=== PATIENT | male | born 1935 | race Caucasian/White ===

== ENCOUNTER 2019-07-03 12:56 | Outpatient (CLI) | payer OTHER, SELFPAY ==
--- NOTE | ~2019-07-03 | US_ITS ---
EXAMINATION: US thyroid EXAM DATE: 07/03/2019 13:25 INDICATION: Thyroid mass. TECHNIQUE: Multiple grayscale and Doppler images of the thyroid were obtained (by a technologist who performed the scan) and subsequently reviewed. Individual nodules and recommendations may be reporte d in accordance with TI-RADS system as designated by the 2017 ACR White Paper TI-RADS committee. Reena elation is made to CT pulmonary scan. FINDINGS: The right thyroid lobe measures 4.2 x 2.5 x 2.9 cm, the left measuring 4.3 x 1.5 x 1.4 cm. There are scattered thyroid nodules. Diffusely heterogeneous hypervascular thyroid echogenicity. The largest nodule is in the right thyroid lobe measuring 3.0 x 2.2 x 3.0 centimeters, solid (2 point s), hypoechoic (2 points), wider than tall, smooth margin, without echogenic foci, category TR4 for t his nodule. IMPRESSION: Right thyroid lobe nodule large enough to consider ultrasound-guided FNA. Reviewed, dictated and finalized at location A. IMPRESSION: Right thyroid lobe nodule large enough to consider ultrasound-guide d FNA.
== END 2019-07-03 12:57 | disposition home or self-care (01) ==
PROVIDERS: PCP Internal Medicine; Visit Provider Nurse Practitioner
DX: E07.89 Other specified disorders of thyroid (principal); E04.1 Nontoxic single thyroid nodule
CPT/HCPCS: 76536

== ENCOUNTER 2019-07-10 10:31 | Outpatient (CLI) | payer OTHER, SELFPAY ==
--- NOTE | ~2019-07-10 | US_ITS ---
EXAMINATION: US FNA w image guidance DATE: 07/10/2019 11:21 INDICATION: Right thyroid nodule TECHNIQUE: A time-out was performed to verify the patient's name, date of , and procedure to be performed . The procedure and its benefits and risks were discussed with the patient. Risks specifically discus sed included bleeding and infection. The patient understood the risks and agreed to proceed. The neck was prepped and draped in the usual sterile manner. 5 mL 1% lidocaine was used for local anesthesia . 6 passes were made with a 25G needle into the lesion. Appropriate needle location was documented with continuous sonographic guidance. The specimens were passed to the lead nuclear medicine technologist in the room. A sterile bandage was applied. There were no immediate complications. FINDINGS: Grayscale ultrasound images demonstrate biopsy needles advanced into a solid 2.5 x 1.8 x 2.7 cm right thyroid nodule with microcalcification seen on real-time imaging, TI RADS 5. IMPRESSION: 1. Successful ultrasound-guided fine needle aspiration of a 2.7 cm TI RADS 5 right thyroid nodule. Reviewed, dictated and finalized at location A. IMPRESSION: 1. Successful ultrasound-guided fine needle aspiration of a 2.7 cm TI RADS 5 r ight thyroid nodule.
== END 2019-07-10 10:32 | disposition home or self-care (01) ==
PROVIDERS: PCP Internal Medicine; Visit Provider Nurse Practitioner
DX: E04.1 Nontoxic single thyroid nodule (principal)
CPT/HCPCS: 10005; 88108; 88173; 88305

== ENCOUNTER 2019-07-23 11:20 | Outpatient (CLI) | payer OTHER, SELFPAY ==
[2019-07-23 12:10] LABS: Basophils Percent Auto 0.5 % (0.2-1.2); Eosinophils Absolute Auto 0.2 K/mm3 (0-0.3); Eosinophils Percent Auto 5.4 % (0-4.4); Hematocrit 39.8 % (42.0-52.0); Hemoglobin 13.4 g/dL (14.0-18.0); Immature Granulocyte Absolute 0.01 K/mm3 (0.00-0.031); Immature Granulocyte Percent A 0.3 % (0-0.5); Lymphocytes Absolute Auto 1.45 K/mm3 (0.9-3.2); Lymphocytes Percent Auto 37.4 % (18.3-44.2); Mean Corpuscular HGB Conc 33.7 g/dl (32-36); Mean Corpuscular Hemoglobin 31.8 pg (26-34); Mean Corpuscular Volume 94.5 fl (80-100); Mean Platelet Volume 9.7 fl (7.4-10.4); Monocytes Absolute Auto 0.4 K/mm3 (0.1-0.6); Monocytes Percent Auto 10.1 % (2.6-8.5); Neutrophils Absolute Auto 1.8 K/mm3 (1.3-6.7); Neutrophils Percent Auto 46.3 % (45.5-73.1); Platelet Count Result 157 k/mm3 (150-375); Red Blood Count 4.21 M/mm3 (4.6-6.20); Red Cell Distribution Width 14.7 % (11.5-14.5); White Blood Count 3.9 K/mm3 (4.5-10.0)
[2019-07-23 12:26] LABS: Alanine Aminotransferase 29 U/L (4-50); Albumin Level 3.5 g/dL (3.5-5.1); Alkaline Phosphatase 80 U/L (38-126); Aspartate Amino Transferase 37 U/L (17-59); Bilirubin,Total 0.8 mg/dL (0.2-1.3); Blood Urea Nitrogen 18 mg/dL (9-20); Calcium 8.9 mg/dL (8.4-10.2); Carbon Dioxide 26 mmol/L (22-30); Chloride 107 mmol/L (98-107); Estimated Glomerular Filt Rate > 60; Glucose 85 mg/dL (75-110); Potassium 4.6 mmol/L (3.4-5.0); Sodium 138 mmol/L (137-145)
== END 2019-07-23 11:21 | disposition home or self-care (01) ==
LOC: ANHLAB 11:23
PROVIDERS: PCP Internal Medicine; Visit Provider Internal Medicine
DX: R53.83 Other fatigue (principal)
CPT/HCPCS: 36415; 80053; 84443; 85025

== ENCOUNTER 2019-09-11 10:52 | Outpatient (CLI) | payer OTHER, SELFPAY ==
--- NOTE | ~2019-09-11 | XR_ITS ---
EXAMINATION: XR hip RT 2V w AP pelvis DATE: 09/11/2019 11:06 INDICATION: Right hip pain. TECHNIQUE: An anteroposterior view pelvis and 2 views of right hip were obtained. COMPARISON: CT abdomen and pelvis 06/30/2015 FINDINGS: There is lumbar dextrocurvature and severe spondylosis. No fracture. There is mild osteoart hritis of the hips. IMPRESSION: 1. Mild osteoarthritis of the hips. Reviewed, dictated and finalized at location A.
== END 2019-09-11 10:53 | disposition home or self-care (01) ==
PROVIDERS: PCP Internal Medicine; Visit Provider Nurse Practitioner
DX: M16.0 Bilateral primary osteoarthritis of hip (principal)
CPT/HCPCS: 73502

== ENCOUNTER 2020-07-27 09:33 | Outpatient (CLI) | payer OTHER, SELFPAY ==
--- NOTE | ~2020-07-27 | NM_ITS ---
EXAMINATION: NM deidra stress w perfusion EXAM DATE: 07/27/2020 12:06 INDICATION: CAD, involving tangirnaq coronary artery sob fatigue. TECHNIQUE: Rest images were obtained following intravenous administration of 9.8 mCi Tc99m tetrofosmi n (Myoview). The patient was infused intravenously with Lexiscan (regadenoson). Then, 32.3 mCi Tc99m tetrofosmin (Myoview) was administered intravenously, and stress images were obtained. Data was recon structed into short axis and horizontal and vertical long axis SPECT images. Gated SPECT images were also obtained. There is no prior study for comparison. FINDINGS: Large severe fixed perfusion defect consistent with infarction involving entire septal wall , most of the anterior wall, extending across the apex and inferolateral velasquez. No definite reversibi lity. There is decreased anteroseptal wall motion. End diastolic volume: 203 mL. End-systolic volume: 137 mL. Left ventricular ejection fraction: 33%. IMPRESSION: 1. Large severe LAD distribution centered infarction. 2. Dilated left ventricle with low ejection fraction 33%. Reviewed, dictated and finalized at location A.
--- NOTE | 2020-07-27 09:53 | EST_ITS ---
Patient Info Name: Blade Faulkner Winning Age: 84 years : 1935 Gender: Male Ht: 68 in Wt: 165 lbs BSA: 1.90 m2 Heart Rhythm: Sinus Rhythm Exam Date: 07/27/2020 10:42 AM Exam Location: [facility] Stress Patient Status: Outpatient Admit Date: 07/27/2020 Staff Ordering Physician: Crispin Saldana DO Attending Provider: Crispin Saldana DO Exercise Technologist: Juli Mendenhall CT Exercise Physician: Koffi Rivera MD Exam Type: CA stress deidra w NM Study Info A regadenoson stress test was performed. Summary 1. Sinus bradycardia. Anteroseptal CT, first-degree AV block. 2. No abnormal ST/T wave changes with Lexiscan compared to baseline. 3. Occasional stress-induced PVCs. 4. Please correlate with nuclear medicine images, reported separately. Protocol: Lexiscan Stress ECG Details Stage: REST Duration (min): 11 min : 53 sec HR (bpm): 54 SBP (mmHg): 139 DBP (mmHg): 73 Stage: STAGE 1 Duration (min): 1 min : 0 sec HR (bpm): 61 SBP (mmHg): 135 DBP (mmHg): 73 Stage: RECOVERY Duration (min): 1 min : 0 sec HR (bpm): 71 SBP (mmHg): 135 DBP (mmHg): 73 Stage: RECOVERY Duration (min): 2 min : 0 sec HR (bpm): 70 SBP (mmHg): 135 DBP (mmHg): 73 Stage: RECOVERY Duration (min): 3 min : 0 sec HR (bpm): 71 SBP (mmHg): 129 DBP (mmHg): 71 Stage: RECOVERY Duration (min): 4 min : 0 sec HR (bpm): 67 SBP (mmHg): 129 DBP (mmHg): 71 Stage: RECOVERY Duration (min): 4 min : 52 sec HR (bpm): 66 SBP (mmHg): 130 DBP (mmHg): 71 Rest HR: 54 bpm Peak HR: 77 bpm Rest Sys BP: 139 mmHg Peak Sys BP: 135 mmHg Max Pred HR: 136 bpm % Max Pred HR: 57 % Target HR: 116 bpm Max RPP: 10,395 bpm*mmHg BP Response: Normal blood pressure response Termination Reason: Completed protocol Cardiac Symptoms: None Total Time: 1 min : 0 sec Rest Arnold BP: 73 mmHg Peak Arnold BP: 73 mmHg Total Dose: 0.4 mg Resting ECG Sinus bradycardia. Anteroseptal CT, first-degree AV block. Stress ECG No abnormal ST/T wave changes with Lexiscan compared to baseline. Arrhythmias Occasional stress-induced PVCs. Report Signatures
== END 2020-07-27 09:34 | disposition home or self-care (01) ==
PROVIDERS: PCP Internal Medicine; Visit Provider Internal Medicine
DX: I25.10 Atherosclerotic heart disease of native coronary artery without angina pectoris (principal)
CPT/HCPCS: 78452; 93017; A9502; J2785

== ENCOUNTER 2021-07-14 14:39 | Outpatient (CLI) | payer OTHER, SELFPAY ==
--- NOTE | ~2021-07-14 | US_ITS ---
US thyroid INDICATION: History of benign follicular nodule identified by fine-needle aspiration biopsy. TECHNIQUE: Real-time sonographic images of the thyroid gland were obtained. COMPARISON: Ultrasound dated 07/03/2019 FINDINGS: The right thyroid lobe measures 4.3 x 2.8 x 2.7 cm. There are multiple nodules in the right lobe, largest measuring 2.9 x 2 x 2.1 cm compared with 3 x 2.2 x 3 cm on prior examination. Left lob e measures 4.5 x 1.3 x 1.7 cm. There are multiple nodules of the left lobe, largest measuring 1.6 x 1 x 0.8 cm which has increased in size compared with prior examination when it measured 11 x 10 x 7 mm . There is internal vascularity. This mass is solid, predominantly hypoechoic, wider than tall, lobul ated with macrocalcifications, TR 5. IMPRESSION: 1. Increased size of complex hypoechoic left thyroid mass measuring up to 1.6 cm which may criteria for ultrasound-guided fine-needle aspiration biopsy. 2: Diminished size of dominant right thyroid mass compared with prior examination. This was previous ly biopsy proven benign. Reviewed, dictated and finalized at location A. IMPRESSION: 1. Increased size of complex hypoechoic left thyroid mass measuring up to 1.6 cm which may criteria for ultrasound-guided fine-needle aspiration biopsy. 2: Diminished size of dominant right thyroid mass compared with prior examinat ion. This was previously biopsy proven benign.
== END 2021-07-14 14:40 | disposition home or self-care (01) ==
PROVIDERS: PCP Internal Medicine; Visit Provider Nurse Practitioner
DX: E07.89 Other specified disorders of thyroid (principal); E04.1 Nontoxic single thyroid nodule
CPT/HCPCS: 76536

== ENCOUNTER 2021-08-01 10:22 | Outpatient (CLI) | payer OTHER, SELFPAY ==
--- NOTE | ~2021-08-01 | US_ITS ---
EXAMINATION: US FNA w image guidance DATE: 08/01/2021 11:39 INDICATION: Other specified disorders of thyroid. Enlarging left thyroid mass. TECHNIQUE: A time-out was performed to verify the patient's name, date of , and procedure to be performed . The procedure and its benefits and risks were discussed with the patient. Risks specifically discus sed included bleeding and infection. The patient understood the risks and agreed to proceed. The neck was prepped and draped in the usual sterile manner. 3 mL 1% lidocaine was used for local anesthesia . 6 passes were made with a 25G needle into the lesion. Appropriate needle location was documented with continuous sonographic guidance. A sterile bandage was applied. There were no immediate compli cations. FINDINGS: Grayscale ultrasound images demonstrate biopsy needles advanced into a 1.6 cm solid left thyroid mass of concern with central coarse calcification. IMPRESSION: 1. Successful ultrasound-guided fine needle aspiration of the 1.6 cm solid left thyroid mass of conc clarice. Reviewed, dictated and finalized at location A. IMPRESSION: 1. Successful ultrasound-guided fine needle aspiration of the 1.6 cm solid lef t thyroid mass of concern.
== END 2021-08-01 10:23 | disposition home or self-care (01) ==
PROVIDERS: PCP Internal Medicine; Visit Provider Nurse Practitioner
DX: E07.89 Other specified disorders of thyroid (principal)
CPT/HCPCS: 10005; 88173; 88305

== ENCOUNTER 2021-10-20 14:08 | Inpatient (IN) | payer OTHER, SELFPAY ==
[2021-10-20] VITALS (29 sets, daily range): BP systolic 97–145; BP diastolic 69–97; PULSE 88–127; RESP 16–31; TEMP 36.5–36.7; O2SAT 85–100; BMI 25.0
--- NOTE | ~2021-10-20 | CT_ITS ---
EXAMINATION: CTA chest PE protocol DATE: 10/20/2021 16:52 INDICATION: Elevated d-dimer. Cough and shortness of breath for 3 weeks. TECHNIQUE: Computed tomography angiography (CTA) of the chest was performed with 100 mL Omnipaque-350 intravenous contrast timed to evaluate the pulmonary arteries. Coronal maximum intensity projection 3D-reconstructions were created by the technologist. Automated exposure control and iterative reconst ruction technique were employed. Exam dose: 257.13 mGy-cm total exam DLP. COMPARISON: 10/20/2021 PA and lateral chest FINDINGS: There is diagnostic contrast enhancement of the pulmonary arteries. There is evidence of ex tensive filling defects in the right lower lobe basilar segmental arteries, with prominent right basi lar lower lobe infiltrate and atelectasis. There is lesser mild left lower lobe basilar atelectasis. Mild to moderate bilateral pleural effusions, greater on the right. Mild pericardial effusion. Cardiomegaly. Coronary artery calcifications. The ascending aorta measures approximately 4.2 cm diameter, the aortic arch 3 cm diameter, descending thoracic aorta approximately 2.8 cm diameter. Approximately 12 by 18 mm hypoattenuating lesion of the right lobe of the thyroid gland; consider thy roid ultrasound examination for further evaluation as clinically appropriate. Mild bilateral hilar and mediastinal lymph node prominence, likely reactive. Moderate anterior wedge compression fracture deformity of T7. Prominent burst fracture of T12. Diffuse osteopenia. IMPRESSION: Right lower lobe basilar segment pulmonary emboli Mild pericardial effusion Cardiomegaly Bilateral pleural effusions, right greater than left Bilateral lower lobe infiltrate or atelectasis, right greater than left Prominent burst fracture of T12 Moderate anterior wedge compression fracture deformity of T7 Osteopenia Right thyroid mass; consider thyroid ultrasound examination Reviewed, dictated and finalized at Location A. Reviewed, dictated and finalized at location B.
--- NOTE | ~2021-10-20 | XR_ITS ---
XR chest 2V DATE: 10/20/2021 16:00 INDICATION: Cough and shortness of breath for 2 weeks. Low oxygen saturation. TECHNIQUE: PA and lateral views COMPARISON: 08/10/2018 AP and lateral chest FINDINGS: Mild cardiomegaly. Aortic calcification and unfolding. There are bilateral basilar infiltrates and/atelectasis, right greater than left. Small pleural effus ions are suggested. Pulmonary vascular redistribution is suggested. Mild congestive heart failure paige uld be considered. No pneumothorax. Osteopenia. IMPRESSION: Bibasilar infiltrate or atelectasis, right greater than left Cardiomegaly, pulmonary vascular redistribution and small pleural effusions, suggesting mild congesti ve heart failure Reviewed, dictated and finalized at location B. IMPRESSION: Bibasilar infiltrate or atelectasis, right greater than left Cardiomegaly, pulmonary vascular redistribution and small pleural effusions, webb ggesting mild congestive heart failure
--- NOTE | ~2021-10-20 | US_ITS ---
EXAMINATION: US venous doppler [facility] DATE: 10/21/2021 09:54 INDICATION: Acute pulmonary emboli. TECHNIQUE: Grayscale ultrasound images without and with compression and Doppler ultrasound images of the bilateral lower extremity veins were obtained. COMPARISON: None. FINDINGS: The visualized portions of right common femoral vein, profunda (deep) femoral vein, femoral vein, pop liteal vein, peroneal veins, posterior tibial veins, and greater saphenous vein outflow are patent. The visualized portions of left common femoral vein, profunda femoral vein, femoral vein, popliteal v ein, peroneal veins, posterior tibial veins, and greater saphenous vein outflow are patent. IMPRESSION: 1. No deep venous thrombosis. Reviewed, dictated and finalized at location A.
--- NOTE | 2021-10-20 15:20 | ECG_ITS ---
Measurements Intervals [place] Rate: 104 P: RI: 0 QRS: -49 QRSD: 149 T: 118 QT: 390 QTc: 515 Interpretive Statements ATRIAL FIBRILLATION WITH RAPID VENTRICULAR RESPONSE VENTRICULAR PREMATURE COMPLEX LEFT AXIS DEVIATION INTRAVENTRICULAR CONDUCTION DELAY ST-T WAVE ABNORMALITY IN HIGH LATERAL LEADS- CONSIDER ISCHEMIA BASELINE WANDER- V6 ABNORMAL ECG COMPARED TO ECG 08/12/2018 12:23:07 ATRIAL FIBRILLATION NOW PRESENT Electronically Signed On 10-20-2021 20:37:32 CDT by Eddi Alcala D.O.
--- NOTE | 2021-10-20 15:32 | ED.GENADULT ---
HPI - General Adult General Chief complaint: Shortness of Breath/Dyspnea Stated complaint: SOB, low sats Time Seen by Provider: 10/20/21 15:18 History of Present Illness HPI narrative: 86-year-old male with history of poor presented to the emergency department for evaluation of productive cough and shortness of breath over a 3-week period. Patient states approximately 3 weeks ago he had a pretty intense cough and has had subsequent intermittent cough and shortness of breath. Patient has not tested himself for COVID. Patient denies any fevers. Patient denies any associated chest pain. Patient is not a smoker. Patient does take Lasix daily Patient is on Xarelto and amiodarone for his atrial fibrillation already. Related Data Home Medications Medication Instructions Recorded Confirmed amiodarone 200 mg tablet 100 mg PO DAILY 02/24/19 10/20/21 atorvastatin 40 mg tablet 40 mg PO DAILY 02/24/19 10/20/21 finasteride 5 mg tablet 5 mg PO DAILY 02/24/19 10/20/21 rivaroxaban 20 mg tablet (Xarelto) 20 mg PO QPM 02/24/19 10/20/21 sacubitril 24 mg-valsartan 26 mg 1 tablet PO BID 02/24/19 10/20/21 tablet (Entresto) aspirin 81 mg tablet,delayed 81 mg PO DAILY 06/18/19 10/20/21 release furosemide 20 mg tablet 20 mg PO DAILY 10/20/21 10/20/21 multivitamin with minerals-folic 1 tablet PO DAILY 10/20/21 10/20/21 acid 0.4 mg tablet Allergies Allergy/AdvReac Type Severity Reaction Status Date / Time No Known Allergies Allergy Verified 10/20/21 15:21 Review of Systems Review of Systems: CONSTITUTIONAL: Denies fever, chills, or sweats. EYES: Denies visual changes, redness, or discharge. ENT: Denies rhinorrhea, congestion, sore throat, or otalgia. CARDIOVASCULAR: Denies chest pain, palpitations, or edema. RESPIRATORY: Cough and shortness of breath over 3-week period, see HPI GASTROINTESTINAL: Denies abdominal pain, nausea, vomiting, or diarrhea. GENITOURINARY: Denies dysuria or hematuria. SKIN: Denies rash or itching. MUSCULOSKELETAL: Denies back pain, joint pain, or myalgia. NEUROLOGIC: Denies headache, numbness, or weakness. 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 Coronary artery disease involving [place] coronary artery of [place] heart History of [place] (myocardial infarction) Macular degeneration Persistent atrial fibrillation Thyroid mass of unclear etiology Surgical History Surgical History History of tonsillectomy S/P extracapsular cataract extraction Family History Family History Mother Family history of respiratory disorder, Onset Age: 78 Family history of Alzheimer's disease Patient's mother is Father Patient's father is Acute myocardial infarction Social History Social History (Updated 10/20/21 @ 20:20 by Willow Cordova NP) 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 HEAD: normocephalic, atraumatic. EYES: PERRLA/EOMI, conjunctivae clear. NOSE: Normal no drainage THROAT: Pharynx clear, no exudate. NECK: Supple. No adenopathy, no masses. RESPIRATORY: Airway patent, respirations nonlabored. Clear to auscultation bilaterally, no rales, rhonchi, wheezing. CARDIOVASCULAR: Regular rate and rhythm without murmurs rubs or gallops. ABDOMINAL: Soft, nontender, nondistended, normal bowel sounds MUSCULOSKELETAL: Moves all extremities. Strength/ROM intact, +2 edema, No calf tenderness. NEURO: Alert. Cranial nerves II through XII intact.
[2021-10-20 15:41] LABS: Alveolar/Arterial O2 Gradient 38.7 mmHg; Base Excess ABG -2.2 mEq/l (+/-2.0); Fractional Inspired Oxygen 21 %; HCO3 ABG 20.3 mEq/l (22.0-26.0); Oxygen Content ABG 17.1 %vol (16.0-22.0); Oxygen Saturation ABG 96.3 % (95.0-100.0); Oxyhemoglobin 94.5 % THb (90.0-100.0); PCO2 ABG 28.6 mmHg (35.0-45.0); PO2 ABG 76.8 mmHg (80.0-100.0); PO2 FiO2 Ratio Arterial Blood 3.66 %; Total Hemoglobin 12.8 g/dL (12.0-18.0)
[2021-10-20 15:42] LABS: Modified Allen's Test Pass; Site Drawn LEFT RADIAL
[2021-10-20 15:43] LABS: Basophils Percent Auto 0.5 % (0.2-1.2); Eosinophils Absolute Auto 0.1 K/mm3 (0-0.3); Eosinophils Percent Auto 2.4 % (0-4.4); Hematocrit 37.9 % (42.0-52.0); Hemoglobin 12.6 g/dL (14.0-18.0); Immature Granulocyte Absolute 0.01 K/mm3 (0.00-0.031); Immature Granulocyte Percent A 0.2 % (0-0.5); Lymphocytes Absolute Auto 1.19 K/mm3 (0.9-3.2); Lymphocytes Percent Auto 28.3 % (18.3-44.2); Mean Corpuscular HGB Conc 33.2 g/dl (32-36); Mean Corpuscular Hemoglobin 31.7 pg (26-34); Mean Corpuscular Volume 95.2 fl (80-100); Mean Platelet Volume 9.4 fl (7.4-10.4); Monocytes Absolute Auto 0.4 K/mm3 (0.1-0.6); Monocytes Percent Auto 10.2 % (2.6-8.5); Neutrophils Absolute Auto 2.5 K/mm3 (1.3-6.7); Neutrophils Percent Auto 58.4 % (45.5-73.1); Platelet Count Result 194 k/mm3 (150-375); Red Blood Count 3.98 M/mm3 (4.6-6.20); Red Cell Distribution Width 15.4 % (11.5-14.5); White Blood Count 4.2 K/mm3 (4.5-10.0)
[2021-10-20 15:52] LABS: Alanine Aminotransferase 31 U/L (6-50); Albumin Level 3.5 g/dL (3.5-5.1); Alkaline Phosphatase 80 U/L (38-126); Anion Gap 5 mmol/L (8-16); Aspartate Amino Transferase 45 U/L (17-59); Bilirubin,Total 1.2 mg/dL (0.2-1.3); Blood Urea Nitrogen 16 mg/dL (9-20); Calcium 8.9 mg/dL (8.4-10.2); Carbon Dioxide 23 mmol/L (22-30); Chloride 108 mmol/L (98-107); Estimated CRCL calculation 48 ml/min; Estimated Glomerular Filt Rate > 60; Glucose 84 mg/dL (65-110); Potassium 3.9 mmol/L (3.4-5.0); Sodium 136 mmol/L (137-145)
[2021-10-20 16:01] LABS: NT Pro B Type Natriuretic Pept 4370 pg/mL (5-100)
[2021-10-20 16:23] LABS: SARS-CoV-2 RNA PCR Negative
[2021-10-20 16:34] LABS: D Dimer 1.68 ug/mL (<0.48)
[2021-10-20] MEDS: ENOXAPARIN 80 MG/0.8 ML SYRINGE 75 MG SUB-Q (17:56)
[2021-10-20] MEDS: FUROSEMIDE INJ 40 MG/4 ML VIAL (17:57)
--- NOTE | 2021-10-20 21:28 | ADMGEN ---
This patient, Blade Lacy, was admitted to IMU Room 232-01 at 2120. Patient/family oriented to hospital policies and general routines including ID bracelet, bed and alarms, visiting hours, pain management, procedures, bathroom and other care routines, personal items, smoking policy, room service/diet, and visiting hours. Information on how to activate the Rapid Response Team has been discussed. Patient/Family are encouraged to report perceived risks to care and to ask questions if they do not understand what they are told or what they should do.
--- NOTE | 2021-10-20 22:55 | PM.IMHP ---
H&P: HPI History of Present Illness Date/Time: 10/20/211999 Chief Complaint: Shortness of breath and low O2 saturation Narrative: This is a 86-year-old male patient who lives with his . He came in due to productive cough and shortness breath over the last 3 weeks. The patient stated that he did have a COVID test was found to be negative. The patient stated that this started approximately 3 weeks ago and the coughing has been more intense he has been intermittently short of breath. He has a history of atrial fibrillation and has been on Xarelto. The patient was found to be negative for COVID today. Chest x-ray was read as a following Bibasilar infiltrate or atelectasis, right greater than left Cardiomegaly, pulmonary vascular redistribution and small pleural effusions, suggesting mild congestive heart failure. CTA was read as the followingRight lower lobe basilar segment pulmonary emboli Mild pericardial effusion Cardiomegaly Bilateral pleural effusions, right greater than left Bilateral lower lobe infiltrate or atelectasis, right greater than left Prominent burst fracture of T12 Moderate anterior wedge compression fracture deformity of T7 Osteopenia Right thyroid mass; consider thyroid ultrasound examination (The patient has already had a thyroid ultrasound and a needle biopsy on 08/01/2021 which was found to be benign.) His heart rate was found to be in the lower 100s. The patient stated that he has not taken any of his medications as of yet today. The patient has a pulse ox of 85 and 2 L was applied and brought his oxygen level up to 97%. The patient was given a dose of IV Lasix and subcu Lovenox in the emergency room. Patient's H&H is 12.6 and 37.9. D-dimer was found to be 1.68. D-dimer 4370. is being admitted to observation status on the date of service 10/20/2021. Review of Systems Review of Systems: See HPI All systems reviewed & are unremarkable except as noted in HPI and below Constitutional: Constitutional: Reports as per HPI and Reports no additional constitutional complaints Eyes: Eyes: Reports as per HPI and Reports no additional eye complaints ENT: Reports system reviewed and no additional complaints, except as documented and Reports Normal hearing present Cardiovascular: Cardiovascular: Reports no additional cardiovascular complaints Respiratory: Respiratory: Reports no additional respiratory complaints and Reports no additional respiratory complaints Gastrointestinal: Gastrointestinal: Reports as per HPI and Reports no additional gastrointestinal complaints Musculoskeletal: Musculoskeletal: Reports no additional musculoskeletal complaints Integumentary/Breasts: Skin/Breast: Reports system reviewed and no additional complaints, except as docu and Reports as per HPI Neurologic: Reports system reviewed and no additional complaints, except as documented, Reports as per HPI and Reports Normal hearing present Psychiatric: Psychiatric: Reports no additional psychiatric complaints and Reports as per HPI Endocrine: Endocrine: Reports no additional endocrine complaints Hematologic/Lymphatic: Hematologic/Lymphatic: Reports no additional hematologic/lymphatic complaints Allergic/Immunologic: Allergic/Immunologic: Reports no additional allergic/immunologic complaints [facility] Past Medical History Medical History (Updated 10/20/21 @ 23:10 by Willow Cordova NP) Atrial fibrillation BPH w/o urinary obs/LUTS Cerebrovascular accident (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
[2021-10-20] MEDS: carvediloL 12.5 MG TABLET PO (23:54)
[2021-10-20] MEDS: SACUBITRIL/VALSARTAN 24-26 MG TABLET 1 TAB PO (23:54)
[2021-10-21] VITALS (19 sets, daily range): BP systolic 114–127; BP diastolic 64–83; PULSE 68–123; RESP 14–20; TEMP 36.3–37.2; O2SAT 95–99
--- NOTE | 2021-10-21 | ECHO_ITS ---
Patient Info Name: Blade Faulkner Winning Age: 86 years : 1935 Gender: Male Ht: 67 in Wt: 159 lbs BSA: 1.86 m2 HR: 79 bpm BP: 117 / 71 mmHg Heart Rhythm: Atrial Fibrillation Technical Quality: Fair Exam Date: 10/21/2021 7:42 AM Exam Location: [facility] Patient Status: Inpatient Admit Date: 10/20/2021 Staff Ordering Physician: Willow Cordova NP Metal Fitter: Lyndsey Lozano RDCS Attending Provider: Taryn Woods DO Referring Physician: Art HANCOCK; Exam Type: CA echo dop color flow w con Study Info Indications J81.0 - Acute pulmonary edema Complete two-dimensional, color flow and Doppler transthoracic echocardiogram is performed with contrast to opacify the left ventricle and to improve the deliniation of the left ventricle endocardial borders. Contrast/Agitated Saline Contrast/Ag. Saline: Definity Amount: 3.00 ml Administered By: Lyndsey Lozano RDCS Existing IV Access: Yes IV Access Condition: patent with no signs of infiltration Summary 1. Left ventricular chamber dimension is severely enlarged. 2. Definity contrast administered improved wall motion interpretation. 3. Left ventricular septal wall motion is abnormal with septal motion related to bundle branch block. 4. Left ventricular systolic function is globally severely reduced, estimated at 30-35%. 5. The left ventricular diastolic function is grade III diastolic dysfunction. 6. E/e' 14 is mildly elevated. 7. Right ventricular systolic function is reduced based on abnormal TAPSE 1.4 cm. 8. Left atrial chamber dimension is moderately enlarged. 9. There is moderate aortic valve sclerosis. 10. There is mild aortic valve regurgitation. 11. No pulmonary hypertension, estimated pulmonary arterial systolic pressure is 30 mmHg. 12. There is trace pulmonic regurgitation. Left Ventricle E/e' 14 is mildly elevated. Left ventricular systolic function is globally severely reduced, estimated at 30-35%. Definity contrast administered improved wall motion interpretation. Left ventricular chamber dimension is severely enlarged. Left ventricular septal wall motion is abnormal with septal motion related to bundle branch block. The left ventricular diastolic function is grade III diastolic dysfunction. Right Ventricle Right ventricular systolic function is reduced based on abnormal TAPSE 1.4 cm. Right ventricular chamber dimension is not well visualized. Left Atria Left atrial chamber dimension is moderately enlarged. Right Atria Right atrial chamber dimension is normal. Aortic Valve The aortic valve is trileaflet. There is moderate aortic valve sclerosis. There is no aortic valve stenosis. There is mild aortic valve regurgitation. Pulmonic Valve There is trace pulmonic regurgitation. Mitral Valve There is no mitral valve stenosis. There is no mitral valve regurgitation. Tricuspid Valve There is no tricuspid valve regurgitation. No pulmonary hypertension, estimated pulmonary arterial systolic pressure is 30 mmHg. Pericardium/Pleural There is no pericardial effusion. Inferior Vena Cava Normal inferior vena cava with >50% collapse upon inspiration consistent with normal right atrial pressure, 5 mmHg. Aorta The aortic root size at the sinus of Valsalva is normal. Left Ventricular Outflow Tract Name V
[2021-10-21] MEDS: AMIODARONE HCL 100 MG TABLET PO ×2 (00:02→08:37)
[2021-10-21 00:28] LABS: Appearance Urine Clear (Clear); Bilirubin Urine Negative (Negative); Blood Urine 2+ (Negative); Color Urine Yellow (Yellow); Glucose Urine UA Negative (Negative); Ketones Urine Negative (Negative); Leukocyte Esterase Ur Negative LEU/UL (Negative); Nitrate Urine Negative (Negative); Protein Urine Negative (Negative)
[2021-10-21 00:36] LABS: RBC Urine >75 /hpf (0-2); WBC Urine 0-3 /hpf
[2021-10-21 00:42] LABS: Add Urine Microscopic? YES
[2021-10-21 05:03] LABS: Basophils Percent Auto 0.6 % (0.2-1.2); Eosinophils Absolute Auto 0.1 K/mm3 (0-0.3); Eosinophils Percent Auto 2.2 % (0-4.4); Hematocrit 35.7 % (42.0-52.0); Hemoglobin 12.1 g/dL (14.0-18.0); Lymphocytes Absolute Auto 1.33 K/mm3 (0.9-3.2); Lymphocytes Percent Auto 36.7 % (18.3-44.2); Mean Corpuscular HGB Conc 33.9 g/dl (32-36); Mean Corpuscular Hemoglobin 32.2 pg (26-34); Mean Corpuscular Volume 94.9 fl (80-100); Mean Platelet Volume 9.3 fl (7.4-10.4); Monocytes Absolute Auto 0.4 K/mm3 (0.1-0.6); Monocytes Percent Auto 11.3 % (2.6-8.5); Neutrophils Absolute Auto 1.8 K/mm3 (1.3-6.7); Neutrophils Percent Auto 49.2 % (45.5-73.1); Platelet Count Result 170 k/mm3 (150-375); Red Blood Count 3.76 M/mm3 (4.6-6.20); Red Cell Distribution Width 15.4 % (11.5-14.5); White Blood Count 3.6 K/mm3 (4.5-10.0)
[2021-10-21 05:14] LABS: Lactic Acid Reflex 0.7 mmol/L (0.7-2.0)
[2021-10-21 05:23] LABS: Alanine Aminotransferase 29 U/L (6-50); Albumin Level 3.1 g/dL (3.5-5.1); Alkaline Phosphatase 73 U/L (38-126); Anion Gap 2 mmol/L (8-16); Aspartate Amino Transferase 40 U/L (17-59); Blood Urea Nitrogen 15 mg/dL (9-20); Calcium 8.6 mg/dL (8.4-10.2); Carbon Dioxide 25 mmol/L (22-30); Chloride 107 mmol/L (98-107); Creatine Kinase 100 U/L (55-170); Estimated CRCL calculation 48 ml/min; Estimated Glomerular Filt Rate > 60; Glucose 82 mg/dL (65-110); Potassium 3.4 mmol/L (3.4-5.0); Sodium 134 mmol/L (137-145)
[2021-10-21 05:36] LABS: Lactate Dehydrogenase 168 U/L (120-246)
[2021-10-21] MEDS: ENOXAPARIN 80 MG/0.8 ML SYRINGE 75 MG SUB-Q (06:11)
--- NOTE | 2021-10-21 07:56 | PM.IMPN ---
Progress Note: A&P Assessment and Plan (1) Pulmonary embolism: Code(s): I26.99 - Other pulmonary embolism without acute cor pulmonale Status: Acute Assessment and Plan: Discontinue Xarelto and Lovenox, start Eliquis (2) Atrial fibrillation: Qualifiers: Atrial fibrillation type: paroxysmal Qualified Code(s): I48.0 - Paroxysmal atrial fibrillation Code(s): I48.91 - Unspecified atrial fibrillation Status: Acute Assessment and Plan: Continue Coreg, Eliquis, amiodarone, TSH within normal limits (3) Cerebrovascular accident (CVA) due to occlusion of right anterior cerebral artery: Code(s): I63.521 - Cerebral infarction due to unspecified occlusion or stenosis of right anterior cerebral artery Status: Acute Assessment and Plan: -continue with aspirin (4) History of [place] (myocardial infarction): Code(s): I25.2 - Old myocardial infarction Status: Acute Assessment and Plan: -continue with aspirin -continue with Coreg -continue with Lipitor (5) Macular degeneration: Code(s): H35.30 - Unspecified macular degeneration Status: Acute Assessment and Plan: -continue with home treatment. (6) Thyroid mass of unclear etiology: Code(s): E07.89 - Other specified disorders of thyroid Status: Acute Assessment and Plan: -the patient has already had a biopsy which was determined to be benign. (7) HTN, goal below 130/80: Code(s): I10 - Essential (primary) hypertension Status: Acute Assessment and Plan: -continue with amiodarone -continue with Coreg (8) Congestive heart failure: Code(s): I50.9 - Heart failure, unspecified Status: Acute Assessment and Plan: Echo from October 21, 2021 showed an EF of 30-35% with grade 3 diastolic dysfunction as well as reduced right ventricular systolic function Plan DVT prophylaxis with Eliquis GI prophylaxis not indicated Code status full code Subjective Date/time seen: 10/21/21 07:56 Interval history: Patient complaining of a dry cough. No overnight events noted. No chest pain or shortness of breath. No nausea, vomiting or diarrhea. No fevers or chills. Review of Systems Review of Systems: 12 point review of systems was assessed and was negative except as noted in the HPI Exam Narrative: General: No acute distress, alert and oriented per baseline HEENT: Atraumatic, normocephalic, mucous membranes moist CV: Irregularly irregular, S1, S2 Lungs: Clear to auscultation bilaterally, no rales or crackles noted, no wheezes, good air entry Abdomen: Soft, nontender, nondistended Extremities: Normal to inspection Skin: No rashes noted, no lesions or wounds seen Psych: Euthymic, normal affect Objective Data Vital Signs Vital Signs: Vital Signs - 24 hr 10/20/21 14:25 10/20/21 14:29 10/20/21 15:18 Temperature 98.1 F Pulse Rate 112 H 106 H Respiratory Rate 16 24 H Blood Pressure 128/77 133/97 H Pulse Oximetry 85 L 100 96 Oxygen Delivery Room Air Nasal Cannula Room Air Oxygen Flow Rate 2 10/20/21 15:26 10/20/21 15:18 10/20/21 15:19 Temperature Pulse Rate 114 H Respiratory Rate Blood Pressure 133/97 H Pulse Oximetry 100 Oxygen Delivery Oxygen Flow Rate 10/20/21 15:35 10/20/21 15:45 10/20/21 15:46 Temperature Pulse Rate 101 H 95 99 Respiratory Rate 22 H 19 17 Blood Pressure 142/87 H Pulse Oximetry 98 94 94 Oxygen Delivery Oxygen Flow Rate 10/20/21 16:01 10/20/21 16:21 10/20/21 16:30 Temperature Pulse Rate 117 H 105 H 88 Respiratory Rate 29 H 21 H 29 H Blood Pressure Pulse Oximetry 92 98 Oxygen Delivery Oxygen Flow Rate 10/20/21 16:56 10/20/21 17:05 10/20/21 17:15 Temperature Pulse Rate 122 H 98 97 Respiratory Rate 28 H 23 H 29 H Blood Pressure Pulse Oximetry 93 99 97 Oxygen Delivery Oxygen Flow Rate 10/20/21 17:16 10/20/21
[2021-10-21] MEDS: PERFLUTREN LIPID MICROSPHERES 1.5 ML VIAL DILUTED TO 10 ML TOTAL VOLUME IV PUSH (08:20)
--- NOTE | 2021-10-21 08:20 | IVDEFINITY ---
Prior to administration of IV Definity the patient was educated on the risks and benefits of the imaging enhancing agent including potential adverse side effects. The patient verbalized understanding. Allergies were verified. No exclusion criteria were identified and at least one of the following inclusion criteria were met: 1) physician request, 2) patient technically difficult to image (per the [place] [employer] guidelines of two or more segments not discernable within the apical view), or 3) questionable left ventricular function. ?
[2021-10-21] MEDS: FINASTERIDE 5 MG TABLET PO (08:37)
[2021-10-21] MEDS: carvediloL 12.5 MG TABLET PO ×2 (08:37→20:26)
[2021-10-21] MEDS: ATORVASTATIN 40 MG TABLET PO (08:37)
[2021-10-21] MEDS: SACUBITRIL/VALSARTAN 24-26 MG TABLET 1 TAB PO ×2 (08:37→20:26)
[2021-10-21] MEDS: THERAPEUTIC MULTIVITAMINS/MINERALS TAB (*BKC) 1 TABLET PO (08:38)
[2021-10-21] MEDS: FUROSEMIDE INJ 40 MG/4 ML VIAL IV PUSH ×2 (08:38→20:27)
[2021-10-21] MEDS: ASPIRIN 81 MG ENTERIC TABLET PO (08:38)
--- NOTE | 2021-10-21 15:14 | PC.NURSE ---
[facility] Services flyer was given to patient.
[2021-10-21] MEDS: BENZONATATE 100 MG CAPSULE 200 MG PO (17:20)
[2021-10-21 18:50] LABS: Anion Gap 5 mmol/L (8-16); Blood Urea Nitrogen 21 mg/dL (9-20); Carbon Dioxide 26 mmol/L (22-30); Chloride 106 mmol/L (98-107); Estimated CRCL calculation 48 ml/min; Estimated Glomerular Filt Rate > 60; Glucose 116 mg/dL (65-110); Phosphorus 3.4 mg/dL (2.5-4.5); Potassium 3.4 mmol/L (3.4-5.0); Sodium 137 mmol/L (137-145)
[2021-10-21] MEDS: APIXABAN 5 MG TABLET PO (20:26)
[2021-10-22] VITALS (11 sets, daily range): BP systolic 97–125; BP diastolic 59–86; PULSE 43–91; RESP 18–20; TEMP 35.7–36.6; O2SAT 94–97
[2021-10-22] MEDS: SACUBITRIL/VALSARTAN 24-26 MG TABLET 1 TAB PO (08:26)
[2021-10-22] MEDS: THERAPEUTIC MULTIVITAMINS/MINERALS TAB (*BKC) 1 TABLET PO (08:26)
[2021-10-22] MEDS: FINASTERIDE 5 MG TABLET PO (08:27)
[2021-10-22] MEDS: BENZONATATE 100 MG CAPSULE 200 MG PO ×2 (08:28→13:56)
[2021-10-22] MEDS: carvediloL 12.5 MG TABLET PO (08:28)
[2021-10-22] MEDS: ASPIRIN 81 MG ENTERIC TABLET PO (08:29)
[2021-10-22] MEDS: AMIODARONE HCL 100 MG TABLET PO (08:29)
[2021-10-22] MEDS: ATORVASTATIN 40 MG TABLET PO (08:29)
[2021-10-22] MEDS: APIXABAN 5 MG TABLET PO (08:29)
[2021-10-22] MEDS: FUROSEMIDE 20 MG TABLET PO (08:31)
--- NOTE | 2021-10-22 17:47 | PM.DS ---
DS: Admitting Diagnosis Discharge Date 10/22/21 Admitting Diagnosis Shortness of breath with cough DS: Discharge Diagnosis Discharge Diagnosis (1) Pulmonary embolism: Code(s): I26.99 - Other pulmonary embolism without acute cor pulmonale Status: Acute Assessment and Plan: Discontinue Xarelto and Lovenox, start Eliquis (2) Atrial fibrillation: Qualifiers: Atrial fibrillation type: paroxysmal Qualified Code(s): I48.0 - Paroxysmal atrial fibrillation Code(s): I48.91 - Unspecified atrial fibrillation Status: Acute Assessment and Plan: Continue Coreg, Eliquis, amiodarone, TSH within normal limits (3) Cerebrovascular accident (CVA) due to occlusion of right anterior cerebral artery: Code(s): I63.521 - Cerebral infarction due to unspecified occlusion or stenosis of right anterior cerebral artery Status: Acute Assessment and Plan: -continue with aspirin (4) History of [place] (myocardial infarction): Code(s): I25.2 - Old myocardial infarction Status: Acute Assessment and Plan: -continue with aspirin -continue with Coreg -continue with Lipitor (5) Macular degeneration: Code(s): H35.30 - Unspecified macular degeneration Status: Acute Assessment and Plan: -continue with home treatment. (6) Thyroid mass of unclear etiology: Code(s): E07.89 - Other specified disorders of thyroid Status: Acute Assessment and Plan: -the patient has already had a biopsy which was determined to be benign. (7) HTN, goal below 130/80: Code(s): I10 - Essential (primary) hypertension Status: Acute Assessment and Plan: -continue with amiodarone -continue with Coreg (8) Congestive heart failure: Code(s): I50.9 - Heart failure, unspecified Status: Acute Assessment and Plan: Echo from October 21, 2021 showed an EF of 30-35% with grade 3 diastolic dysfunction as well as reduced right ventricular systolic function Plan DVT prophylaxis with Eliquis GI prophylaxis not indicated Code status full code DS: Summary Hospital Course Hospital Course: 86-year-old male patient who lives with his .? He came in due to productive cough and shortness breath over the last 3 weeks.? The patient stated that he did have a COVID test was found to be negative.? The patient stated that this started approximately 3 weeks ago and the coughing has been more intense he has been intermittently short of breath.? He has a history of atrial fibrillation and has been on Xarelto.? The patient was found to be negative for COVID today. Echo was ordered: ? 1. Left ventricular chamber dimension is severely enlarged. ? 2. Definity contrast administered improved wall motion interpretation. ? 3. Left ventricular septal wall motion is abnormal with septal motion related to bundle branch block. ? 4. Left ventricular systolic function is globally severely reduced, estimated at 30-35%. ? 5. The left ventricular diastolic function is grade III diastolic dysfunction. ? 6. E/e' 14 is mildly elevated. ? 7. Right ventricular systolic function is reduced based on abnormal TAPSE 1.4 cm. ? 8. Left atrial chamber dimension is moderately enlarged. ? 9. There is moderate aortic valve sclerosis. ? 10. There is mild aortic valve regurgitation. ? 11. No pulmonary hypertension, estimated pulmonary arterial systolic pressure is 30 mmHg. ? 12. There is trace pulmonic regurgitation. All symptoms resolved. Patient was discharged in good condition on Asya Tomlin and close outpatient follow-up by primary care. Lovenox and Coumadin were discussed, patient elected to trial Eliquis first. Time Spent with Patient Time attestation: Total time spent providing and/or coordinating discharge services: Exam Narrative: General: No acute distress, alert and oriented per baseline HEENT: Atraumatic, normocephalic, mucous membranes moist CV: Ir
== END 2021-10-22 16:00 | disposition home or self-care (01) | DRG 176 ==
LOC: ANHED 18:55 → ANHIMU 20:05
PROVIDERS: Nurse Practitioner; Admitting Provider Student in an Organized Health Care Education/Training Program; Emergency Provider Emergency Medicine; PCP Internal Medicine; Visit Provider Student in an Organized Health Care Education/Training Program
DX: I26.99 Other pulmonary embolism without acute cor pulmonale (principal); I50.32 Chronic diastolic (congestive) heart failure; I48.19 Other persistent atrial fibrillation; I11.0 Hypertensive heart disease with heart failure; N40.0 Benign prostatic hyperplasia without lower urinary tract symptoms; I25.10 Atherosclerotic heart disease of native coronary artery without angina pectoris; Z20.822 Contact with and (suspected) exposure to COVID-19; H35.30 Unspecified macular degeneration; Z79.01 Long term (current) use of anticoagulants; I25.2 Old myocardial infarction; Z79.82 Long term (current) use of aspirin; Z86.73 Personal history of transient ischemic attack (TIA), and cerebral infarction without residual deficits
CPT/HCPCS: 36415; 36600; 71046; 71275; 80048; 80053; 81001; 82550; 82805; 83605; 83615; 83735; 83880; 84100; 84443; 85025; 85380; 93005; 93970; 96372; 96374; 99291; A9270; C8929; C9803; G0378; J1650; J1940; Q9957; Q9967; U0003; U0005

== ENCOUNTER 2022-04-17 02:02 | Day surgery (SDC) | payer OTHER, SELFPAY ==
[2022-04-14 11:15] VITALS: BMI 25.5
--- NOTE | 2022-04-14 11:49 | PC.NURSE ---
After doing pre-call patient could not tell me when he last took each medication. He did confirm he has not missed ANY doses of his Eliquis 5 mg PO BID in the last 4 weeks. He was advised that there were no hold medications ordered but he stated he didn't plan to take any medication prior because he normally does not take them that early. I informed him to please take atleast his apixaban (Eliquis) 5 mg PO that morning of the procedure and to please let us know right away if he misses any doses of this medication as we would have to let the MD know as it could pose risk of stroke with procedure. I also asked him to please write down the time he last took all of his medication to provide that for us the day of his procedure. He verbalized understanding of instructions.
[2022-04-17] VITALS (13 sets, daily range): BP systolic 107–139; BP diastolic 64–93; PULSE 77–106; RESP 18–24; TEMP 36.2; O2SAT 94–100; BMI 25.6
--- NOTE | 2022-04-17 10:00 | ECG_ITS ---
Measurements Intervals [place] Rate: 84 P: 58 [place]: 240 QRS: -50 QRSD: 161 T: 96 QT: 542 QTc: 644 Interpretive Statements SINUS RHYTHM WITH FIRST DEGREE AV BLOCK LEFT AXIS DEVIATION INTRAVENTRICULAR CONDUCTION DELAY BORDERLINE ECG COMPARED TO ECG 04/17/2022 10:42:26 SINUS RHYTHM NOW PRESENT FIRST DEGREE AV BLOCK NOW PRESENT Electronically Signed On 04-17-2022 14:39:35 [employer] by Koffi Rivera M.D.
[2022-04-17] MEDS: APIXABAN 5 MG TABLET PO (10:50)
--- NOTE | 2022-04-17 10:50 | SUR.PREOP ---
ELIQUIS 5MG GIVEN PO X 1 SINCE PT. DID NOT TAKE HIS DOSE AT HOME THIS AM PRIOR TO ARRIVAL. PT. STATES HE HAS NOT MISSED ANY DOSES OF ELIQUIS OVER LAST 30 DAYS.
[2022-04-17] MEDS: SODIUM CHLORIDE 0.9% IV 500 ML 30 ML IV CONT (11:00)
[2022-04-17 11:11] LABS: Anion Gap 5 mmol/L (8-16); Blood Urea Nitrogen 23 mg/dL (9-20); Calcium 9.5 mg/dL (8.4-10.2); Carbon Dioxide 25 mmol/L (22-30); Chloride 106 mmol/L (98-107); Estimated CRCL calculation 47 ml/min; Estimated Glomerular Filt Rate > 60; Glucose 84 mg/dL (65-110); Magnesium 2.1 mg/dL (1.6-2.3); Sodium 136 mmol/L (137-145)
--- NOTE | 2022-04-17 11:12 | WPDMODSED ---
Moderate Sedation Note-Pt Data Patient Data Diagnosis: Persistent atrial flutter Ischemic cardiomyopathy Present Complaint: SERRANO/generalized fatigue and declining exertional tolerance Procedure to be performed/Plan: DC cardioversion Allergies Allergy/AdvReac Type Severity Reaction Status Date / Time No Known Allergies Allergy Verified 04/17/22 10:49 Home Medications Medication Instructions Recorded Confirmed Type atorvastatin 40 mg tablet 40 mg PO DAILY 02/24/19 04/17/22 History sacubitril 24 mg-valsartan 26 mg 1 tablet PO BID 02/24/19 04/17/22 History tablet (Entresto) aspirin 81 mg tablet,delayed 81 mg PO DAILY 06/18/19 04/17/22 History release carvedilol 12.5 mg tablet 12.5 mg PO BID #180 tabs 06/18/19 04/17/22 Rx multivitamin with minerals-folic 1 tablet PO DAILY 10/20/21 04/17/22 History acid 0.4 mg tablet amiodarone 100 mg tablet 200 mg PO DAILY 04/14/22 04/17/22 History apixaban 5 mg tablet (Eliquis) 5 mg PO BID 04/14/22 04/17/22 History cholecalciferol (vitamin D3) 125 125 mcg PO DAILY 04/14/22 04/17/22 History mcg (5,000 unit) tablet (Vitamin D3) furosemide 20 mg tablet 20 mg PO DAILY 04/14/22 04/17/22 History Current Medications: Active Medications Sodium Chloride (Normal Saline Iv) 500 mls @ 30 mls/hr IV CONT .[id number] ONE Stop: 04/18/22 02:39 Sedation/Anesthesia: No previous sedation/anesthesia problems (including family history). [facility] Past Medical History Medical History Atrial fibrillation BPH w/o urinary obs/LUTS Cerebrovascular accident (CVA) due to occlusion of right anterior cerebral artery Congestive heart failure Coronary artery disease involving [place] coronary artery of [place] heart History of [place] (myocardial infarction) Macular degeneration Persistent atrial fibrillation Thyroid mass of unclear etiology Surgical History Surgical History History of tonsillectomy S/P extracapsular cataract extraction Family History Family History Mother Family history of respiratory disorder, Onset Age: 78 Family history of Alzheimer's disease Patient's mother is Father Patient's father is Acute myocardial infarction Social History Social History (Updated 01/17/22 @ 08:39 by Vicky Wilcox MA) Social History: The patient lives with his and she is a durable power commercial litigation attorney for healthcare. He has 3 biologic children and 2 step children. 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 He does not use alcohol marijuana or illicit drugs. Code status full code Smoking status: Never smoker Second hand tobacco smoke exposure: No Alcohol intake: never Substance use: never Substance use type: does not use Lack of Transportation: No Lack of Food: Never True Current Housing: I Have Housing Concerned About Future Housing: No Difficulty Paying Gas/Electric Bills: No Difficulty Paying for Meds: No Currently Unemployed: No Education: High School Diploma/GED Difficulty w/ Childcare or Family Care: No Living arrangements: with family Spiritual care concerns: No Mod Sed Physical Exam Physical Exam Pre Procedural Exam: Normal: Nose, Neck, Throat, Airway, Heart Rate, Neuro Exam and Extremities and Variation: Appearance (Pleasant elderly somewhat frail-appearing man no apparent distress), Lungs (Breath sounds are clear but diminished in both lung woo), Heart Size (PMI is laterally displaced) and Heart Rhythm (Atrial flutter heart rate 80) Hours since solid foods: 12 Hours since liquid intake: 12 Mallampati Classification: class II Internal Medicine - PN: Obj Da Vital Signs Vital Signs: Vital Signs - 24 hr 04/17/22 11:01 Temperature 36.2 C L Pulse Rate 89 Respiratory Rate 20 Blood Pressure 135/87 Pulse Oximetry 99 Oxygen Deliv
--- NOTE | 2022-04-17 11:32 | P.PCNCC_ITS ---
Cardiac Cath Procedure Note Date of procedure:: 04/17/22 Performing physician:: Davey De Luna MD Indication:: Persistent atrial flutter Ischemic cardiomyopathy Brief clinical history:: This is an 86-year-old man with coronary disease significant ischemic cardiomyopathy and persistent atrial flutter for approximately 4-5 months. Despite good guideline directed medical therapy for LV dysfunction his funct ional status has been declining and an attempt been scheduled today to restore sinus rhythm. As an outpatient he has been loaded with amiodarone. Procedure Procedure performed:: DC cardioversion Sedation/Medication given:: Propofol total dosage of 70 mg Estimated blood loss:: None Procedure note:: Patient was brought to the cardiac catheterization lab holding area where he was in the supine position in the postabsorptive state. Defibrillator patches were placed in the AP position. IV access was placed in the right arm. I elected to give him 0.5 mg of atropine before sedation. Following this he was sedated using propofol in aliquots a total of 70 mg was given which provided excellent sedation. He was counter shocked with 200 joules in a synchronized fashion x1 attempt which restored sinus rhythm with first-degree AV block with heart rate in the 80s. Findings:: As above Conclusion:: Successful uncomplicated DC cardioversion terminating atrial flutter restoring sinus rhythm using 200 joules x1 shock. Patient was given 0.5 mg of atropine prior to cardioversion to reduce the chance of problematic bradycardia following cardioversion Davey De Luna MD [facility]
--- NOTE | 2022-04-17 11:45 | ECG_ITS ---
Measurements Intervals [place] Rate: 80 P: [place]: 0 QRS: -55 QRSD: 152 T: 128 QT: 433 QTc: 502 Interpretive Statements ATRIAL FLUTTER WITH ABERRANT CONDUCTION OR VENTRICULAR PREMATURE COMPLEXES LEFT AXIS DEVIATION INTRAVENTRICULAR CONDUCTION DELAY ABNORMAL ECG COMPARED TO ECG 10/20/2021 16:22:57 ATRIAL FLUTTER NOW PRESENT ABERRANT CONDUCTION OF SUPRAVENTRICULAR BEAT(S) NOW PRESENT Electronically Signed On 04-17-2022 14:38:16 [employer] by Koffi Rivera M.D.
--- NOTE | 2022-04-17 13:11 | SUR.PHASEII ---
follow up scheduled with office for next wed for repeat 12 lead ekg written in d/c instructions
== END 2022-04-17 13:20 | disposition home or self-care (01) ==
PROVIDERS: PCP Internal Medicine; Visit Provider Specialist
PROC: 5A2204Z Restoration of Cardiac Rhythm, Single (ICD-10-PCS; principal; 2022-04-17 11:30)
DX: I49.02 Ventricular flutter (principal); I25.10 Atherosclerotic heart disease of native coronary artery without angina pectoris; I25.5 Ischemic cardiomyopathy; N40.0 Benign prostatic hyperplasia without lower urinary tract symptoms; Z86.73 Personal history of transient ischemic attack (TIA), and cerebral infarction without residual deficits; I50.9 Heart failure, unspecified; I25.2 Old myocardial infarction; Z79.82 Long term (current) use of aspirin; Z79.01 Long term (current) use of anticoagulants
CPT/HCPCS: 36415; 80048; 83735; 92960; A9270; J2704; J7040

== ENCOUNTER 2022-05-11 12:38 | Inpatient (IN) | payer OTHER, SELFPAY ==
[2022-05-11] VITALS (12 sets, daily range): BP systolic 100–133; BP diastolic 57–86; PULSE 66–102; RESP 16–28; TEMP 36.2–36.6; O2SAT 77–98; BMI 24.4
--- NOTE | ~2022-05-11 | CT_ITS ---
EXAMINATION: CTA chest PE protocol DATE: 05/11/2022 14:28 INDICATION: Shortness of breath and hypoxia TECHNIQUE: Computed tomography angiography (CTA) of the chest was performed with 100 mL Omnipaque-350 intravenous contrast timed to evaluate the pulmonary arteries. Coronal maximum intensity projection 3D-reconstructions were created by the technologist. The dose-length product (DLP) was 337.59 mGy-cm. Automated exposure control and iterative reconstruction technique were employed. COMPARISON: 10/20/2021 FINDINGS: The pulmonary arteries are well-opacified. No pulmonary embolism is identified. There is en largement of the main and central pulmonary arteries, consistent with pulmonary hypertension. There a re small pleural effusions. No pneumothorax is identified. Cardiomegaly is noted. There is calcified coronary artery atherosclerosis. Subendocardial fat deposition in the left ventricular apex is consis tent with prior myocardial infarction. There are interstitial and airspace opacities throughout all l obes of the lung, right worse than left. There is mild bilateral hilar and mediastinal lymphadenopath y, likely reactive. There is a chronic burst fracture of T12. There is moderate thoracic spondylosis. IMPRESSION: 1. No pulmonary embolus identified. 2. Diffuse lung disease, consistent with pneumonia and/or pulmonary edema. 3. Finding is consistent with pulmonary hypertension. 4. Small pleural effusions. Reviewed, dictated and finalized at location L.
--- NOTE | ~2022-05-11 | XR_ITS ---
EXAMINATION: XR chest 2V DATE: 05/11/2022 13:30 INDICATION: Weakness and shortness of breath TECHNIQUE: AP and lateral views of the chest are obtained. COMPARISON: 10/20/2021 FINDINGS: There is a mild diffuse interstitial pattern. More focal airspace opacity is seen in the ri ght lung base. No pleural effusion or pneumothorax. Cardiomegaly is noted. There is moderate thoracic spondylosis. IMPRESSION: 1. Cardiomegaly with mild pulmonary edema. Reviewed, dictated and finalized at location L.
--- NOTE | ~2022-05-11 | XR_ITS ---
EXAMINATION: XR chest 1V portable INDICATION: Shortness of breath and cough TECHNIQUE: Portable AP chest at 0905 hours COMPARISON: 05/11/2022 FINDINGS: Diffuse interstitial and airspace opacities have improved. There are minimal persistent air space opacities of the lung bases. Small pleural effusions are present. The cardiomediastinal silhoue tte is stable. IMPRESSION: 1. Diffuse lung disease with interval improvement, consistent with pneumonia and/or pulmonary edema. Reviewed, dictated and finalized at location A. IMPRESSION: 1. Diffuse lung disease with interval improvement, consistent with pneumonia an d/or pulmonary edema.
--- NOTE | 2022-05-11 12:43 | ECG_ITS ---
Measurements Intervals [place] Rate: 88 P: 72 VT: 233 QRS: -60 QRSD: 148 T: 97 QT: 399 QTc: 485 Interpretive Statements SINUS RHYTHM WITH FIRST DEGREE AV BLOCK RIGHT BUNDLE BRANCH BLOCK LEFT ANTERIOR FASCICULAR BLOCK BASELINE ARTIFACT- I, II, III, AVR, AVL ABNORMAL ECG COMPARED TO ECG 04/17/2022 11:29:15 NO SIGNIFICANT CHANGES Electronically Signed On 05-11-2022 12:59:57 CDT by Eddi Alcala D.O.
[2022-05-11 13:03] LABS: Hematocrit 36.4 % (42.0-52.0); Hemoglobin 12.1 g/dL (14.0-18.0); Immature Granulocyte Absolute 0.02 K/mm3 (0.00-0.031); Immature Granulocyte Percent A 0.3 % (0-0.5); Immature Platelet Fraction Pct 4.4 % (0.9-11.2); Lymphocytes Absolute Auto 0.55 K/mm3 (0.9-3.2); Lymphocytes Percent Auto 8.6 % (18.3-44.2); Mean Corpuscular HGB Conc 33.2 g/dl (32-36); Mean Corpuscular Hemoglobin 31.4 pg (26-34); Mean Corpuscular Volume 94.5 fl (80-100); Monocytes Absolute Auto 0.3 K/mm3 (0.1-0.6); Neutrophils Absolute Auto 5.5 K/mm3 (1.3-6.7); Neutrophils Percent Auto 86.1 % (45.5-73.1); Platelet Count Result 152 k/mm3 (150-375); Red Blood Count 3.85 M/mm3 (4.6-6.20); Red Cell Distribution Width 16.6 % (11.5-14.5); White Blood Count 6.4 K/mm3 (4.5-10.0)
--- NOTE | 2022-05-11 13:05 | ED.WEAKNESS ---
HPI - Weakness General Chief complaint: Weakness Stated complaint: weak, cough, sob Time Seen by Provider: 05/11/22 13:04 Source: patient and family Mode of arrival: wheelchair Limitations: no limitations History of Present Illness HPI Narrative: Patient is an 86-year-old male with a history of hypertension, hyperlipidemia, CVA, atrial fibrillation on chronic anticoagulation, presenting to the ER for evaluation of generalized weakness, cough, shortness of breath. Patient states he has felt unwell over the past 5 days. Patient denies fever or chills, chest or abdominal pain. He reports productive cough without hemoptysis. He reports generalized weakness. He denies focal weakness or numbness. Patient denies dysuria or hematuria. Patient's spouse is home sick with similar symptoms. Patient reports decreased appetite and decreased oral intake secondary to this. He denies syncope. Patient states that a few days ago he missed the bed when trying to sit down and did fall onto his bottom. No LOC. Patient denies headache. Patient is vaccinated for COVID, denies history of symptomatic COVID infection. Related Data Home Medications Medication Instructions Recorded Confirmed atorvastatin 40 mg tablet 40 mg PO DAILY 02/24/19 04/17/22 sacubitril 24 mg-valsartan 26 mg 1 tablet PO BID 02/24/19 04/17/22 tablet (Entresto) aspirin 81 mg tablet,delayed 81 mg PO DAILY 06/18/19 04/17/22 release multivitamin with minerals-folic 1 tablet PO DAILY 10/20/21 04/17/22 acid 0.4 mg tablet amiodarone 100 mg tablet 200 mg PO DAILY 04/14/22 04/17/22 apixaban 5 mg tablet (Eliquis) 5 mg PO BID 04/14/22 04/17/22 cholecalciferol (vitamin D3) 125 125 mcg PO DAILY 04/14/22 04/17/22 mcg (5,000 unit) tablet (Vitamin D3) furosemide 20 mg tablet 20 mg PO DAILY 04/14/22 04/17/22 Allergies Allergy/AdvReac Type Severity Reaction Status Date / Time No Known Allergies Allergy Verified 04/17/22 10:49 Review of Systems Review of Systems: CONSTITUTIONAL: Denies fever, chills, or sweats. EYES: Denies visual changes, redness, or discharge. ENT: Reports mild rhinorrhea and congestion CARDIOVASCULAR: Denies chest pain, palpitations, or edema. RESPIRATORY: Reports cough and shortness of breath GASTROINTESTINAL: Denies abdominal pain, nausea, vomiting, or diarrhea. GENITOURINARY: Denies dysuria or hematuria. SKIN: Denies rash or itching. MUSCULOSKELETAL: Denies back pain, joint pain, or myalgia. NEUROLOGIC: Denies headache, numbness, reports generalized weakness PMFSH Past Medical History Medical History Atrial fibrillation BPH w/o urinary obs/LUTS Cerebrovascular accident (CVA) due to occlusion of right anterior cerebral artery Congestive heart failure Coronary artery disease involving [place] coronary artery of [place] heart History of [place] (myocardial infarction) Macular degeneration Persistent atrial fibrillation Thyroid mass of unclear etiology Surgical History Surgical History History of tonsillectomy S/P extracapsular cataract extraction Family History Family History Mother Family history of respiratory disorder, Onset Age: 78 Family history of Alzheimer's disease Patient's mother is Father Patient's father is Acute myocardial infarction Social History Social History Social History: The patient lives with his and she is a durable power attorney lawyer for healthcare. He has 3 biologic children and 2 step children. 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 He does not use alcohol marijuana or illicit drugs. Code status full code Smoking status: Never smoker Second hand tobacco smoke exposure: No Alcohol intake: never Substance use: never Substance use type: does not use
--- NOTE | 2022-05-11 13:16 | PC.NURSE ---
Pt placed on 4 L NC O2. EDP DR GRIFFIN at bedside and discussed POC w/ family.
[2022-05-11 13:36] LABS: Alanine Aminotransferase 80 U/L (6-50); Albumin Level 3.5 g/dL (3.5-5.1); Alkaline Phosphatase 77 U/L (38-126); Anion Gap 8 mmol/L (8-16); Aspartate Amino Transferase 187 U/L (17-59); Bilirubin,Total 1.8 mg/dL (0.2-1.3); Blood Urea Nitrogen 33 mg/dL (9-20); Calcium 9.1 mg/dL (8.4-10.2); Carbon Dioxide 25 mmol/L (22-30); Chloride 104 mmol/L (98-107); Estimated CRCL calculation 47 ml/min; Estimated Glomerular Filt Rate > 60; Glucose 99 mg/dL (65-110); Potassium 3.9 mmol/L (3.4-5.0); Sodium 137 mmol/L (137-145)
[2022-05-11] MEDS: SODIUM CHLORIDE 0.9% IV 1,000 ML 999 ML IV CONT (13:55)
[2022-05-11 13:57] LABS: Alveolar/Arterial O2 Gradient 157.4 mmHg; Base Excess ABG -2.8 mEq/l (+/-2.0); Carboxyhemoglobin 0.3 % THb (0-2.0); Fractional Inspired Oxygen 36 %; HCO3 ABG 19.2 mEq/l (22.0-26.0); Methemoglobin ABG 0.3 %THb (0-1.5); Oxygen Content ABG 16.2 %vol (16.0-22.0); Oxygen Saturation ABG 95.4 % (95.0-100.0); Oxyhemoglobin 92.6 % THb (90.0-100.0); PCO2 ABG 25.8 mmHg (35.0-45.0); PO2 ABG 69.4 mmHg (80.0-100.0); PO2 FiO2 Ratio Arterial Blood 1.93 %; Reduced Hemoglobin 6.8 %THb (0-5.0); Total Hemoglobin 12.4 g/dL (12.0-18.0); pH ABG 7.489 (7.350-7.450)
[2022-05-11 13:59] LABS: Device NASAL CANNULA; Modified Allen's Test Pass; Site Drawn RIGHT RADIAL
[2022-05-11 14:05] LABS: Hematocrit 36.4 % (42.0-52.0); Hemoglobin 12.2 g/dL (14.0-18.0); Immature Granulocyte Absolute 0.02 K/mm3 (0.00-0.031); Immature Granulocyte Percent A 0.3 % (0-0.5); Lymphocytes Absolute Auto 0.59 K/mm3 (0.9-3.2); Lymphocytes Percent Auto 8.7 % (18.3-44.2); Mean Corpuscular HGB Conc 33.5 g/dl (32-36); Mean Corpuscular Hemoglobin 30.9 pg (26-34); Mean Corpuscular Volume 92.2 fl (80-100); Mean Platelet Volume 9.4 fl (7.4-10.4); Monocytes Absolute Auto 0.3 K/mm3 (0.1-0.6); Monocytes Percent Auto 4.6 % (2.6-8.5); Neutrophils Absolute Auto 5.9 K/mm3 (1.3-6.7); Neutrophils Percent Auto 86.4 % (45.5-73.1); Platelet Count Result 146 k/mm3 (150-375); Red Blood Count 3.95 M/mm3 (4.6-6.20); Red Cell Distribution Width 16.5 % (11.5-14.5); White Blood Count 6.8 K/mm3 (4.5-10.0)
[2022-05-11 14:15] LABS: INR 1.4; Prothrombin Time 16.3 Seconds (11.1-14.7)
[2022-05-11 14:16] LABS: Partial Thromboplastin Time 35.1 SECONDS (22.3-36.8)
[2022-05-11 14:23] LABS: Lactic Acid Reflex 2.1 mmol/L (0.7-2.0)
[2022-05-11 14:25] LABS: Creatine Kinase 1042 U/L (55-170)
[2022-05-11 14:32] LABS: Alanine Aminotransferase 91 U/L (6-50); Albumin Level 3.8 g/dL (3.5-5.1); Alkaline Phosphatase 85 U/L (38-126); Anion Gap 9 mmol/L (8-16); Aspartate Amino Transferase 188 U/L (17-59); Bilirubin,Total 1.9 mg/dL (0.2-1.3); Blood Urea Nitrogen 33 mg/dL (9-20); Calcium 9.4 mg/dL (8.4-10.2); Carbon Dioxide 25 mmol/L (22-30); Chloride 103 mmol/L (98-107); Estimated CRCL calculation 47 ml/min; Estimated Glomerular Filt Rate > 60; Glucose 104 mg/dL (65-110); Sodium 137 mmol/L (137-145)
[2022-05-11 14:42] LABS: SARS-CoV-2 RNA PCR Positive
[2022-05-11 14:49] LABS: CRP 14.8 mg/dL (<1.0)
[2022-05-11 14:52] LABS: NT Pro B Type Natriuretic Pept 18700 pg/mL (19.9-100); Troponin I 0.224 ng/mL (0.000-0.034)
[2022-05-11 14:56] LABS: Procalcitonin 0.4 ng/mL
[2022-05-11 15:10] LABS: Appearance Urine Clear (Clear); Bacteria Urine None Seen /hpf; Bilirubin Urine 1+ (Negative); Blood Urine Negative (Negative); Color Urine Dark Yellow (Yellow); Glucose Urine UA Negative (Negative); Ketones Urine Negative (Negative); Leukocyte Esterase Ur Negative LEU/UL (Negative); Nitrate Urine Negative (Negative); Non Pathogenic Casts 0-2; Protein Urine 1+ mg/dL (Negative); Specific Grav Ur 1.022 (1.001-1.035); Squamous Epithelial Cell Urine None seen /hpf (Few); WBC Urine 0-5 /hpf; pH Urine 5.5 (5.0-9.0)
[2022-05-11] MEDS: FUROSEMIDE INJ 40 MG/4 ML VIAL 20 MG IV PUSH (15:10)
[2022-05-11 15:36] LABS: Add Urine Microscopic? YES
[2022-05-11 17:01] LABS: Reflex Lactic Acid Yes or No Add Lactic
--- NOTE | 2022-05-11 17:30 | ADMGEN ---
This patient, Blade Lacy, was admitted to IMU Room 213-01. Patient/family oriented to hospital policies and general routines including ID bracelet, bed and alarms, visiting hours, pain management, procedures, bathroom and other care routines, personal items, smoking policy, room service/diet, and visiting hours. Information on how to activate the Rapid Response Team has been discussed. Patient/Family are encouraged to report perceived risks to care and to ask questions if they do not understand what they are told or what they should do.
--- NOTE | 2022-05-11 19:54 | PM.IMHP ---
H&P: HPI History of Present Illness Date/Time: 05/11/22 19:54 Chief Complaint: Weakness Narrative: This is a 86-year-old male patient who has a history of atrial fibrillation, congestive heart failure and coronary artery disease. The patient is on chronic anticoagulation. The patient came to the emergency room for evaluation of generalized weakness, cough and shortness of breath. The patient has felt unwell for the last 5 days. His spouse is also ill with the same symptoms. He denied any fever or chills. He denies any focal weakness. No nausea vomiting or diarrhea. The patient has felt weak and had a decreased appetite and decreased oral intake. The patient has been fully vaccinated for COVID. A few days ago the patient fell after attempting to sit on the bedside and missed and landed on the floor. He denies hitting his head or having any other injuries. The patient is chronically on Eliquis. Chest CTA was performed and read as a following No pulmonary embolus identified. 2. Diffuse lung disease, consistent with pneumonia and/or pulmonary edema. 3. Finding is consistent with pulmonary hypertension. 4. Small pleural effusions. Chest x-ray read as cardiomegaly with mild pulmonary edema. H&H is noted to be 12.2 and 36.4. Lactic was initially 2.1 now 1.0. Liver enzymes are elevated Troponin is 0.224, 0.210, and 0.161. The patient has [place] [address]. Patient's BNP is typically elevated but not this extensive. His BNP is typically in the 0301-5818 range. He is positive for COVID. The patient initially was given IV fluids x1 L that he was given Decadron and Lasix. The patient is being admitted to inpatient status on the date of service of 05/11/2022 Review of Systems Review of Systems: All systems reviewed & are unremarkable except as noted in HPI and below Constitutional: Constitutional: Reports as per HPI and Reports no additional constitutional complaints Eyes: Eyes: Reports as per HPI and Reports no additional eye complaints ENT: Reports system reviewed and no additional complaints, except as documented and Reports Normal hearing present Cardiovascular: Cardiovascular: Reports no additional cardiovascular complaints Respiratory: Respiratory: Reports no additional respiratory complaints and Reports no additional respiratory complaints Gastrointestinal: Gastrointestinal: Reports as per HPI and Reports no additional gastrointestinal complaints Musculoskeletal: Musculoskeletal: Reports no additional musculoskeletal complaints Integumentary/Breasts: Skin/Breast: Reports system reviewed and no additional complaints, except as docu and Reports as per HPI Neurologic: Reports system reviewed and no additional complaints, except as documented, Reports as per HPI and Reports Normal hearing present Psychiatric: Psychiatric: Reports no additional psychiatric complaints and Reports as per HPI Endocrine: Endocrine: Reports no additional endocrine complaints Hematologic/Lymphatic: Hematologic/Lymphatic: Reports no additional hematologic/lymphatic complaints Allergic/Immunologic: Allergic/Immunologic: Reports no additional allergic/immunologic complaints [facility] Past Medical History Medical History (Updated 05/12/22 @ 00:11 by Willow Cordova NP) Atrial fibrillation Atrial fibrillation status post cardioversion BPH w/o urinary obs/LUTS 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
[2022-05-11 21:22] LABS: Troponin I 0.161 ng/mL (0.000-0.034)
[2022-05-12] VITALS (12 sets, daily range): BP systolic 91–119; BP diastolic 46–64; PULSE 53–80; RESP 18–20; TEMP 36.1–36.6; O2SAT 92–98
--- NOTE | 2022-05-12 | ECHO_ITS ---
Patient Info Name: Blade Faulkner Winning Age: 86 years : 1935 Gender: Male Ht: 66 in Wt: 151 lbs BSA: 1.79 m2 HR: 68 bpm BP: 119 / 64 mmHg Heart Rhythm: Sinus Rhythm Exam Date: 05/12/2022 2:15 PM Exam Location: [facility] Patient Status: Inpatient Admit Date: 05/11/2022 Staff Ordering Physician: iWllow Cordova NP Hole Digger Operator: Fran Smith RDCS, RT Attending Provider: Taryn Woods DO Referring Physician: Art HANCOCK; Exam Type: CA echo doppler color flow Study Info Indications J81.1 - Chronic pulmonary edema I50.9 - Heart failure, unspecified Complete two-dimensional, color flow and Doppler transthoracic echocardiogram is performed. Strain analysis performed. Summary 1. Complete two-dimensional, color flow and Doppler transthoracic echocardiogram is performed. 2. Left ventricular enlargement with severe systolic dysfunction. 3. Akinesis of the anterior wall, anteroseptal segment and apex. 4. LV false cord identified. 5. Biatrial dilation left greater than right. 6. Mild to trivial [place]ardo valvular insufficiency. 7. Mildly sclerotic aortic valve which is not stenotic. Left Ventricle Left ventricular chamber dimension is moderately enlarged. Left ventricular systolic function is severely reduced, estimated at 20-25%. The left ventricular diastolic function is abnormal. Right Ventricle Right ventricular chamber dimension is normal. Left Atria Left atrial chamber dimension is moderately enlarged. Right Atria Right atrial chamber dimension is mildly enlarged. Aortic Valve The aortic valve is trileaflet. There is mild aortic valve sclerosis. There is mild to moderate aortic valve regurgitation. Pulmonic Valve The pulmonic valve is normal. There is mild pulmonic regurgitation. Mitral Valve The mitral valve has normal leaflets. There is trace mitral valve regurgitation. Tricuspid Valve The tricuspid valve leaflets are normal. There is mild tricuspid valve regurgitation. Pericardium/Pleural The pericardium appears normal. Aorta The aortic root size at the sinus of Valsalva is normal. Left Ventricular Outflow Tract Name Value Normal LVOT 2D LVOT Diameter 2.3 cm LVOT Doppler LVOT Peak Gradient 4 mmHg LVOT Mean Gradient 2 mmHg LVOT VTI 19 cm LVOT VTI/AV VTI Ratio 0.7 LVOT Stroke Volume 77 ml LVOT CO 4.9 l/min LVOT CI 2.7 l/min/m2 Pulmonic Valve Name Value Normal PV Regurgitation Doppler SD Peak End Diastolic Velocity 142 cm/s Mitral Valve Name Value Normal
[2022-05-12] MEDS: SACUBITRIL/VALSARTAN 24-26 MG TABLET 1 TAB PO ×3 (01:29→22:20)
[2022-05-12] MEDS: carvediloL 12.5 MG TABLET PO ×3 (01:29→22:19)
[2022-05-12] MEDS: APIXABAN 5 MG TABLET PO ×3 (01:29→22:22)
[2022-05-12] MEDS: FUROSEMIDE INJ 40 MG/4 ML VIAL IV PUSH (09:00)
[2022-05-12] MEDS: ATORVASTATIN 40 MG TABLET PO (09:00)
[2022-05-12] MEDS: ASPIRIN 81 MG ENTERIC TABLET PO (09:00)
[2022-05-12] MEDS: AMIODARONE HCL 200 MG TABLET PO (09:00)
[2022-05-12] MEDS: FINASTERIDE 5 MG TABLET PO (09:00)
[2022-05-12] MEDS: THERAPEUTIC MULTIVITAMINS/MINERALS TAB (*BKC) 1 TABLET PO (09:00)
[2022-05-12] MEDS: CHOLECALCIFEROL 1,000 UNITS TABLET 5000 UNITS PO (09:00)
--- NOTE | 2022-05-12 11:53 | PM.IMPN ---
Progress Note: A&P Assessment and Plan (1) COVID-19: Code(s): U07.1 - COVID-19 Status: Acute Assessment and Plan: Still with generalized weakness, now on 2 L nasal cannula, wean as able (2) CHF exacerbation: Code(s): I50.9 - Heart failure, unspecified Status: Acute Assessment and Plan: Small pleural effusion IV Lasix Continue with Entresto Continue with Coreg Echo from 10/21/2021 was read as EF of 30-35% with grade 3 diastolic dysfunction. Repeat echo (3) Elevated troponin: Code(s): R77.8 - Other specified abnormalities of plasma proteins Status: Acute Assessment and Plan: Could be related to the CHF. He has no complaints of chest pain and his troponins are starting to trend down. (4) Macular degeneration: Code(s): H35.30 - Unspecified macular degeneration Status: Acute Assessment and Plan: Continue with home treatment (5) Atrial fibrillation: Qualifiers: Atrial fibrillation type: paroxysmal Qualified Code(s): I48.0 - Paroxysmal atrial fibrillation Code(s): I48.91 - Unspecified atrial fibrillation Status: Acute Assessment and Plan: The patient has a history of cardioversion and is in sinus rhythm at this time. Continue Coreg Continue aspirin Continue Eliquis Continue with amiodarone p.o. home medication (6) HTN, goal below 130/80: Code(s): I10 - Essential (primary) hypertension Status: Acute Assessment and Plan: Continue Coreg His also on amiodarone for AFib He is also on Lasix. (7) Hyperlipidemia: Code(s): E78.5 - Hyperlipidemia, unspecified Status: Acute Assessment and Plan: Continue with atorvastatin Plan DVT prophylaxis with Eliquis GI prophylaxis with PPI Code status full code Subjective Date/time seen: 05/12/22 11:53 Interval history: 86-year-old male with history of AFib, heart failure and heart disease on chronic anticoagulation is presenting with COVID. No overnight events noted. No chest pain or shortness of breath unless he moves around. No nausea, vomiting or diarrhea. No fevers or chills. Satting 96% on 2 L nasal cannula. He is complaining of general malaise and generalized weakness. Review of Systems Review of Systems: 12 point review of systems was assessed and was negative except as noted in the HPI Exam Narrative: General: No acute distress, alert and oriented per baseline HEENT: Atraumatic, normocephalic, mucous membranes moist CV: Regular rate and rhythm, S1, S2 Lungs: Clear to auscultation bilaterally, no rales or crackles noted, no wheezes, good air entry Abdomen: Soft, nontender, nondistended Extremities: Normal to inspection Skin: No rashes noted, no lesions or wounds seen Psych: Euthymic, normal affect Neuro: Cranial nerves 2-12 grossly intact, strength +5/5 upper and lower extremities bilaterally Objective Data Vital Signs Vital Signs: Vital Signs - 24 hr 05/11/22 12:42 05/11/22 13:14 05/11/22 13:15 Temperature 97.8 F Pulse Rate 70 88 102 H Respiratory Rate 16 24 H Blood Pressure 127/86 123/71 Pulse Oximetry 94 77 L Oxygen Delivery Room Air Oxygen Flow Rate 05/11/22 13:56 05/11/22 15:13 05/11/22 16:38 Temperature Pulse Rate 91 93 80 Respiratory Rate 28 H 28 H 26 H Blood Pressure 116/82 127/57 L Pulse Oximetry 89 L 94 93 Oxygen Delivery Oxygen Flow Rate 05/11/22 17:19 05/11/22 17:30 05/11/22 18:00 Temperature 97.4 F L Pulse Rate 84 66 85 Respiratory Rate 26 H 22 H Blood Pressure 103/61 133/75 Pulse Oximetry 96 98 Oxygen Delivery Oxygen Flow Rate 05/11/22 17:45 05/11/22 20:00 05/11/22 20:00 Temperature 97.1 F L Pulse Rate 77 76 Respiratory Rate 20 Blood Pressure 100/57 L Pulse Oximetry 92 93 Oxygen Delivery Nasal Cannula Oxygen Flow Rate 4 05/11/22 20:00 05/12/22 00:00 05/12/22 01:29 Temp
[2022-05-12 14:17] LABS: Hematocrit 35.9 % (42.0-52.0); Hemoglobin 11.9 g/dL (14.0-18.0); Immature Granulocyte Absolute 0.02 K/mm3 (0.00-0.031); Immature Granulocyte Percent A 0.3 % (0-0.5); Immature Platelet Fraction Pct 4.8 % (0.9-11.2); Lymphocytes Absolute Auto 0.44 K/mm3 (0.9-3.2); Mean Corpuscular HGB Conc 33.1 g/dl (32-36); Mean Corpuscular Hemoglobin 31.8 pg (26-34); Mean Platelet Volume 10.6 fl (7.4-10.4); Monocytes Absolute Auto 0.3 K/mm3 (0.1-0.6); Neutrophils Absolute Auto 5.5 K/mm3 (1.3-6.7); Neutrophils Percent Auto 88.7 % (45.5-73.1); Platelet Count Result 147 k/mm3 (150-375); Red Blood Count 3.74 M/mm3 (4.6-6.20); Red Cell Distribution Width 16.3 % (11.5-14.5); White Blood Count 6.3 K/mm3 (4.5-10.0)
[2022-05-12 14:25] LABS: Lactic Acid Reflex 1.6 mmol/L (0.7-2.0)
[2022-05-12 14:29] LABS: CRP 8.1 mg/dL (<1.0)
[2022-05-12 14:35] LABS: D Dimer 1.28 ug/mL (<0.48)
[2022-05-12 14:40] LABS: Alanine Aminotransferase 67 U/L (6-50); Albumin Level 2.8 g/dL (3.5-5.1); Alkaline Phosphatase 64 U/L (38-126); Anion Gap 4 mmol/L (8-16); Aspartate Amino Transferase 145 U/L (17-59); Bilirubin,Total 1.4 mg/dL (0.2-1.3); Blood Urea Nitrogen 36 mg/dL (9-20); Calcium 8.9 mg/dL (8.4-10.2); Carbon Dioxide 26 mmol/L (22-30); Chloride 106 mmol/L (98-107); Estimated CRCL calculation 47 ml/min; Estimated Glomerular Filt Rate > 60; Glucose 107 mg/dL (65-110); Potassium 3.7 mmol/L (3.4-5.0); Sodium 136 mmol/L (137-145)
[2022-05-12 14:57] LABS: Procalcitonin 0.4 ng/mL
[2022-05-12] MEDS: PANTOPRAZOLE 40 MG TABLET PO (16:28)
--- NOTE | 2022-05-12 17:34 | PC.NURSE ---
Notified Dr. Woods of low bp even on repeat.
[2022-05-13] VITALS (19 sets, daily range): BP systolic 84–106; BP diastolic 48–57; PULSE 48–105; RESP 14–18; TEMP 36.2–36.3; O2SAT 91–99
--- NOTE | 2022-05-13 00:02 | PC.NURSE ---
This patient, Blade Lacy, was transferred to [[id number]] on 05/12/22 at 2140. Personal belongings sent with patient. Report given to [MAGUE Pleitez]. Appropriate documentation sent with patient.
[2022-05-13 05:52] LABS: Basophils Percent Auto 0.1 % (0.2-1.2); Hemoglobin 11.7 g/dL (14.0-18.0); Immature Granulocyte Absolute 0.01 K/mm3 (0.00-0.031); Immature Granulocyte Percent A 0.1 % (0-0.5); Lymphocytes Absolute Auto 0.42 K/mm3 (0.9-3.2); Lymphocytes Percent Auto 6.1 % (18.3-44.2); Mean Corpuscular HGB Conc 33.4 g/dl (32-36); Mean Corpuscular Hemoglobin 31.5 pg (26-34); Mean Corpuscular Volume 94.1 fl (80-100); Mean Platelet Volume 10.1 fl (7.4-10.4); Monocytes Absolute Auto 0.2 K/mm3 (0.1-0.6); Monocytes Percent Auto 3.5 % (2.6-8.5); Neutrophils Absolute Auto 6.2 K/mm3 (1.3-6.7); Neutrophils Percent Auto 90.2 % (45.5-73.1); Platelet Count Result 156 k/mm3 (150-375); Red Blood Count 3.72 M/mm3 (4.6-6.20); Red Cell Distribution Width 16.3 % (11.5-14.5); White Blood Count 6.9 K/mm3 (4.5-10.0)
[2022-05-13 06:02] LABS: Lactic Acid Reflex 1.1 mmol/L (0.7-2.0)
[2022-05-13 06:04] LABS: Alanine Aminotransferase 73 U/L (6-50); Albumin Level 2.7 g/dL (3.5-5.1); Alkaline Phosphatase 57 U/L (38-126); Anion Gap 2 mmol/L (8-16); Aspartate Amino Transferase 130 U/L (17-59); Bilirubin,Total 1.2 mg/dL (0.2-1.3); Blood Urea Nitrogen 36 mg/dL (9-20); Calcium 8.4 mg/dL (8.4-10.2); Carbon Dioxide 27 mmol/L (22-30); Chloride 106 mmol/L (98-107); Estimated CRCL calculation 52 ml/min; Estimated Glomerular Filt Rate > 60; Glucose 111 mg/dL (65-110); Lactate Dehydrogenase 261 U/L (120-246); Magnesium 2.3 mg/dL (1.6-2.3); Potassium 3.9 mmol/L (3.4-5.0); Sodium 135 mmol/L (137-145)
--- NOTE | 2022-05-13 08:46 | PM.IMPN ---
Progress Note: A&P Assessment and Plan (1) COVID-19: Code(s): U07.1 - COVID-19 Status: Acute Assessment and Plan: Still with generalized weakness, now on 4 L nasal cannula, wean as able CRP trending down, check q48h D-dimer 1.28, CTA neg PE, check q48h Remdesevir + dexamethasone started 05/13 (2) CHF exacerbation: Code(s): I50.9 - Heart failure, unspecified Status: Acute Assessment and Plan: Appears hypervolemic, cont IV Lasix 40 mg daily Continue with Entresto, coreg, decrease dose to 6.25 from 12.5 mg due to hypotension Echo from 10/21/2021 was read as EF of 30-35% with grade 3 diastolic dysfunction. Repeat echo report pending CTA 05/11 showed diffuse lung disease, pulm HTN, and small pleural effusions (3) Elevated troponin: Code(s): R77.8 - Other specified abnormalities of plasma proteins Status: Acute Assessment and Plan: flattened curve, asymptomatic (4) Macular degeneration: Code(s): H35.30 - Unspecified macular degeneration Status: Acute Assessment and Plan: Continue with home treatment (5) Atrial fibrillation: Qualifiers: Atrial fibrillation type: paroxysmal Qualified Code(s): I48.0 - Paroxysmal atrial fibrillation Code(s): I48.91 - Unspecified atrial fibrillation Status: Acute Assessment and Plan: The patient has a history of cardioversion and is in sinus rhythm at this time. Continue Coreg, aspirin, Eliquis, amiodarone (6) HTN, goal below 130/80: Code(s): I10 - Essential (primary) hypertension Status: Acute Assessment and Plan: BP reviewed 05/13, on the low side, cont current meds, monitor entresto held 05/13 AM dose (7) Hyperlipidemia: Code(s): E78.5 - Hyperlipidemia, unspecified Status: Acute Assessment and Plan: Hold atorvastatin, slightly elevated LFTs, likely 2/2 acute illness/COVID, monitor Plan DVT prophylaxis with Eliquis GI prophylaxis with PPI Code status full code Subjective Date/time seen: 05/13/22 08:46 Interval history: 86-year-old male with history of AFib, heart failure and heart disease on chronic anticoagulation is presenting with COVID. No overnight events noted. No chest pain or shortness of breath. No nausea, vomiting or diarrhea. No fevers or chills. 99% on 4 L nasal cannula. Review of Systems Review of Systems: 12 point review of systems was assessed and was negative except as noted in the HPI Exam Narrative: General: No acute distress, alert and oriented per baseline HEENT: Atraumatic, normocephalic, mucous membranes moist CV: Regular rate and rhythm, S1, S2 Lungs: Clear to auscultation bilaterally, no rales or crackles noted, no wheezes, good air entry Abdomen: Soft, nontender, nondistended Extremities: Normal to inspection Skin: No rashes noted, no lesions or wounds seen Psych: Euthymic, normal affect Neuro: Cranial nerves 2-12 grossly intact, strength +5/5 upper and lower extremities bilaterally Objective Data Vital Signs Vital Signs: Vital Signs - 24 hr 05/12/22 11:24 05/12/22 09:00 05/12/22 09:00 Temperature 97.5 F L Pulse Rate 67 77 77 Respiratory Rate 18 Blood Pressure 112/58 L Pulse Oximetry 96 05/12/22 10:00 05/12/22 16:00 05/12/22 17:29 Temperature 97.6 F Pulse Rate 78 68 Respiratory Rate 20 Blood Pressure 94/55 L 91/46 L Pulse Oximetry 92 05/12/22 22:19 05/13/22 05:56 Temperature 97.3 F L Pulse Rate 68 75 Respiratory Rate 16 Blood Pressure 103/48 L Pulse Oximetry 91 Intake/Output Intake/Output: Intake & Output 05/10/22 05/11/22 05/12/22 05/13/22 23:59 23:59 23:59 23:59 Intake Total 1000 1690 0 Output Total 1675 Balance 1000 15 0 Meds/Results Medications: Active Medications Generic Name Dose Route Start Last Admin Trade Name Freq PRN Reason Stop Dose Admin Acetaminophen 650 mg 05/11/22 14
[2022-05-13 09:42] LABS: INR 1.5; Prothrombin Time 17.8 Seconds (11.1-14.7)
[2022-05-13] MEDS: AMIODARONE HCL 200 MG TABLET PO (10:28)
[2022-05-13] MEDS: ASPIRIN 81 MG ENTERIC TABLET PO (10:28)
[2022-05-13] MEDS: APIXABAN 5 MG TABLET PO ×2 (10:28→22:12)
[2022-05-13] MEDS: CHOLECALCIFEROL 1,000 UNITS TABLET 5000 UNITS PO (10:29)
[2022-05-13] MEDS: REMDESIVIR 200 MG/NS 250 ML 200 MG/250 ML BAG 250 MG IVPB (10:29)
[2022-05-13] MEDS: THERAPEUTIC MULTIVITAMINS/MINERALS TAB (*BKC) 1 TABLET PO (10:29)
[2022-05-13] MEDS: FINASTERIDE 5 MG TABLET PO (10:29)
[2022-05-13] MEDS: DEXAMETHASONE 2 MG TABLET 6 MG PO (10:29)
[2022-05-13] MEDS: PANTOPRAZOLE 40 MG TABLET PO (10:29)
[2022-05-13] MEDS: carvediloL 6.25 MG TABLET PO ×2 (10:29→22:11)
[2022-05-13] MEDS: FUROSEMIDE INJ 40 MG/4 ML VIAL IV PUSH (10:29)
[2022-05-13] MEDS: ALBUTEROL SULFATE NEB 2.5 MG/3 ML INH INHALATION ×2 (17:14→21:55)
[2022-05-13] MEDS: IPRATROPIUM BR 0.02% INH SOLN 0.5 MG/2.5 ML VIAL INHALATION ×2 (17:15→21:55)
[2022-05-13] MEDS: BENZONATATE 100 MG CAPSULE 200 MG PO (17:27)
[2022-05-13] MEDS: guaiFENesin/DEXTROMETHORPHAN 10 ML UDC PO (17:27)
[2022-05-13] MEDS: SACUBITRIL/VALSARTAN 24-26 MG TABLET 1 TAB PO (22:11)
[2022-05-14] VITALS (19 sets, daily range): BP systolic 93–106; BP diastolic 54–60; PULSE 50–75; RESP 16–18; TEMP 36.2–37.1; O2SAT 91–99
[2022-05-14] MEDS: ALBUTEROL SULFATE NEB 2.5 MG/3 ML INH INHALATION ×4 (05:12→20:45)
[2022-05-14] MEDS: IPRATROPIUM BR 0.02% INH SOLN 0.5 MG/2.5 ML VIAL INHALATION ×4 (05:13→20:45)
[2022-05-14 05:23] LABS: Hematocrit 33.5 % (42.0-52.0); Hemoglobin 11.4 g/dL (14.0-18.0); Immature Granulocyte Absolute 0.03 K/mm3 (0.00-0.031); Immature Granulocyte Percent A 0.5 % (0-0.5); Lymphocytes Absolute Auto 0.39 K/mm3 (0.9-3.2); Lymphocytes Percent Auto 6.7 % (18.3-44.2); Mean Corpuscular Hemoglobin 31.2 pg (26-34); Mean Corpuscular Volume 91.8 fl (80-100); Mean Platelet Volume 10.3 fl (7.4-10.4); Monocytes Absolute Auto 0.2 K/mm3 (0.1-0.6); Monocytes Percent Auto 3.3 % (2.6-8.5); Neutrophils Absolute Auto 5.2 K/mm3 (1.3-6.7); Neutrophils Percent Auto 89.5 % (45.5-73.1); Platelet Count Result 173 k/mm3 (150-375); Red Blood Count 3.65 M/mm3 (4.6-6.20); Red Cell Distribution Width 15.9 % (11.5-14.5); White Blood Count 5.8 K/mm3 (4.5-10.0)
[2022-05-14] MEDS: guaiFENesin/DEXTROMETHORPHAN 10 ML UDC PO ×2 (05:35→10:57)
[2022-05-14 05:36] LABS: D Dimer 1.16 ug/mL (<0.48)
[2022-05-14 05:42] LABS: Alanine Aminotransferase 84 U/L (6-50); Albumin Level 2.7 g/dL (3.5-5.1); Alkaline Phosphatase 50 U/L (38-126); Anion Gap 4 mmol/L (8-16); Aspartate Amino Transferase 126 U/L (17-59); Bilirubin,Total 1.1 mg/dL (0.2-1.3); Blood Urea Nitrogen 43 mg/dL (9-20); CRP 4.5 mg/dL (<1.0); Calcium 8.3 mg/dL (8.4-10.2); Carbon Dioxide 24 mmol/L (22-30); Chloride 105 mmol/L (98-107); Estimated CRCL calculation 47 ml/min; Estimated Glomerular Filt Rate > 60; Glucose 118 mg/dL (65-110); Potassium 3.7 mmol/L (3.4-5.0); Sodium 133 mmol/L (137-145)
[2022-05-14 08:03] LABS: INR 1.7
--- NOTE | 2022-05-14 08:52 | PM.IMPN ---
Progress Note: A&P Assessment and Plan (1) COVID-19: Code(s): U07.1 - COVID-19 Status: Acute Assessment and Plan: Weaned to 2 L nasal cannula CRP trending down, check q48h D-dimer 1.28, CTA neg PE, check q48h Remdesevir + dexamethasone started 05/13, end date for remdesevir is 05/17 or when he is on room air, last date for dexa to complete a 10 day course is 05/22 (2) CHF exacerbation: Code(s): I50.9 - Heart failure, unspecified Status: Acute Assessment and Plan: Appears hypervolemic, cont IV Lasix 40 mg daily Continue with Entresto, coreg, decrease dose to 6.25 from 12.5 mg due to hypotension Echo from 10/21/2021 was read as EF of 30-35% with grade 3 diastolic dysfunction. Repeat echo report pending CTA 05/11 showed diffuse lung disease, pulm HTN, and small pleural effusions Repeat CXR 05/14 pending (3) Elevated troponin: Code(s): R77.8 - Other specified abnormalities of plasma proteins Status: Acute Assessment and Plan: Flattened curve, asymptomatic (4) Macular degeneration: Code(s): H35.30 - Unspecified macular degeneration Status: Acute Assessment and Plan: Continue with home treatment (5) Atrial fibrillation: Qualifiers: Atrial fibrillation type: paroxysmal Qualified Code(s): I48.0 - Paroxysmal atrial fibrillation Code(s): I48.91 - Unspecified atrial fibrillation Status: Acute Assessment and Plan: The patient has a history of cardioversion and is in sinus rhythm at this time. Continue Coreg, aspirin, Eliquis, amiodarone (6) HTN, goal below 130/80: Code(s): I10 - Essential (primary) hypertension Status: Acute Assessment and Plan: BP reviewed 05/14 Still on the low side, entresto given last night but held 05/13 AM dose (7) Hyperlipidemia: Code(s): E78.5 - Hyperlipidemia, unspecified Status: Acute Assessment and Plan: Hold atorvastatin, slightly elevated LFTs, likely 2/2 acute illness/COVID Improving 05/14, monitor Plan DVT prophylaxis with Eliquis GI prophylaxis with PPI Code status full code Subjective Date/time seen: 05/14/22 08:52 Interval history: 86-year-old male with history of AFib, heart failure and heart disease on chronic anticoagulation is presenting with COVID. No overnight events noted. No chest pain or shortness of breath. No nausea, vomiting or diarrhea. No fevers or chills. 99% on 4 L nasal cannula. Review of Systems Review of Systems: 12 point review of systems was assessed and was negative except as noted in the HPI Exam Narrative: General: No acute distress, alert and oriented per baseline HEENT: Atraumatic, normocephalic, mucous membranes moist CV: Regular rate and rhythm, S1, S2 Lungs: Clear to auscultation bilaterally, no rales or crackles noted, no wheezes, good air entry Abdomen: Soft, nontender, nondistended Extremities: Normal to inspection Skin: No rashes noted, no lesions or wounds seen Psych: Euthymic, normal affect Neuro: Cranial nerves 2-12 grossly intact, strength +5/5 upper and lower extremities bilaterally Objective Data Vital Signs Vital Signs: Vital Signs - 24 hr 05/13/22 09:59 05/13/22 10:09 05/13/22 10:28 Temperature Pulse Rate 105 H 105 H Respiratory Rate 16 Blood Pressure 84/50 L Pulse Oximetry 92 Oxygen Delivery Oxygen Flow Rate 05/13/22 10:29 05/13/22 10:30 05/13/22 10:47 Temperature Pulse Rate 104 H 104 H 68 Respiratory Rate 16 Blood Pressure Pulse Oximetry 92 Oxygen Delivery Nasal Cannula Oxygen Flow Rate 4 05/13/22 11:45 05/13/22 12:00 05/13/22 15:16 Temperature 97.4 F L Pulse Rate 54 L 48 L 56 L Respiratory Rate 16 Blood Pressure 92/52 L 106/49 L Pulse Oximetry 99 Oxygen Delivery Oxygen Flow Rate 05/13/22 16:00 05/13/22 17:16 05/13/22 17:16 Temperature Pulse Rate 60 57 L Respiratory Rat
[2022-05-14] MEDS: APIXABAN 5 MG TABLET PO ×2 (09:32→21:05)
[2022-05-14] MEDS: CHOLECALCIFEROL 1,000 UNITS TABLET 5000 UNITS PO (09:33)
[2022-05-14] MEDS: THERAPEUTIC MULTIVITAMINS/MINERALS TAB (*BKC) 1 TABLET PO (09:33)
[2022-05-14] MEDS: ASPIRIN 81 MG ENTERIC TABLET PO (09:33)
[2022-05-14] MEDS: DEXAMETHASONE 2 MG TABLET 6 MG PO (09:33)
[2022-05-14] MEDS: PANTOPRAZOLE 40 MG TABLET PO (09:33)
[2022-05-14] MEDS: SENNA/DOCUSATE SODIUM TABLET 1 TAB PO (09:33)
[2022-05-14] MEDS: BENZONATATE 100 MG CAPSULE 200 MG PO ×3 (09:41→17:20)
--- NOTE | 2022-05-14 10:51 | PM.IMPN ---
Progress Note: A&P Assessment and Plan (1) COVID-19: Code(s): U07.1 - COVID-19 Status: Acute Assessment and Plan: Weaned to 2 L nasal cannula CRP trending down, check q48h D-dimer 1.28, CTA neg PE, check q48h Remdesevir + dexamethasone started 05/13, end date for remdesevir is 05/17 or when he is on room air, last date for dexa to complete a 10 day course is 05/22 (2) CHF exacerbation: Code(s): I50.9 - Heart failure, unspecified Status: Acute Assessment and Plan: Appears hypervolemic, cont IV Lasix 40 mg daily Continue with Entresto, coreg, decrease dose to 6.25 from 12.5 mg due to hypotension Echo from 10/21/2021 was read as EF of 30-35% with grade 3 diastolic dysfunction. Repeat echo report pending CTA 05/11 showed diffuse lung disease, pulm HTN, and small pleural effusions Repeat CXR 05/14 showed improving infiltrates, still with small pleural effusions (3) Elevated troponin: Code(s): R77.8 - Other specified abnormalities of plasma proteins Status: Acute Assessment and Plan: Flattened curve, asymptomatic (4) Macular degeneration: Code(s): H35.30 - Unspecified macular degeneration Status: Acute Assessment and Plan: Continue with home treatment (5) Atrial fibrillation: Qualifiers: Atrial fibrillation type: paroxysmal Qualified Code(s): I48.0 - Paroxysmal atrial fibrillation Code(s): I48.91 - Unspecified atrial fibrillation Status: Acute Assessment and Plan: The patient has a history of cardioversion and is in sinus rhythm at this time. Continue Coreg, aspirin, Eliquis, amiodarone (6) HTN, goal below 130/80: Code(s): I10 - Essential (primary) hypertension Status: Acute Assessment and Plan: BP reviewed 05/14 Still on the low side, entresto given last night but held 05/13 AM dose (7) Hyperlipidemia: Code(s): E78.5 - Hyperlipidemia, unspecified Status: Acute Assessment and Plan: Hold atorvastatin, slightly elevated LFTs, likely 2/2 acute illness/COVID Improving 05/14, monitor Plan DVT prophylaxis with Eliquis GI prophylaxis with PPI Code status full code Subjective Date/time seen: 05/14/22 10:51 Interval history: 86-year-old male with history of AFib, heart failure and heart disease on chronic anticoagulation is presenting with COVID. No overnight events noted. No chest pain or shortness of breath. No nausea, vomiting or diarrhea. No fevers or chills. 99% on 4 L nasal cannula. Review of Systems Review of Systems: 12 point review of systems was assessed and was negative except as noted in the HPI Exam Narrative: General: No acute distress, alert and oriented per baseline HEENT: Atraumatic, normocephalic, mucous membranes moist CV: Regular rate and rhythm, S1, S2 Lungs: Clear to auscultation bilaterally, no rales or crackles noted, no wheezes, good air entry Abdomen: Soft, nontender, nondistended Extremities: Normal to inspection Skin: No rashes noted, no lesions or wounds seen Psych: Euthymic, normal affect Neuro: Cranial nerves 2-12 grossly intact, strength +5/5 upper and lower extremities bilaterally Objective Data Vital Signs Vital Signs: Vital Signs - 24 hr 05/13/22 11:45 05/13/22 12:00 05/13/22 15:16 Temperature 97.4 F L Pulse Rate 54 L 48 L 56 L Respiratory Rate 16 Blood Pressure 92/52 L 106/49 L Pulse Oximetry 99 Oxygen Delivery Oxygen Flow Rate 05/13/22 16:00 05/13/22 17:16 05/13/22 17:16 Temperature Pulse Rate 60 57 L Respiratory Rate 18 Blood Pressure Pulse Oximetry 92 Oxygen Delivery Nasal Cannula Oxygen Flow Rate 3 05/13/22 17:30 05/13/22 17:44 05/13/22 22:05 Temperature 97.2 F L Pulse Rate 58 L 61 Respiratory Rate 16 16 Blood Pressure 102/57 L Pulse Oximetry 92 92 97 Oxygen Delivery Nasal Cannula Oxygen Flow Rate 2 05/13/22 22:11 05/13/22
[2022-05-14] MEDS: REMDESIVIR 100 MG/NS 250 ML 100 MG/250 ML BAG 250 MG IVPB (10:54)
--- NOTE | 2022-05-14 11:28 | PC.NURSE ---
Pt's blood pressure this morning was 94/36 - has been trending lower over the last few days. called Dr. Woods and left a VM. In the meantime held all medications that could potentially lower BP. Pt on telemetry. States being dizzy and seeing sparkles . Dr. Woods called back and requested to take a manual BP, stated he has chronic dizziness and she does not think the two are correlated. F/u manual BP read 100/60. Pt says he feels A little better . Still holding those AM medications. No other orders received.
[2022-05-15] VITALS (24 sets, daily range): BP systolic 91–134; BP diastolic 48–62; PULSE 62–93; RESP 18–20; TEMP 36.1–36.4; O2SAT 94–99
[2022-05-15] MEDS: IPRATROPIUM BR 0.02% INH SOLN 0.5 MG/2.5 ML VIAL INHALATION ×4 (02:35→20:43)
[2022-05-15] MEDS: ALBUTEROL SULFATE NEB 2.5 MG/3 ML INH INHALATION ×4 (02:35→20:43)
[2022-05-15 06:09] LABS: Hematocrit 35.9 % (42.0-52.0); Hemoglobin 12.1 g/dL (14.0-18.0); Immature Granulocyte Absolute 0.04 K/mm3 (0.00-0.031); Immature Granulocyte Percent A 0.5 % (0-0.5); Lymphocytes Absolute Auto 0.36 K/mm3 (0.9-3.2); Lymphocytes Percent Auto 4.5 % (18.3-44.2); Mean Corpuscular HGB Conc 33.7 g/dl (32-36); Mean Corpuscular Hemoglobin 30.6 pg (26-34); Mean Corpuscular Volume 90.7 fl (80-100); Mean Platelet Volume 10.3 fl (7.4-10.4); Monocytes Absolute Auto 0.4 K/mm3 (0.1-0.6); Monocytes Percent Auto 4.8 % (2.6-8.5); Neutrophils Absolute Auto 7.2 K/mm3 (1.3-6.7); Neutrophils Percent Auto 90.2 % (45.5-73.1); Platelet Count Result 211 k/mm3 (150-375); Red Blood Count 3.96 M/mm3 (4.6-6.20); Red Cell Distribution Width 15.9 % (11.5-14.5)
[2022-05-15 06:15] LABS: INR 1.8; Prothrombin Time 20.6 Seconds (11.1-14.7)
[2022-05-15 06:24] LABS: Alanine Aminotransferase 97 U/L (6-50); Alkaline Phosphatase 74 U/L (38-126); Anion Gap 2 mmol/L (8-16); Aspartate Amino Transferase 106 U/L (17-59); Blood Urea Nitrogen 36 mg/dL (9-20); Calcium 9.1 mg/dL (8.4-10.2); Carbon Dioxide 29 mmol/L (22-30); Chloride 105 mmol/L (98-107); Estimated CRCL calculation 46 ml/min; Estimated Glomerular Filt Rate > 60; Glucose 117 mg/dL (65-110); Potassium 3.7 mmol/L (3.4-5.0); Sodium 136 mmol/L (137-145)
[2022-05-15 06:55] LABS: Burr Cells 3+ (NORMAL); Platelet Estimate Adequate (Adequate)
[2022-05-15 06:56] LABS: Schistocytes None Seen (NORMAL)
--- NOTE | 2022-05-15 09:52 | PM.IMPN ---
Progress Note: A&P Assessment and Plan (1) COVID-19: Code(s): U07.1 - COVID-19 Status: Acute Assessment and Plan: Tentatively weaned to room air, clinically improving CRP trending down, check q48h D-dimer 1.28, CTA neg PE, check q48h, stable Remdesevir + dexamethasone started 05/13, end date for remdesevir is 05/17 or when he is on room air, last date for dexa to complete a 10 day course is 05/22 (2) CHF exacerbation: Code(s): I50.9 - Heart failure, unspecified Status: Acute Assessment and Plan: Appears hypervolemic, cont IV Lasix 40 mg daily Continue with Entresto, coreg, decrease dose to 6.25 from 12.5 mg due to hypotension Echo from 10/21/21 was read as EF of 30-35% with grade 3 diastolic dysfunction. Repeat echo from 05/11 showed an EF 20-25% with diastolic dysfunction, mild valvular disease and no mention of pulmonary hypertension CTA 05/11 showed diffuse lung disease, pulm HTN, and small pleural effusions Repeat CXR 05/14 showed improving infiltrates, still with small pleural effusions Give extra dose of lasix 40 mg IV x 1 05/15 afternoon (3) Elevated troponin: Code(s): R77.8 - Other specified abnormalities of plasma proteins Status: Acute Assessment and Plan: Flattened curve, asymptomatic (4) Macular degeneration: Code(s): H35.30 - Unspecified macular degeneration Status: Acute Assessment and Plan: Continue with home treatment (5) Atrial fibrillation: Qualifiers: Atrial fibrillation type: paroxysmal Qualified Code(s): I48.0 - Paroxysmal atrial fibrillation Code(s): I48.91 - Unspecified atrial fibrillation Status: Acute Assessment and Plan: The patient has a history of cardioversion and is in sinus rhythm at this time. Continue Coreg, aspirin, Eliquis, amiodarone (6) HTN, goal below 130/80: Code(s): I10 - Essential (primary) hypertension Status: Acute Assessment and Plan: BP reviewed 05/15, 113/62 Intermittently hypotensive, entresto held 05/13 AM dose and all day 05/14, restarted 05/15 AM, monitor (7) Hyperlipidemia: Code(s): E78.5 - Hyperlipidemia, unspecified Status: Acute Assessment and Plan: Hold atorvastatin, slightly elevated LFTs, likely 2/2 acute illness/COVID LFTs improving 05/15, monitor, still fluctuating, as expected, monitor Plan DVT prophylaxis with Eliquis GI prophylaxis with PPI Code status full code Anticipate discharge home tomorrow after home O2 eval if blood pressure tolerates Entresto and patient's symptoms continued to be resolved Subjective Date/time seen: 05/15/22 09:52 Interval history: 86-year-old male with history of AFib, heart failure and heart disease on chronic anticoagulation is presenting with COVID. No overnight events noted. No chest pain or shortness of breath. No nausea, vomiting or diarrhea. No fevers or chills. Weaned to room air for now. Review of Systems Review of Systems: 12 point review of systems was assessed and was negative except as noted in the HPI Exam Narrative: General: No acute distress, alert and oriented per baseline HEENT: Atraumatic, normocephalic, mucous membranes moist CV: Regular rate and rhythm, S1, S2 Lungs: Clear to auscultation bilaterally, no rales or crackles noted, no wheezes, good air entry Abdomen: Soft, nontender, nondistended Extremities: Normal to inspection Skin: No rashes noted, no lesions or wounds seen Psych: Euthymic, normal affect Neuro: Cranial nerves 2-12 grossly intact, strength +5/5 upper and lower extremities bilaterally Objective Data Vital Signs Vital Signs: Vital Signs - 24 hr 05/14/22 10:17 05/14/22 13:55 05/14/22 13:58 Temperature 97.5 F L Pulse Rate 65 64 Respiratory Rate 18 16 Blood Pressure 100/60 100/59 L Pulse Oximetry 97 Oxygen Delivery Oxygen Flow Rate 05/14/22 12:00 05/14/22 14:07 05/14/22 16:00
[2022-05-15] MEDS: FUROSEMIDE INJ 40 MG/4 ML VIAL IV PUSH ×2 (10:02→11:29)
[2022-05-15] MEDS: AMIODARONE HCL 200 MG TABLET PO (10:02)
[2022-05-15] MEDS: carvediloL 6.25 MG TABLET PO ×2 (10:03→20:52)
[2022-05-15] MEDS: SACUBITRIL/VALSARTAN 24-26 MG TABLET 1 TAB PO ×2 (10:04→20:52)
[2022-05-15] MEDS: REMDESIVIR 100 MG/NS 250 ML 100 MG/250 ML BAG 250 MG IVPB (10:05)
[2022-05-15] MEDS: BENZONATATE 100 MG CAPSULE 200 MG PO ×3 (10:10→18:35)
[2022-05-15] MEDS: FINASTERIDE 5 MG TABLET PO (11:26)
[2022-05-15] MEDS: CHOLECALCIFEROL 1,000 UNITS TABLET 5000 UNITS PO (11:27)
[2022-05-15] MEDS: DEXAMETHASONE 2 MG TABLET 6 MG PO (11:27)
[2022-05-15] MEDS: APIXABAN 5 MG TABLET PO ×2 (11:27→20:52)
[2022-05-15] MEDS: PANTOPRAZOLE 40 MG TABLET PO (11:27)
[2022-05-15] MEDS: ASPIRIN 81 MG ENTERIC TABLET PO (11:27)
[2022-05-15] MEDS: THERAPEUTIC MULTIVITAMINS/MINERALS TAB (*BKC) 1 TABLET PO (11:28)
[2022-05-15] MEDS: SENNA/DOCUSATE SODIUM TABLET 1 TAB PO (12:33)
[2022-05-15] MEDS: guaiFENesin/DEXTROMETHORPHAN 10 ML UDC PO (12:33)
--- NOTE | 2022-05-15 12:58 | P.CDI_ITS ---
CDI Query Clarified Diagnosis Clarified Diagnosis: Elevated BNP on 05/11/22 lab work. Documented history of CHF. CHF noted on the assessment and plan. Furosemide listed as a home medication. Pt receiving Lasix and Entresto. Chest Xray from 05/11/22 notes pulmonary edema. Please specify type and acuity of heart failure if known. * Acute * Chronic * Acute on Chronic * Unknown * Systolic * Diastolic * Combined Systolic and Diastolic * Unknown *
[2022-05-16] VITALS (15 sets, daily range): BP systolic 100–114; BP diastolic 51–84; PULSE 60–96; RESP 14–20; TEMP 36.5; O2SAT 91–100
[2022-05-16] MEDS: ALBUTEROL SULFATE NEB 2.5 MG/3 ML INH INHALATION ×3 (03:13→13:00)
[2022-05-16] MEDS: IPRATROPIUM BR 0.02% INH SOLN 0.5 MG/2.5 ML VIAL INHALATION ×3 (03:13→13:00)
[2022-05-16 06:06] LABS: Hematocrit 33.7 % (42.0-52.0); Hemoglobin 11.5 g/dL (14.0-18.0); Immature Granulocyte Absolute 0.03 K/mm3 (0.00-0.031); Immature Granulocyte Percent A 0.5 % (0-0.5); Lymphocytes Absolute Auto 0.31 K/mm3 (0.9-3.2); Lymphocytes Percent Auto 5.5 % (18.3-44.2); Mean Corpuscular HGB Conc 34.1 g/dl (32-36); Mean Corpuscular Hemoglobin 31.9 pg (26-34); Mean Corpuscular Volume 93.4 fl (80-100); Mean Platelet Volume 9.8 fl (7.4-10.4); Monocytes Absolute Auto 0.3 K/mm3 (0.1-0.6); Monocytes Percent Auto 4.6 % (2.6-8.5); Neutrophils Percent Auto 89.4 % (45.5-73.1); Platelet Count Result 200 k/mm3 (150-375); Red Blood Count 3.61 M/mm3 (4.6-6.20); Red Cell Distribution Width 16.1 % (11.5-14.5); White Blood Count 5.6 K/mm3 (4.5-10.0)
[2022-05-16 06:19] LABS: Alanine Aminotransferase 88 U/L (6-50); Albumin Level 2.9 g/dL (3.5-5.1); Alkaline Phosphatase 68 U/L (38-126); Anion Gap 2 mmol/L (8-16); Aspartate Amino Transferase 78 U/L (17-59); Blood Urea Nitrogen 32 mg/dL (9-20); Calcium 9.1 mg/dL (8.4-10.2); Carbon Dioxide 32 mmol/L (22-30); Chloride 104 mmol/L (98-107); Estimated CRCL calculation 52 ml/min; Estimated Glomerular Filt Rate > 60; Glucose 121 mg/dL (65-110); Potassium 3.7 mmol/L (3.4-5.0); Sodium 138 mmol/L (137-145)
[2022-05-16 07:58] LABS: Prothrombin Time 21.7 Seconds (11.1-14.7)
[2022-05-16] MEDS: PANTOPRAZOLE 40 MG TABLET PO (10:12)
[2022-05-16] MEDS: DEXAMETHASONE 2 MG TABLET 6 MG PO (10:12)
[2022-05-16] MEDS: APIXABAN 5 MG TABLET PO (10:12)
[2022-05-16] MEDS: FINASTERIDE 5 MG TABLET PO (10:12)
[2022-05-16] MEDS: ASPIRIN 81 MG ENTERIC TABLET PO (10:13)
[2022-05-16] MEDS: THERAPEUTIC MULTIVITAMINS/MINERALS TAB (*BKC) 1 TABLET PO (10:13)
[2022-05-16] MEDS: CHOLECALCIFEROL 1,000 UNITS TABLET 5000 UNITS PO (10:13)
[2022-05-16] MEDS: REMDESIVIR 100 MG/NS 250 ML 100 MG/250 ML BAG 250 MG IVPB (10:14)
[2022-05-16] MEDS: BENZONATATE 100 MG CAPSULE 200 MG PO ×2 (10:26→12:37)
--- NOTE | 2022-05-16 10:38 | PM.IMPN ---
Progress Note: A&P Assessment and Plan (1) COVID-19: Code(s): U07.1 - COVID-19 Status: Acute Assessment and Plan: Tentatively weaned to room air, clinically improving CRP trending down, check q48h D-dimer 1.28, CTA neg PE, check q48h, stable Remdesevir + dexamethasone started 05/13, end date for remdesevir is 05/17 or when he is on room air, last date for dexa to complete a 10 day course is 05/22 (2) CHF exacerbation: Code(s): I50.9 - Heart failure, unspecified Status: Acute Assessment and Plan: Appears hypervolemic, cont IV Lasix 40 mg daily Continue with Entresto, coreg, decrease dose to 6.25 from 12.5 mg due to hypotension Echo from 10/21/21 was read as EF of 30-35% with grade 3 diastolic dysfunction. Repeat echo from 05/11 showed an EF 20-25% with diastolic dysfunction, mild valvular disease and no mention of pulmonary hypertension CTA 05/11 showed diffuse lung disease, pulm HTN, and small pleural effusions Repeat CXR 05/14 showed improving infiltrates, still with small pleural effusions Give extra dose of lasix 40 mg IV x 1 05/15 afternoon Improved creat after extra dose lasix, cont oral lasix at home dose 05/16 (3) Elevated troponin: Code(s): R77.8 - Other specified abnormalities of plasma proteins Status: Acute Assessment and Plan: Flattened curve, asymptomatic (4) Macular degeneration: Code(s): H35.30 - Unspecified macular degeneration Status: Acute Assessment and Plan: Continue with home treatment (5) Atrial fibrillation: Qualifiers: Atrial fibrillation type: paroxysmal Qualified Code(s): I48.0 - Paroxysmal atrial fibrillation Code(s): I48.91 - Unspecified atrial fibrillation Status: Acute Assessment and Plan: The patient has a history of cardioversion and is in sinus rhythm at this time. Continue Coreg, aspirin, Eliquis, amiodarone (6) HTN, goal below 130/80: Code(s): I10 - Essential (primary) hypertension Status: Acute Assessment and Plan: BP reviewed 05/16 Intermittently hypotensive, entresto held 05/13 AM dose and all day 05/14, restarted 05/15 AM, held again 05/16, will hold indefinitely at d/c, f/u with cardio outpatient to address (7) Hyperlipidemia: Code(s): E78.5 - Hyperlipidemia, unspecified Status: Acute Assessment and Plan: Hold atorvastatin, slightly elevated LFTs, likely 2/2 acute illness/COVID LFTs improving 05/16, monitor, still fluctuating, as expected, monitor Recheck 1 week after d/c, follow until resolved outpatient Plan DVT prophylaxis with Eliquis GI prophylaxis with PPI Code status full code Anticipate discharge home after home O2 eval, hold entresto at d/c, unsure of compliance outpatient? f/u cardio o/p Subjective Date/time seen: 05/16/22 10:38 Interval history: 86-year-old male with history of AFib, heart failure and heart disease on chronic anticoagulation is presenting with COVID. No overnight events noted. No chest pain or shortness of breath. No nausea, vomiting or diarrhea. No fevers or chills. Weaned to room air for now. Review of Systems Review of Systems: 12 point review of systems was assessed and was negative except as noted in the HPI Exam Narrative: General: No acute distress, alert and oriented per baseline HEENT: Atraumatic, normocephalic, mucous membranes moist CV: Regular rate and rhythm, S1, S2 Lungs: Clear to auscultation bilaterally, no rales or crackles noted, no wheezes, good air entry Abdomen: Soft, nontender, nondistended Extremities: Normal to inspection Skin: No rashes noted, no lesions or wounds seen Psych: Euthymic, normal affect Neuro: Cranial nerves 2-12 grossly intact, strength +5/5 upper and lower extremities bilaterally Objective Data Vital Signs Vital Signs: Vital Signs - 24 hr 05/15/22 11:35 05/15/22 12:35 05/15/22 14:05 Temperature 97 F L Pulse Rate
--- NOTE | 2022-05-16 13:01 | PM.DS ---
DS: Admitting Diagnosis Discharge Date 05/16/22 Admitting Diagnosis sob DS: Discharge Diagnosis Discharge Diagnosis (1) COVID-19: Code(s): U07.1 - COVID-19 Status: Acute Assessment and Plan: Tentatively weaned to room air, clinically improving CRP trending down, check q48h D-dimer 1.28, CTA neg PE, check q48h, stable Remdesevir + dexamethasone started 05/13, end date for remdesevir is 05/17 or when he is on room air, last date for dexa to complete a 10 day course is 05/22 (2) CHF exacerbation: Code(s): I50.9 - Heart failure, unspecified Status: Acute Assessment and Plan: Appears hypervolemic, cont IV Lasix 40 mg daily Continue with Entresto, coreg, decrease dose to 6.25 from 12.5 mg due to hypotension Echo from 10/21/21 was read as EF of 30-35% with grade 3 diastolic dysfunction. Repeat echo from 05/11 showed an EF 20-25% with diastolic dysfunction, mild valvular disease and no mention of pulmonary hypertension CTA 05/11 showed diffuse lung disease, pulm HTN, and small pleural effusions Repeat CXR 05/14 showed improving infiltrates, still with small pleural effusions Give extra dose of lasix 40 mg IV x 1 05/15 afternoon Improved creat after extra dose lasix, cont oral lasix at home dose 05/16 (3) Elevated troponin: Code(s): R77.8 - Other specified abnormalities of plasma proteins Status: Acute Assessment and Plan: Flattened curve, asymptomatic (4) Macular degeneration: Code(s): H35.30 - Unspecified macular degeneration Status: Acute Assessment and Plan: Continue with home treatment (5) Atrial fibrillation: Qualifiers: Atrial fibrillation type: paroxysmal Qualified Code(s): I48.0 - Paroxysmal atrial fibrillation Code(s): I48.91 - Unspecified atrial fibrillation Status: Acute Assessment and Plan: The patient has a history of cardioversion and is in sinus rhythm at this time. Continue Coreg, aspirin, Eliquis, amiodarone (6) HTN, goal below 130/80: Code(s): I10 - Essential (primary) hypertension Status: Acute Assessment and Plan: BP reviewed 05/16 Intermittently hypotensive, entresto held 3/25 AM dose and all day 05/14, restarted 05/15 AM, held again 05/16, will hold indefinitely at d/c, f/u with cardio outpatient to address (7) Hyperlipidemia: Code(s): E78.5 - Hyperlipidemia, unspecified Status: Acute Assessment and Plan: Hold atorvastatin, slightly elevated LFTs, likely 2/2 acute illness/COVID LFTs improving 05/16, monitor, still fluctuating, as expected, monitor Recheck 1 week after d/c, follow until resolved outpatient Plan DVT prophylaxis with Eliquis GI prophylaxis with PPI Code status full code Anticipate discharge home after home O2 eval, hold entresto at d/c, unsure of compliance outpatient? f/u cardio o/p DS: Summary Hospital Course Hospital Course: 86-year-old male with history of AFib, heart failure and heart disease on chronic anticoagulation is presenting with COVID. Completed a 5 day course of remdesivir, he will complete a 10 day course of dexamethasone on May 22. His Entresto has been held due to hypotension, Coreg dose was decreased from 12.5 mg to 6.25 mg due to hypotension. It is unclear whether patient was noncompliant with his blood pressure medications on outpatient basis as he did not appear septic. He was completely asymptomatic of this hypertension otherwise. He also could be hypotensive at baseline at home. Either way, Entresto to be held and Coreg to be decreased until he follows up with Cardiology on an outpatient basis. See above for details. Also review med rec. Time Spent with Patient Time attestation: Total time spent providing and/or coordinating discharge services: Exam Narrative: General: No acute distress, alert and oriented per baseline HEENT: Atraumatic, normocephalic, mucous membranes moist CV: Regula
== END 2022-05-16 13:57 | disposition home or self-care (01) | DRG 177 ==
LOC: ANHED 14:57 → ANHIMU 17:00 → ANH2MED 05-12 22:02
PROVIDERS: Emergency Medicine; Nurse Practitioner; Admitting Provider Student in an Organized Health Care Education/Training Program; Emergency Provider Emergency Medicine; PCP Internal Medicine; Visit Provider Student in an Organized Health Care Education/Training Program
DX: U07.1 COVID-19 (principal); I50.33 Acute on chronic diastolic (congestive) heart failure; I11.0 Hypertensive heart disease with heart failure; I27.20 Pulmonary hypertension, unspecified; H35.30 Unspecified macular degeneration; I10 Essential (primary) hypertension; I48.0 Paroxysmal atrial fibrillation; E78.5 Hyperlipidemia, unspecified; Z20.822 Contact with and (suspected) exposure to COVID-19; Z79.01 Long term (current) use of anticoagulants; Z79.899 Other long term (current) drug therapy
CPT/HCPCS: 36415; 36600; 71045; 71046; 71275; 80053; 81001; 82375; 82550; 82805; 83050; 83605; 83615; 83735; 83880; 84145; 84443; 84484; 85025; 85055; 85380; 85610; 85730; 86140; 87040; 93005; 93306; 94618; 94640; 94667; 96361; 96374; 97161; 97165; 97530; 97535; 99285; A9270; J0248; J1100; J1940; J7030; J8540; Q9967; U0003; U0005

== ENCOUNTER 2022-07-06 08:54 | Outpatient (RCR) | payer OTHER, SELFPAY ==
--- NOTE | 2022-07-06 10:03 | PTOPEVDC ---
Assessment and note entered by Larry Bolaños, PT Thank you for referring Blade Lacy to [facility].? An evaluation has been completed. No further treatment is needed. Evaluation Information Assessment Status Evaluation Diagnosis unsteadiness on feet and history of falling Onset post Covid Subjective Information Patient reports he is feeling weakness in his legs , but no longer using his cane and started getting back on his treadmill 2 days ago. Patient states the diagnosis of history of falls is false and that after a few steps he gets his momentum and walks a lot better. Patient also states having trouble getting out of chairs. Patient reports that he is coming just for an HEP as at 30 dollars a visit he can pay to go to [facility] as save money. Reported Pain Level Pain Score 0: Self Report Assessment PT Clinical Summary Arsalan is an 86 year old coming into the clinic with a diagnosis of unsteadiness on his feet and history of falling. Arsalan has good, but not normal strength, a Tinetti score of 21/28 (which does indicate an increased risk off falls), and impaired gait pattern. Patient declines to do physical therapy stating he came here just to get a routine he can do at home. Gave HEP and discussed how to progress his walking program. No further visits planned at this time. Plan of Care PT Services Indicated No Treatment Frequency and Discharged from skilled physical therapy. Duration
== END 2022-07-06 10:34 | disposition home or self-care (01) ==
LOC: ANHPT 08:54
PROVIDERS: PCP Family Medicine; Visit Provider Family Medicine
DX: R26.81 Unsteadiness on feet (principal); Z91.81 History of falling
CPT/HCPCS: 97110; 97161

== ENCOUNTER → 2022-07-11 11:02 | Outpatient (CLI) | payer OTHER, SELFPAY ==
--- NOTE | ~2022-07-11 | XR_ITS ---
EXAMINATION: XR ribs RT 2V w CXR 2V DATE: 07/11/2022 11:18 INDICATION: Right chest pain. TECHNIQUE: Frontal and lateral views of the chest and 2 views on 3 radiographs of the right ribs were obtained. COMPARISON: Chest single view 05/14/2022, chest CT 05/11/2022 FINDINGS: CHEST TWO VIEWS: There is mild atelectasis versus scarring in left lower lung zone. No pleural effusi on or pneumothorax. The heart size is normal. There are chronic compression fractures of T7 and T9. T here is a chronic burst fracture of T12. RIGHT RIBS: There is an acute fracture of right 10th rib. There is an old healed fracture right 11th rib. IMPRESSION: 1. Acute fracture of right 10th rib. 2. Mild atelectasis versus scarring in left lower lung zone. Reviewed, dictated and finalized at location A.
== END ==
PROVIDERS: PCP Family Medicine; Visit Provider Family Medicine
DX: R07.81 Pleurodynia (principal); S22.31XA Fracture of one rib, right side, initial encounter for closed fracture; X58.XXXA Exposure to other specified factors, initial encounter
CPT/HCPCS: 71046; 71100

== ENCOUNTER → 2022-08-01 10:24 | Outpatient (CLI) | payer OTHER, SELFPAY ==
--- NOTE | ~2022-08-01 | XR_ITS ---
EXAMINATION: XR lumbar spine 2-3V DATE: 08/01/2022 10:36 INDICATION: Low back pain TECHNIQUE: Anteroposterior and lateral views of the lumbar spine, and cone-down lateral view of the l umbosacral junction were obtained. COMPARISON: CT, 06/30/2015 FINDINGS: There is a chronic and unchanged burst fracture of T12. There is severe loss of interverteb ral disc space height at L2-3 and L3-4. There are chronic compression fractures of L1, L3, and L4. Th ere is severe facet joint osteoarthritis at L4-5 and L5-S1. Calcified atherosclerosis is noted. There is mild osteoarthritis of the hips. IMPRESSION: 1. Severe spondylosis and chronic findings of the thoracic and lower lumbar spine as described above without acute findings. Reviewed, dictated and finalized at location A. IMPRESSION: 1. Severe spondylosis and chronic findings of the thoracic and lower lumbar spi ne as described above without acute findings.
== END ==
PROVIDERS: PCP Family Medicine; Visit Provider Family Medicine
DX: M47.896 Other spondylosis, lumbar region (principal)
CPT/HCPCS: 72100

== ENCOUNTER → 2022-08-04 10:32 | Outpatient (CLI) | payer OTHER, SELFPAY ==
--- NOTE | ~2022-08-04 | US_ITS ---
US thyroid INDICATION: Thyroid nodules. TECHNIQUE: Real-time sonographic images of the thyroid gland were obtained. COMPARISON: Ultrasound dated 07/14/2021 and 07/02/2021 FINDINGS: The right thyroid lobe measures 4.6 x 2 x 2.2 cm. The left thyroid lobe measures 4.3 x 1.5 x 1.2 cm. Thyroid gland is diffusely heterogeneous with multiple masses of varying size and echogeni city. Largest dominant mass in the right lobe is stable measuring 2.9 x 2.6 x 1.7 cm compared with 3 x 3 x 2.2 cm on 07/03/2019. This mass is largely solid, isoechoic, wider than tall, smoothly marginate d without echogenic foci, TR 3. In the left lobe there is diminished size of hypoechoic mass measurin g 1.3 x 1.2 x 0.8 cm which appears solid, hypoechoic, wider than tall, smoothly marginated without ec hogenic foci, TR 4. IMPRESSION: 1. Stable enlarged heterogeneous thyroid gland with multiple bilateral masses which are stable or di minished in size compared with prior studies, likely benign multinodular goiter. Recommend follow-up ultrasound in 12 months. Reviewed, dictated and finalized at location A. IMPRESSION: 1. Stable enlarged heterogeneous thyroid gland with multiple bilateral masses which are stable or diminished in size compared with prior studies, likely vern gn multinodular goiter. Recommend follow-up ultrasound in 12 months.
== END ==
PROVIDERS: PCP Family Medicine; Visit Provider Family Medicine
DX: E07.89 Other specified disorders of thyroid (principal); E04.2 Nontoxic multinodular goiter
CPT/HCPCS: 76536

== ENCOUNTER 2022-08-30 14:00 | Outpatient (RCR) | payer OTHER, SELFPAY ==
--- NOTE | 2022-08-09 14:11 | PTOPEVAL1 ---
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 His xray reports lumbar and hip changes. He reports back pain only with standing and leaning over counter or work bench, which is eased with sitting down. Arsalan reports legs are weak and balance is off since having COVID a few months ago. With the evaluation: he has good hip, knee and ankle ROM without pain, but hamstrings are tight with supine SLR; weakness bilateral LE, with decreased sit/stand transfer and mat exercises 10- 15 reps with poor stability of hips and trunk; Tinetti balance/gait score of 20/28= at risk for falls; at home, he walks on the treadmill for about 8 minutes, and does not do any leg exercises. During the eval, he did not have any pain with movements/activities. Skilled PT services are indicated for therapeutic exercises and activities to increase LE strength, gait and balance skills, to improve mobility and decrease drisk fo
--- NOTE | 2022-08-31 09:50 | PCPTNOTE ---
pt canceled the reeval appt; I called pt and he stated that he rescheduled the appt. He is concerned about finances. Also he discussed going to the [facility] for exercise classes with his . He will attend the reevaluation appt next week.
--- NOTE | 2022-09-06 14:47 | PCPTNOTE ---
did not show for today's reeval appt;
--- NOTE | 2022-09-14 13:06 | PTOPDC ---
Assessment and note entered by Tamia Street, PT Evaluation Information Assessment Status Discharge - Pt Not Present Diagnosis low back pain Onset February 2022 Subjective Information pt did not show for reevaluation Assessment PT Clinical Summary Blade has received 4 PT sessions, from August 09 to August 30. He then did not show for the reevaluation appointment. Therefore, he will be discharged at this time. The goals were not addressed. Plan of Care PT Services Indicated No
== END 2022-09-19 11:03 | disposition home or self-care (01) ==
LOC: ANHPT 14:00
PROVIDERS: PCP Family Medicine; Visit Provider Family Medicine
DX: M54.50 Low back pain, unspecified (principal)
CPT/HCPCS: 97110; 97161; 97530; 99199

== ENCOUNTER 2024-02-15 08:51 | Outpatient (CLI) | payer OTHER, SELFPAY ==
--- NOTE | ~2024-02-15 | XR_ITS ---
EXAMINATION: XR barium swallow DATE: 02/15/2024 09:29 INDICATION: Other dysphagia. TECHNIQUE: The patient drank thick barium, gas-producing crystals, and thin barium. Fluoroscopy of th e hypopharynx and esophagus was performed. Fluoroscopy exposure time was 0.9 minutes. The total numbe r of images was 515. The dose-area product was Gy-cm^2. COMPARISON: Chest CT 05/11/2022 FINDINGS: There is no mass or stricture of the esophagus. There is decreased primary and secondary es ophageal peristalsis. Abnormal tertiary waves are noted. There is a small sliding hiatal hernia. Ther e was gastroesophageal reflux with provocative maneuvers. IMPRESSION: 1. Moderate esophageal dysmotility. 2. Small sliding hiatal hernia. 3. Gastroesophageal reflux with provocative maneuvers. Reviewed, dictated and finalized at location A. [facility]
== END 2024-02-15 08:52 | disposition home or self-care (01) ==
PROVIDERS: PCP Family Medicine; Visit Provider Family Medicine
DX: K44.9 Diaphragmatic hernia without obstruction or gangrene (principal); K21.9 Gastro-esophageal reflux disease without esophagitis
CPT/HCPCS: 74220

== ENCOUNTER 2024-03-11 13:33 | Observation (INO) | payer OTHER, SELFPAY ==
[2024-03-11] VITALS (11 sets, daily range): BP systolic 108–142; BP diastolic 52–70; PULSE 60–75; RESP 15–24; TEMP 36.3–36.9; O2SAT 95–100; BMI 24.2
--- NOTE | ~2024-03-11 | XR_ITS ---
CHEST RADIOGRAPH, PA AND LATERAL CLINICAL HISTORY: CP . COMPARISON: 05/14/2022 TECHNIQUE: PA and lateral views of the chest. FINDINGS The cardiomediastinal silhouette is unremarkable. Elevation of the right hemidiaphragm with adjacent compressive atelectasis. Remainder of the lungs are clear. Visualized osseous structures and soft tissues are unremarkable. IMPRESSION: No focal infiltrate or effusion. Reviewed, dictated and finalized at location A. [employer] ATTEND[employer]
--- NOTE | 2024-03-11 13:34 | ECG_ITS ---
Test Date: 2024-03-11 13:38:53 Measurements Intervals [place]ell Rate: 86 P: 76 OR: 264 QRS: -54 QRSD: 187 T: 109 QT: 427 QTc: 512 Interpretive Statements SINUS RHYTHM WITH FIRST DEGREE AV BLOCK LEFT BUNDLE BRANCH BLOCK [120+ ms QRS DURATION, 80+ ms Q/S IN V1/V2, 85+ ms R IN I/aVL/V5/V6] No previous ECG available for comparison Electronically Signed On 03-13-2024 13:33:21 [employer] SAL[employer] ADVIS[employer] by Anabel Palmer
--- NOTE | 2024-03-11 13:52 | ED_ITS ---
HPI - General Adult General Chief complaint: Chest Pain Stated complaint: CP Time Seen by Provider: 03/11/24 13:51 History of Present Illness HPI narrative: Patient 88-year-old gentleman presents emergency department with chief complaint of chest pain. Patient reports that for the last week he has been having discomfort in his chest does report that his chest wall is somewhat sore reports that he talked to a family member who recommended that he talk to his box nailer who he called Dr. Gonsalez office who recommended that he come to the emergency department the patient reports that he is still having little bit of pain on the left side of his chest reports no shortness of breath Related Data Home Medications ?Medication ?Instructions ?Recorded ?Confirmed ?Last Taken ?Type aspirin 81 mg tablet,delayed 81 mg PO DAILY 06/18/19 01/24/24 04/16/22 History release multivitamin with minerals-folic 1 tablet PO DAILY 10/20/21 01/24/24 04/16/22 History acid 0.4 mg tablet apixaban 5 mg tablet (Eliquis) 5 mg PO BID 04/14/22 01/24/24 04/16/22 History amiodarone 100 mg tablet 100 mg PO DAILY 06/19/22 01/24/24 Unknown History furosemide 40 mg tablet 40 mg PO QAM 06/19/22 01/24/24 Unknown History atorvastatin 40 mg tablet 40 mg PO QHS 08/01/22 01/24/24 Unknown History finasteride 5 mg tablet 5 mg PO DAILY 08/01/22 01/24/24 Unknown History neomycin 3.5 mg/g-polymyxin B 1 applic EACH EYE QHS 10/18/23 01/24/24 Unknown History 10,000 unit/g-dexameth 0.1 % eye oint Allergies Allergy/AdvReac Type Severity Reaction Status Date / Time No Known Allergies Allergy Verified 01/24/24 14:34 Review of Systems 2 Review of Systems: A 10 system review of systems was completed on the patient and is negative except for what is stated in the HPI. Nursing and ancillary documentation was reviewed. 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 He has 3 biologic children and 2 step children. He retired from [employer]. He is a lifelong nonsmoker. He does not use alcohol marijuana or illicit drugs. Code status full code Smoking status: Never smoker Second hand tobacco smoke exposure: No Alcohol intake: never Drinks per week: 0 Substance use: never Substance use type: does not use Lack of Transportation: No Lack of Food: Never True Current Housing: I Have Housing Concerned About Future Housing: No Difficulty Paying Gas/Electric Bills: No Difficulty Paying for Meds: No Currently Unemployed: No Education: High School Diploma/GED Difficulty w/ Childcare or Family Care: No Living arrangements: with family Occupation/Education: retired Gender identity (if verbalized by the patient): Male Sexual Orientation (if Verbalized by the Patient): Straight or Heterosexual Spiritual care concerns: No Exam 2 Narrative: GENERAL: Well-appearing, well-nourished, and in no acute distress. HEAD: Normocephalic, atraumatic. EYES: PERRLA and EOMI. ENT: Nares clear, no rhinorrhea or epistaxis. Mucous membranes moist. NECK: Supple. CHEST: Clear to auscultation. No respiratory distress. HEART: Regular rate and rhythm. No murmur heard. Normal peripheral pulses. ABDOMEN: Soft, nontender, nondistended, normal active bowel sounds. EXTREMITIES: Normal range of motion. No edema. SKIN: Warm, dry, no rash. NEURO: No focal deficits. Alert and oriented x3. PSYCH: Normal mood and affect. Course Vital Signs Vital signs: Vital Signs Temperature 36.4 C 03/11/24 14:01 Pulse Rate 75 03/11/24 14:01 Respiratory Rate 15 03/11/24 14:01 Blood Pressure 108/52 L 03/11/24 14:01 Pulse Oximetry 100 03/11/24 14:01 Oxygen Delivery Room Air 03/11/24 14:01 Temperature 36.4 C 03/11/24 14:01 Pulse Rate 70 03/11/24 16:05 Respiratory Rate 16 03/11/24 16:05 Blood Pressure 126/70 03/11/24 16:05 Pulse Oximetry 97 03/11/24 16:05 Oxygen Delivery Room Air 03/11/24 14:01 Medical Decision Making [facility] Narrative Medical decision making narrative: Differential diagnosis includes ACS, atypical chest pain, EKG shows a left bundle branch block patient previous EKGs from 2013 showed a right bundle branch block with a length anterior fascicular block Due to the significant EKG changes with the patient having active chest pain the case was discussed with cardiology on-call who will see the patient in the emergency department Vital Signs Vital Signs: Vital Signs Temperature 36.4 C 03/11/24 14:01 Pulse Rate 75 03/11/24 14:01 Respiratory Rate 15 03/11/24 14:01 Blood Pressure 108/52 L 03/11/24 14:01 Pulse Oximetry 100 03/11/24 14:01 Oxygen Delivery Room Air 03/11/24 14:01 Temperature 36.4 C 03/11/24 14:01 Pulse Rate 70 03/11/24 16:05 Respiratory Rate 16 03/11/24 16:05 Blood Pressure 126/70 03/11/24 16:05 Pulse Oximetry 97 03/11/24 16:05 Oxygen Delivery Room Air 03/11/24 14:01 Lab Data 03/11/24 13:58 03/11/24 13:58 Labs: Lab Results 03/11/24 Range/Units 13:58 WBC 4.8 (4.5-10.0) K/mm3 RBC 4.42 L (4.6-6.20) M/mm3 Hgb 14.0 (14.0-18.0) g/dL Hct 42.6 (42.0-52.0) % MCV 96.4 (80-100) fl MCH 31.7 (26-34) pg MCHC 32.9 (32-36) g/dl RDW 14.8 H (11.5-14.5) % Plt Count 207 (150-375) k/mm3 MPV 9.6 (7.4-10.4) fl Immature Gran % (Auto) 0.2 (0-0.5) % Neut % (Auto) 55.2 (45.5-73.1) % Lymph % (Auto) 32.5 (18.3-44.2) % [place] % (Auto) 7.1 (2.6-8.5) % Eos % (Auto) 4.6 H (0-4.4) % Baso % (Auto) 0.4 (0.2-1.2) % Lymph # (Auto) 1.55 (0.9-3.2) K/mm3 [place] # (Auto) 0.3 (0.1-0.6) K/mm3 Eos # (Auto) 0.2 (0-0.3) K/mm3 Baso # (Auto) 0.0 (0.0-0.1) K/mm3 Abs Immat Gran (auto) 0.01 (0.00-0.031) K/mm3 Absolute Neuts (auto) 2.6 (1.3-6.7) K/mm3 Absolute Nucleated RBC 0.000 (0.0-0.012) K/mm3 Nucleated RBC % 0.0 (0.0-0.2) % PT 17.0 H (11.1-14.7) Seconds INR 1.3 APTT 28.8 (22.3-36.8) Seconds Sodium 141 (137-145) mmol/L Potassium 3.9 (3.4-5.0) mmol/L Chloride 107 (98-107) mmol/L Carbon Dioxide 27 (22-30) mmol/L Anion Gap 7 (4-12) mmol/L BUN 21 H D (9-20) mg/dL Creatinine 0.99 (0.7-1.3) mg/dL Estim Creat Clear Calc Not Reportable Estimated GFR > 60 (59 - ) Glucose 99 (65-110) mg/dL Calcium 9.7 (8.4-10.2) mg/dL Total Bilirubin 0.9 (0.2-1.3) mg/dL AST 34 (17-59) U/L ALT 32 (6-50) U/L Alkaline Phosphatase 70 (38-126) U/L Troponin I 0.025 (0.000-0.034) ng/mL Total Protein 7.0 (6.3-8.2) g/dL Albumin 3.5 (3.5-5.1) g/dL Lipase 141 (23-300) U/L Discharge Plan Discharge Clinical Impression: Chest pain, Abnormal EKG Patient Disposition: Still a Patient Condition: Stable Patient Language: Sammarinese Prescriptions: No Action aspirin 81 mg tablet,delayed release (DR/EC) 81 mg PO DAILY Patient Comments: box nailer finasteride 5 mg tablet 5 mg PO DAILY atorvastatin 40 mg tablet 40 mg PO QHS furosemide 40 mg tablet 40 mg PO QAM neomycin-polymyxin B-dexameth 3.5 mg/g-10,000 unit/g-0.1 % ointment 1 applic EACH EYE QHS Eliquis 5 mg tablet 5 mg PO BID amiodarone 100 mg tablet 100 mg PO DAILY multivit with min-folic acid 0.4 mg Tablet 1 tablet PO DAILY omeprazole 40 mg capsule,delayed release(DR/EC) 40 mg PO DAILY Qty: 90 0RF carvedilol 6.25 mg tablet 6.25 mg PO Q12H Qty: 180 1RF Rx Instructions: must administer with a meal/food Follow-up/Referrals: Wallace Beltre MD [Primary Care Provider] - Time of Disposition: 15:20
[2024-03-11] MEDS: ASPIRIN 81 MG CHEWABLE TABLET 324 MG PO (14:03)
--- NOTE | 2024-03-11 14:04 | PC.NURSE ---
EDP made aware of pt SBP 108. Patient reports his chest pain is 3-4/10 and this RN able to reproduce with palpation. EDP VORB to hold subl nitro at this time.
[2024-03-11 14:06] LABS: Basophils Percent Auto 0.4 % (0.2-1.2); Eosinophils Absolute Auto 0.2 K/mm3 (0-0.3); Eosinophils Percent Auto 4.6 % (0-4.4); Hematocrit 42.6 % (42.0-52.0); Immature Granulocyte Absolute 0.01 K/mm3 (0.00-0.031); Immature Granulocyte Percent A 0.2 % (0-0.5); Lymphocytes Absolute Auto 1.55 K/mm3 (0.9-3.2); Lymphocytes Percent Auto 32.5 % (18.3-44.2); Mean Corpuscular HGB Conc 32.9 g/dl (32-36); Mean Corpuscular Hemoglobin 31.7 pg (26-34); Mean Corpuscular Volume 96.4 fl (80-100); Mean Platelet Volume 9.6 fl (7.4-10.4); Monocytes Absolute Auto 0.3 K/mm3 (0.1-0.6); Monocytes Percent Auto 7.1 % (2.6-8.5); Neutrophils Absolute Auto 2.6 K/mm3 (1.3-6.7); Neutrophils Percent Auto 55.2 % (45.5-73.1); Platelet Count Result 207 k/mm3 (150-375); Red Blood Count 4.42 M/mm3 (4.6-6.20); Red Cell Distribution Width 14.8 % (11.5-14.5); White Blood Count 4.8 K/mm3 (4.5-10.0)
[2024-03-11 14:20] LABS: Alanine Aminotransferase 32 U/L (6-50); Albumin Level 3.5 g/dL (3.5-5.1); Alkaline Phosphatase 70 U/L (38-126); Anion Gap 7 mmol/L (4-12); Aspartate Amino Transferase 34 U/L (17-59); Bilirubin,Total 0.9 mg/dL (0.2-1.3); Blood Urea Nitrogen 21 mg/dL (9-20); Calcium 9.7 mg/dL (8.4-10.2); Carbon Dioxide 27 mmol/L (22-30); Chloride 107 mmol/L (98-107); Estimated Glomerular Filt Rate > 60; Glucose 99 mg/dL (65-110); Lipase 141 U/L (23-300); Potassium 3.9 mmol/L (3.4-5.0); Sodium 141 mmol/L (137-145)
[2024-03-11 14:21] LABS: INR 1.3; Partial Thromboplastin Time 28.8 Seconds (22.3-36.8)
--- NOTE | 2024-03-11 14:24 | PC.NURSE ---
Pt. reports 0/10 chest pain. No dizziness or SOB at this time. VSS on RA.
[2024-03-11 14:32] LABS: Troponin I 0.025 ng/mL (0.000-0.034)
--- NOTE | 2024-03-11 15:43 | P.CONCA_ITS ---
Assessment and Plan Assessment and plan (1) Chest pain: Code(s): R07.9 - Chest pain, unspecified Status: Acute (2) Atrial fibrillation: Qualifiers: Atrial fibrillation type: paroxysmal Qualified Code(s): I48.0 - Paroxysmal atrial fibrillation Code(s): I48.91 - Unspecified atrial fibrillation Status: Acute (3) Hyperlipidemia: Qualifiers: Hyperlipidemia type: unspecified Qualified Code(s): E78.5 - Hyperlipidemia, unspecified Code(s): E78.5 - Hyperlipidemia, unspecified Status: Acute (4) Essential (primary) hypertension: Code(s): I10 - Essential (primary) hypertension Status: Acute (5) Congestive heart failure: Qualifiers: Heart failure type: unspecified Heart failure chronicity: chronic Q ualified Code(s): I50.9 - Heart failure, unspecified Code(s): I50.9 - Heart failure, unspecified Status: Acute Plan Chest pain-atypical; Right bundle branch block and left anterior fascicular block on prior EKG; EKG today shows left bundle branch block Systolic heart failure with LVEF of 20-25% by echo in 2022 Hypertension Hyperlipidemia AFib status post cardioversion Plan: -EKG shows left bundle branch block. Though this is new, he has had left anterior fascicular block on prior EKGs. Patient's chest pain is atypical and he describes it as the tenderness. First troponin is negative. Thus his chest pain is less likely to be cardiac in nature. However given his cardiac history including prior NM and severely depressed systolic function, will monitor overnight with repeat troponin and obtain an echocardiogram tomorrow a.m. -Trend troponin x3 -Continue aspirin, statin, Coreg -Guideline directed medical therapy for cardiomyopathy-continue Coreg; add Entresto, SGL T2 inhibitor, spironolactone as tolerated. EP consult for ICD evaluation -Continue Lasix -Continue apixaban -Continue amiodarone -EKG p.r.n. for any chest pain -TTE this admission -Management of other medical conditions per primary team History of Present Illness History of Present Illness Consult date/time: 03/11/24 15:43 Reason For Visit: CP Narrative: 88 year with past medical history CAD and prior stent, atrial fibrillation status post cardioversion, systolic heart failure with LV ejection fraction of 20-25%, CVA due to occlusion of right anterior cerebral artery, pulmonary embolism, presents with chief complaint of chest pain. He states that the pain started yesterday and is located in his left chest and he describes it as a tenderness. When he has the pain it is of intensity 3 x 10. The pain does not radiate to neck, jaw, shoulder, or anywhere else. The pain does not change with change in position or with deep breathing. Pain is not associated with any diaphoresis, shortness of breath. No leg swelling, recent weight gain, palpitations, dizziness, lightheadedness, syncope. He states that he had a heart catheterization many years ago but he does not remember his symptoms at that time and if he had a stent or not. He however remembers that he had a stroke following his cardiac catheterization that caused some numbness in his left lower extremity. Workup: Troponin I: 0.025 (within normal limits) EKG: Sinus rhythm with first-degree AV block (DE interval 264 milliseconds), left bundle-branch block TTE 04/2022: Summary 1. Complete two-dimensional, color flow and Doppler transthoracic echocardiogram is performed. 2. Left ventricular enlargement with severe systolic dysfunction. LV ejection fraction 20-25%. 3. Akinesis of the anterior wall, anteroseptal segment and apex. 4. LV false cord identified. 5. Biatrial dilation left greater than right. 6. Mild to trivial lombardo valvular insufficiency. 7. Mildly sclerotic aortic valve which is not stenotic. Stress test 07/2020:Summary 1. Sinus bradycardia. Anteroseptal NM, first-degree AV block. 2. No abnormal ST/T wave changes with Lexiscan compared to baseline. 3. Occasional stress-induced PVCs. 4. Please correlate with nuclear medicine images, reported separately. Review of Systems 2 Review of Systems: A complete review of systems was performed and is negative other than those mentioned HPI [facility] Past Medical History Medical History GERD without esophagitis Esophageal dysmotility BPH (benign prostatic hyperplasia) Hematuria Low back pain Lumbar spondylosis Essential (primary) hypertension History of TIA (transient ischemic attack) Kidney stone COVID-19 (~04/2022) Congestive heart failure Atrial fibrillation Pulmonary embolism (~10/2021) Right lower lobe basilar segment pulmonary emboli Thyroid mass of unclear etiology BPH w/o urinary obs/LUTS 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 He has 3 biologic children and 2 step children. 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 He does not use alcohol marijuana or illicit drugs. Code status full code Smoking status: Never smoker Second hand tobacco smoke exposure: No Alcohol intake: never Drinks per week: 0 Substance use: never Substance use type: does not use Lack of Transportation: No Lack of Food: Never True Current Housing: I Have Housing Concerned About Future Housing: No Difficulty Paying Gas/Electric Bills: No Difficulty Paying for Meds: No Currently Unemployed: No Education: High School Diploma/GED Difficulty w/ Childcare or Family Care: No Living arrangements: with family Occupation/Education: retired Gender identity (if verbalized by the patient): Male Sexual Orientation (if Verbalized by the Patient): Straight or Heterosexual Spiritual care concerns: No Meds Home Medications and Allergies Home Medications ?Medication ?Instructions ?Recorded ?Confirmed ?Type aspirin 81 mg tablet,delayed 81 mg PO DAILY 06/18/19 01/24/24 History release multivitamin with minerals-folic 1 tablet PO DAILY 10/20/21 01/24/24 History acid 0.4 mg tablet apixaban 5 mg tablet (Eliquis) 5 mg PO BID 04/14/22 01/24/24 History amiodarone 100 mg tablet 100 mg PO DAILY 06/19/22 01/24/24 History furosemide 40 mg tablet 40 mg PO QAM 06/19/22 01/24/24 History atorvastatin 40 mg tablet 40 mg PO QHS 08/01/22 01/24/24 History finasteride 5 mg tablet 5 mg PO DAILY 08/01/22 01/24/24 History neomycin 3.5 mg/g-polymyxin B 1 applic EACH EYE QHS 10/18/23 01/24/24 History 10,000 unit/g-dexameth 0.1 % eye oint omeprazole 40 mg capsule,delayed 40 mg PO DAILY #90 caps 02/18/24 Rx release carvedilol 6.25 mg tablet 6.25 mg PO Q12H #180 tabs 02/27/24 Rx Allergies Allergy/AdvReac Type Severity Reaction Status Date / Time No Known Allergies Allergy Verified 01/24/24 14:34 Vital Signs Vital Signs - 24 hr 03/11/24 14:01 03/11/24 14:01 03/11/24 14:01 Temperature 36.4 C Pulse Rate 75 73 Respiratory Rate 15 Blood Pressure 108/52 L Pulse Oximetry 100 100 Oxygen Delivery Room Air Room Air 03/11/24 14:03 03/11/24 14:23 Temperature Pulse Rate 68 Respiratory Rate 17 Blood Pressure 108/52 L 120/64 Pulse Oximetry 97 Oxygen Delivery Results Labs and Meds 03/11/24 13:58 03/11/24 13:58 Lab results: Cardiac Enzymes 03/11/24 Range/Units 13:58 AST 34 (17-59) U/L Troponin I 0.025 (0.000-0.034) ng/mL Coagulation 03/11/24 Range/Units 13:58 PT 17.0 H (11.1-14.7) Seconds APTT 28.8 (22.3-36.8) Seconds CBC 03/11/24 Range/Units 13:58 WBC 4.8 (4.5-10.0) K/mm3 RBC 4.42 L (4.6-6.20) M/mm3 Hgb 14.0 (14.0-18.0) g/dL Hct 42.6 (42.0-52.0) % Plt Count 207 (150-375) k/mm3 Lymph # (Auto) 1.55 (0.9-3.2) K/mm3 [place] # (Auto) 0.3 (0.1-0.6) K/mm3 Eos # (Auto) 0.2 (0-0.3) K/mm3 Baso # (Auto) 0.0 (0.0-0.1) K/mm3 Comprehensive Metabolic Panel 03/11/24 Range/Units 13:58 Sodium 141 (137-145) mmol/L Potassium 3.9 (3.4-5.0) mmol/L Chloride 107 (98-107) mmol/L Carbon Dioxide 27 (22-30) mmol/L BUN 21 H D (9-20) mg/dL Creatinine 0.99 (0.7-1.3) mg/dL Glucose 99 (65-110) mg/dL Calcium 9.7 (8.4-10.2) mg/dL AST 34 (17-59) U/L ALT 32 (6-50) U/L Alkaline Phosphatase 70 (38-126) U/L Total Protein 7.0 (6.3-8.2) g/dL Albumin 3.5 (3.5-5.1) g/dL
--- NOTE | 2024-03-11 17:02 | PM.IMHP ---
H&P: [facility] History of Present Illness Date/Time: 03/11/24 17:02 Chief Complaint: Chest Pain Narrative: 88 y/o M presents here with chest pain with PMH of GERD, esophageal dysmotility, BPH, hypertension, TIA, CHF, atrial fibrillation, PE (2021), and stroke (R anterior cerebral artery). The patient presents here from home for further evaluation of chest pain. He reports onset of left-sided chest pain approximately 5 days ago. Pain worsened today prompting him to seek evaluation. He describes the chest pain as tender, nonradiating, constant, no aggravating factors, and no alleviating factors. Did not trial any prescription meds or OTC meds for the discomfort. He denies shortness of breath, palpitations, dizziness, diaphoresis, nausea, or indigestion. The patient does have a cardiac history including a myocardial infarction in 2019 with stent placement. No further complaints. Initial VS at presentation: 97.6? F, HR 75, RR 15, 108/52, and 100% on RA. ED workup showed: No leukocytosis, no anemia, INR 1.3, creatinine 0.99 and GFR >60, initial troponin 0.025. CXR showed no focal infiltrate or effusion. Initial EKG showed sinus rhythm with first-degree AV block, marked left axis deviation, left bundle branch block (awaiting formal read). Review of Systems Review of Systems: All systems reviewed & are unremarkable except as noted in HPI and below [facility] Past Medical History Medical History Shingles Age 60 Cardiomyopathy GERD without esophagitis Esophageal dysmotility BPH (benign prostatic hyperplasia) Hematuria Low back pain Lumbar spondylosis Essential (primary) hypertension History of TIA (transient ischemic attack) Kidney stone COVID-19 (~04/2022) Congestive heart failure Atrial fibrillation Pulmonary embolism (~10/2021) Right lower lobe basilar segment pulmonary emboli Thyroid mass of unclear etiology BPH w/o urinary obs/LUTS 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 He has 3 biologic children and 2 step children. 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 He does not use alcohol marijuana or illicit drugs. Code status full code Smoking status: Never smoker Second hand tobacco smoke exposure: No Alcohol intake: never Drinks per week: 0 Substance use: never Substance use type: does not use Do You Feel Safe in your Home?: Yes Lack of Transportation: YES Lack of Food: Never True Current Housing: I Have Housing Concerned About Future Housing: No Difficulty Paying Gas/Electric Bills: No Difficulty Paying for Meds: No Currently Unemployed: No Education: High School Diploma/GED Difficulty w/ Childcare or Family Care: No Living arrangements: with family Occupation/Education: retired Gender identity (if verbalized by the patient): Male Sexual Orientation (if Verbalized by the Patient): Straight or Heterosexual Spiritual care concerns: No Meds Home Medications and Allergies Home Medications ?Medication ?Instructions ?Recorded ?Confirmed ?Type aspirin 81 mg tablet,delayed 81 mg PO DAILY 06/18/19 03/11/24 History release multivitamin with minerals-folic 1 tablet PO DAILY 10/20/21 03/11/24 History acid 0.4 mg tablet apixaban 5 mg tablet (Eliquis) 5 mg PO BID 04/14/22 03/11/24 History amiodarone 100 mg tablet 100 mg PO DAILY 06/19/22 03/11/24 History furosemide 40 mg tablet 40 mg PO QAM 06/19/22 03/11/24 History atorvastatin 40 mg tablet 40 mg PO QHS 08/01/22 03/11/24 History finasteride 5 mg tablet 5 mg PO DAILY 08/01/22 03/11/24 History neomycin 3.5 mg/g-polymyxin B 1 applic EACH EYE QHS 10/18/23 03/11/24 History 10,000 unit/g-dexameth 0.1 % eye oint omeprazole 40 mg capsule,delayed 40 mg PO DAILY #90 caps 02/18/24 03/11/24 Rx release carvedilol 6.25 mg tablet 6.25 mg PO Q12H #180 tabs 02/27/24 03/11/24 Rx Allergies Allergy/AdvReac Type Severity Reaction Status Date / Time No Known Allergies Allergy Verified 01/24/24 14:34 Vital Signs Vital Signs - 24 hr 03/11/24 14:01 03/11/24 14:01 03/11/24 14:01 Temperature 97.6 F Pulse Rate 75 73 Respiratory Rate 15 Blood Pressure 108/52 L Pulse Oximetry 100 100 Oxygen Delivery Room Air Room Air 03/11/24 14:03 03/11/24 14:23 03/11/24 16:05 Temperature Pulse Rate 68 70 Respiratory Rate 17 16 Blood Pressure 108/52 L 120/64 126/70 Pulse Oximetry 97 97 Oxygen Delivery Exam Const: General: comfortable and no acute distress Other: , male, frail, nontoxic appearance HENMT: Face/Nose/Sinus: Normal nares present Mouth: Yes moist mucous membranes Eyes: General: appearance normal, both eyes and all related structures Sclera: sclerae normal Pupils: Equal, round and reactive pupils present EOM: EOMs intact bilaterally Resp: Effort & Inspection: normal respiratory effort Auscultation: clear to auscultation bilaterally Cardio: Rate: regular rate Rhythm: regular rhythm Other: S1-S2 present without murmur, rub, ectopy GI: Other: Abdomen soft, nondistended, nontender. Normoactive bowel sounds in all quadrants. Skin: General skin exam: normal color and no rashes or lesions noted Wounds: no wounds Neuro: Speech: normal speech Motor exam (neuro): 5/5 motor strength present throughout Sensory Exam: normal sensation Other: A&O x4 Extrem: General: normal to inspection Psych: Mental Status: mental status grossly normal Affect: normal affect Other: Good insight and judgment, pleasant H&P: Results Labs Labs: Short CBC 03/11/24 Range/Units 13:58 WBC 4.8 (4.5-10.0) K/mm3 Hgb 14.0 (14.0-18.0) g/dL Hct 42.6 (42.0-52.0) % Plt Count 207 (150-375) k/mm3 BMP 03/11/24 13:58 Sodium 141 Potassium 3.9 Chloride 107 Carbon Dioxide 27 BUN 21 H D Creatinine 0.99 Glucose 99 Calcium 9.7 Cardiac Enzymes 03/11/24 Range/Units 13:58 Troponin I 0.025 (0.000-0.034) ng/mL Liver Function 03/11/24 Range/Units 13:58 Total Bilirubin 0.9 (0.2-1.3) mg/dL AST 34 (17-59) U/L ALT 32 (6-50) U/L Alkaline Phosphatase 70 (38-126) U/L Albumin 3.5 (3.5-5.1) g/dL Assessment and Plan Assessment and plan (1) Chest pain: Qualifiers: Chest pain type: unspecified Qualified Code(s): R07.9 - Chest pain, unspecified Code(s): R07.9 - Chest pain, unspecified Status: Acute Assessment and Plan: - EKG, initial: sinus rhythm with first-degree AV block, marked left axis deviation, left bundle branch block (awaiting formal read). - repeat EKG with 3 hour and 6 hour troponin - CXR: No focal infiltrate or effusion - Troponin: 0.025 -> 0.022, 6 hr ordered - ASA 324 given and SL nitro PRN - cardiology consulted, Estela THOMPSON provided the following recs: Chest pain most likely to be cardiac in nature given the pain is described as tenderness and atypical, paired with a negative troponin. Does have a new LBBB, however had a previous left anterior fascicular block. Monitor overnight Obtain TTE Continue aspirin, statin, Coreg. Guideline directed medical therapy for cardiomyopathy including the medications above, add Entresto, SGL T2 inhibitor, spironolactone as tolerated. Continue Lasix, Eliquis, amiodarone - echo, previous (04/2022): Severe systolic dysfunction, akinesis of the anterior wall/anteroseptal segment/apex, diastolic function is abnormal. See report for full details. - telemetry monitoring (2) Essential (primary) hypertension: Code(s): I10 - Essential (primary) hypertension Status: Chronic Assessment and Plan: - chronic, currently 126/70 - continue home medications: Coreg 6.25 mg b.i.d. - monitor Plan Diet: Heart healthy GI Prophylaxis: Not currently indicated DVT Prophylaxis: Eliquis Lines: Peripheral Code Status: Full code Quality VTE Prophylaxis VTE prophylaxis: pharmacologic ordered Hospitalist MIPS Advance Care Plan I have confirmed that the patient's Advanced Care Plan is present, code status is documented, or surrogate decision maker is listed in patient medical record.: Yes Medication Reconciliation I have utilized all available resources to obtain, update and review the patients current medications (includes all prescriptions, OTC, herbals, cannabis, and nutritional supplements).: Yes
--- NOTE | 2024-03-11 17:46 | PC.NURSE ---
Patient arrived to room alert and oriented x4. Telemetry applied.
[2024-03-11 18:23] LABS: Troponin I 0.022 ng/mL (0.000-0.034)
[2024-03-11] MEDS: ATORVASTATIN 40 MG TABLET PO (20:56)
[2024-03-11] MEDS: APIXABAN 5 MG TABLET PO (20:57)
[2024-03-11] MEDS: carvediloL 6.25 MG TABLET PO (20:57)
[2024-03-11 21:02] LABS: Troponin I 0.026 ng/mL (0.000-0.034)
[2024-03-11] MEDS: NEOMYCIN/POLYMYXIN/DEXAMETH OP OINT 3.5 GM TUBE 1 APPLIC EACH EYE (21:02)
[2024-03-12] VITALS (17 sets, daily range): BP systolic 112–146; BP diastolic 58–95; PULSE 57–83; RESP 16–22; TEMP 36.1–36.7; O2SAT 97–100
--- NOTE | 2024-03-12 | ECHO_ITS ---
Patient Info Name: Blade Falukner Winning Age: 88 years : 1935 Gender: Male Ht: 66 in Wt: 146 lbs BSA: 1.76 m2 HR: 64 bpm BP: 123 / 61 mmHg Heart Rhythm: Sinus Rhythm Technical Quality: Fair Exam Date: 03/12/2024 3:06 PM Exam Location: Echo Lab Patient Status: Inpatient Admit Date: 03/11/2024 Staff Ordering Physician: Anabel Palmer MD ([email or web address]) Meeting Manager: Lyndsey Lozano RDCS Attending Provider: Dave Ying MD Exam Type: CA echo dop color flow w con Study Info Indications - cardiomyopathy Complete two-dimensional, color flow and Doppler transthoracic echocardiogram is performed with contrast to opacify the left ventricle and to improve the deliniation of the left ventricle endocardial borders. Contrast/Agitated Saline Contrast/Ag. Saline: Definity Amount: 3.00 ml Administered By: Lyndsey Lozano RDCS Existing IV Access: Yes IV Access Condition: patent with no signs of infiltration Summary 1. Moderate left ventricular enlargement with severe hypokinesia. 2. Wall motion abnormalities compatible with extensive previous anterior infarction. 3. Mild MR. 4. Aortic valve sclerosis with no significant stenosis and mild AI. 5. Compared with echocardiogram from April of 2022 the findings are unchanged. Left Ventricle Left ventricular chamber dimension is moderately enlarged. Left ventricular systolic function is severely reduced, estimated at 20-25%. The left ventricular diastolic function is grade I diastolic dysfunction. Right Ventricle Right ventricular chamber dimension is normal. Left Atria Left atrial chamber dimension is moderately enlarged. Right Atria Right atrial chamber dimension is mildly enlarged. Aortic Valve The aortic valve is trileaflet. There is mild aortic valve sclerosis. There is no aortic valve stenosis. There is mild aortic valve regurgitation. Pulmonic Valve The pulmonic valve is normal. Mitral Valve The mitral valve has normal leaflets. There is mild mitral valve regurgitation. Tricuspid Valve The tricuspid valve leaflets are normal. There is mild tricuspid valve regurgitation. Pericardium/Pleural The pericardium appears normal. Aorta The aortic root size at the sinus of Valsalva is normal. Left Ventricular Outflow Tract Name Value Normal LVOT 2D LVOT Diameter 2.34 cm LVOT Doppler LVOT Peak Gradient 6 mmHg LVOT Mean Gradient 3 mmHg LVOT VTI 21.06 cm LVOT VTI/AV VTI Ratio 0.86 LVOT Stroke Volume 90.45 ml LVOT CO 5.55 l/min LVOT CI 3.15 L/min/m2 Pulmonic Valve Name Value Normal RVOT Doppler RVOT Peak Gradient 2 mmHg PV Doppler PV Peak Gradient 3 mmHg Mitral Valve Name Value Normal MV Doppler MV Decel Fleming 287.19 cm/s2 MV PHT 0 s MV Area (PHT) 4.01 cm2 4.00-5.00 MV Diastolic Function MV E Peak Velocity 54.33 cm/s MV A Peak Velocity 70.59 cm/s MV E/A 0.77 MV Decel Time 0 s MV Annular TDI MV E/e' (Septal) 9.19 <=8.00 MV E/e' (Lateral) 5.75 <=8.00 MV E/e' (Average) 7.47 Tricuspid Valve Name Value Normal TV Regurgitation Doppler TR Peak Velocity 172.00 cm/s TR Peak Gradient 12 mmHg Estimated PAP/RSVP RA Pressure 10 mmHg <=5 PA Systolic Pressure 22 mmHg <36 RV Systolic Pressure 22 mmHg <36 Aorta Name Value Normal Ascending Aorta Ao Root Diameter (MM) 3.77 cm Ao Root Diam Index (MM) 2.14 cm/m2 Aortic Valve Name Value Normal AV Doppler AV Peak Velocity 130.26 cm/s AV Peak Gradient 7 mmHg AV Mean Gradient 3 mmHg AV VTI 24.37 cm AV Area (Cont Eq VTI) 3.71 cm2 >=3.00 AV Area (Cont Eq Stewart) 3.97 cm2 AV Regurgitation 2D LVOT Area 4.30 cm2 AV Regurgitation Doppler AR Decel Time 2 s AR Decel Fleming 213.96 cm/s2 AR PHT 0 s Ventricles Name Value Normal LV Dimensions 2D/MM IVS Diastolic Thickness (2D) 0.90 cm 0.60-1.00 LVID Diastole (2D) 5.89 cm 4.20-5.80 LVIW Diastolic Thickness (2D) 0.89 cm 0.60-1.00 LVID Systole (2D) 5.34 cm 2.50-4.00 LVOT Diameter 2.34 cm LV Mass (2D Cubed) 207.01 g 88.00-224.00 LV Mass Index (2D Cubed) 0.01 g/cm2 0.00-0.01 Relative Wall Thickness (2D) 0.30 LV Fractional Shortening/Ejection Fraction 2D/MM LV Fractional Shortening (2D) 9 % 25-43 LV EF (2D Teicholz) 20 % 52-72 LV Diastolic Volume (4C MOD) 118.63 ml LV EF (4C MOD) 23 % LV Diastolic Volume (2C MOD) 133.70 ml LV EF (2C MOD) 26 % LV Diastolic Volume (BP MOD) 127.55 ml 62.00-150.00 LV Diastolic Volume Index (BP MOD) 0.07 l/m2 0.03-0.07 LV Systolic Volume (BP MOD) 95.41 ml 21.00-61.00 LV Systolic Volume Index (BP MOD) 0.05 l/m2 0.01-0.03 LV EF (BP MOD) 25 % 52-72 LV Diastolic Length (4C) 9.45 cm LV Systolic Length (4C) 8.99 cm LV Stroke Volume (4C MOD) 27.38 ml Atria Name Value Normal LA Dimensions LA Dimension (MM) 4.48 cm 3.00-4.10 LA Volume (4C A-L) 52.31 ml LA Volume (BP A-L) 71.85 ml RA Dimensions RA Area (4C) 14.95 cm2 <=18.00 Report Signatures
--- NOTE | 2024-03-12 07:12 | P.PNCA_ITS ---
Progress Note: A&P Assessment and Plan (1) Chest pain: Qualifiers: Chest pain type: unspecified Qualified Code(s): R07.9 - Chest pain, unspecified Code(s): R07.9 - Chest pain, unspecified Status: Acute (2) Atrial fibrillation: Qualifiers: Atrial fibrillation type: paroxysmal Qualified Code(s): I48.0 - Paroxysmal atrial fibrillation Code(s): I48.91 - Unspecified atrial fibrillation Status: Acute (3) Hyperlipidemia: Qualifiers: Hyperlipidemia type: unspecified Qualified Code(s): E78.5 - Hyperlipidemia, unspecified Code(s): E78.5 - Hyperlipidemia, unspecified Status: Acute (4) Congestive heart failure: Qualifiers: Heart failure chronicity: chronic Heart failure type: unspecified Qualified Code(s): I50.9 - Heart failure, unspecified Code(s): I50.9 - Heart failure, unspecified Status: Acute Plan -Chest pain-atypical; Right bundle branch block and left anterior fascicular block on prior EKG; EKG today shows left bundle branch block -Systolic heart failure with LVEF of 20-25% by echo in 2022 -Hypertension -Hyperlipidemia -AFib status post cardioversion in the past; now in SR-on amiodarone; on apixaban for anticoagulation Plan: -EKG shows left bundle branch block. Though this is new, he has had left anterior fascicular block on prior EKGs. Patient's chest pain is atypical (c omes on with deep breaths) and he describes it as the tenderness. Troponinx3 negative. ACS ruled out. Chest pain is less likely to be cardiac in nature -TTE today- if LVEF remains low, then plan for ischemic evaluation and EP consult for ICD evaluation -Continue aspirin, statin, Coreg -Guideline directed medical therapy for cardiomyopathy-continue Coreg; added SGLT2 inhibitor; add Entresto, spironolactone as tolerated -Continue Lasix -Continue apixaban -Continue amiodarone -Management of other medical conditions per primary team Subjective Date/time seen: 03/12/24 07:12 Interval history: Reason for visit: Chest pain Pertinent Workup: Troponin I: x3 within normal limits EKG: Sinus rhythm with first-degree AV block (DE interval 264 milliseconds), left bundle-branch block TTE 04/2022: Severely depressed systolic function with LVEF of 25%; akinesis of the anterior wall, anteroseptal segment and apex; LV false cord Stress test 07/2020: Summary 1. Sinus bradycardia. Anteroseptal [place], first-degree AV block. 2. No abnormal ST/T wave changes with Lexiscan compared to baseline. 3. Occasional stress-induced PVCs. 4. Please correlate with nuclear medicine images, reported separately. Interval history: Chest pain with deep breath. No shortness of breath, dizziness, lightheadedness, palpitations. No nausea, emesis, abdominal pain, headache. Review of Systems Review of Systems: A complete review of systems was performed and negative other than those mentioned in HPI Exam Narrative: General: Alert oriented x3, no acute distress Neck: Supple, JVD + Chest: Bilaterally clear to auscultation, no rales or rhonchi Cardiac: S1, S2 +, regular rate, regular rhythm, no murmurs or rubs Extremities: No pedal edema, no skin rash Neurologic: Alert and oriented x3, no focal neurological deficits Objective Data Vital Signs Vital Signs: Vital Signs - 24 hr 03/11/24 14:01 03/11/24 14:01 03/11/24 14:01 Temperature 36.4 C Pulse Rate 75 73 Respiratory Rate 15 Blood Pressure 108/52 L Pulse Oximetry 100 100 Oxygen Delivery Room Air Room Air 03/11/24 14:03 03/11/24 14:23 03/11/24 16:05 Temperature Pulse Rate 68 70 Respiratory Rate 17 16 Blood Pressure 108/52 L 120/64 126/70 Pulse Oximetry 97 97 Oxygen Delivery 03/11/24 16:50 03/11/24 17:46 03/11/24 19:32 Temperature 36.3 C L 36.3 C L Pulse Rate 60 62 62 Respiratory Rate 16 24 H Blood Pressure 142/66 H 113/53 L Pulse Oximetry 95 95 Oxygen Delivery 03/11/24 20:00 03/11/24 20:00 03/11/24 20:57 Temperature Pulse Rate 62 62 66 Respiratory Rate 24 H Blood Pressure Pulse Oximetry 95 Oxygen Delivery Room Air 03/11/24 21:53 03/11/24 23:39 03/12/24 00:00 Temperature 36.9 C Pulse Rate 64 60 63 Respiratory Rate 22 H 22 H Blood Pressure 113/55 L Pulse Oximetry 100 100 Oxygen Delivery Room Air 03/12/24 00:00 03/12/24 02:00 03/12/24 04:00 Temperature Pulse Rate 63 64 58 L Respiratory Rate 18 Blood Pressure Pulse Oximetry 98 Oxygen Delivery Room Air 03/12/24 04:00 03/12/24 04:08 03/12/24 05:48 Temperature 36.7 C Pulse Rate 58 L 58 L 62 Respiratory Rate 18 Blood Pressure 114/58 L Pulse Oximetry 98 Oxygen Delivery Intake/Output Intake/Output: Intake & Output 03/09/24 03/10/24 03/11/24 03/12/24 23:59 23:59 23:59 23:59 Intake Total 240 250 Output Total 250 300 Balance -10 -50 Meds/Results Medications: Active Medications Generic Name Dose Route Start Last Admin Trade Name Freq PRN Reason Stop Dose Admin Acetaminophen 650 mg 03/11/24 15:16 Acetaminophen 325 Mg Tablet PO Q4H PRN Mild Pain (1-3) or Fever Amiodarone HCl 100 mg 03/12/24 09:00 Amiodarone Hcl 100 Mg Tablet PO DAILY [facility] Apixaban 5 mg 03/11/24 20:00 03/11/24 20:57 Apixaban 5 Mg Tablet PO 5 mg BID [facility] Administration Aspirin 81 mg 03/12/24 08:00 Aspirin 81 Mg Chewable Tablet PO DAILY@0800 [facility] Aspirin 81 mg 03/12/24 09:00 Aspirin 81 Mg Enteric Tablet PO DAILY [facility] Atorvastatin Calcium 40 mg 03/11/24 21:00 03/11/24 20:56 Atorvastatin 40 Mg Tablet PO 40 mg QHS [facility] Administration Carvedilol 6.25 mg 03/11/24 21:00 03/11/24 20:57 Carvedilol 6.25 Mg Tablet PO 6.25 mg Q12HR [facility] Administration Finasteride 5 mg 03/12/24 09:00 Finasteride 5 Mg Tablet PO DAILY [facility] Furosemide 40 mg 03/12/24 09:00 Furosemide 40 Mg Tablet PO QAM [facility] Multivitamins/Calcium 1 tablet 03/12/24 09:00 Therapeutic Multivitamins/Minerals Tab (*Bkc) PO DAILY [facility] Neomycin/Polymyxin/Dexamethasone 1 applic 03/11/24 21:00 03/11/24 21:02 Neomycin/Polymyxin/Dexameth Op Oint 3.5 Gm Tube EACH EYE 1 applic QHS [facility] Administration Nitroglycerin 0.4 mg 03/11/24 17:19 Nitroglycerin Sl 0.4 Mg Tablet SUBLINGUAL Q5MIN PRN Chest Pain Pantoprazole Sodium 40 mg 03/12/24 09:00 Pantoprazole 40 Mg Tablet PO QAM [facility] Radiology Results: ITS Impressions Chest X-Ray 03/11/24 15:09 IMPRESSION: No focal infiltrate or effusion. Labs Labs: Laboratory Results - last 24 hr 03/11/24 03/11/24 03/11/24 13:58 17:46 20:31 WBC 4.8 RBC 4.42 L Hgb 14.0 Hct 42.6 MCV 96.4 MCH 31.7 MCHC 32.9 RDW 14.8 H Plt Count 207 MPV 9.6 Immature Gran % (Auto) 0.2 Neut % (Auto) 55.2 Lymph % (Auto) 32.5 Saline % (Auto) 7.1 Eos % (Auto) 4.6 H Baso % (Auto) 0.4 Lymph # (Auto) 1.55 Saline # (Auto) 0.3 Eos # (Auto) 0.2 Baso # (Auto) 0.0 Abs Immat Gran (auto) 0.01 Absolute Neuts (auto) 2.6 Absolute Nucleated RBC 0.000 Nucleated RBC % 0.0 PT 17.0 H INR 1.3 APTT 28.8 Sodium 141 Potassium 3.9 Chloride 107 Carbon Dioxide 27 Anion Gap 7 BUN 21 H D Creatinine 0.99 Estim Creat Clear Calc Not Reportable Estimated GFR > 60 Glucose 99 Calcium 9.7 Total Bilirubin 0.9 AST 34 ALT 32 Alkaline Phosphatase 70 Troponin I 0.025 0.022 0.026 Total Protein 7.0 Albumin 3.5 Lipase 141
[2024-03-12] MEDS: THERAPEUTIC MULTIVITAMINS/MINERALS TAB (*BKC) 1 TABLET PO (08:59)
[2024-03-12] MEDS: FINASTERIDE 5 MG TABLET PO (08:59)
[2024-03-12] MEDS: PANTOPRAZOLE 40 MG TABLET PO (08:59)
[2024-03-12] MEDS: ASPIRIN 81 MG CHEWABLE TABLET PO (08:59)
[2024-03-12] MEDS: FUROSEMIDE 40 MG TABLET PO (08:59)
[2024-03-12] MEDS: APIXABAN 5 MG TABLET PO ×2 (08:59→17:25)
[2024-03-12] MEDS: carvediloL 6.25 MG TABLET PO ×2 (08:59→21:04)
[2024-03-12] MEDS: AMIODARONE HCL 100 MG TABLET PO (09:01)
[2024-03-12] MEDS: EMPAGLIFLOZIN 10 MG TABLET PO (11:56)
--- NOTE | 2024-03-12 12:42 | P.PNIM_ITS ---
Progress Note: A&P Assessment and Plan (1) Chest pain: Qualifiers: Chest pain type: unspecified Qualified Code(s): R07.9 - Chest pain, unspecified Code(s): R07.9 - Chest pain, unspecified Status: Acute Assessment and Plan: - EKG, initial: sinus rhythm with first-degree AV block, marked left axis deviation, left bundle branch block (awaiting formal read). - repeat EKG with 3 hour and 6 hour troponin - CXR: No focal infiltrate or effusion Troponin negative x3 - ASA 324 given and SL nitro PRN patient noted pain is pleuritic and mild tenderness on palpation likley non cardiac however cardiology recommended ECHo to evaluated LV function ECHO pending Cardiology following (2) Essential (primary) hypertension: Code(s): I10 - Essential (primary) hypertension Status: Chronic Assessment and Plan: - chronic, currently 126/70 - continue home medications: Coreg 6.25 mg b.i.d. - monitor Plan Afib Continue amiodarone, Eliquis. Monitor Cardiomyopathy Echo in 2022 showed EF of 20-25% Continue Lasix Follow-up with echo Cardiology following. Diet: Heart healthy GI Prophylaxis: Not currently indicated DVT Prophylaxis: Eliquis Lines: Peripheral Code Status: Full code Subjective Date/time seen: 03/12/24 12:42 Interval history: Comfortable at bedside Noted no active chest pain except when he takes a deep breath. noted mild tenderness at the site of the pain Review of Systems Review of Systems: All systems reviewed & are unremarkable except as noted in HPI and below Exam Narrative: fine, frail. Const: General: comfortable and no acute distress Other: , male, frail, nontoxic appearance HENMT: Face/Nose/Sinus: Normal nares present Mouth: Yes moist mucous membranes Eyes: General: appearance normal, both eyes and all related structures Sclera: sclerae normal Pupils: Equal, round and reactive pupils present EOM: EOMs intact bilaterally Resp: Effort & Inspection: normal respiratory effort Auscultation: clear to auscultation bilaterally Cardio: Rate: regular rate Rhythm: regular rhythm Other: S1-S2 present without murmur, rub, ectopy GI: Other: Abdomen soft, nondistended, nontender. Normoactive bowel sounds in all quadran ts. Skin: General skin exam: normal color and no rashes or lesions noted Wounds: no wounds Neuro: Cranial nerves: Yes Equal, round and reactive pupils present Speech: normal speech Motor exam (neuro): 5/5 motor strength present throughout Sensory Exam: normal sensation Other: A&O x4 Extrem: General: normal to inspection Psych: Mental Status: mental status grossly normal Affect: normal affect Other: Good insight and judgment, pleasant Objective Data Vital Signs Vital Signs: Vital Signs - 24 hr 03/11/24 14:01 03/11/24 14:01 03/11/24 14:01 Temperature 97.6 F Pulse Rate 75 73 Respiratory Rate 15 Blood Pressure 108/52 L Pulse Oximetry 100 100 Oxygen Delivery Room Air Room Air 03/11/24 14:03 03/11/24 14:23 03/11/24 16:05 Temperature Pulse Rate 68 70 Respiratory Rate 17 16 Blood Pressure 108/52 L 120/64 126/70 Pulse Oximetry 97 97 Oxygen Delivery 03/11/24 16:50 03/11/24 17:46 03/11/24 19:32 Temperature 97.4 F L 97.4 F L Pulse Rate 60 62 62 Respiratory Rate 16 24 H Blood Pressure 142/66 H 113/53 L Pulse Oximetry 95 95 Oxygen Delivery 03/11/24 20:00 03/11/24 20:00 03/11/24 20:57 Temperature Pulse Rate 62 62 66 Respiratory Rate 24 H Blood Pressure Pulse Oximetry 95 Oxygen Delivery Room Air 03/11/24 21:53 03/11/24 23:39 03/12/24 00:00 Temperature 98.4 F Pulse Rate 64 60 63 Respiratory Rate 22 H 22 H Blood Pressure 113/55 L Pulse Oximetry 100 100 Oxygen Delivery Room Air 03/12/24 00:00 03/12/24 02:00 03/12/24 04:00 Temperature Pulse Rate 63 64 58 L Respiratory Rate 18 Blood Pressure Pulse Oximetry 98 Oxygen Delivery Room Air 03/12/24 04:00 03/12/24 04:08 03/12/24 05:48 Temperature 98.0 F Pulse Rate 58 L 58 L 62 Respiratory Rate 18 Blood Pressure 114/58 L Pulse Oximetry 98 Oxygen Delivery 03/12/24 08:00 03/12/24 08:00 03/12/24 08:00 Temperature 97.5 F L Pulse Rate 81 73 Respiratory Rate 16 Blood Pressure 123/95 H Pulse Oximetry 97 97 Oxygen Delivery Room Air 03/12/24 08:59 03/12/24 09:01 03/12/24 10:00 Temperature Pulse Rate 65 65 65 Respiratory Rate Blood Pressure Pulse Oximetry Oxygen Delivery 03/12/24 12:00 Temperature 97 F L Pulse Rate 64 Respiratory Rate 18 Blood Pressure 123/61 Pulse Oximetry 100 Oxygen Delivery Intake/Output Intake/Output: Intake & Output 03/09/24 03/10/24 03/11/24 03/12/24 23:59 23:59 23:59 23:59 Intake Total 240 370 Output Total 250 300 Balance -10 70 Meds/Results Medications: Active Medications Generic Name Dose Route Start Last Admin Trade Name Freq PRN Reason Stop Dose Admin Acetaminophen 650 mg 03/11/24 15:16 Acetaminophen 325 Mg Tablet PO Q4H PRN Mild Pain (1-3) or Fever Amiodarone HCl 100 mg 03/12/24 09:00 03/12/24 09:01 Amiodarone Hcl 100 Mg Tablet PO 100 mg DAILY [facility] Administration Apixaban 5 mg 03/11/24 20:00 03/12/24 08:59 Apixaban 5 Mg Tablet PO 5 mg BID [facility] Administration Aspirin 81 mg 03/12/24 08:00 03/12/24 08:59 Aspirin 81 Mg Chewable Tablet PO 81 mg DAILY@0800 [facility] Administration Aspirin 81 mg 03/12/24 09:00 03/12/24 09:02 Aspirin 81 Mg Enteric Tablet PO Not Given DAILY [facility] Atorvastatin Calcium 40 mg 03/11/24 21:00 03/11/24 20:56 Atorvastatin 40 Mg Tablet PO 40 mg QHS [facility] Administration Carvedilol 6.25 mg 03/11/24 21:00 03/12/24 08:59 Carvedilol 6.25 Mg Tablet PO 6.25 mg Q12HR [facility] Administration Empagliflozin 10 mg 03/12/24 09:00 03/12/24 11:56 Empagliflozin 10 Mg Tablet PO 10 mg DAILY [facility] Administration Finasteride 5 mg 03/12/24 09:00 03/12/24 08:59 Finasteride 5 Mg Tablet PO 5 mg DAILY [facility] Administration Furosemide 40 mg 03/12/24 09:00 03/12/24 08:59 Furosemide 40 Mg Tablet PO 40 mg QAM [facility] Administration Multivitamins/Calcium 1 tablet 03/12/24 09:00 03/12/24 08:59 Therapeutic Multivitamins/Minerals Tab (*Bkc) PO 1 tablet DAILY [facility] Administration Neomycin/Polymyxin/Dexamethasone 1 applic 03/11/24 21:00 03/11/24 21:02 Neomycin/Polymyxin/Dexameth Op Oint 3.5 Gm Tube EACH EYE 1 applic QHS [facility] Administration Nitroglycerin 0.4 mg 03/11/24 17:19 Nitroglycerin Sl 0.4 Mg Tablet SUBLINGUAL Q5MIN PRN Chest Pain Pantoprazole Sodium 40 mg 03/12/24 09:00 03/12/24 08:59 Pantoprazole 40 Mg Tablet PO 40 mg QAM [facility] Administration Radiology Results: ITS Impressions Chest X-Ray 03/11/24 15:09 IMPRESSION: No focal infiltrate or effusion. Labs Labs: Laboratory Results - last 24 hr 03/11/24 03/11/24 03/11/24 13:58 17:46 20:31 WBC 4.8 RBC 4.42 L Hgb 14.0 Hct 42.6 MCV 96.4 MCH 31.7 MCHC 32.9 RDW 14.8 H Plt Count 207 MPV 9.6 Immature Gran % (Auto) 0.2 Neut % (Auto) 55.2 Lymph % (Auto) 32.5 [place] % (Auto) 7.1 Eos % (Auto) 4.6 H Baso % (Auto) 0.4 Lymph # (Auto) 1.55 [place] # (Auto) 0.3 Eos # (Auto) 0.2 Baso # (Auto) 0.0 Abs Immat Gran (auto) 0.01 Absolute Neuts (auto) 2.6 Absolute Nucleated RBC 0.000 Nucleated RBC % 0.0 PT 17.0 H INR 1.3 APTT 28.8 Sodium 141 Potassium 3.9 Chloride 107 Carbon Dioxide 27 Anion Gap 7 BUN 21 H D Creatinine 0.99 Estim Creat Clear Calc Not Reportable Estimated GFR > 60 Glucose 99 Calcium 9.7 Total Bilirubin 0.9 AST 34 ALT 32 Alkaline Phosphatase 70 Troponin I 0.025 0.022 0.026 Total Protein 7.0 Albumin 3.5 Lipase 141 Quality VTE Prophylaxis VTE prophylaxis: pharmacologic ordered
[2024-03-12] MEDS: PERFLUTREN LIPID MICROSPHERES 1.5 ML VIAL DILUTED TO 10 ML TOTAL VOLUME IV PUSH (15:40)
--- NOTE | 2024-03-12 16:13 | IVDEFINITY ---
Prior to administration of IV Definity the patient was educated on the risks and benefits of the imaging enhancing agent including potential adverse side effects. The patient verbalized understanding. Allergies were verified. No exclusion criteria were identified and at least one of the following inclusion criteria were met: 1) physician request, 2) patient technically difficult to image (per the [place] [employer]chocardi[employer] guidelines of two or more segments not discernable within the apical view), or 3) questionable left ventricular function. ?
[2024-03-12] MEDS: NEOMYCIN/POLYMYXIN/DEXAMETH OP OINT 3.5 GM TUBE 1 APPLIC EACH EYE (21:04)
[2024-03-12] MEDS: ATORVASTATIN 40 MG TABLET PO (21:04)
[2024-03-13] VITALS (11 sets, daily range): BP systolic 109–147; BP diastolic 54–71; PULSE 56–88; RESP 16–22; TEMP 36.4–36.6; O2SAT 98–100
[2024-03-13 04:34] LABS: Basophils Percent Auto 0.7 % (0.2-1.2); Eosinophils Absolute Auto 0.2 K/mm3 (0-0.3); Eosinophils Percent Auto 4.1 % (0-4.4); Hematocrit 39.3 % (42.0-52.0); Immature Granulocyte Absolute 0.01 K/mm3 (0.00-0.031); Immature Granulocyte Percent A 0.2 % (0-0.5); Lymphocytes Absolute Auto 1.42 K/mm3 (0.9-3.2); Lymphocytes Percent Auto 32.3 % (18.3-44.2); Mean Corpuscular HGB Conc 33.1 g/dl (32-36); Mean Corpuscular Hemoglobin 31.3 pg (26-34); Mean Corpuscular Volume 94.7 fl (80-100); Mean Platelet Volume 9.9 fl (7.4-10.4); Monocytes Absolute Auto 0.5 K/mm3 (0.1-0.6); Monocytes Percent Auto 10.7 % (2.6-8.5); Neutrophils Absolute Auto 2.3 K/mm3 (1.3-6.7); Platelet Count Result 172 k/mm3 (150-375); Red Blood Count 4.15 M/mm3 (4.6-6.20); Red Cell Distribution Width 14.7 % (11.5-14.5); White Blood Count 4.4 K/mm3 (4.5-10.0)
[2024-03-13 04:48] LABS: Alanine Aminotransferase 27 U/L (6-50); Albumin Level 3.3 g/dL (3.5-5.1); Alkaline Phosphatase 69 U/L (38-126); Anion Gap 5 mmol/L (4-12); Aspartate Amino Transferase 29 U/L (17-59); Bilirubin,Total 0.7 mg/dL (0.2-1.3); Blood Urea Nitrogen 23 mg/dL (9-20); Calcium 9.7 mg/dL (8.4-10.2); Carbon Dioxide 26 mmol/L (22-30); Chloride 107 mmol/L (98-107); Estimated CRCL calculation 42 ml/min; Estimated Glomerular Filt Rate > 60; Glucose 90 mg/dL (65-110); Magnesium 2.2 mg/dL (1.6-2.3); Potassium 4.1 mmol/L (3.4-5.0); Sodium 138 mmol/L (137-145)
[2024-03-13] MEDS: FINASTERIDE 5 MG TABLET PO (08:18)
[2024-03-13] MEDS: APIXABAN 5 MG TABLET PO (08:18)
[2024-03-13] MEDS: THERAPEUTIC MULTIVITAMINS/MINERALS TAB (*BKC) 1 TABLET PO (08:18)
[2024-03-13] MEDS: FUROSEMIDE 40 MG TABLET PO (08:18)
[2024-03-13] MEDS: carvediloL 6.25 MG TABLET PO (08:18)
[2024-03-13] MEDS: PANTOPRAZOLE 40 MG TABLET PO (08:18)
[2024-03-13] MEDS: ASPIRIN 81 MG CHEWABLE TABLET PO (08:18)
[2024-03-13] MEDS: AMIODARONE HCL 100 MG TABLET PO (08:19)
[2024-03-13] MEDS: EMPAGLIFLOZIN 10 MG TABLET PO (08:19)
--- NOTE | 2024-03-13 09:12 | P.PNCA_ITS ---
Progress Note: A&P Assessment and Plan (1) Chest pain: Qualifiers: Chest pain type: unspecified Qualified Code(s): R07.9 - Chest pain, unspecified Code(s): R07.9 - Chest pain, unspecified Status: Acute (2) Atrial fibrillation: Qualifiers: Atrial fibrillation type: paroxysmal Qualified Code(s): I48.0 - Paroxysmal atrial fibrillation Code(s): I48.91 - Unspecified atrial fibrillation Status: Acute (3) Hyperlipidemia: Qualifiers: Hyperlipidemia type: unspecified Qualified Code(s): E78.5 - Hyperlipidemia, unspecified Code(s): E78.5 - Hyperlipidemia, unspecified Status: Acute (4) Congestive heart failure: Qualifiers: Heart failure chronicity: chronic Heart failure type: unspecified Qualified Code(s): I50.9 - Heart failure, unspecified Code(s): I50.9 - Heart failure, unspecified Status: Acute Plan -Chest pain-atypical (comes on with movement); EKG shows left bundle branch block. Though this is new, he has had left anterior fascicular block on prior EKGs. Troponinx3 negative. ACS ruled out -Systolic heart failure with LVEF of 20-25%, unchanged from 2022 -Hypertension -Hyperlipidemia -AFib status post cardioversion in the past; now in SR-on amiodarone; on apixaban for anticoagulation Plan: -EP consult for ICD evaluation -Continue aspirin, statin, Coreg -Guideline directed medical therapy for cardiomyopathy-continue Coreg, SGLT2 inhibitor; add Entresto, spironolactone as tolerated -Continue Lasix -Continue apixaban -Continue amiodarone -Management of other medical conditions per primary team -Follow up with Cardiology in 2-4 weeks post discharge Thank you for allowing us to participate in the care of this patient. Cardiology will sign off, please call us with any questions Subjective Date/time seen: 03/13/24 09:12 Interval history: Reason for visit: Chest pain Pertinent Workup: Troponin I: x3 within normal limits EKG: Sinus rhythm with first-degree AV block (SC interval 264 milliseconds), left bundle-branch block TTE: Severe hypokinesis of LV with severely depressed ejection fraction of 20- 25%, wall motion abnormalities history above infarction of anterior wall. Findings are unchanged from echo in 2022 TTE 04/2022: Severely depressed systolic function with LVEF of 25%; akinesis of the anterior wall, anteroseptal segment and apex; LV false cord Stress test 07/2020: Summary 1. Sinus bradycardia. Anteroseptal GA, first-degree AV block. 2. No abnormal ST/T wave changes with Lexiscan compared to baseline. 3. Occasional stress-induced PVCs. 4. Please correlate with nuclear medicine images, reported separately. Interval history: He reports some sharp chest pain that comes on with movement. No shortness of breath, dizziness, lightheadedness, palpitations. No nausea, emesis, abdominal pain, headache. Review of Systems Review of Systems: A complete review of systems was performed and negative other than those mentioned in HPI Exam Narrative: General: Alert oriented x3, no acute distress Neck: Supple, JVD + Chest: Bilaterally clear to auscultation, no rales or rhonchi Cardiac: S1, S2 +, regular rate, regular rhythm, no murmurs or rubs Extremities: No pedal edema, no skin rash Neurologic: Alert and oriented x3, no focal neurological deficits Objective Data Vital Signs Vital Signs: Vital Signs - 24 hr 03/12/24 10:00 03/12/24 12:00 03/12/24 12:00 Temperature 36.1 C L Pulse Rate 65 64 Respiratory Rate 18 Blood Pressure 123/61 Pulse Oximetry 100 98 Oxygen Delivery Room Air Fraction of Inspired Oxygen 03/12/24 12:00 03/12/24 14:00 03/12/24 16:00 Temperature 36.4 C Pulse Rate 78 65 57 L Respiratory Rate 16 Blood Pressure 112/61 Pulse Oximetry 98 Oxygen Delivery Fraction of Inspired Oxygen 03/12/24 16:00 03/12/24 16:00 03/12/24 18:00 Temperature Pulse Rate 60 64 Respiratory Rate Blood Pressure Pulse Oximetry 98 Oxygen Delivery Room Air Fraction of Inspired Oxygen 03/12/24 20:00 03/12/24 20:00 03/12/24 20:00 Temperature 36.4 C Pulse Rate 63 82 82 Respiratory Rate 16 16 Blood Pressure 146/71 H Pulse Oximetry 100 98 Oxygen Delivery Room Air Fraction of Inspired Oxygen 03/12/24 20:06 03/12/24 21:04 03/12/24 21:48 Temperature Pulse Rate 83 74 Respiratory Rate Blood Pressure Pulse Oximetry 98 Oxygen Delivery Room Air Fraction of Inspired Oxygen 03/13/24 00:00 03/13/24 00:00 03/13/24 00:00 Temperature 36.5 C Pulse Rate 79 77 77 Respiratory Rate 16 16 Blood Pressure 147/63 H Pulse Oximetry 99 99 Oxygen Delivery Room Air Fraction of Inspired Oxygen 03/13/24 01:56 03/13/24 04:00 03/13/24 04:00 Temperature 36.6 C Pulse Rate 66 66 74 Respiratory Rate 16 16 Blood Pressure 127/64 Pulse Oximetry 99 99 Oxygen Delivery Room Air Fraction of Inspired Oxygen 03/13/24 04:00 03/13/24 05:55 03/13/24 08:00 Temperature 36.4 C Pulse Rate 74 64 62 Respiratory Rate 16 Blood Pressure 127/71 Pulse Oximetry 100 Oxygen Delivery Fraction of Inspired Oxygen 03/13/24 08:00 03/13/24 08:18 03/13/24 08:19 Temperature Pulse Rate 88 88 Respiratory Rate Blood Pressure Pulse Oximetry 100 Oxygen Delivery Room Air Fraction of Inspired Oxygen Intake/Output Intake/Output: Intake & Output 03/10/24 03/11/24 03/12/24 03/13/24 23:59 23:59 23:59 23:59 Intake Total 240 1130 300 Output Total 250 950 Balance -10 180 300 Meds/Results Medications: Active Medications Generic Name Dose Route Start Last Admin Trade Name Freq PRN Reason Stop Dose Admin Acetaminophen 650 mg 03/11/24 15:16 Acetaminophen 325 Mg Tablet PO Q4H PRN Mild Pain (1-3) or Fever Amiodarone HCl 100 mg 03/12/24 09:00 03/13/24 08:19 Amiodarone Hcl 100 Mg Tablet PO 100 mg DAILY [facility] Administration Apixaban 5 mg 03/11/24 20:00 03/13/24 08:18 Apixaban 5 Mg Tablet PO 5 mg BID [facility] Administration Aspirin 81 mg 03/12/24 08:00 03/13/24 08:18 Aspirin 81 Mg Chewable Tablet PO 81 mg DAILY@0800 [facility] Administration Aspirin 81 mg 03/12/24 09:00 03/13/24 08:20 Aspirin 81 Mg Enteric Tablet PO Not Given DAILY [facility] Atorvastatin Calcium 40 mg 03/11/24 21:00 03/12/24 21:04 Atorvastatin 40 Mg Tablet PO 40 mg QHS [facility] Administration Carvedilol 6.25 mg 03/11/24 21:00 03/13/24 08:18 Carvedilol 6.25 Mg Tablet PO 6.25 mg Q12HR [facility] Administration Empagliflozin 10 mg 03/12/24 09:00 03/13/24 08:19 Empagliflozin 10 Mg Tablet PO 10 mg DAILY [facility] Administration Finasteride 5 mg 03/12/24 09:00 03/13/24 08:18 Finasteride 5 Mg Tablet PO 5 mg DAILY [facility] Administration Furosemide 40 mg 03/12/24 09:00 03/13/24 08:18 Furosemide 40 Mg Tablet PO 40 mg QAM [facility] Administration Multivitamins/Calcium 1 tablet 03/12/24 09:00 03/13/24 08:18 Therapeutic Multivitamins/Minerals Tab (*Bkc) PO 1 tablet DAILY [facility] Administration Neomycin/Polymyxin/Dexamethasone 1 applic 03/11/24 21:00 03/12/24 21:04 Neomycin/Polymyxin/Dexameth Op Oint 3.5 Gm Tube EACH EYE 1 applic QHS [facility] Administration Nitroglycerin 0.4 mg 03/11/24 17:19 Nitroglycerin Sl 0.4 Mg Tablet SUBLINGUAL Q5MIN PRN Chest Pain Pantoprazole Sodium 40 mg 03/12/24 09:00 03/13/24 08:18 Pantoprazole 40 Mg Tablet PO 40 mg QAM [facility] Administration Radiology Results: ITS Impressions Chest X-Ray 03/11/24 15:09 IMPRESSION: No focal infiltrate or effusion. Labs Labs: Laboratory Results - last 24 hr 03/13/24 04:02 WBC 4.4 L RBC 4.15 L Hgb 13.0 L Hct 39.3 L MCV 94.7 MCH 31.3 MCHC 33.1 RDW 14.7 H Plt Count 172 MPV 9.9 Immature Gran % (Auto) 0.2 Neut % (Auto) 52.0 Lymph % (Auto) 32.3 [place] % (Auto) 10.7 H Eos % (Auto) 4.1 Baso % (Auto) 0.7 Lymph # (Auto) 1.42 [place] # (Auto) 0.5 Eos # (Auto) 0.2 Baso # (Auto) 0.0 Abs Immat Gran (auto) 0.01 Absolute Neuts (auto) 2.3 Absolute Nucleated RBC 0.000 Nucleated RBC % 0.0 Sodium 138 Potassium 4.1 Chloride 107 Carbon Dioxide 26 Anion Gap 5 BUN 23 H Creatinine 0.97 Estim Creat Clear Calc 42 Estimated GFR > 60 Glucose 90 Calcium 9.7 Magnesium 2.2 Total Bilirubin 0.7 AST 29 ALT 27 Alkaline Phosphatase 69 Total Protein 6.0 L Albumin 3.3 L
--- NOTE | 2024-03-13 13:53 | PM.DS ---
DS: Admitting Diagnosis Discharge Date 03/13/24 Admitting Diagnosis Chest pain DS: Discharge Diagnosis Discharge Diagnosis (1) Congestive heart failure: Qualifiers: Heart failure type: unspecified Heart failure chronicity: chronic Qualified Code(s): I50.9 - Heart failure, unspecified Code(s): I50.9 - Heart failure, unspecified Status: Acute DS: Summary Hospital Course Hospital Course: 88 y/o M presents here with chest pain with PMH of GERD, esophageal dysmotility, BPH, hypertension, TIA, CHF, atrial fibrillation, PE (2021), and stroke (R anterior cerebral artery). The patient presents here from home for further evaluation of chest pain. He reports onset of left-sided chest pain approximately 5 days ago. Pain worsened today prompting him to seek evaluation. He describes the chest pain as tender, nonradiating, constant, no aggravating factors, and no alleviating factors. Did not trial any prescription meds or OTC meds for the discomfort. He denies shortness of breath, palpitations, dizziness, diaphoresis, nausea, or indigestion. The patient does have a cardiac history including a myocardial infarction in 2019 with stent placement. No further complaints. Initial VS at presentation: 97.6? F, HR 75, RR 15, 108/52, and 100% on RA. ED workup showed: No leukocytosis, no anemia, INR 1.3, creatinine 0.99 and GFR >60, initial troponin 0.025. CXR showed no focal infiltrate or effusion. Initial EKG showed sinus rhythm with first-degree AV block, marked left axis deviation, left bundle branch block (awaiting formal read). On eval patient noted chest pain was worse with deep breath adn there was a tender spot on chest palpation. Cardiology evaluated and recommended ECHO. ECHO showed EF 20-25%. Cardiology reckoned chest pain is not cardiac however they will refer patient to EP for ICD evaluation. Patient will also follow up with them for guideline medication for CHF titration. Patient will follow up with PCP in 3-5 days F/u with cardiology as instructed. Time Spent with Patient Time attestation: Total time spent providing and/or coordinating discharge services: DS: Data Data Completed and Pending Labs on day of discharge: Labs from last 24 hours 03/13/24 04:02 WBC 4.4 L RBC 4.15 L Hgb 13.0 L Hct 39.3 L MCV 94.7 MCH 31.3 MCHC 33.1 RDW 14.7 H Plt Count 172 MPV 9.9 Immature Gran % (Auto) 0.2 Neut % (Auto) 52.0 Lymph % (Auto) 32.3 [place] % (Auto) 10.7 H Eos % (Auto) 4.1 Baso % (Auto) 0.7 Lymph # (Auto) 1.42 [place] # (Auto) 0.5 Eos # (Auto) 0.2 Baso # (Auto) 0.0 Abs Immat Gran (auto) 0.01 Absolute Neuts (auto) 2.3 Absolute Nucleated RBC 0.000 Nucleated RBC % 0.0 Sodium 138 Potassium 4.1 Chloride 107 Carbon Dioxide 26 Anion Gap 5 BUN 23 H Creatinine 0.97 Estim Creat Clear Calc 42 Estimated GFR > 60 Glucose 90 Calcium 9.7 Magnesium 2.2 Total Bilirubin 0.7 AST 29 ALT 27 Alkaline Phosphatase 69 Total Protein 6.0 L Albumin 3.3 L Discharge Plan Discharge Attending physician on discharge: Dave Ying Consulting providers: Anabel Palmer Discharging Clinician: Dave Ying Anticipated Discharge Date/Time: 03/13/24 13:50 Patient Disposition: Home, Self-Care Activity: as tolerated Diet: as tolerated Discharge Instructions: F/u with cardiology as instructed for EP referral for ICD evaluation Patient Instructions: Antibiotic Form Patient Language: [place] Stand Alone Forms: General Discharge Information Follow-up/Referrals: Wallace Beltre MD [Primary Care Provider] - (Follow-up PCP in 3-5 days.) Anabel Palmer MD [Physician] - (Follow up with Cardiology as instructed.) Discharge Medications: Continued aspirin 81 mg tablet,delayed release (DR/EC) 81 mg PO DAILY Patient Comments: fur matcher finasteride 5 mg tablet 5 mg PO DAILY atorvastatin 40 mg tablet 40 mg PO QHS furosemide 40 mg tablet 40 mg PO QAM neomycin-polymyxin B-dexameth 3.5 mg/g-10,000 unit/g-0.1 % ointment 1 applic EACH EYE QHS Eliquis 5 mg tablet 5 mg PO BID amiodarone 100 mg tablet 100 mg PO DAILY multivit with min-folic acid 0.4 mg Tablet 1 tablet PO DAILY omeprazole 40 mg capsule,delayed release(DR/EC) 40 mg PO DAILY Qty: 90 0RF carvedilol 6.25 mg tablet 6.25 mg PO Q12H Qty: 180 1RF Rx Instructions: must administer with a meal/food Date of admission: 03/11/24 15:17 Primary Care Provider: Wallace Beltre Admitting Provider: Dave Ying Attending physician on admission: Dave Ying Condition: Stable
== END 2024-03-13 14:39 | disposition home or self-care (01) ==
LOC: ANHED 15:20 → ANHIMU 17:06
PROVIDERS: Emergency Medicine; Admitting Provider Internal Medicine; Emergency Provider Emergency Medicine; PCP Family Medicine; Visit Provider Internal Medicine
DX: R07.89 Other chest pain (principal); I11.0 Hypertensive heart disease with heart failure; I50.22 Chronic systolic (congestive) heart failure; R94.31 Abnormal electrocardiogram [ECG] [EKG]; K21.9 Gastro-esophageal reflux disease without esophagitis; K22.89 Other specified disease of esophagus; I48.0 Paroxysmal atrial fibrillation; I25.10 Atherosclerotic heart disease of native coronary artery without angina pectoris; I25.2 Old myocardial infarction; N40.0 Benign prostatic hyperplasia without lower urinary tract symptoms; E78.5 Hyperlipidemia, unspecified; M47.816 Spondylosis without myelopathy or radiculopathy, lumbar region; H35.30 Unspecified macular degeneration; Z79.82 Long term (current) use of aspirin; Z79.01 Long term (current) use of anticoagulants; Z79.899 Other long term (current) drug therapy; Z86.711 Personal history of pulmonary embolism; Z86.16 Personal history of COVID-19; Z86.73 Personal history of transient ischemic attack (TIA), and cerebral infarction without residual deficits; Z95.5 Presence of coronary angioplasty implant and graft
CPT/HCPCS: 36415; 71046; 80053; 83690; 83735; 84484; 85025; 85610; 85730; 93005; 99285; A9270; C8929; G0378; Q9957

== ENCOUNTER 2024-04-24 14:08 | Outpatient (CLI) | payer OTHER, SELFPAY ==
--- OUTSIDE RECORDS SUMMARY | 2024-04-24 15:27 | XMS_ITS | Continuity of Care Document ---
Author Organization [facility] Address [address] [place] [address] Phone Care Team Providers Care Workers' Compensation Mediator Name Role Phone Sedrick Degroot Unavailable Unavailable Procedures Procedure Date Eye Exam & Treatment Refraction Eye Exam & Treatment No Script Office/outpatient Visit, Est Eye Exam & Treatment Advance Directives Directive Yes / No Effective Date File Name No Information Encounters Encounter Description Practice Location Reason(s) For Visit Diagnoses Date Provider Providers Copied on Encounter [facility], [address] [place] [address] [address], [place], [place], [id number], [place] tel:[phone] [facility] No Information 201 0 Zane Dubose. [address] , [address], [place], [address], [place]. tel:[phone] [facility], [address] [place] [address] [address], [place], [place], [id number], [place] tel:[phone] [facility] No Information 9 Zane Dubose. [address] , [address], [place], [address], [place]. tel:[phone] Office/outpat ient Visit, Est [facility], [address], [place], [place], [id number], [place] tel:[phone] [facility] No Information 1200 8 Doikeyla Edhallie. [address] , [address], [place], [address], [place]. tel:[phone] [facility], [address], [place], [place], [id number], [place] tel:[phone] [facility] No Information [phone] Zane Dubose. [address] , [address], [place], [address], [place]. tel:[phone] Family History Family Member Type Diagnosis Age At Onset No Information Payers Payer name Insurance type Covered green party ID Authoriza tion(s) [place] [id number] [place] [id number] Social History Type Description Quantity Date Captured [...]
--- OUTSIDE RECORDS SUMMARY | 2024-04-24 15:27 | XMS_ITS | Referral Summary ---
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); Atrial fibrillation, unspecified type (HCC); LBBB (left bundle branch block); Dilated cardiomyopathy (HCC) 03/17/2024 Orders Only [facility] Cardiology [address] [place] [address] [address] [place] [address] Anabel Palmer MD 03/12/2024 Orders Only [facility] Information Management [address] [place] [address] Anabel Palmer MD 03/11/2024 Telephone [facility] Cardiology [address] [place] [address] [address] [place] [address] Davey De Luna MD Chest Pain 03/05/2024 Telephone [facility] Cardiology [address] [place] [address] [address] [place] [address] Davey De Luna MD cardiac clearance from Last 3 Months Allergies No known active allergies Medications finasteride (PROSCAR) 5 mg tablet Take 1 tablet (5 mg total) by mouth daily Active multivitamin capsule Take 1 capsule by mouth daily Active aspirin 81 mg enteric coated tablet Take 1 tablet (81 mg total) by mouth daily Active carvediloL (COREG) 12.5 mg tablet TAKE ONE TABLET BY MOUTH TWICE A DAY WITH MEALS 180 tablet 2 2 Active Additional Information Patient taking differently: 6.25 mg, Reported on 04/18/2024 sacubitriL-vals murali (Entresto) 24-26 mg tablet Take 1 tablet by mouth 2 (two) times a day 180 tablet 3 3 Active Additional Information Patient not taking.Reported on 04/18/2024 Eliquis 5 mg tablet TAKE 1 TABLET BY MOUTH TWICE A DAY 180 tablet 3 4 Active amiodarone (PACERONE) 100 mg tablet TAKE 1 TABLET BY MOUTH EVERY DAY 90 tablet 2 4 Active furosemide (LASIX) 40 mg tablet TAKE 1 TABLET BY MOUTH EVERY DAY 90 tablet 1 4 Active atorvastatin (LIPITOR) 40 mg tablet TAKE 1 TABLET BY MOUTH EVERY DAY 90 tablet 5 Active omeprazole (PriLOSEC) 40 mg capsule Take 1 capsule (40 mg total) by mouth daily Active Active Problems Problem Noted Date Diagnosed Date SERRANO (dyspnea on exertion) 04/23/2018 Acute systolic heart failure 04/23/2018 LBBB (left bundle branch block) 04/23/2018 Aortic regurgitation 12/07/2016 Fatigue 08/09/2015 Overview (05/25/2016): Fatigue, unspecified type Benign hypertension 08/09/2015 Overview (05/25/2016): HTN (hypertension), benign Pulmonary hypertension 08/09/2015 Overview (05/25/2016): Pulmonary HTN Aortic root dilatation 08/09/2015 Overview (05/25/2016): Aortic root dilatation Chronic atrial fibrillation 04/06/2015 Overview (05/25/2016): Atrial fibrillation, chronic Dyslipidemia 04/06/2015 Overview (05/25/2016): Dyslipidemia Chronic anticoagulation 04/06/2015 Overview (05/25/2016): Chronic anticoagulation Cardiomyopathy 04/06/2015 Overview (05/25/2016): Cardiomyopathy History of myocardial infarction 04/06/2015 Overview (05/25/2016): H/O acute myocardial infarction At risk for amiodarone toxicity with tank terminal gauger u se 10/01/2014 Overview (05/25/2016): At risk for amiodarone toxicity with skilled nursing use Pure hypercholesterolemia 03/17/2014 Overview (05/25/2016): Pure hypercholesterolemia Atrial fibrillation 03/17/2014 Overview (05/25/2016): Atrial fibrillation Resolved Problems Problem Noted Date Diagnosed Date Resolved Date Hx of CABG 12/07/2016 07/03/2019 Paroxysmal atrial fibrillation 08/09/2015 02/10/2020 Overview (05/25/2016): Paroxysmal atrial fibrillation Coronary artery disease 04/06/201506/19 Overview (05/25/2016): Coronary artery disease involving levelock coronary artery of levelock heart without angina pectoris Chronic ischemic heart disease 03/17/2014 04/12/2023 Overview (05/25/2016): Chronic ischemic heart disease Old myocardial infarction 03/17/2014 Overview (05/25/2016): Old myocardial infarction Social History Tobacco Use Types Packs/Day Years Used Date Smoking Tobacco: Never Smokeless Tobacco: Never Tobacco Cessation:Counseling Given: Not Answered Alcohol Use Standard Drinks/Week Comments No 0 (1 standard drink = 0.6 oz pur e alcohol) Sex and Gender Information Value Date Recorded Sex Assigned at Not on file Legal Sex Male 7:30 PM CONFIGURATION CONSULTANT Gender Identity Not on file Sexual Orientation Not on file Last Filed Vital Signs Vital Sign Reading Time Taken Comments Blood Pressure 100/52 04/18/2024 2:41 PM CONFIGURATION CONSULTANT Pulse 53 04/18/2024 2:41 PM CONFIGURATION CONSULTANT Temperature 36.1 C (96.9 F) 07/03/2019 9:43 AM CDT Respiratory Rate 16 08/10/2020 10:12 AM CDT Oxygen Saturation 95% 10/09/2023 11:28 AM CDT Inhaled Oxygen Concentration - - Weight 70 kg (154 lb 6.4 oz) 04/18/2024 2:41 PM CONFIGURATION CONSULTANT Height 167.6 cm (5' 6 ) 04/18/2024 2:41 PM CONFIGURATION CONSULTANT Body Mass Index 24.92 04/18/2024 2:41 PM CONFIGURATION CONSULTANT Plan of Treatment Not on file Procedures Procedure Name Priority Date/Time Associated Diagnosis Comments CARDIOLOGY DOCUMENT SCAN Routine 03/13/2024 2:13 PM CONFIGURATION CONSULTANT CARDIOLOGY DOCUMENT SCAN Routine 03/12/2024 2:11 PM CONFIGURATION CONSULTANT CARDIOLOGY DOCUMENT SCAN 03/12/2024 CARDIOLOGY DOCUMENT SCAN Routine 03/11/2024 2:07 PM CONFIGURATION CONSULTANT from Last 3 Months Results * Cardiology Document Scan (03/13/2024 2:13 PM CONFIGURATION CONSULTANT) Anatomical Region Laterality Modality Other us Anabel Palmer MD CV CARDIAC SERVICES PROCEDU RES Final Result * Cardiology Document Scan (03/12/2024 2:11 PM CONFIGURATION CONSULTANT) Anatomical Region Laterality Modality Other us Anabel Palmer MD CV CARDIAC SERVICES PROCEDU RES Final Result * Cardiology Document Scan (03/12/2024) Anatomical Region Laterality Modality Other us Anabel Palmer MD CV CARDIAC SERVICES PROCEDU RES Final Result * Cardiology Document Scan (03/11/2024 2:07 PM CONFIGURATION CONSULTANT) Anatomical Region Laterality Modality Other us Anabel Palmer MD CV CARDIAC SERVICES PROCEDU RES Final Result from Last [address] [place] [address] [place] [address] [facility] [place] [address] [facility] Care Teams Parts Finisher Relationship Specialty Start Date End Date Kaitlin Beltre MD PCP - General Family Practice 08/15/22
--- OUTSIDE RECORDS SUMMARY | 2024-04-24 15:27 | XMS_ITS | Encounter Summary ---
Author Organization [facility] Address [facility] [place] [address] Care Team Providers Care Spot Billing Clerk Name Role Phone None, Provider Primary Care Provider Mansi dubon Encounter Details Date Type Department Care Team (Late st Contact Info) Description 02/18/2019 Hospital Follow-up Call [facility] Med/Surg [address] [place] [address] Kanchan Watkins RN Social History Tobacco Use Types Packs/Day Years Used Date Smoking Tobacco: Never Smokeless Tobacco: Never Alcohol Use Standard Drinks/Week Comments No 0 (1 standard drink = 0.6 oz pur e alcohol) AUDIT-C Answer Date Recorded Frequency of Alcohol Consumption Never 02/16/2019 Average Number of Drinks Not on file 019 Frequency of Binge Drinking Not on file 01/20 Sex and Gender Information Value Date Recorded Sex Assigned at Not on file Legal Sex Male 4:53 PM SAIL LAY OUT WORKER Gender Identity Not on file Sexual Orientation Not on file documented as of this encounter Functional Status * RETIRED Are you deaf or do you have serious difficulty hearing Answer Date of Assessment Author Status No 02/17/2019 2:34 PM SAIL LAY OUT WORKER Activ e * RETIRED Are you blind or do you have serious difficulty seeing, even when wearing glasses? Answer Date of Assessment Author Status No 02/17/2019 2:34 PM SAIL LAY OUT WORKER Activ e * Do you have serious difficulty walking or climbing stairs? Answer Date of Assessment Author Status No 02/17/2019 2:34 PM SAIL LAY OUT WORKER Beata Avila RN Active * Do you have difficulty dressing or bathing? Answer Date of Assessment Author Status No 02/17/2019 2:34 PM Beata Mora RN Active * Because of a physical, mental, or emotional condition, do you have difficulty doing errands alone such as visiting a doctor's office or shopping? Answer Date of Assessment Author Status No 02/17/2019 2:34 PM Beata Mora RN Active documented as of this encounter Mental Status * Because of a physical, mental, or emotional condition, do you have serious difficulty concentrating, remembering, or making decisions? Answer Entry Date Author Status No 02/17/2019 2:34 PM Beata Mora RN Active documented in this encounter Plan of Treatment Not on file documented as of this encounter Goals Goal Patient Goal Type Associated Problems Recent Progress Patient-Stated? Author HOME TO INDEPENDENT LIVING General No Tanisha Montiel RN documented as of this encounter Visit Diagnoses Not on filedocumented in this encounter Care Teams Spot Billing Clerk Relationship Specialty Start Date End Date None, Provider, PCP - General 02/16/19 documented as of this encounter
--- OUTSIDE RECORDS SUMMARY | 2024-04-24 15:27 | XMS_ITS | Clinical Summary ---
Author Organization [facility] Address [address], [address] [address] Phone Care Team Providers Care Sprue Knocker Name Role Phone Kaitlin Beltre MD Primary Care Provider Medications sacubitril-valsa rtan (ENTRESTO) 24-26 MG Tablet Take 1 Tablet by mouth 2 times daily. Active aspirin EC 81 MG Tablet Delayed Response Take 81 mg by mouth daily. Active apixaban (ELIQUIS) 5 MG Tablet Take 5 mg by mouth 2 times daily. Active Vitamin D3 1000 UNIT Tablet Take 25 mcg by mouth daily. Active amiodarone HCl (CORDARONE) 100 MG Tablet Take 100 mg by mouth daily. Active carvedilol (COREG) 6.25 MG Tablet Take 6.25 mg by mouth 2 times daily. Active furosemide (LASIX) 40 MG Tablet Take 40 mg by mouth daily. Active atorvastatin (LIPITOR) 40 MG Tablet Take 40 mg by mouth daily. Active finasteride (PROSCAR) 5 MG Tablet Take 5 mg by mouth daily. Active Social History Tobacco Use Types Packs/Day Years Used Date Smoking Tobacco: Never Tobacco Cessation:Counseling Given: Not Answered Sex and Gender Information Value Date Recorded Sex Assigned at Not on file Legal Sex Male 9:25 AM CDT Gender Identity Not on file Sexual Orientation Not on file Plan of Treatment Health Maintenance Due Date Last Done Comments Hepatitis C Virus (HCV) Screening 1935 TdaP Immunization 1935 Pneumococcal Immunization (5 0+ years) (1 of 1 - PCV) 09/23/1985 Zoster Immunization (1 of 2) 09/23/1985 Respiratory Syncytial Virus (RSV) Immunization (Adult) (1 - 1-dose 75+ series) 09/23/2010 Influenza Immunization (#1) 2023 SARS-COV-2 Immunization ( season) 2023 Hepatitis B Immunization Aged Out No longer eligible based on patient's age to complete this topic Meningococcal Immunization (ACWY) Aged Out No longer eligible based on patient's age to complete this topic Rotavirus Immunization Aged Out No lo nger eligible based on patient's age to complete [place] [address] MEDICARE C ESSENCE Care Teams Sprue Knocker Relationship Specialty Start Date End Date Kaitlin Beltre MD [address] [facility] [address] [place] [address] PCP - General Family Medicine 08/04/22
--- OUTSIDE RECORDS SUMMARY | 2024-04-24 15:27 | XMS_ITS | Encounter Summary ---
Author Organization [facility] Address [address] [place] [address] Care Team Providers Care Machine I Trimmer Name Role Phone Kaitlin Beltre MD Primary Care Provider Encounter Details Date Type Department Care Team (Late st Contact Info) Description 03/12/2024 Orders Only [facility] Health Information Management [address] [place] [address] Anabel Palmer MD [address] [place] [address] Social History Tobacco Use Types Packs/Day Years Used Date Smoking Tobacco: Never Smokeless Tobacco: Never Alcohol Use Standard Drinks/Week Comments No 0 (1 standard drink = 0.6 oz pur e alcohol) Sex and Gender Information Value Date Recorded Sex Assigned at Not on file Legal Sex Male 7:30 PM PHARMACOLOGY TEACHER Gender Identity Not on file Sexual Orientation Not on file documented as of this encounter Plan of Treatment Not on file documented as of this encounter Procedures Procedure Name Priority Date/Time Associated Diagnosis Comments CARDIOLOGY DOCUMENT SCAN 03/12/2024 documented in this encounter Results * Cardiology Document Scan (03/12/2024) Anatomical Region Laterality Modality Other Anabel Palmer MD CV CARDIAC SERVICES PROCEDU RES Final Result documented in this encounter Visit Diagnoses Not on filedocumented in this encounter Care Teams Machine I Trimmer Relationship Specialty Start Date End Date Kaitlin Beltre MD PCP - General Family Practice 08/15/22 documented as of this encounter
--- OUTSIDE RECORDS SUMMARY | 2024-04-24 15:27 | XMS_ITS | Clinical Summary ---
Author Organization [facility] Address [address] [place] [address] Care Team Providers Care Knitting Tester Name Role Phone None, Provider MD Primary Care Provider Unavaila ble Allergies No known active allergies Medications amiodarone 200 MG tablet Take 200 mg by mouth daily. 06/11/2018 Active carvedilol 12.5 MG tablet Take 12.5 mg by mouth 2 (two) times daily. Active finasteride 5 MG tablet Take 5 mg by mouth daily. Active furosemide 20 MG tablet Take 20 mg by mouth daily. Active rivaroxaban 20 MG Tab tablet Take by mouth daily with supper. Take with food Active aspirin EC 81 MG tablet Take 81 mg by mouth daily. Active multi vitamin/minerals tablet Take 1 tablet by mouth daily. Active sacubitril-valsa rtan (ENTRESTO) 24-26 MG tablet Take 1 tablet by mouth 2 (two) times daily. Active Active Problems Problem Noted Date Diagnosed Date Syncope 02/16/2019 Acute systolic heart failure ([facility]) 0 04/23/2018 LBBB (left bundle branch block) 04/23/2018 Aortic regurgitation 12/07/2016 Hx of CABG 12/07/2016 Aortic root dilatation 08/09/2015 Overview (02/17/2019): Overview: Aortic root dilatation Benign hypertension 08/09/2015 Overview (02/17/2019): Overview: HTN (hypertension), benign Paroxysmal atrial fibrillation ([facility] HHS/HCC) 08/09/2015 Overview (02/17/2019): Overview: Atrial fibrillation, chronic Overview: Atrial fibrillation Overview: Chronic ischemic heart disease Overview: Paroxysmal atrial fibrillation Pulmonary hypertension ([facility]) 016 Overview (02/17/2019): Overview: Pulmonary HTN Atherosclerosis of coronary artery 04/06/2015 Overview (02/17/2019): Overview: Coronary artery disease involving knik coronary artery of knik heart without angina pectoris Cardiomyopathy ([facility]) 04/06/2015 Overview (02/17/2019): Overview: Cardiomyopathy Chronic anticoagulation 04/06/2015 Overview (02/17/2019): Overview: Chronic anticoagulation Dyslipidemia 04/06/2015 Overview (02/17/2019): Overview: Dyslipidemia History of myocardial infarction 04/06/2015 Overview (02/17/2019): Overview: H/O acute myocardial infarction At risk for amiodarone toxicity with ferry terminal agent u se 10/01/2014 Overview (02/17/2019): Overview: At risk for amiodarone toxicity with fdc use Pure hypercholesterolemia 03/17/2014 Overview (02/17/2019): Overview: Pure hypercholesterolemia Family History Medical History Relation Comments Heart Disease Father Heart Disease Maternal Grandfather Relation Status Comments Father Maternal Grandfather Social History Tobacco Use Types Packs/Day Years [...] on file Legal Sex Male 4:53 PM PERCUSSION TUNER Gender Identity Not on file Sexual Orientation Not on file Last Filed Vital Signs Vital Sign Reading Time Taken Comments Blood Pressure 108/52 02/17/2019 11:11 AM PERCUSSION TUNER Pulse 65 02/17/2019 11:11 AM PERCUSSION TUNER Temperature 36 C (96.8 F) 02/17/2019 11:11 AM PERCUSSION TUNER Respiratory Rate 20 02/17/2019 11:1 1 AM PERCUSSION TUNER Oxygen Saturation 99% 02/17/2019 11: 11 AM PERCUSSION TUNER Inhaled Oxygen Concentration - - Weight 74.3 kg (163 lb 12.8 oz) 02/17/2019 3:00 AM PERCUSSION TUNER Height 167.6 cm (5' 6 ) 02/16/2019 4:56 PM PERCUSSION TUNER Body Mass Index 26.44 02/16/2019 4:56 PM PERCUSSION TUNER Plan of Treatment Health Maintenance Due Date Last Done Comments ASCVD Statin 1935 Pneumococcal Vaccine: 65+ Ye ars (1 of 2 - PCV) 09/23/1941 DTaP, Tdap and Td Vaccines ( 1 - Tdap) 09/23/1954 Zoster Vaccines (1 of 2) 09/23/1985 Annual Medicare Wellness Visit 09/23/2000 RSV Immunization or 60+ Years (1 - 1-dose 75+ series) 09/23/2010 ASCVD LDL 02/18/2020 02/17/2019 COVID-19 Vaccine ( - 2023-2 5 season) 2023 Influenza Adult (#1) 2023 Meningococcal B Vaccine Aged Out No l onger eligible based on patient's age to complete this topic Meningococcal Vaccine Aged Out No reshma barbara eligible based on patient's age to complete this topic RSV Immunizations Under 20 Months Aged Out No longer eligible based on patient's age to complete this topic Goals Goal Patient Goal Type Associated Problems Recent Progress Patient-Stated? Author HOME TO INDEPENDENT [facility] No Tanisha Montiel RN Procedures Procedure Name Priority Date/Time Associated Diagnosis Comments LIPID PANEL Routine 02/17/2019 2:59 AM PERCUSSION TUNER from Last 3 Months or Most Recently Relevant to Health Maintenance Results * LIPID PANEL (02/17/2019 2:59 AM PERCUSSION TUNER) CHOLESTEROL 124 <200.0 MG/DL 02/17/2019 8:30 AM PERCUSSION TUNER [facility] TRIGLYCERIDES 33 <150 MG/DL 02/17/2019 8:30 AM PERCUSSION TUNER [facility] HDL 41 >40.0 MG/DL 02/17/2019 8:30 AM [facility] LDL (CALCULATED) 76 <100 MG/DL 02/18/20 19 8:30 AM [facility] NON HDL CHOLESTEROL 83 <130 MG/DL 02/17 8:30 AM [facility] CHOL/HDL RATIO 3.0 0.0 - 4.5 02/17/2019 8:30 AM [facility] VLDL CALCULATION 7 5 - 55 MG/DL 02/17/2019 8:30 AM [facility] LIPID INTERPRETATION 02/17/2019 8:30 AM [facility] Comment: [facility] CONCENSUS REPORT RECOMMENDATIONS: ADULT CHILD LOW RISK: CHOLESTEROL <200 <170 TRIGLYCERIDE <150 --- HDL >=60 --- LDL <100 <110 BORDERLINE: CHOLESTEROL 200-239 170-199 TRIGLYCERIDE 150-199 --- HDL 40-59 --- LDL 100-159 110-129 HIGH RISK: CHOLESTEROL >=240 >=200 TRIGLYCERIDE >=200 --- HDL <40 --- LDL >=160 >=130 02/17/2019 2:59 AM PERCUSSION TUNER Gigi Vargas APRN LABORATORY Final Result Performing Organization Address City/State/[facility] de Phone Number [facility] [address] [place] [address], from Last 3 Months or Most Recently Relevant to Health Maintenance Insurance ESSENCE ESSENCE Advance Directives * DNR (Latest Code Status on File) Date Activated Date Inactivated Comments 02/16/2019 8:11 PM 02/17/2019 6:06 PM Care Teams Knitting Tester Relationship Specialty Start Date End Date None, Provider, PCP - General 02/16/19
--- OUTSIDE RECORDS SUMMARY | 2024-04-24 15:27 | XMS_ITS | Clinical Summary ---
Author Organization [facility] [address] Address [address] [place] [address] Care Team Providers Care Copy Technician Name Role Phone Kaitlin Beltre MD Primary Care Provider Allergies No known active allergies Medications finasteride [...] infarction At risk for amiodarone toxicity with assistant terminal manager u se 10/01/2014 Overview (05/25/2016): At risk for amiodarone toxicity with half-way use Pure hypercholesterolemia 03/17/2014 Overview (05/25/2016): Pure hypercholesterolemia Atrial fibrillation 03/17/2014 Overview (05/25/2016): Atrial fibrillation Resolved Problems Problem Noted Date Diagnosed Date Resolved Date Hx of CABG 12/07/2016 07/03/2019 Paroxysmal atrial fibrillation 08/09/2015 02/10/2020 Overview (05/25/2016): Paroxysmal atrial fibrillation Coronary artery disease 04/06/201506/19 Overview (05/25/2016): Coronary artery disease involving [place] coronary artery of [place] heart without angina pectoris Chronic ischemic heart disease 03/17/2014 04/12/2023 Overview (05/25/2016): Chronic ischemic heart disease Old myocardial infarction 03/17/2014 Overview (05/25/2016): Old myocardial infarction Encounters Date Type Department Care Team Description 04/18/2024 2:15 PM INFO ANALYST Office Visit [facility] Cardiology [address] [facility] [address] [place] [phone] Davey De Luna MD Chronic atrial fibrillation (HCC) (Primary Dx); Heart failure, unspecified (HCC); 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); Atrial fibrillation, unspecified type (HCC); LBBB (left bundle branch block); Dilated cardiomyopathy (HCC) 03/17/2024 Orders Only [facility] Cardiology [address] [place] [address] [address] [place] [phone] Anabel Palmer MD 03/12/2024 Orders Only [facility] Health Information Management [address] [place] [phone] Anabel Palmer MD 03/11/2024 Telephone [facility] Cardiology [address] [place] [address] [address] [place] [phone] Davey De Luna MD Chest Pain 03/05/2024 Telephone [facility] Cardiology [address] [place] [address] [address] [place] [phone] Davey De Luna MD cardiac clearance from Last 3 Months Medical History Medical History Date Comments Hx Other Medical polymyositis, 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, GERD, HLD, Hx Other Medical kidney stones; Comments: [facility] 09/09/2013 - Atrial fibrillation (HCC) CHF (congestive heart failure) (HCC) Family History Medical History Relation Name Comments Heart attack Father Myocardial Infa rction; Heart attack Mother's Brother 2 Myocardia l Infarction; Relation Name Status Comments Father Alive Mother's Brother 1 Alive Mother's Brother 2 Social History Tobacco Use Types Packs/Day Years Used Date Smoking Tobacco: Never Smokeless Tobacco: Never Tobacco Cessation:Counseling Given: Not Answered Alcohol Use Standard Drinks/Week Comments No 0 (1 standard drink = 0.6 oz pur e alcohol) Sex and Gender Information Value Date Recorded Sex Assigned at Not on file Legal Sex Male 7:30 PM INFO ANALYST Gender Identity Not on file Sexual Orientation Not on file Obstetrics History Last Filed Vital Signs Vital Sign Reading Time Taken Comments Blood Pressure 100/52 04/18/2024 2:41 PM INFO ANALYST Pulse 53 04/18/2024 2:41 PM INFO ANALYST Temperature 36.1 C (96.9 F) 07/03/2019 9:43 AM CDT Respiratory Rate 16 08/10/2020 10:12 AM CDT Oxygen Saturation 95% 10/09/2023 11:28 AM CDT Inhaled Oxygen Concentration - - Weight 70 kg (154 lb 6.4 oz) 04/18/2024 2:41 PM INFO ANALYST Height 167.6 cm (5' 6 ) 04/18/2024 2:41 PM INFO ANALYST Body Mass Index 24.92 04/18/2024 2:41 PM INFO ANALYST Plan of Treatment Health Maintenance Due Date Last Done Comments Depression Screening 1935 Fall Risk Assessment 1935 Hepatitis B Screening 09/23/1953 Pneumococcal vaccine 65+ (1 of 2 - PCV) 09/23/1954 Well Visit 65+ 09/23/2000 DTaP/Tdap/Td Vaccine (2 - Td or Tdap) 12/31/203201/2023, 06/03/2016 Zoster Vaccine Completed 04/20/2023, 02/10/2023 Influenza Vaccine Completed 12/06/2023 Procedures Procedure Name Priority Date/Time Associated Diagnosis Comments CARDIOLOGY DOCUMENT SCAN Routine 03/13/2024 2:13 PM INFO ANALYST CARDIOLOGY DOCUMENT SCAN Routine 03/12/2024 2:11 PM INFO ANALYST CARDIOLOGY DOCUMENT SCAN 03/12/2024 CARDIOLOGY DOCUMENT SCAN Routine 03/11/2024 2:07 PM INFO ANALYST from Last 3 Months Results * Cardiology Document Scan (03/13/2024 2:13 PM INFO ANALYST) Anatomical Region Laterality Modality Other us Anabel Palmer MD CV CARDIAC SERVICES PROCEDU RES Final Result * Cardiology Document Scan (03/12/2024 2:11 PM INFO ANALYST) Anatomical Region Laterality Modality Other Anabel Palmer MD CV CARDIAC SERVICES PROCEDU RES Final Result * Cardiology Document Scan (03/12/2024) Anatomical Region Laterality Modality Other Result [facility] Anabel Palmer MD CV CARDIAC SERVICES PROCEDU RES Final Result * Cardiology Document Scan (03/11/2024 2:07 PM INFO ANALYST) Anatomical Region Laterality Modality Other Result Suki Palmer MD CV CARDIAC SERVICES PROCEDU RES Final Result from Last [address] [place] [address] [facility] [place] [address] [facility] Care Teams Copy Technician Relationship Specialty Start Date End Date Kaitlin Beltre MD PCP - General Family Practice 08/15/22
[2024-04-24 18:58] LABS: Basophils Percent Auto 0.4 % (0.2-1.2); Eosinophils Absolute Auto 0.2 K/mm3 (0-0.3); Eosinophils Percent Auto 3.8 % (0-4.4); Hematocrit 43.6 % (42.0-52.0); Hemoglobin 13.9 g/dL (14.0-18.0); Immature Granulocyte Absolute 0.01 K/mm3 (0.00-0.031); Immature Granulocyte Percent A 0.2 % (0-0.5); Lymphocytes Absolute Auto 1.18 K/mm3 (0.9-3.2); Lymphocytes Percent Auto 23.4 % (18.3-44.2); Mean Corpuscular HGB Conc 31.9 g/dl (32-36); Mean Corpuscular Hemoglobin 30.9 pg (26-34); Mean Corpuscular Volume 96.9 fl (80-100); Mean Platelet Volume 10.5 fl (7.4-10.4); Monocytes Absolute Auto 0.5 K/mm3 (0.1-0.6); Monocytes Percent Auto 10.5 % (2.6-8.5); Neutrophils Absolute Auto 3.1 K/mm3 (1.3-6.7); Neutrophils Percent Auto 61.7 % (45.5-73.1); Platelet Count Result 190 k/mm3 (150-375); White Blood Count 5.1 K/mm3 (4.5-10.0)
[2024-04-24 19:24] LABS: Alanine Aminotransferase 32 U/L (6-50); Albumin Level 3.7 g/dL (3.5-5.1); Alkaline Phosphatase 73 U/L (38-126); Anion Gap 6 mmol/L (4-12); Aspartate Amino Transferase 47 U/L (17-59); Bilirubin,Total 0.6 mg/dL (0.2-1.3); Blood Urea Nitrogen 29 mg/dL (9-20); Calcium 10.1 mg/dL (8.4-10.2); Carbon Dioxide 29 mmol/L (22-30); Chloride 106 mmol/L (98-107); Estimated Glomerular Filt Rate > 60; Glucose 93 mg/dL (65-110); Potassium 4.4 mmol/L (3.4-5.0); Sodium 141 mmol/L (137-145)
[2024-04-24 19:48] LABS: Iron 93 ug/dL (49-181)
[2024-04-24 19:58] LABS: Percent Iron Saturation 30 % (20-50)
[2024-04-24 20:32] LABS: Folic Acid > 20.0 ng/mL (2.76->20)
[2024-04-24 20:36] LABS: Hemoglobin A1C 5.5 % (<5.7)
== END 2024-04-24 14:09 | disposition home or self-care (01) ==
LOC: ANHGOSHLAB 14:09
PROVIDERS: PCP Family Medicine; Visit Provider Family Medicine
DX: R73.03 Prediabetes (principal); D64.9 Anemia, unspecified; E78.5 Hyperlipidemia, unspecified; Z00.00 Encounter for general adult medical examination without abnormal findings; I10 Essential (primary) hypertension
CPT/HCPCS: 36415; 80053; 82607; 82728; 82746; 83036; 83540; 83550; 85025

== ENCOUNTER 2024-05-15 13:45 | Outpatient (RCR) | payer OTHER, SELFPAY ==
--- NOTE | 2024-05-08 18:06 | OPREHPOC ---
Outpatient Therapy Plan of Care This is a Multidisciplinary Plan of Care that may contain components documented by all disciplines (PT, OT, and ST.) PT Problem 1 PT Problem #1 Knowledge Deficit PT Goal 1 Goal / Goal Update [place] with HEP Target Visit 4 PT Goal 2 Goal / Goal Update Report no pain greater than 1/10 for 2 consecutive weeks Target Visit 8 PT Problem 2 PT Problem #2 Impaired Range of Motion PT Goal 1 Goal / Goal Update 1. Improve kerline hip abduction to 40 degrees to reduce hip mobility restriction 2. Reduce kerline piriformis restriction to minimal Target Visit 8 PT Problem 3 PT Problem #3 Impaired Strength PT Goal 1 Goal / Goal Update Improve gross kerline hip abduction strength to 4/5 to improve lateral stability during gait and functional activity. Target Visit 8
--- NOTE | 2024-05-08 18:06 | PTOPEVAL1 ---
Assessment and note entered by Anant Vasquez, PT Evaluation Information Assessment Status Evaluation ICD-10 Condition Codes (PT) Pain in low back M54.50 Onset March 2024 Subjective Information Reports that he has sporadic back pain over the past few years. Most recently he had pain a couple weeks ago. Unable to directly relate it to an activity. Denies any radiating down the legs. Sleeps well and able to get comfortable. Pain is worst when he is bending over. Denies any history of falls but does feel he is getting a little more wobbly with time. No history of joint replacements. Reported Pain Level Pain Score 0: Self Report Assessment PT Clinical Summary Patient presents with poor mobility of gastroc and bilateral hip abduction. Patient demonstrates significant weakness in hips, greater on left hip. Patient will benefit form skilled therapy to imprive hip mobility with progression to hip strengthening and gross balance towards discharge. Plan of Care Interventions Gait Training,Manual Therapy,Neuro Re-education, Therapeutic Activities,Therapeutic Exercise PT Services Indicated Yes Treatment Frequency and 1x/week for 6 visits Duration These treatments will address the objective and functional deficits as defined above. The patient will be advanced safely and appropriately in order for the patient to progress towards his/her prior level of function. Additional exercises will be introduced and as well as a comprehensive home exercise program upon discharge, if needed, ?to ensure carryover of functional gains achieved in the clinic. This treatment plan has been reviewed and agreement upon by the patient.
--- NOTE | 2024-06-19 10:45 | PTOPDC ---
Assessment and note entered by Anant Vasquez, PT Evaluation Information Assessment Status Discharge - Pt Not Present ICD-10 Condition Codes (PT) Pain in low back M54.50 Onset March 2024 Subjective Information Patient called clinic requesting discharge from skilled therapy at this time. Assessment PT Clinical Summary Patient discharged form skilled therapy per patient request. Please refer to last treatment note for discharge status. Patient was issued HEP for independence. Plan of Care PT Services Indicated Yes
== END 2024-06-19 15:11 | disposition home or self-care (01) ==
LOC: ANHPT 13:45
PROVIDERS: PCP Family Medicine; Visit Provider Family Medicine
DX: M47.816 Spondylosis without myelopathy or radiculopathy, lumbar region (principal); M54.50 Low back pain, unspecified; G89.29 Other chronic pain
CPT/HCPCS: 97110; 97112; 97161; 97530

== ENCOUNTER 2024-07-07 14:00 | Inpatient (IN) | payer OTHER, SELFPAY ==
[2024-07-07] VITALS (8 sets, daily range): BP systolic 99–135; BP diastolic 46–84; PULSE 70–86; RESP 13–22; TEMP 36.2; O2SAT 94–99; BMI 24.9
--- NOTE | ~2024-07-07 | MR_ITS ---
EXAMINATION: MR brain/brain stem wo/w con DATE: 07/08/2024 11:18 INDICATION: Generalized weakness. Left vertebral artery stenosis. TECHNIQUE: Magnetic resonance imaging (MRI) of the brain and brainstem was performed without and with 15 mL Multihance intravenous contrast. Sequences included sagittal and axial T1-weighted SE, axial d iffusion-weighted FS SE, axial 3D SWAN, axial T2-weighted FLAIR, and axial T2-weighted FSE. Postcontr ast axial and coronal T1-weighted SE was obtained. Apparent diffusion coefficient (ADC) maps were cre ated. COMPARISON: Brain MR dated 05/27/2018 FINDINGS: There are no areas of restricted diffusion to suggest acute infarction. Small region of encephalomala ethan in the previously acute infarct at the medial aspect of the right frontoparietal region. There ar e additional small old lacunar infarcts in the left subinsular white matter and in the left frontal a nd frontoparietal periventricular white matter. Additional small old infarct in the left cerebellar h emisphere. Again seen are chronic small right and moderate-sized left subdural hematomas overlying th e frontal and parietal lobes. There is minimal increased signal in the dependent aspect of the left s ubdural hematoma with crescentic subtle increased density on prior CT suggesting a minimal amount of more recent hemorrhage. Anterior to the right frontoparietal infarct is a small region of mass effect upon the medial aspect of the posterior right frontal lobe with central fluid signal which follows C SF suggesting a small arachnoid cyst. No abnormal solid intracranial mass lesion. There are a few add itional small foci of scattered nonspecific increased T2-weighted signal intensity in the cerebral wh ite matter, predominantly involving the deep and periventricular white matter. There are no intrapare nchymal signal abnormalities seen on the other pulse sequences. Symmetric prominence of the sulci con sistent with mild to moderate age-appropriate diffuse cerebral volume loss. The ventricles are symme tric and normal in size. Flow voids are seen in the cerebral arteries on the T2-weighted sequences co nsistent with their expected patency. Changes of bilateral intraocular lens replacement. Visualized orbits and soft tissues are unremarkable. Small calvarial hemangioma overlying the posterior left fro ntal lobe There are no areas of abnormal enhancement on the post contrast images. IMPRESSION: 1. Chronic small right and moderate-sized left subdural hematomas with minimal amount of likely subac paddy blood in the dependent aspect of the left cerebral hematoma. 2. Old right frontoparietal infarct with additional small old lacunar infarcts in the left frontal lo be white matter, the left subinsular white matter and in the left cerebellar hemisphere. 3. Age-related changes including mild to moderate diffuse volume loss and mild scattered white matter T2 hyperintensity consistent with chronic small vessel ischemic disease. Reviewed, dictated and finalized at location A. IMPRESSION: 1. Chronic small right and moderate-sized left subdural hematomas with minimal amount of likely subacute blood in the dependent aspect of the left cerebral he matoma. 2. Old right frontoparietal infarct with additional small old lacunar infarcts in the left frontal lobe white matter, the left subinsular white matter and in the left cerebellar hemisphere. 3. Age-related changes including mild to moderate diffuse volume loss and mild scattered white matter T2 hyperintensity consistent with chronic small vessel i schemic disease.
--- NOTE | ~2024-07-07 | CT_ITS ---
History: Weakness and vertigo with frequent falls PROCEDURE: CT head without contrast. COMPARISON: 08/10/2018 TECHNIQUE: Axial imaging of the head performed from the skull base to the vertex without IV contrast. Sagittal a nd coronal reformations obtained. DLP: 605 mGy-cm FINDINGS: The ventricles are enlarged. The dilatation of the ventricles is proportional to the degree of sulcal prominence, not uncommon in the senescent brain. Decreased attenuation is identified within the periventricular white matter, likely secondary to micr ovascular ischemic disease, in a patient of this age. There is no mass, mass effect or midline shift. There is no abnormal extra-axial fluid collection or intracranial hemorrhage. Visualized paranasal sinuses are clear. The mastoid air cells are well aerated. No acute displaced fractures within the overlying cranium. Impression: No acute intracranial hemorrhage or suspicious mass effect. Reviewed, dictated and finalized at location A. Impression: No acute intracranial hemorrhage or suspicious mass effect.
--- NOTE | ~2024-07-07 | XR_ITS ---
EXAMINATION: XR chest 2V DATE: 07/07/2024 14:59 INDICATION: Numbness TECHNIQUE: PA and lateral views of the chest were obtained. COMPARISON: Chest radiograph dated 03/11/2024 FINDINGS: Increased interstitial pattern with peripheral Holley B-lines at the posterior lower lungs and would favor mild pulmonary edema over pneumonia. No pleural effusion or pneumothorax. Mild cardiomegaly. Ch ronic T12 compression fracture. IMPRESSION: 1. Interstitial opacities in the dependent lower lungs and favor mild pulmonary edema over pneumonia. 2. Cardiomegaly. Reviewed, dictated and finalized at location A.
--- NOTE | ~2024-07-07 | CT_ITS ---
EXAMINATION: CTA brain carotid DATE: 07/07/2024 19:44 INDICATION: dizziness, disequillibrium TECHNIQUE: Computed tomographic angiography (CTA) of the head and neck was performed with 100 mL Omni paque-350 intravenous contrast. Automated exposure control and iterative reconstruction technique wer e employed. The dose-length product was 1102.53 mGy-cm. Maximum intensity projection and volume rende red 3D-reconstructions were created by the technologist on a separate workstation. COMPARISON: CT brain 07/07/2024, 08/10/2018; MR brain 05/27/2018. FINDINGS: CTA HEAD: No large vessel occlusion, aneurysm, high flow vascular malformation, nidus or extravasation. Severe short segment stenosis secondary to calcified plaque in the intradural left vertebral artery. Heavy a therosclerotic calcification of the cavernous carotids without significant stenosis. Old focal cerebe llar infarcts. Prominent CSF density bilateral extra-axial spaces, likely representing chronic SDH or cystic hygromas. Focal right parietal encephalomalacia in the vertex. Patent cerebral veins. CTA NECK: Aortic arch and proximal great vessels: Normal arch anatomy. Atherosclerotic calcifications at the vi sualized aortic arch and proximal great vessels. Dilation of the ascending aorta to 4.2 cm. Right common carotid, carotid bifurcation, and internal carotid artery: Calcified atherosclerotic alix que at the carotid bifurcation.There is % stenosis of the proximal right internal carotid artery rela tive to normal distal artery lumen diameter (NASCET criteria). Left common carotid, carotid bifurcation, and internal carotid artery: Calcified atherosclerotic plaq ue at the carotid bifurcation.There is % stenosis of the proximal left internal carotid artery relati ve to normal distal artery lumen diameter (NASCET criteria). Vertebral arteries: No significant plaque or stenosis. Right vertebral artery is dominant, Other findings: Degenerative changes in the cervical spine. Scattered air cysts. Scattered groundglas s opacities and septal thickening. 2.5 cm right thyroid nodule. Dilated central pulmonary arteries, a s can be seen with pulmonary arterial hypertension. Cardiomegaly. IMPRESSION: No large vessel intracranial occlusion or aneurysm. Short segment high-grade intracranial stenosis in the intradural segment of the left vertebral artery. No carotid or vertebral artery occlusion or dissection. No significant carotid stenosis. Ascending thoracic aortic aneurysm measuring up to 4.2 cm. Pulmonary edema. 2.5 cm right thyroid nodule, recommend outpatient thyroid ultrasound for further characterization. Reviewed, dictated and finalized at location K. IMPRESSION: No large vessel intracranial occlusion or aneurysm. Short segment high-grade in tracranial stenosis in the intradural segment of the left vertebral artery. No carotid or vertebral artery occlusion or dissection. No significant carotid stenosis. Ascending thoracic aortic aneurysm measuring up to 4.2 cm. Pulmonary edema. 2.5 cm right thyroid nodule, recommend outpatient thyroid ultrasound for furthe r characterization.
--- OUTSIDE RECORDS SUMMARY | 2024-07-07 14:04 | XMS_ITS | Referral Summary ---
Author Organization [facility] [address] [place] [address] [address] [place] [address] Care Team Providers Care Retirement Plan Counselor Name Role Phone Kaitlin Beltre MD Primary Care Provider Encounters Date Type Department Care Team Description 04/18/2024 2:15 PM J2EE APPLICATION DEVELOPER Office Visit [facility] Cardiology [address] [facility] [address] [place] [address] Davey De Luna MD Chronic atrial fibrillation (HCC) (Primary Dx); Heart failure, unspecified (HCC); 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); Atrial fibrillation, unspecified type (HCC); LBBB (left bundle branch block); Dilated cardiomyopathy (HCC) from Last 3 Months Allergies No known [...] A DAY WITH MEALS 180 tablet 2 12/27/19 22 Active Additional Information Patient taking differently: 6.25 mg, Reported on 04/18/2024 sacubitriL-markel sartan (Entresto) 24-26 mg tablet Take 1 tablet by mouth 2 (two) times a day 180 tablet 3 05/26/19 23 Active Additional Information Patient not taking.Reported on 04/18/2024 amiodarone (PACERONE) 100 mg tablet TAKE 1 TABLET BY MOUTH EVERY DAY 90 tablet 2 10/23/19 24 Active furosemide (LASIX) 40 mg tablet TAKE 1 TABLET BY MOUTH EVERY DAY 90 tablet 1 11/19/19 24 Active omeprazole (PriLOSEC) 40 mg capsule Take 1 capsule (40 mg total) by mouth daily Active apixaban (Eliquis) 5 mg tablet TAKE 1 TABLET BY MOUTH TWICE A DAY 180 tablet 2 05/21/19 25 Active atorvastatin (LIPITOR) 40 mg tablet TAKE 1 TABLET BY MOUTH EVERY DAY 90 tablet 06/10/19 25 Active atorvastatin (LIPITOR) 40 mg tablet TAKE 1 TABLET BY MOUTH EVERY DAY 90 tablet 03/13/19 25 025 Discontinued Active Problems Problem Noted Date Diagnosed Date [...] infarction At risk for amiodarone toxicity with predatory animal exterminator u se 10/01/2014 Overview (05/25/2016): At risk for amiodarone toxicity with predatory animal exterminator use Pure hypercholesterolemia 03/17/2014 Overview (05/25/2016): Pure hypercholesterolemia Atrial fibrillation 03/17/2014 Overview (05/25/2016): Atrial fibrillation Resolved Problems Problem Noted Date Diagnosed Date Resolved Date Hx of CABG 12/07/2016 07/03/2019 Paroxysmal atrial fibrillation 08/09/2015 02/10/2020 Overview (05/25/2016): Paroxysmal atrial fibrillation Coronary artery disease 04/06/201506/19 Overview (05/25/2016): Coronary artery disease involving [place] coronary artery of [place] heart without angina pectoris Chronic ischemic heart [...] on file Legal Sex Male 7:30 PM J2EE APPLICATION DEVELOPER Gender Identity Not on file Sexual Orientation Not on file Last Filed Vital Signs Vital Sign Reading Time Taken Comments Blood Pressure 100/52 04/18/2024 2:41 PM J2EE APPLICATION DEVELOPER Pulse 53 04/18/2024 2:41 PM J2EE APPLICATION DEVELOPER Temperature 36.1 C (96.9 F) 07/03/2019 9:43 AM CDT Respiratory Rate 16 08/10/2020 10:12 AM CDT Oxygen Saturation 95% 10/09/2023 11:28 AM CDT Inhaled Oxygen Concentration - - Weight 70 kg (154 lb 6.4 oz) 04/18/2024 2:41 PM J2EE APPLICATION DEVELOPER Height 167.6 cm (5' 6 ) 04/18/2024 2:41 PM J2EE APPLICATION DEVELOPER Body Mass Index 24.92 04/18/2024 2:41 PM J2EE APPLICATION DEVELOPER Plan of Treatment [place] [address] [facility] [place] [address] [facility] Member Subscriber Plan / Payer ( fective 2009-Present) Name:LINDSEY LACY Relation to Subscriber:Self Name:Lindsey Lacy Payer ID:[id number] (NAIC) Type:MEDICARE RISK OTHER Address: [place] [id number] Care Teams Retirement Plan Counselor Relationship Specialty Start Date End Date Kaitlin Beltre MD PCP - General Family Practice 08/15/22
--- OUTSIDE RECORDS SUMMARY | 2024-07-07 14:04 | XMS_ITS | Clinical Summary ---
Author Organization [facility] [address] Address [address] [place] [address] Care Team Providers Care Corporate Giving Manager Name Role Phone Kaitlin Beltre MD Primary [...] infarction At risk for amiodarone toxicity with usp u se 10/01/2014 Overview (05/25/2016): At risk for amiodarone toxicity with usp use Pure hypercholesterolemia 03/17/2014 Overview (05/25/2016): Pure hypercholesterolemia Atrial fibrillation 03/17/2014 Overview (05/25/2016): Atrial fibrillation Resolved Problems Problem Noted Date Diagnosed Date Resolved Date Hx of CABG 12/07/2016 07/03/2019 Paroxysmal atrial fibrillation 08/09/2015 02/10/2020 Overview (05/25/2016): Paroxysmal atrial fibrillation Coronary artery disease 04/06/201506/19 Overview (05/25/2016): Coronary artery disease involving [place] coronary artery of [place] heart without angina pectoris Chronic ischemic heart disease 03/17/2014 04/12/2023 Overview (05/25/2016): Chronic ischemic heart disease Old myocardial infarction 03/17/2014 Overview (05/25/2016): Old myocardial infarction Encounters Date Type Department Care Team Description 04/18/2024 2:15 PM SUPERVISOR METALIZING Office Visit 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); Atrial fibrillation, unspecified type (HCC); LBBB (left bundle branch block); Dilated cardiomyopathy (HCC) from Last 3 Months Medical History Medical [...] on file Legal Sex Male 7:30 PM SUPERVISOR METALIZING Gender Identity Not on file Sexual Orientation Not on file Obstetrics History Last Filed Vital Signs Vital Sign Reading Time Taken Comments Blood Pressure 100/52 04/18/2024 2:41 PM SUPERVISOR METALIZING Pulse 53 04/18/2024 2:41 PM SUPERVISOR METALIZING Temperature 36.1 C (96.9 F) 07/03/2019 9:43 AM CDT Respiratory Rate 16 08/10/2020 10:12 AM CDT Oxygen Saturation 95% 10/09/2023 11:28 AM CDT Inhaled Oxygen Concentration - - Weight 70 kg (154 lb 6.4 oz) 04/18/2024 2:41 PM SUPERVISOR METALIZING Height 167.6 cm (5' 6 ) 04/18/2024 2:41 PM SUPERVISOR METALIZING Body Mass Index 24.92 04/18/2024 2:41 PM SUPERVISOR METALIZING Plan of Treatment Health Maintenance Due Date Last Done Comments Depression Screening 1935 Fall Risk Assessment 1935 Hepatitis B Screening 09/23/1953 Pneumococcal vaccine 65+ (1 of 2 - PCV) 09/23/1954 Well Visit 65+ 09/23/2000 DTaP/Tdap/Td Vaccine (2 - Td or Tdap) 12/31/203201/2023, 06/03/2016 Zoster Vaccine Completed 04/20/2023, 02/10/2023 Influenza Vaccine Completed 12/06/[address] [place] [address] [facility] [place] [address] [facility] Care Teams Corporate Giving Manager Relationship Specialty Start Date End Date Kaitlin Beltre MD PCP - General Family Practice 08/15/22
--- OUTSIDE RECORDS SUMMARY | 2024-07-07 14:04 | XMS_ITS | Encounter Summary ---
Author Organization [facility] Address [facility]ly [facility] [place] [address] Care Team Providers Care Telephone Diaphragm Assembler Name Role Phone None, Provider Primary Care Provider Mansi dubon Encounter Details Date Type Department Care Team (Late st Contact Info) Description 02/18/2019 Hospital Follow-up Call [facility] Med/Surg [address] [place] [address] Kanchan Watkins RN Social History [...] on file Legal Sex Male 4:53 PM CASHIER AND WAITER/WAITRESS Gender Identity Not on file Sexual Orientation Not on file documented as of this encounter Functional Status * RETIRED Are you deaf or do you have serious difficulty hearing Answer Date of Assessment Author Status No 02/17/2019 2:34 PM CASHIER AND WAITER/WAITRESS Activ e * RETIRED Are you blind or do you have serious difficulty seeing, even when wearing glasses? Answer Date of Assessment Author Status No 02/17/2019 2:34 PM CASHIER AND WAITER/WAITRESS Activ e * Do you have serious difficulty walking or climbing stairs? Answer Date of Assessment Author Status No 02/17/2019 2:34 PM CASHIER AND WAITER/WAITRESS Beata Avila RN Active * Do you [...] on filedocumented in this encounter Care Teams Telephone Diaphragm Assembler Relationship Specialty Start Date End Date None, Provider, PCP - General 02/16/19 documented as of this encounter
--- OUTSIDE RECORDS SUMMARY | 2024-07-07 14:04 | XMS_ITS | Clinical Summary ---
Author Organization [facility] Address [address] [place] [address] Care Team Providers Care Road Engineer Name Role Phone None, Provider MD Primary [...] Date Syncope 02/16/2019 Acute systolic heart failure ([facility]) 0 04/23/2018 LBBB (left bundle branch block) 04/23/2018 Aortic regurgitation 12/07/2016 Hx of CABG 12/07/2016 Aortic root dilatation 08/09/2015 Overview (02/17/2019): Overview: Aortic root dilatation Benign hypertension 08/09/2015 Overview (02/17/2019): Overview: HTN (hypertension), benign Paroxysmal atrial fibrillation ([facility] HHS/HCC) 08/09/2015 Overview (02/17/2019): Overview: Atrial fibrillation, chronic Overview: Atrial fibrillation Overview: Chronic ischemic heart disease Overview: Paroxysmal atrial fibrillation Pulmonary hypertension ([facility]) 016 Overview (02/17/2019): Overview: Pulmonary HTN Atherosclerosis of coronary artery 04/06/2015 Overview (02/17/2019): Overview: Coronary artery disease involving [place] coronary artery of [place] heart without angina pectoris Cardiomyopathy ([facility]) 04/06/2015 Overview (02/17/2019): Overview: Cardiomyopathy Chronic anticoagulation 04/06/2015 Overview (02/17/2019): Overview: Chronic anticoagulation Dyslipidemia 04/06/2015 Overview (02/17/2019): Overview: Dyslipidemia History of myocardial infarction 04/06/2015 Overview (02/17/2019): Overview: H/O acute myocardial infarction At risk for amiodarone toxicity with moth exterminator u se 10/01/2014 Overview (02/17/2019): Overview: At risk for amiodarone toxicity with ch[facility] use Pure hypercholesterolemia 03/17/2014 Overview (02/17/2019): Overview: [...] on file Legal Sex Male 4:53 PM DRAW PRESS OPERATOR Gender Identity Not on file Sexual Orientation Not on file Last Filed Vital Signs Vital Sign Reading Time Taken Comments Blood Pressure 108/52 02/17/2019 11:11 AM DRAW PRESS OPERATOR Pulse 65 02/17/2019 11:11 AM DRAW PRESS OPERATOR Temperature 36 C (96.8 F) 02/17/2019 11:11 AM DRAW PRESS OPERATOR Respiratory Rate 20 02/17/2019 11:1 1 AM DRAW PRESS OPERATOR Oxygen Saturation 99% 02/17/2019 11: 11 AM DRAW PRESS OPERATOR Inhaled Oxygen Concentration - - Weight 74.3 kg (163 lb 12.8 oz) 02/17/2019 3:00 AM DRAW PRESS OPERATOR Height 167.6 cm (5' 6 ) 02/16/2019 4:56 PM DRAW PRESS OPERATOR Body Mass Index 26.44 02/16/2019 4:56 PM DRAW PRESS OPERATOR Plan of Treatment Health Maintenance Due Date Last Done Comments ASCVD Statin 1935 DTaP, Tdap and Td Vaccines ( 1 - Tdap) 09/23/1954 Pneumococcal Vaccine: 50+ Ye ars (1 of 2 - PCV) 09/23/1954 Zoster Vaccines (1 of 2) 09/23/1985 Annual Medicare Wellness Visit 09/23/2000 RSV Immunization or 60+ Years (1 - 1-dose 75+ series) 09/23/2010 ASCVD LDL 02/18/2020 02/17/2019 COVID-19 Vaccine (1 - 2023-2 5 season) 2023 Meningococcal B Vaccine Aged Out No [...] Progress Patient-Stated? Author HOME [facility]DEP[facility]IV[facility] No Tanisha Montiel RN Procedures Procedure Name Priority Date/Time Associated Diagnosis Comments LIPID PANEL Routine 02/17/2019 2:59 AM DRAW PRESS OPERATOR from Last 3 Months or Most Recently Relevant to Health Maintenance Results * LIPID PANEL (02/17/2019 2:59 AM DRAW PRESS OPERATOR) CHOLESTEROL 124 <200.0 MG/DL 02/17/2019 8:30 AM DRAW PRESS OPERATOR [facility] TRIGLYCERIDES 33 <150 MG/DL 02/17/2019 8:30 AM DRAW PRESS OPERATOR [facility] HDL 41 >40.0 MG/DL 02/17/2019 8:30 AM [facility] LDL (CALCULATED) 76 <100 MG/DL 02/18/20 19 8:30 AM [facility] NON HDL CHOLESTEROL 83 <130 MG/DL 02/17 8:30 AM [facility] CHOL/HDL RATIO 3.0 0.0 - 4.5 02/17/2019 8:30 AM [facility] VLDL CALCULATION 7 5 - 55 MG/DL 02/17/2019 8:30 AM [facility] LIPID INTERPRETATION 02/17/2019 8:30 AM [facility] Comment: NIH CONCENSUS REPORT RECOMMENDATIONS: ADULT CHILD LOW RISK: CHOLESTEROL <200 <170 TRIGLYCERIDE <150 --- HDL >=60 --- LDL <100 <110 BORDERLINE: CHOLESTEROL 200-239 170-199 TRIGLYCERIDE 150-199 --- HDL 40-59 --- LDL 100-159 110-129 HIGH RISK: CHOLESTEROL >=240 >=200 TRIGLYCERIDE >=200 --- HDL <40 --- LDL >=160 >=130 02/17/2019 2:59 AM DRAW PRESS OPERATOR Gigi Vargas APRN LABORATORY Final Result Performing Organization Address City/State/[facility] Co de Phone Number [facility] [address] [place] [address], from Last 3 Months or Most Recently Relevant to Health Maintenance Insurance ESSENCE ESSENCE Advance Directives * DNR (Latest Code Status on File) Date Activated Date Inactivated Comments 02/16/2019 8:11 PM 02/17/2019 6:[address] Engineer Relationship Specialty Start Date End Date None, Provider, PCP - General 02/16/19
--- OUTSIDE RECORDS SUMMARY | 2024-07-07 14:04 | XMS_ITS | Clinical Summary ---
Author Organization [facility] Address [address], [address] [address] Phone Care Team Providers Care Dev Technical Mgr Name Role Phone Kaitlin Beltre MD Primary [...] patient's age [place] [address] MEDICARE C ESSENCE Care Teams Dev Technical Mgr Relationship Specialty Start Date End Date Kaitlin Beltre MD [address] [facility] [address] [place] [address] PCP - General Family Medicine 08/04/22
--- OUTSIDE RECORDS SUMMARY | 2024-07-07 14:04 | XMS_ITS | Encounter Summary ---
Author Organization [facility] Healthcare Address [address] [place] [address] Care Team Providers Care Continuous Improvement Coach Name Role Phone Kaitlin Beltre MD Primary Care Provider Encounter Details Date Type Department Care Team (Late st Contact Info) Description 03/12/2024 Orders Only [facility] [place] Health Information Management [address] [place] [address] Anabel Palmer MD [address] [place] [address] Social History Tobacco Use Types Packs/Day Years Used Date Smoking Tobacco: Never Smokeless Tobacco: Never Alcohol Use Standard Drinks/Week Comments No 0 (1 standard drink = 0.6 oz pur e alcohol) Sex and Gender Information Value Date Recorded Sex Assigned at Not on file Legal Sex Male 7:30 PM CLAIMS INVESTIGATOR Gender Identity Not on file Sexual Orientation [...] on filedocumented in this encounter Care Teams Continuous Improvement Coach Relationship Specialty Start Date End Date Kaitlin Beltre MD PCP - General Family Practice 08/15/22 documented as of this encounter
--- NOTE | 2024-07-07 14:10 | ECG_ITS ---
Test Date: 2024-07-07 14:29:32 Measurements Intervals Helm Rate: 71 P: 101 RI: 285 QRS: -41 QRSD: 200 T: 117 QT: 496 QTc: 542 Interpretive Statements SINUS RHYTHM WITH FIRST DEGREE AV BLOCK LEFT AXIS DEVIATION [QRS AXIS < -30] LEFT BUNDLE BRANCH BLOCK [120+ ms QRS DURATION, 80+ ms Q/S IN V1/V2, 85+ ms R IN I/aVL/V5/V6] Compared to ECG 03/11/2024 13:38:53 NO SIGNIFICANT CHANGES Electronically Signed On 07-08-2024 13:23:32 CDT by Jose Luis King M.D.
[2024-07-07 14:48] LABS: Basophils Percent Auto 0.6 % (0.2-1.2); Eosinophils Absolute Auto 0.1 K/mm3 (0-0.3); Eosinophils Percent Auto 2.8 % (0-4.4); Hematocrit 36.8 % (42.0-52.0); Hemoglobin 11.8 g/dL (14.0-18.0); Immature Granulocyte Absolute 0.02 K/mm3 (0.00-0.031); Immature Granulocyte Percent A 0.6 % (0-0.5); Lymphocytes Absolute Auto 0.83 K/mm3 (0.9-3.2); Lymphocytes Percent Auto 23.4 % (18.3-44.2); Mean Corpuscular HGB Conc 32.1 g/dl (32-36); Mean Corpuscular Hemoglobin 30.3 pg (26-34); Mean Corpuscular Volume 94.6 fl (80-100); Mean Platelet Volume 9.7 fl (7.4-10.4); Monocytes Absolute Auto 0.4 K/mm3 (0.1-0.6); Monocytes Percent Auto 10.5 % (2.6-8.5); Neutrophils Absolute Auto 2.2 K/mm3 (1.3-6.7); Neutrophils Percent Auto 62.1 % (45.5-73.1); Platelet Count Result 179 k/mm3 (150-375); Red Blood Count 3.89 M/mm3 (4.6-6.20); Red Cell Distribution Width 15.7 % (11.5-14.5); White Blood Count 3.5 K/mm3 (4.5-10.0)
[2024-07-07 14:59] LABS: Alanine Aminotransferase 29 U/L (6-50); Albumin Level 3.3 g/dL (3.5-5.1); Alkaline Phosphatase 63 U/L (38-126); Anion Gap 5 mmol/L (4-12); Aspartate Amino Transferase 46 U/L (17-59); Blood Urea Nitrogen 16 mg/dL (9-20); Calcium 9.3 mg/dL (8.4-10.2); Carbon Dioxide 22 mmol/L (22-30); Chloride 110 mmol/L (98-107); Estimated CRCL calculation 42 ml/min; Estimated Glomerular Filt Rate > 60; Glucose 117 mg/dL (65-110); Potassium 3.9 mmol/L (3.4-5.0); Sodium 137 mmol/L (137-145)
[2024-07-07 16:15] LABS: Add Urine Microscopic? YES; Appearance Urine Clear (Clear); Bacteria Urine None Seen /hpf; Bilirubin Urine Negative (Negative); Blood Urine 3+ (Negative); Color Urine Dark Yellow (Yellow); Glucose Urine UA Negative (Negative); Ketones Urine Negative (Negative); Leukocyte Esterase Ur Trace LEU/UL (Negative); Nitrate Urine Negative (Negative); Non Pathogenic Casts 0-2; Protein Urine Negative (Negative); RBC Urine 21-50 /hpf (0-2); Specific Grav Ur 1.013 (1.001-1.035); Squamous Epithelial Cell Urine None Seen /hpf (Few); WBC Urine 0-5 /hpf (0-3); pH Urine 5.5 (5.0-9.0)
[2024-07-07 17:27] LABS: Magnesium 1.9 mg/dL (1.6-2.3)
--- NOTE | 2024-07-07 17:32 | PC.NURSE ---
Pt to CT scan via stretcher at this time.
[2024-07-07 17:39] LABS: Troponin I 0.024 ng/mL (0.000-0.034)
--- OUTSIDE RECORDS SUMMARY | 2024-07-07 17:52 | XMS_ITS | Clinical Summary ---
Author Organization [facility] Address [address] [place] [address] Care Team Providers Care Children'S Choir Director Name Role Phone None, Provider MD Primary [...] Date Syncope 02/16/2019 Acute systolic heart failure ([facility]) 0 04/23/2018 LBBB (left bundle branch block) 04/23/2018 Aortic regurgitation 12/07/2016 Hx of CABG 12/07/2016 Aortic root dilatation 08/09/2015 Overview (02/17/2019): Overview: Aortic root dilatation Benign hypertension 08/09/2015 Overview (02/17/2019): Overview: HTN (hypertension), benign Paroxysmal atrial fibrillation ([facility] HHS/HCC) 08/09/2015 Overview (02/17/2019): Overview: Atrial fibrillation, chronic Overview: Atrial fibrillation Overview: Chronic ischemic heart disease Overview: Paroxysmal atrial fibrillation Pulmonary hypertension ([facility]) 016 Overview (02/17/2019): Overview: Pulmonary HTN Atherosclerosis of coronary artery 04/06/2015 Overview (02/17/2019): Overview: Coronary artery disease involving [place] coronary artery of [place] heart without angina pectoris Cardiomyopathy ([facility]) 04/06/2015 Overview (02/17/2019): Overview: Cardiomyopathy Chronic anticoagulation 04/06/2015 Overview (02/17/2019): Overview: Chronic anticoagulation Dyslipidemia 04/06/2015 Overview (02/17/2019): Overview: Dyslipidemia History of myocardial infarction 04/06/2015 Overview (02/17/2019): Overview: H/O acute myocardial infarction At risk for amiodarone toxicity with adjunct faculty for medical terminology u se 10/01/2014 Overview (02/17/2019): Overview: At risk for amiodarone toxicity with jail use Pure hypercholesterolemia 03/17/2014 Overview (02/17/2019): Overview: [...] on file Legal Sex Male 4:53 PM QUARANTINE OFFICER Gender Identity Not on file Sexual Orientation Not on file Last Filed Vital Signs Vital Sign Reading Time Taken Comments Blood Pressure 108/52 02/17/2019 11:11 AM QUARANTINE OFFICER Pulse 65 02/17/2019 11:11 AM QUARANTINE OFFICER Temperature 36 C (96.8 F) 02/17/2019 11:11 AM QUARANTINE OFFICER Respiratory Rate 20 02/17/2019 11:1 1 AM QUARANTINE OFFICER Oxygen Saturation 99% 02/17/2019 11: 11 AM QUARANTINE OFFICER Inhaled Oxygen Concentration - - Weight 74.3 kg (163 lb 12.8 oz) 02/17/2019 3:00 AM QUARANTINE OFFICER Height 167.6 cm (5' 6 ) 02/16/2019 4:56 PM QUARANTINE OFFICER Body Mass Index 26.44 02/16/2019 4:56 PM QUARANTINE OFFICER Plan of Treatment Health Maintenance Due Date [...] Progress Patient-Stated? Author HOME TO [facility]DEPENDENT [facility]IV[facility] No Tanisha Montiel RN Procedures Procedure Name Priority Date/Time Associated Diagnosis Comments LIPID PANEL Routine 02/17/2019 2:59 AM QUARANTINE OFFICER from Last 3 Months or Most Recently Relevant to Health Maintenance Results * LIPID PANEL (02/17/2019 2:59 AM QUARANTINE OFFICER) CHOLESTEROL 124 <200.0 MG/DL 02/17/2019 8:30 AM QUARANTINE OFFICER [facility] TRIGLYCERIDES 33 <150 MG/DL 02/17/2019 8:30 AM QUARANTINE OFFICER [facility] HDL 41 >40.0 MG/DL 02/17/2019 8:30 AM [facility] LDL (CALCULATED) 76 <100 MG/DL 02/18/20 19 8:30 AM [facility] NON HDL CHOLESTEROL 83 <130 MG/DL 02/17 8:30 AM [facility] CHOL/HDL RATIO 3.0 0.0 - 4.5 02/17/2019 8:30 AM [facility] VLDL CALCULATION 7 5 - 55 MG/DL 02/17/2019 8:30 AM [facility] LIPID INTERPRETATION 02/17/2019 8:30 AM [facility] Comment: [facility] CONCENSUS REPORT RECOMMENDATIONS: ADULT CHILD LOW RISK: CHOLESTEROL <200 <170 TRIGLYCERIDE <150 --- HDL >=60 --- LDL <100 <110 BORDERLINE: CHOLESTEROL 200-239 170-199 TRIGLYCERIDE 150-199 --- HDL 40-59 --- LDL 100-159 110-129 HIGH RISK: CHOLESTEROL >=240 >=200 TRIGLYCERIDE >=200 --- HDL <40 --- LDL >=160 >=130 02/17/2019 2:59 AM QUARANTINE OFFICER Gigi Vargas APRN LABORATORY Final Result Performing Organization Address City/State/[facility] Co de Phone Number [facility] [address] [place] [address], from Last 3 Months or Most Recently Relevant to Health Maintenance Insurance ESSENCE ESSENCE Advance Directives * DNR (Latest Code Status on File) Date Activated Date Inactivated Comments 02/16/2019 8:11 PM 02/17/2019 6:06 PM Care Teams Children'S Choir Director Relationship Specialty Start Date End Date None, Provider, PCP - General 02/16/19
--- OUTSIDE RECORDS SUMMARY | 2024-07-07 17:52 | XMS_ITS | Clinical Summary ---
Author Organization [facility] Address [address], [address] [address] Phone Care Team Providers Care Radar Repairer Name Role Phone Kaitlin Beltre MD Primary [...] patient's age to complete this [place] [address] MEDICARE C ESSENCE Care Teams Radar Repairer Relationship Specialty Start Date End Date Kaitlin Beltre MD [address] [facility] [address] [place] [address] PCP - General Family Medicine 08/04/22
--- OUTSIDE RECORDS SUMMARY | 2024-07-07 17:52 | XMS_ITS | Referral Summary ---
Author Organization [facility] [place] [address] [place] [address] [address] [place] [address] Care Team Providers Care Diagnostics Tech Name Role Phone Kaitlin Beltre MD Primary Care Provider Encounters Date Type Department Care Team Description 04/18/2024 2:15 PM FRONT OFFICE MANAGER Office Visit [facility] Cardiology [address] [facility] [address] [place] [address] Davey De Luna MD Chronic [...] infarction At risk for amiodarone toxicity with joint terminal attack controller u se 10/01/2014 Overview (05/25/2016): At risk for amiodarone toxicity with joint terminal attack controller use Pure hypercholesterolemia 03/17/2014 Overview (05/25/2016): Pure hypercholesterolemia Atrial fibrillation 03/17/2014 Overview (05/25/2016): Atrial fibrillation Resolved Problems Problem Noted Date Diagnosed Date Resolved Date Hx of CABG 12/07/2016 07/03/2019 Paroxysmal atrial fibrillation 08/09/2015 02/10/2020 Overview (05/25/2016): Paroxysmal atrial fibrillation Coronary artery disease 04/06/201506/19 Overview (05/25/2016): Coronary artery disease involving [place] coronary artery of [place] heart without angina pectoris Chronic ischemic heart [...] on file Legal Sex Male 7:30 PM FRONT OFFICE MANAGER Gender Identity Not on file Sexual Orientation Not on file Last Filed Vital Signs Vital Sign Reading Time Taken Comments Blood Pressure 100/52 04/18/2024 2:41 PM FRONT OFFICE MANAGER Pulse 53 04/18/2024 2:41 PM FRONT OFFICE MANAGER Temperature 36.1 C (96.9 F) 07/03/2019 9:43 AM CDT Respiratory Rate 16 08/10/2020 10:12 AM CDT Oxygen Saturation 95% 10/09/2023 11:28 AM CDT Inhaled Oxygen Concentration - - Weight 70 kg (154 lb 6.4 oz) 04/18/2024 2:41 PM FRONT OFFICE MANAGER Height 167.6 cm (5' 6 ) 04/18/2024 2:41 PM FRONT OFFICE MANAGER Body Mass Index 24.92 04/18/2024 2:41 PM FRONT OFFICE MANAGER Plan of Treatment Not on [place] [address] [facility] [place] [address] [facility] Member Subscriber Plan / Payer ( fective 2009-Present) Name:LINDSEY LACY Relation to Subscriber:Self Name:Lindsey Lacy Payer ID:[id number] (NAIC) Type:MEDICARE RISK OTHER Address: [place] [id number] Care Teams Diagnostics Tech Relationship Specialty Start Date End Date Kaitlin Beltre MD PCP - General Family Practice 08/15/22
--- OUTSIDE RECORDS SUMMARY | 2024-07-07 17:52 | XMS_ITS | Encounter Summary ---
Author Organization [facility] Healthcare Address [address] [place] [address] Care Team Providers Care Life Skills Coordinator Name Role Phone Kaitlin Beltre MD Primary Care Provider Encounter Details Date Type Department Care Team (Late st Contact Info) Description 03/12/2024 Orders Only [facility] Health Information Management [address] [place] [address] Anabel Palmer MD [address] [place] [address] Social History Tobacco Use Types Packs/Day Years Used Date Smoking Tobacco: Never Smokeless Tobacco: Never Alcohol Use Standard Drinks/Week Comments No 0 (1 standard drink = 0.6 oz pur e alcohol) Sex and Gender Information Value Date Recorded Sex Assigned at Not on file 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
--- OUTSIDE RECORDS SUMMARY | 2024-07-07 17:52 | XMS_ITS | Clinical Summary ---
Author Organization [facility] [address] [place] [address] Care Team Providers Care Teacher Theater Arts Name Role Phone Kaitlin Beltre MD Primary [...] infarction At risk for amiodarone toxicity with longterm u se 10/01/2014 Overview (05/25/2016): At risk for amiodarone toxicity with longterm use Pure hypercholesterolemia 03/17/2014 Overview (05/25/2016): Pure hypercholesterolemia Atrial fibrillation 03/17/2014 Overview (05/25/2016): Atrial fibrillation Resolved Problems Problem Noted Date Diagnosed Date Resolved Date Hx of CABG 12/07/2016 07/03/2019 Paroxysmal atrial fibrillation 08/09/2015 02/10/2020 Overview (05/25/2016): Paroxysmal atrial fibrillation Coronary artery disease 04/06/201506/19 Overview (05/25/2016): Coronary artery disease involving [place] coronary artery of [place] heart without angina pectoris Chronic ischemic heart disease 03/17/2014 04/12/2023 Overview (05/25/2016): Chronic ischemic heart disease Old myocardial infarction 03/17/2014 Overview (05/25/2016): Old myocardial infarction Encounters Date Type Department Care Team Description 04/18/2024 2:15 PM COLD STORAGE SUPERINTENDENT Office Visit [facility] Cardiology [address] [place] [address] Davey De Luna MD Chronic atrial fibrillation [...] on file Legal Sex Male 7:30 PM COLD STORAGE SUPERINTENDENT Gender Identity Not on file Sexual Orientation Not on file Obstetrics History Last Filed Vital Signs Vital Sign Reading Time Taken Comments Blood Pressure 100/52 04/18/2024 2:41 PM COLD STORAGE SUPERINTENDENT Pulse 53 04/18/2024 2:41 PM COLD STORAGE SUPERINTENDENT Temperature 36.1 C (96.9 F) 07/03/2019 9:43 AM CDT Respiratory Rate 16 08/10/2020 10:12 AM CDT Oxygen Saturation 95% 10/09/2023 11:28 AM CDT Inhaled Oxygen Concentration - - Weight 70 kg (154 lb 6.4 oz) 04/18/2024 2:41 PM COLD STORAGE SUPERINTENDENT Height 167.6 cm (5' 6 ) 04/18/2024 2:41 PM COLD STORAGE SUPERINTENDENT Body Mass Index 24.92 04/18/2024 2:41 PM COLD STORAGE SUPERINTENDENT Plan of Treatment Health Maintenance Due Date Last Done Comments Depression Screening 1935 Fall Risk Assessment 1935 Hepatitis B Screening 09/23/1953 Pneumococcal vaccine 65+ (1 of 2 - PCV) 09/23/1954 Well Visit 65+ 09/23/2000 DTaP/Tdap/Td Vaccine (2 - Td or Tdap) 12/31/203201/2023, 06/03/2016 Zoster Vaccine Completed 04/20/2023, 02/10/2023 Influenza Vaccine Completed 12/06/[address] [place] [address] [facility] [place] [address] [facility] Care Teams Teacher Theater Arts Relationship Specialty Start Date End Date Kaitlin Beltre MD PCP - General Family Practice 08/15/22
--- OUTSIDE RECORDS SUMMARY | 2024-07-07 17:52 | XMS_ITS | Encounter Summary ---
Author Organization [facility] Address [facility]ly [facility] [place] [address] Care Team Providers Care Motel Keeper Name Role Phone None, Provider Primary Care Provider Mansi dubon Encounter Details Date Type Department Care Team (Late st Contact Info) Description 02/18/2019 Hospital Follow-up Call [facility] Med/Surg [address] [place] [address] Kanchan Watkins RN Social History [...] on file Legal Sex Male 4:53 PM CLERK ANALYST Gender Identity Not on file Sexual Orientation Not on file documented as of this encounter Functional Status * RETIRED Are you deaf or do you have serious difficulty hearing Answer Date of Assessment Author Status No 02/17/2019 2:34 PM CLERK ANALYST Activ e * RETIRED Are you blind or do you have serious difficulty seeing, even when wearing glasses? Answer Date of Assessment Author Status No 02/17/2019 2:34 PM CLERK ANALYST Activ e * Do you have serious difficulty walking or climbing stairs? Answer Date of Assessment Author Status No 02/17/2019 2:34 PM CLERK ANALYST Beata Avila RN Active * Do you [...] on filedocumented in this encounter Care Teams Motel Keeper Relationship Specialty Start Date End Date None, Provider, PCP - General 02/16/19 documented as of this encounter
--- OUTSIDE RECORDS SUMMARY | 2024-07-07 17:52 | XMS_ITS | Continuity of Care Document ---
Author Organization [facility] Address [address] [place] [address] Phone Care Team Providers Care Prn Physical Therapist Name Role Phone Sedrick Degroot Unavailable Unavailable Procedures Procedure Date Eye Exam & Treatment Refraction Eye Exam & Treatment No Script Office/outpatient Visit, Est Eye Exam & Treatment Advance Directives Directive Yes / No Effective Date File Name No Information Encounters Encounter Description Practice Location Reason(s) For Visit Diagnoses Date Provider Providers Copied on Encounter [facility], [address] [place] [address] [address], [place], [place], [id number], [place] tel:[phone] [facility] No Information [address] Zane Dubose. [address], [place], [address], [place]. tel:[phone] [facility], [address] [place] [address] [address], [place], [place], [id number], [place] tel:[phone] [facility] No Information 9 Zane Dubose. [address] , [address], [place], [address], [place]. tel:[phone] Office/outpat ient Visit, Est [facility], [address], [place], [place], [id number], [place] tel:[phone] [facility] No Information [address] Doikeyla Edhallie. [address] , [address], [place], [address], [place]. tel:[phone] [facility], [address], [place], [place], [id number], [place] tel:[phone] [facility] No Information [phone] Zane Dubose. [address] [facility] , [address], [place], [address], [place]. tel:[phone] Family History Family Member Type Diagnosis Age At Onset No Information Payers Payer name Insurance type Covered alliance party ID Authoriza tion(s) [place] [id number] [place] Commercial [id number] Social History Type Description Quantity Date Captured [...]
[2024-07-07] MEDS: SODIUM CHLORIDE 0.9% IV 1,000 ML 999 ML IV CONT (19:23)
[2024-07-07 19:49] LABS: NT Pro B Type Natriuretic Pept 3430 pg/mL (19.9-100)
--- NOTE | 2024-07-07 19:50 | ED.GENADULT ---
HPI - General Adult General Chief complaint: Dizziness <Joyce Locke PA-C - Last Filed: 07/07/24 21:53> Stated complaint: Dizziness increase x several weeks <Joyce Locke PA-C - Last Filed: 07/07/24 21:53> Time Seen by Provider: 07/07/24 17:00 <Joyce Locke PA-C - Last Filed: 07/07/24 21:53> Source: patient <Joyce Locke PA-C - Last Filed: 07/07/24 21:53> Mode of arrival: ambulatory <ANGELA Garcia Last Filed: 07/07/24 21:53> Limitations: no limitations <Joyce Locke PA-C - Last Filed: 07/07/24 21:53> History of Present Illness HPI narrative: Patient is an 88-year-old male, with PMH of CHF, AFIB w/ eliquis, HTN, hx of CVA, who presents the ED with report of weakness. Patient reports over the last several months, he has become increasingly weak and having trouble with his balance/dizziness. Denies feeling near syncopal or room spinning sensation. States he has been doing physical therapy exercises at home and they seem to be helping initially, but he stopped doing these over the past few weeks. He states over the past 1 month, his balance issues have become significantly worse. He states he had issues walking up and down his stairs over the weekend. He has relied heavily on his cane. He contacted his primary care doctor today and was referred to the ED for further evaluation. He does report some swelling throughout his lower legs bilaterally over the past few weeks. He has been wearing his compression stockings with improvement. He denies significant shortness of breath, dyspnea on exertion, chest pain, nausea, vomiting, recent cough or cold symptoms, fevers, focal numbness or weakness, syncope/LOC, falls or injury. <Joyce Locke PA-C - Last Filed: 07/07/24 21:53> Related Data Home medications: Home Medications ?Medication ?Instructions ?Recorded ?Confirmed ?Last Taken ?Type aspirin 81 mg tablet,delayed 81 mg PO DAILY 06/18/19 04/24/24 03/11/24 00:00 History release 81 mg multivitamin with minerals-folic 1 tablet PO DAILY 10/20/21 04/24/24 03/11/24 12:00 History acid 0.4 mg tablet 1 tablet apixaban 5 mg tablet (Eliquis) 5 mg PO BID 04/14/22 04/24/24 03/11/24 12:00 History 5 mg amiodarone 100 mg tablet 100 mg PO DAILY 06/19/22 04/24/24 03/11/24 12:00 History 100 mg furosemide 40 mg tablet 40 mg PO QAM 06/19/22 04/24/24 03/11/24 12:00 History 40 mg atorvastatin 40 mg tablet 40 mg PO QHS 08/01/22 04/24/24 03/11/24 12:00 History 40 mg finasteride 5 mg tablet 5 mg PO DAILY 08/01/22 04/24/24 03/11/24 12:00 History 5 mg neomycin 3.5 mg/g-polymyxin B 1 applic EACH EYE Q 10/18/23 04/24/24 03/11/24 12:00 History 10,000 unit/g-dexameth 0.1 % eye 1 applic oint cholecalciferol (vitamin D3) 125 125 mcg PO DAILY 03/18/24 04/24/24 Unknown History mcg (5,000 unit) tablet <Joyce Locke PA-C - Last Filed: 07/07/24 21:53> Allergies/adverse reactions: Allergies Allergy/AdvReac Type Severity Reaction Status Date / Time No Known Allergies Allergy Verified 07/07/24 14:03 <Joyce Locke PA-C - Last Filed: 07/07/24 21:53> Review of Systems Review of Systems: All systems reviewed & are unremarkable except as noted in HPI. <Joyce Locke PA-C - Last Filed: 07/07/24 21:53> All systems reviewed & are unremarkable except as noted in HPI and below <Joyce Locke PA-C - Last Filed: 07/07/24 21:53> PMFSH Past Medical History Medical History: Medical History Chronic venous insufficiency of lower extremity Prediabetes Shingles Age 60 Cardiomyopathy GERD without esophagitis Esophageal dysmotility BPH (benign prostatic hyperplasia) Hematuria Low back pain Lumbar spondylosis Essential (primary) hypertension History of TIA (transient ischemic attack) Kidney stone COVID-19 (~04/2022) Congestive heart failure Atrial fibrillation Pulmonary embolism (~10/2021) Right lower lobe basilar segment pulmonary emboli Thyroid mass of unclear etiology BPH w/o urinary obs/LUTS Cerebrovascular accident (CVA) due to occlusion of right anterior cerebral artery Macular degeneration <Joyce Locke PA-C - Last Filed: 07/07/24 21:53> Surgical History Surgical History: Surgical History History of cardioversion (~03/2022) History of removal of pigmented skin lesion (Unknown) History of tonsillectomy (~1940) S/P extracapsular cataract extraction (~1979) <Joyce Locke PA-C - Last Filed: 07/07/24 21:53> Family History Family History: Family History Mother Family history of respiratory disorder, Onset Age: 78 Family history of Alzheimer's disease Patient's mother is Father Patient's father is Acute myocardial infarction <Joyce Locke PA-C - Last Filed: 07/07/24 21:53> Social History Social History: Social History Social History: The patient lives with his and she is a durable power transactional attorney for healthcare. He has 3 biologic children and 2 step children. 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 He does not use alcohol marijuana or illicit drugs. Code status full code Smoking status: Never smoker Second hand tobacco smoke exposure: No Alcohol intake: never Drinks per week: 0 Substance use: never Substance use type: does not use Do You Feel Safe in your Home?: Yes Lack of Transportation: YES Lack of Food: Never True Current Housing: I Have Housing Concerned About Future Housing: No Difficulty Paying Gas/Electric Bills: No Difficulty Paying for Meds: No Currently Unemployed: No Education: High School Diploma/GED Difficulty w/ Childcare or Family Care: No Living arrangements: with family Occupation/Education: retired Gender identity (if verbalized by the patient): Male Sexual Orientation (if Verbalized by the Patient): Straight or Heterosexual Spiritual care concerns: No <Joyce Locke PA-C - Last Filed: 07/07/24 21:53> Exam Narrative: GENERAL: Elderly, well-nourished, non-toxic, in no acute distress. HEAD: Normocephalic, atraumatic. EYES: PERRL/EOMI, conjunctivae clear bilaterally. No nystagmus. NECK: Supple. No meningeal signs. RESPIRATORY: Airway patent, respirations nonlabored. Clear to auscultation bilaterally, no rales, rhonchi, wheezing. No significant focal lung sounds. CARDIOVASCULAR: Regular rate and rhythm without murmurs, rubs, or gallops. Peripheral pulses 2+ and equal bilaterally. MUSCULOSKELETAL: Moves all extremities. No gross deformities. SKIN: Warm, dry, normal color. No rashes. NEURO: A&O X3. Speech clear. Follows commands. CN II-XII intact. Sensation grossly intact. Steady gait. No ataxic movements. Strength 5/5 in LUE/RUE/LLE. Strength slightly decreased in RLE, but patient able to perform all testing. Mvqz-du-jgye and kcvwlh-he-pain testing intact bilaterally. No pronator drift. Equal melter assistant strength bilaterally. PSYCHIATRIC: Appropriate mood and affect. Normal interaction. <Joyce Locke PA-C - Last Filed: 07/07/24 21:53> Course CONTENT DEVELOPER/PA Physician Supervision For this patient encounter, I reviewed the CONTENT DEVELOPER or PA documentation, treatment plan, and medical decision making; and I had [id number] time with this patient. <Clint Jean-Baptiste MD - Last Filed: 07/07/24 22:02> Vital Signs Vital signs: Vital Signs Temperature 97.2 F L 07/07/24 14:07 Pulse Rate 78 07/07/24 14:07 Respiratory Rate 16 07/07/24 14:07 Blood Pressure 99/46 L 07/07/24 14:07 Pulse Oximetry 99 07/07/24 14:07 Temperature 97.2 F L 07/07/24 14:07 Pulse Rate 71 07/07/24 21:16 Respiratory Rate 15 07/07/24 21:16 Blood Pressure 135/84 07/07/24 21:16 Pulse Oximetry 94 07/07/24 21:16 <Joyce Locke PA-C - Last Filed: 07/07/24 21:53> Vital Signs Temperature 97.2 F L 07/07/24 14:07 Pulse Rate 78 07/07/24 14:07 Respiratory Rate 16 07/07/24 14:07 Blood Pressure 99/46 L 07/07/24 14:07 Pulse Oximetry 99 07/07/24 14:07 Temperature 97.2 F L 07/07/24 14:07 Pulse Rate 71 07/07/24 21:16 Respiratory Rate 15 07/07/24 21:16 Blood Pressure 135/84 07/07/24 21:16 Pulse Oximetry 94 07/07/24 21:16 <Clint Jean-Baptiste MD - Last Filed: 07/07/24 22:02> Medical Decision Making MDM Narrative Medical decision making narrative: Patient presented to ED with several month history of generalized weakness, disequilibrium. Vital signs are stable upon arrival. Patient was mildly orthostatic by blood pressure. Will initiate fluids. He denies feeling significantly dizzy/lightheaded/near syncopal. Denies focal weakness or numbness. He is otherwise grossly neurologically intact upon my evaluation. Did have slight weakness of his right leg on exam, but patient unable to tell me when this began and subjectively feels he is weaker in his left leg. He has still able to perform all of the testing. EKG without concerning ST changes. Does show left bundle-branch block, which is chronic. Consistent with previous records. Troponin consistent with previous records, within normal range. Cbc without leukocytosis. Mild leukopenia noted 3.5. Hemoglobin stable at 11.8, appears consistent with previous records. CMP is unremarkable. Stable electrolytes. Stable kidney function. UA with small amount of blood, no signs of infection. CT brain without acute findings. Patient does report that the symptoms have been ongoing over the past several months. Would expect changes to be seen on CT brain imaging. Chest x-ray with evidence of mild pulmonary edema. BNP is elevated to 3430. Patient does not appear markedly fluid overloaded. He does have some swelling in his legs over the past few days. He does have history of CHF, but is not currently on any diuretic therapy. He is denying any respiratory complaints, shortness of breath, dyspnea with exertion. CTA of brain and carotids: IMPRESSION: No large vessel intracranial occlusion or aneurysm. Short segment high-grade intracranial stenosis in the intradural segment of the left vertebral artery. No carotid or vertebral artery occlusion or dissection. No significant carotid stenosis. Ascending thoracic aortic aneurysm measuring up to 4.2 cm. Pulmonary edema. 2.5 cm right thyroid nodule, recommend outpatient thyroid ultrasound for further characterization. Will discuss with neurology. Recommended MRI, admission, will consult. Patient family updated on lab and imaging findings, and need for admission, they are in agreement. Discussed case with Dr. Redding, accepted patient for admission. Requested viral swabs given leukopenia. Will place consult for care coordination, PT/OT possible acute rehab placement. <Joyce Locke PA-C - Last Filed: 07/07/24 21:53> Medical Records Medical records reviewed: Yes I reviewed the external patient's medical records. <Joyce Locke PA-C - Last Filed: 07/07/24 21:53> Vital Signs Vital Signs: Vital Signs Temperature 97.2 F L 07/07/24 14:07 Pulse Rate 78 07/07/24 14:07 Respiratory Rate 16 07/07/24 14:07 Blood Pressure 99/46 L 07/07/24 14:07 Pulse Oximetry 99 07/07/24 14:07 Temperature 97.2 F L 07/07/24 14:07 Pulse Rate 71 07/07/24 21:16 Respiratory Rate 15 07/07/24 21:16 Blood Pressure 135/84 07/07/24 21:16 Pulse Oximetry 94 07/07/24 21:16 <Joyce Locke PA-C - Last Filed: 07/07/24 21:53> Vital Signs Temperature 97.2 F L 07/07/24 14:07 Pulse Rate 78 07/07/24 14:07 Respiratory Rate 16 07/07/24 14:07 Blood Pressure 99/46 L 07/07/24 14:07 Pulse Oximetry 99 07/07/24 14:07 Temperature 97.2 F L 07/07/24 14:07 Pulse Rate 71 07/07/24 21:16 Respiratory Rate 15 07/07/24 21:16 Blood Pressure 135/84 07/07/24 21:16 Pulse Oximetry 94 07/07/24 21:16 <Clint Jean-Baptiste MD - Last Filed: 07/07/24 22:02> Lab Data Lab results reviewed: Yes I reviewed the patient's lab results. <Joyce Locke PA-C - Last Filed: 07/07/24 21:53> Result diagrams: 07/07/24 14:39 07/07/24 14:39 <Joyce Locke PA-C - Last Filed: 07/07/24 21:53> Labs: Lab Results 07/07/24 07/07/24 07/07/24 Range/Units 14:39 16:05 17:05 WBC 3.5 L (4.5-10.0) K/mm3 RBC 3.89 L (4.6-6.20) M/mm3 Hgb 11.8 L (14.0-18.0) g/dL Hct 36.8 L (42.0-52.0) % MCV 94.6 (80-100) fl MCH 30.3 (26-34) pg MCHC 32.1 (32-36) g/dl RDW 15.7 H (11.5-14.5) % Plt Count 179 (150-375) k/mm3 MPV 9.7 (7.4-10.4) fl Immature Gran % (Auto) 0.6 H (0-0.5) % Neut % (Auto) 62.1 (45.5-73.1) % Lymph % (Auto) 23.4 (18.3-44.2) % [place] % (Auto) 10.5 H (2.6-8.5) % Eos % (Auto) 2.8 (0-4.4) % Baso % (Auto) 0.6 (0.2-1.2) % Lymph # (Auto) 0.83 L (0.9-3.2) K/mm3 [place] # (Auto) 0.4 (0.1-0.6) K/mm3 Eos # (Auto) 0.1 (0-0.3) K/mm3 Baso # (Auto) 0.0 (0.0-0.1) K/mm3 Abs Immat Gran (auto) 0.02 (0.00-0.031) K/mm3 Absolute Neuts (auto) 2.2 (1.3-6.7) K/mm3 Absolute Nucleated RBC 0.000 (0.0-0.012) K/mm3 Nucleated RBC % 0.0 (0.0-0.2) % Sodium 137 (137-145) mmol/L Potassium 3.9 (3.4-5.0) mmol/L Chloride 110 H (98-107) mmol/L Carbon Dioxide 22 (22-30) mmol/L Anion Gap 5 (4-12) mmol/L BUN 16 D (9-20) mg/dL Creatinine 0.89 (0.7-1.3) mg/dL Estim Creat Clear Calc 42 ml/min Estimated GFR > 60 (59 - ) Glucose 117 H (65-110) mg/dL Calcium 9.3 (8.4-10.2) mg/dL Magnesium 1.9 (1.6-2.3) mg/dL Total Bilirubin 1.0 (0.2-1.3) mg/dL AST 46 (17-59) U/L ALT 29 (6-50) U/L Alkaline Phosphatase 63 (38-126) U/L Troponin I 0.024 (0.000-0.034) ng/mL NT-Pro-B Natriuret Pep 3430 H (19.9-100) pg/mL Total Protein 6.0 L (6.3-8.2) g/dL Albumin 3.3 L (3.5-5.1) g/dL TSH (Reflex) (0.465-4.68) uIU/mL Urine Color Dark yellow (Yellow) Urine Appearance Clear (Clear) Urine pH 5.5 (5.0-9.0) Ur Specific [place] 1.013 (1.001-1.035) Urine Protein Negative (Negative) mg/dL Urine Glucose (UA) Negative (Negative) mg/dL Urine Ketones Negative (Negative) mg/dL Ur Blood (Man) 3+ H (Negative) Urine Nitrate Negative (Negative) Urine Bilirubin Negative (Negative) Urine Urobilinogen 2.0 H (<2.0) mg/dL Leukocyte Esterase Rfl Trace H (Negative) NIKITA/UL Urine RBC 21-50 H (0-2) /hpf Urine WBC 0-5 (0-3) /hpf Ur Squamous Epith Cells None seen (Few) /hpf Urine Bacteria None seen /hpf Urine Casts 0-2 Influenza A (RT-PCR) Influenza B (RT-PCR) RSV (RT-PCR) SARS-CoV-2 RNA (RT-PCR) 07/07/24 07/07/24 Range/Units 19:18 21:42 WBC (4.5-10.0) K/mm3 RBC (4.6-6.20) M/mm3 Hgb (14.0-18.0) g/dL Hct (42.0-52.0) % MCV (80-100) fl MCH (26-34) pg MCHC (32-36) g/dl RDW (11.5-14.5) % Plt Count (150-375) k/mm3 MPV (7.4-10.4) fl Immature Gran % (Auto) (0-0.5) % Neut % (Auto) (45.5-73.1) % Lymph % (Auto) (18.3-44.2) % [place] % (Auto) (2.6-8.5) % Eos % (Auto) (0-4.4) % Baso % (Auto) (0.2-1.2) % Lymph # (Auto) (0.9-3.2) K/mm3 [place] # (Auto) (0.1-0.6) K/mm3 Eos # (Auto) (0-0.3) K/mm3 Baso # (Auto) (0.0-0.1) K/mm3 Abs Immat Gran (auto) (0.00-0.031) K/mm3 Absolute Neuts (auto) (1.3-6.7) K/mm3 Absolute Nucleated RBC (0.0-0.012) K/mm3 Nucleated RBC % (0.0-0.2) % Sodium (137-145) mmol/L Potassium (3.4-5.0) mmol/L Chloride (98-107) mmol/L Carbon Dioxide (22-30) mmol/L Anion Gap (4-12) mmol/L BUN (9-20) mg/dL Creatinine (0.7-1.3) mg/dL Estim Creat Clear Calc ml/min Estimated GFR (59 - ) Glucose (65-110) mg/dL Calcium (8.4-10.2) mg/dL Magnesium (1.6-2.3) mg/dL Total Bilirubin (0.2-1.3) mg/dL AST (17-59) U/L ALT (6-50) U/L Alkaline Phosphatase (38-126) U/L Troponin I (0.000-0.034) ng/mL NT-Pro-B Natriuret Pep (19.9-100) pg/mL Total Protein (6.3-8.2) g/dL Albumin (3.5-5.1) g/dL TSH (Reflex) 1.430 (0.465-4.68) uIU/mL Urine Color (Yellow) Urine Appearance (Clear) Urine pH (5.0-9.0) Ur Specific [place] (1.001-1.035) Urine Protein (Negative) mg/dL Urine Glucose (UA) (Negative) mg/dL Urine Ketones (Negative) mg/dL Ur Blood (Man) (Negative) Urine Nitrate (Negative) Urine Bilirubin (Negative) Urine Urobilinogen (<2.0) mg/dL Leukocyte Esterase Rfl (Negative) NIKITA/UL Urine RBC (0-2) /hpf Urine WBC (0-3) /hpf Ur Squamous Epith Cells (Few) /hpf Urine Bacteria /hpf Urine Casts Influenza A (RT-PCR) Pending Influenza B (RT-PCR) Pending RSV (RT-PCR) Pending SARS-CoV-2 RNA (RT-PCR) Pending <Joyce Locke PA-C - Last Filed: 07/07/24 21:53> Lab Results 07/07/24 07/07/24 07/07/24 Range/Units 14:39 16:05 17:05 WBC 3.5 L (4.5-10.0) K/mm3 RBC 3.89 L (4.6-6.20) M/mm3 Hgb 11.8 L (14.0-18.0) g/dL Hct 36.8 L (42.0-52.0) % MCV 94.6 (80-100) fl MCH 30.3 (26-34) pg MCHC 32.1 (32-36) g/dl RDW 15.7 H (11.5-14.5) % Plt Count 179 (150-375) k/mm3 MPV 9.7 (7.4-10.4) fl Immature Gran % (Auto) 0.6 H (0-0.5) % Neut % (Auto) 62.1 (45.5-73.1) % Lymph % (Auto) 23.4 (18.3-44.2) % [place] % (Auto) 10.5 H (2.6-8.5) % Eos % (Auto) 2.8 (0-4.4) % Baso % (Auto) 0.6 (0.2-1.2) % Lymph # (Auto) 0.83 L (0.9-3.2) K/mm3 [place] # (Auto) 0.4 (0.1-0.6) K/mm3 Eos # (Auto) 0.1 (0-0.3) K/mm3 Baso # (Auto) 0.0 (0.0-0.1) K/mm3 Abs Immat Gran (auto) 0.02 (0.00-0.031) K/mm3 Absolute Neuts (auto) 2.2 (1.3-6.7) K/mm3 Absolute Nucleated RBC 0.000 (0.0-0.012) K/mm3 Nucleated RBC % 0.0 (0.0-0.2) % Sodium 137 (137-145) mmol/L Potassium 3.9 (3.4-5.0) mmol/L Chloride 110 H (98-107) mmol/L Carbon Dioxide 22 (22-30) mmol/L Anion Gap 5 (4-12) mmol/L BUN 16 D (9-20) mg/dL Creatinine 0.89 (0.7-1.3) mg/dL Estim Creat Clear Calc 42 ml/min Estimated GFR > 60 (59 - ) Glucose 117 H (65-110) mg/dL Calcium 9.3 (8.4-10.2) mg/dL Magnesium 1.9 (1.6-2.3) mg/dL Total Bilirubin 1.0 (0.2-1.3) mg/dL AST 46 (17-59) U/L ALT 29 (6-50) U/L Alkaline Phosphatase 63 (38-126) U/L Troponin I 0.024 (0.000-0.034) ng/mL NT-Pro-B Natriuret Pep 3430 H (19.9-100) pg/mL Total Protein 6.0 L (6.3-8.2) g/dL Albumin 3.3 L (3.5-5.1) g/dL TSH (Reflex) (0.465-4.68) uIU/mL Urine Color Dark yellow (Yellow) Urine Appearance Clear (Clear) Urine pH 5.5 (5.0-9.0) Ur Specific [place] 1.013 (1.001-1.035) Urine Protein Negative (Negative) mg/dL Urine Glucose (UA) Negative (Negative) mg/dL Urine Ketones Negative (Negative) mg/dL Ur Blood (Man) 3+ H (Negative) Urine Nitrate Negative (Negative) Urine Bilirubin Negative (Negative) Urine Urobilinogen 2.0 H (<2.0) mg/dL Leukocyte Esterase Rfl Trace H (Negative) NIKITA/UL Urine RBC 21-50 H (0-2) /hpf Urine WBC 0-5 (0-3) /hpf Ur Squamous Epith Cells None seen (Few) /hpf Urine Bacteria None seen /hpf Urine Casts 0-2 Influenza A (RT-PCR) Influenza B (RT-PCR) RSV (RT-PCR) SARS-CoV-2 RNA (RT-PCR) 07/07/24 07/07/24 Range/Units 19:18 21:42 WBC (4.5-10.0) K/mm3 RBC (4.6-6.20) M/mm3 Hgb (14.0-18.0) g/dL Hct (42.0-52.0) % MCV (80-100) fl MCH (26-34) pg MCHC (32-36) g/dl RDW (11.5-14.5) % Plt Count (150-375) k/mm3 MPV (7.4-10.4) fl Immature Gran % (Auto) (0-0.5) % Neut % (Auto) (45.5-73.1) % Lymph % (Auto) (18.3-44.2) % [place] % (Auto) (2.6-8.5) % Eos % (Auto) (0-4.4) % Baso % (Auto) (0.2-1.2) % Lymph # (Auto) (0.9-3.2) K/mm3 [place] # (Auto) (0.1-0.6) K/mm3 Eos # (Auto) (0-0.3) K/mm3 Baso # (Auto) (0.0-0.1) K/mm3 Abs Immat Gran (auto) (0.00-0.031) K/mm3 Absolute Neuts (auto) (1.3-6.7) K/mm3 Absolute Nucleated RBC (0.0-0.012) K/mm3 Nucleated RBC % (0.0-0.2) % Sodium (137-145) mmol/L Potassium (3.4-5.0) mmol/L Chloride (98-107) mmol/L Carbon Dioxide (22-30) mmol/L Anion Gap (4-12) mmol/L BUN (9-20) mg/dL Creatinine (0.7-1.3) mg/dL Estim Creat Clear Calc ml/min Estimated GFR (59 - ) Glucose (65-110) mg/dL Calcium (8.4-10.2) mg/dL Magnesium (1.6-2.3) mg/dL Total Bilirubin (0.2-1.3) mg/dL AST (17-59) U/L ALT (6-50) U/L Alkaline Phosphatase (38-126) U/L Troponin I (0.000-0.034) ng/mL NT-Pro-B Natriuret Pep (19.9-100) pg/mL Total Protein (6.3-8.2) g/dL Albumin (3.5-5.1) g/dL TSH (Reflex) 1.430 (0.465-4.68) uIU/mL Urine Color (Yellow) Urine Appearance (Clear) Urine pH (5.0-9.0) Ur Specific [place] (1.001-1.035) Urine Protein (Negative) mg/dL Urine Glucose (UA) (Negative) mg/dL Urine Ketones (Negative) mg/dL Ur Blood (Man) (Negative) Urine Nitrate (Negative) Urine Bilirubin (Negative) Urine Urobilinogen (<2.0) mg/dL Leukocyte Esterase Rfl (Negative) NIKITA/UL Urine RBC (0-2) /hpf Urine WBC (0-3) /hpf Ur Squamous Epith Cells (Few) /hpf Urine Bacteria /hpf Urine Casts Influenza A (RT-PCR) Pending Influenza B (RT-PCR) Pending RSV (RT-PCR) Pending SARS-CoV-2 RNA (RT-PCR) Pending <Clint Jean-Baptiste MD - Last Filed: 07/07/24 22:02> Imaging Data Attestation: I personally reviewed and interpreted this imaging study as follows: <Joyce Locke PA-C - Last Filed: 07/07/24 21:53> Radiologist's impression: ITS Impressions Chest X-Ray 07/07/24 15:01 IMPRESSION: 1. Interstitial opacities in the dependent lower lungs and favor mild pulmonary edema over pneumonia. 2. Cardiomegaly. Head CT 07/07/24 17:38 Impression: No acute intracranial hemorrhage or suspicious mass effect. Head/Neck CTA 07/07/24 19:55 IMPRESSION: No large vessel intracranial occlusion or aneurysm. Short segment high-grade intracranial stenosis in the intradural segment of the left vertebral artery. No carotid or vertebral artery occlusion or dissection. No significant carotid stenosis. Ascending thoracic aortic aneurysm measuring up to 4.2 cm. Pulmonary edema. 2.5 cm right thyroid nodule, recommend outpatient thyroid ultrasound for further characterization. <Joyce Locke PA-C - Last Filed: 07/07/24 21:53> ECG Data EKG #1: Attestation: I personally reviewed and interpreted this ECG as follows: <Joyce Locke PA-C - Last Filed: 07/07/24 21:53> ECG completion date: 07/07/24 <Joyce Locke PA-C - Last Filed: 07/07/24 21:53> ECG completion time: 14:29 <ANGELA Garcia Last Filed: 07/07/24 21:53> EKG Interpretation: normal rate (71), sinus rhythm (first degree AV block), non-specific ST changes, LBBB and prolonged QT <Joyce Locke PA-C - Last Filed: 07/07/24 21:53> Discharge Plan Discharge Clinical Impression: Weakness, Difficulty in walking, Stenosis of left vertebral artery, Elevated brain natriuretic peptide (BNP) level <ANGELA Garcia Last Filed: 07/07/24 21:53> Patient Disposition: Still a Patient <ANGELA Gacria Last Filed: 07/07/24 21:53> Condition: Stable <ANGELA Garcia Last Filed: 07/07/24 21:53> Patient Language: Bulgarian <ANGELA Garcia Last Filed: 07/07/24 21:53> Prescriptions: No Action aspirin 81 mg tablet,delayed release (DR/EC) 81 mg PO DAILY 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 5 mg PO DAILY omeprazole 20 mg capsule,delayed release(DR/EC) 20 mg PO DAILY Qty: 90 1RF atorvastatin 40 mg tablet 40 mg PO QHS furosemide 40 mg tablet 40 mg PO QAM neomycin-polymyxin B-dexameth 3.5 mg/g-10,000 unit/g-0.1 % ointment 1 applic EACH EYE QHS cholecalciferol (vitamin D3) 125 mcg (5,000 unit) tablet 125 mcg PO DAILY Eliquis 5 mg tablet 5 mg PO BID amiodarone 100 mg tablet 100 mg PO DAILY Jardiance 10 mg Tablet 10 mg PO DAILY 30 Days Qty: 30 1RF multivit with min-folic acid 0.4 mg Tablet 1 tablet PO DAILY carvedilol 6.25 mg tablet 6.25 mg PO Q12H Qty: 180 1RF Rx Instructions: must administer with a meal/food <ANGELA Garcia Last Filed: 07/07/24 21:53> Follow-up/Referrals: Wallace Beltre MD [Primary Care Provider] - <ANGELA Garcia Last Filed: 07/07/24 21:53>
[2024-07-07 22:29] LABS: Influenza A QL RT-PCR Negative (Negative); Influenza B QL RT-PCR Negative (Negative); RSV RNA, RT-PCR Negative (Negative); SARS-CoV-2 RNA PCR Negative (Negative)
--- NOTE | 2024-07-07 22:41 | ADMGEN ---
This patient, Blade Lacy, was admitted to Medical Room 251-01. Patient/family oriented to hospital policies and general routines including ID bracelet, bed and alarms, visiting hours, pain management, procedures, bathroom and other care routines, personal items, smoking policy, room service/diet, and visiting hours. Information on how to activate the Rapid Response Team has been discussed. Patient/Family are encouraged to report perceived risks to care and to ask questions if they do not understand what they are told or what they should do.
[2024-07-08] VITALS (11 sets, daily range): BP systolic 102–147; BP diastolic 56–77; PULSE 58–85; RESP 16–17; TEMP 36.4–37.1; O2SAT 90–97
--- NOTE | 2024-07-08 07:30 | PM.IMHP ---
H&P: HPI History of Present Illness Date/Time: 07/08/24 07:30 Chief Complaint: Dizziness Narrative: 88-year-old male, with PMH of CHF, AFIB w/ eliquis, HTN, hx of CVA, who presents the ED with report of weakness. Over the last several months, he has become increasingly weak and having trouble with his balance/dizziness. He previously had significant weakness when he had covid in 2022 but that resolved and he had no symptoms from a prior stroke. He denies feeling lightheaded and no sensation of the room spinning sensation. Describes the sensation as unsteadiness when he gets up. Otherwise, he feels his appetite is poor the last 2 weeks but his cooks and he has continued to eat normally most days. He was going to physical therapy and exercising a few times a week but hasn't been doing that in the last month. He uses a cane but fell recently and hit his head and tailbone. He states over the past 1 month, his balance issues have become significantly worse. He states he had issues walking up and down his stairs over the weekend. He has relied heavily on his cane. He contacted his primary care doctor today and was referred to the ED for further evaluation. He does report some swelling throughout his lower legs bilaterally over the past few weeks, but currently resolved. He has been wearing his compression stockings. He reports no episodes of syncope, no shortness of breath, chest pain, nausea, vomiting, or bowel changes. He notes more difficulty swallowing pills at times, but says he was evaluated for that. Otherwise he is able to eat and drink and no concern for swallowing or aspiration. No neck pain and has normal ROM. No tingling or numbness to extremities. Voiding normally. In the ED Head CT 07/07 No acute findings. Chest X-ray showed interstitial opacities in the dependent lower lungs, mild pulmonary edema vs pneumonia. Labs showed an elevated NT-pro-BNP 3430. WBC 3.5, H&H 11.8/36.8, UA negative for infection but showed microscopic hematuria. Viral panel negative. MRI Brain ordered VSS PCP Wallace Beltre [facility] Past Medical History Medical History (Updated 07/08/24 @ 10:52 by Patricia Polanco APRN) Dizzinesses Chronic venous insufficiency of lower extremity Prediabetes Shingles Age 60 Cardiomyopathy GERD without esophagitis Esophageal dysmotility BPH (benign prostatic hyperplasia) Hematuria Low back pain Lumbar spondylosis Essential (primary) hypertension History of TIA (transient ischemic attack) Kidney stone COVID-19 (~04/2022) Congestive heart failure Atrial fibrillation Pulmonary embolism (~10/2021) Right lower lobe basilar segment pulmonary emboli Thyroid mass of unclear etiology BPH w/o urinary obs/LUTS Cerebrovascular accident (CVA) due to occlusion of right anterior cerebral artery Macular degeneration Surgical History Surgical History History of cardioversion (~03/2022) History of removal of pigmented skin lesion (Unknown) History of tonsillectomy (~1940) S/P extracapsular cataract extraction (~1979) Family History Family History Mother Family history of respiratory disorder, Onset Age: 78 Family history of Alzheimer's disease Patient's mother is Father Patient's father is Acute myocardial infarction Social History Social History Social History: The patient lives with his and she is a durable power county attorney for healthcare. He has 3 biologic children and 2 step children. 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 He does not use alcohol marijuana or illicit drugs. Code status full code Smoking status: Never smoker Second hand tobacco smoke exposure: No Alcohol intake: never Drinks per week: 0 Substance use: never Substance use type: does not use Do You Feel Safe in your Home?: Yes Lack of Transportation: No Lack of Food: Never True Current Housing: I Do Not Have Housing Concerned About Future Housing: No Difficulty Paying Gas/Electric Bills: No Difficulty Paying for Meds: No Currently Unemployed: No Education: High School Diploma/GED Difficulty w/ Childcare or Family Care: No Living arrangements: with family Occupation/Education: retired Gender identity (if verbalized by the patient): Male Sexual Orientation (if Verbalized by the Patient): Straight or Heterosexual Spiritual care concerns: No Meds Home Medications and Allergies Home Medications ?Medication ?Instructions ?Recorded ?Confirmed ?Type aspirin 81 mg tablet,delayed 81 mg PO DAILY 06/18/19 07/07/24 History release multivitamin with minerals-folic 1 tablet PO DAILY 10/20/21 07/07/24 History acid 0.4 mg tablet apixaban 5 mg tablet (Eliquis) 5 mg PO BID 04/14/22 07/07/24 History amiodarone 100 mg tablet 100 mg PO DAILY 06/19/22 07/07/24 History atorvastatin 40 mg tablet 40 mg PO QHS 08/01/22 07/07/24 History finasteride 5 mg tablet 5 mg PO DAILY 08/01/22 07/07/24 History cholecalciferol (vitamin D3) 125 125 mcg PO DAILY 03/18/24 07/07/24 History mcg (5,000 unit) tablet omeprazole 20 mg capsule,delayed 20 mg PO DAILY #90 caps 04/24/24 07/07/24 Rx release carvedilol 6.25 mg tablet 6.25 mg PO Q12H #180 tabs 06/10/24 07/07/24 Rx Allergies Allergy/AdvReac Type Severity Reaction Status Date / Time No Known Allergies Allergy Verified 07/07/24 14:03 Vital Signs Vital Signs - 24 hr 07/07/24 14:07 07/07/24 17:04 07/07/24 17:35 Temperature 97.2 F L Pulse Rate 78 73 70 Respiratory Rate 16 13 Blood Pressure 99/46 L 114/64 123/59 L Pulse Oximetry 99 98 Oxygen Delivery 07/07/24 17:35 07/07/24 17:36 07/07/24 18:56 Temperature Pulse Rate 70 80 71 Respiratory Rate 22 H Blood Pressure 124/61 110/58 L 126/64 Pulse Oximetry 97 Oxygen Delivery 07/07/24 21:16 07/07/24 23:21 07/07/24 23:25 Temperature Pulse Rate 71 86 86 Respiratory Rate 15 15 Blood Pressure 135/84 Pulse Oximetry 94 94 Oxygen Delivery Room Air 07/08/24 00:00 07/08/24 00:50 07/08/24 04:00 Temperature 98.7 F Pulse Rate 85 78 77 Respiratory Rate 16 Blood Pressure 147/77 H Pulse Oximetry 96 Oxygen Delivery 07/08/24 04:39 Temperature 98.4 F Pulse Rate 76 Respiratory Rate 16 Blood Pressure 119/75 Pulse Oximetry 92 Oxygen Delivery Exam Narrative: General - Awake and alert. No acute distress Eyes - PERRLA, EOM intact ENT - No thrush, No erythema Neck - No noticeable or palpable swelling Lymph Nodes - No lymphadenopathy Cardiovascular - RRR no m/r/g, no JVD Lungs: Clear to auscultation, No wheezing, use of accessory muscles, no crackles Skin - Skin warm and dry, no wounds or rashes Abdomen - Normal bowel sounds, abdomen soft and nontender Extremities - No edema, cyanosis or clubbing Musculoskeletal - 5/5 strength, normal range of motion, no erythematous joints. Neurological ? Alert and oriented x 3, CN 2-12 grossly intact. Exam nonfocal Psych: Normal mood and affect H&P: Results Labs Labs: Short CBC 07/07/24 Range/Units 14:39 WBC 3.5 L (4.5-10.0) K/mm3 Hgb 11.8 L (14.0-18.0) g/dL Hct 36.8 L (42.0-52.0) % Plt Count 179 (150-375) k/mm3 BMP 07/07/24 14:39 Sodium 137 Potassium 3.9 Chloride 110 H Carbon Dioxide 22 BUN 16 D Creatinine 0.89 Glucose 117 H Calcium 9.3 Cardiac Enzymes 07/07/24 Range/Units 14:39 Troponin I 0.024 (0.000-0.034) ng/mL Liver Function 07/07/24 Range/Units 14:39 Total Bilirubin 1.0 (0.2-1.3) mg/dL AST 46 (17-59) U/L ALT 29 (6-50) U/L Alkaline Phosphatase 63 (38-126) U/L Albumin 3.3 L (3.5-5.1) g/dL Urine 07/07/24 Range/Units 16:05 Urine Color Dark yellow (Yellow) Urine Appearance Clear (Clear) Urine pH 5.5 (5.0-9.0) Ur Specific [place] 1.013 (1.001-1.035) Urine Protein Negative (Negative) mg/dL Urine Glucose (UA) Negative (Negative) mg/dL Assessment and Plan Assessment and plan (1) Congestive heart failure: Qualifiers: Heart failure type: unspecified Heart failure chronicity: chronic Qualified Code(s): I50.9 - Heart failure, unspecified Code(s): I50.9 - Heart failure, unspecified Status: Acute Assessment and Plan: NT proBNP elevated, 3430 (2) Atrial fibrillation: Qualifiers: Atrial fibrillation type: paroxysmal Qualified Code(s): I48.0 - Paroxysmal atrial fibrillation Code(s): I48.91 - Unspecified atrial fibrillation Status: Acute Assessment and Plan: Continue amiodarone 100mg, apixaban 5mg BID BID (3) Thyroid mass of unclear etiology: Code(s): E07.89 - Other specified disorders of thyroid Status: Acute Assessment and Plan: Thyroid nodules previously noted up to 4.[address] showed a 2.5 cm right thyroid nodule, recommend outpatient thyroid ultrasound for further characterization --TSH normal (4) Esophageal dysphagia: Code(s): R13.19 - Other dysphagia Status: Acute Assessment and Plan: Saw GI 03/17/24. Had opted against an EGD --Would rediscuss EGD if continues to have poor appetite or worsening esophageal dysmotility (5) Ascending aortic aneurysm: Code(s): I71.21 - Aneurysm of the ascending aorta, without rupture Status: Acute Assessment and Plan: CTA showed: Ascending thoracic aortic aneurysm measuring up to 4.2 cm. Needs follow up, per PCP TTE or CT every 6-12 months (6) Dizzinesses: Code(s): R42 - Dizziness and giddiness Status: Acute Assessment and Plan: Orthostatic vital signs normal and symptoms not consistent with vertigo. Patient feels it is difficulty to balance. LE weakness contributing. Description not consistent with cardiac etiology. No shorntess of breath, chest pain or palpitations. Recently had LE edema and that is currently resolved but creatinine normal and seems euvolemic. --MRI brain pending --PT/OT. Patient prefers home with outpatient therapy or per therapy recommendations --Hx CVA, continue ASA, Atorvastatin Quality VTE Prophylaxis VTE prophylaxis: pharmacologic ordered Hospitalist MIPS Advance Care Plan I have confirmed that the patient's Advanced Care Plan is present, code status is documented, or surrogate decision maker is listed in patient medical record.: Yes Medication Reconciliation I have utilized all available resources to obtain, update and review the patients current medications (includes all prescriptions, OTC, herbals, cannabis, and nutritional supplements).: Yes
[2024-07-08] MEDS: CHOLECALCIFEROL 5,000 UNITS TABLET 5000 UNITS BY MOUTH (08:42)
[2024-07-08] MEDS: PANTOPRAZOLE 40 MG TABLET PO (08:42)
[2024-07-08] MEDS: ASPIRIN 81 MG ENTERIC TABLET PO (08:42)
[2024-07-08] MEDS: THERAPEUTIC MULTIVITAMINS/MINERALS TAB (*BKC) 1 TABLET PO (08:42)
[2024-07-08] MEDS: FINASTERIDE 5 MG TABLET PO (08:42)
[2024-07-08] MEDS: AMIODARONE HCL 100 MG TABLET PO (08:42)
[2024-07-08] MEDS: carvediloL 6.25 MG TABLET PO ×2 (08:42→20:52)
--- NOTE | 2024-07-08 11:34 | P.CONNEU_ITS ---
Assessment and Plan Assessment and plan (1) Dizzinesses: Code(s): R42 - Dizziness and giddiness Status: Acute (2) Ascending aortic aneurysm: Code(s): I71.21 - Aneurysm of the ascending aorta, without rupture Status: Acute (3) Stenosis of left vertebral artery: Code(s): I65.02 - Occlusion and stenosis of left vertebral artery Status: Acute (4) Subdural hematoma, chronic: Code(s): I62.03 - Nontraumatic chronic subdural hemorrhage Status: Acute Plan 1. Complains of being dizzy with increasing weakness, CTA documents very short-segment high-grade intracranial stenosis of the intradural segment of the left vertebral artery, patient is already receiving aspirin 81mg daily, apixaban 5mg twice a day, and will not need any specific intervention for this particular stenosis. MRI of the brain has documented chronic bilateral subdural hematoma left more than the right, Chronic in nature and patient is receiving the apixaban because of the underlying atrial fibrillation, will discuss with him will probably not intervene surgically and also if we take him of the anticoagulation therapy he will a problem of having the recurrent strokes, if he wants they can get surgical opinion but I will prefer for no intervention as long as he understand the situation. Considering the anticoagulation therapy we can discuss with the industrial plant custodian what therapeutic modality can be continued. Definitely he needs to be thoroughly advised the pros and cons of this particular situation and I will discuss with him as well. I advised him not to walk with a cane use the walker all the time is possible balance is becoming more difficult because of the underlying subdural hematoma as well. Consult date: 07/08/24 HPI: Blade Lacy is a 88 year old male Admitted to the hospital with complaints of generalized weakness of increasing in nature and over the last several months in addition to the history of complains of dizziness and balance difficulties. Patient has been involved in the physical therapy exercises at home which helped him initially though recently he stopped doing the exercises over the last 1 month. his balance has become significantly worse . He also reported he has stopped walking up and down the stairs and has been using cane more frequently. Additionally he complained of swelling of the lower extremities over the last several weeks for which he has been using compression stockings with some improvements. Gave no history of difficulties in breathing even after exertion. He has been taking multiple medications which particularly included aspirin 81mg daily, apixaban 5mg daily, furosemide 40mg daily, atorvastatin 40mg daily, finasteride 5mg daily, and amiodarone 100mg daily. He is not allergic to any medications. 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 He is never a smoker, and never alcohol drinker, on initial exam in the emergency room he was documented to have some weakness in the right lower extremity otherwise neuro exam was fairly stable. His vital signs were normal except the blood pressure 99/46 with subsequently became normal. CTA of the brain and carotid documented short-segment high-grade intracranial stenosis of the left vertebral artery and ascending thoracic aortic aneurysm measuring about 4.2cm in addition to 2.5cm right thyroid nodule. CT of the head was normal. Routine blood studies documented mild leukopenia. Review of Systems 2 Review of Systems: All systems reviewed & are unremarkable except as noted in HPI and below PMFSH Past Medical History Medical History Dizzinesses Chronic venous insufficiency of lower extremity Prediabetes Shingles Age 60 Cardiomyopathy GERD without esophagitis Esophageal dysmotility BPH (benign prostatic hyperplasia) Hematuria Low back pain Lumbar spondylosis Essential (primary) hypertension History of TIA (transient ischemic attack) Kidney stone COVID-19 (~04/2022) Congestive heart failure Atrial fibrillation Pulmonary embolism (~10/2021) Right lower lobe basilar segment pulmonary emboli Thyroid mass of unclear etiology BPH w/o urinary obs/LUTS Cerebrovascular accident (CVA) due to occlusion of right anterior cerebral artery Macular degeneration Surgical History Surgical History History of cardioversion (~03/2022) History of removal of pigmented skin lesion (Unknown) History of tonsillectomy (~1940) S/P extracapsular cataract extraction (~1979) Family History Family History Mother Family history of respiratory disorder, Onset Age: 78 Family history of Alzheimer's disease Patient's mother is Father Patient's father is Acute myocardial infarction Social History Social History Social History: The patient lives with his and she is a durable power immigration attorney for healthcare. He has 3 biologic children and 2 step children. 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 He does not use alcohol marijuana or illicit drugs. Code status full code Smoking status: Never smoker Second hand tobacco smoke exposure: No Alcohol intake: never Drinks per week: 0 Substance use: never Substance use type: does not use Do You Feel Safe in your Home?: Yes Lack of Transportation: No Lack of Food: Never True Current Housing: I Do Not Have Housing Concerned About Future Housing: No Difficulty Paying Gas/Electric Bills: No Difficulty Paying for Meds: No Currently Unemployed: No Education: High School Diploma/GED Difficulty w/ Childcare or Family Care: No Living arrangements: with family Occupation/Education: retired Gender identity (if verbalized by the patient): Male Sexual Orientation (if Verbalized by the Patient): Straight or Heterosexual Spiritual care concerns: No Meds Home Medications and Allergies Home Medications ?Medication ?Instructions ?Recorded ?Confirmed ?Type aspirin 81 mg tablet,delayed 81 mg PO DAILY 06/18/19 07/07/24 History release multivitamin with minerals-folic 1 tablet PO DAILY 10/20/21 07/07/24 History acid 0.4 mg tablet apixaban 5 mg tablet (Eliquis) 5 mg PO BID 04/14/22 07/07/24 History amiodarone 100 mg tablet 100 mg PO DAILY 06/19/22 07/07/24 History atorvastatin 40 mg tablet 40 mg PO QHS 08/01/22 07/07/24 History finasteride 5 mg tablet 5 mg PO DAILY 08/01/22 07/07/24 History cholecalciferol (vitamin D3) 125 125 mcg PO DAILY 03/18/24 07/07/24 History mcg (5,000 unit) tablet omeprazole 20 mg capsule,delayed 20 mg PO DAILY #90 caps 04/24/24 07/07/24 Rx release carvedilol 6.25 mg tablet 6.25 mg PO Q12H #180 tabs 06/10/24 07/07/24 Rx Allergies Allergy/AdvReac Type Severity Reaction Status Date / Time No Known Allergies Allergy Verified 07/07/24 14:03 Vital Signs Vital Signs - 24 hr 07/07/24 14:07 07/07/24 17:04 07/07/24 17:35 Temperature 36.2 C L Pulse Rate 78 73 70 Respiratory Rate 16 13 Blood Pressure 99/46 L 114/64 123/59 L Pulse Oximetry 99 98 Oxygen Delivery 07/07/24 17:35 07/07/24 17:36 07/07/24 18:56 Temperature Pulse Rate 70 80 71 Respiratory Rate 22 H Blood Pressure 124/61 110/58 L 126/64 Pulse Oximetry 97 Oxygen Delivery 07/07/24 21:16 07/07/24 23:21 07/07/24 23:25 Temperature Pulse Rate 71 86 86 Respiratory Rate 15 15 Blood Pressure 135/84 Pulse Oximetry 94 94 Oxygen Delivery Room Air 07/08/24 00:00 07/08/24 00:50 07/08/24 04:00 Temperature 37.1 C Pulse Rate 85 78 77 Respiratory Rate 16 Blood Pressure 147/77 H Pulse Oximetry 96 Oxygen Delivery 07/08/24 04:39 07/08/24 08:40 07/08/24 08:42 Temperature 36.9 C 36.4 C Pulse Rate 76 69 69 Respiratory Rate 16 16 Blood Pressure 119/75 133/56 L Pulse Oximetry 92 92 Oxygen Delivery 07/08/24 08:42 07/08/24 08:42 07/08/24 08:42 Temperature Pulse Rate 69 69 67 Respiratory Rate 16 Blood Pressure Pulse Oximetry 92 Oxygen Delivery Room Air Exam 2 Narrative: Awake alert and cooperative, his speech not dysphasic not dysarthric not dysphonic, head normocephalic with no cranial bruits, ear nose throat examination normal, neck supple with no cervical bruit no thyromegaly no lymphadenopathy, heart regular with murmur, lungs clear to auscultation with no rhonchi or crepitations, abdomen is soft nontender with normal bowel sounds, neurologically he is awake alert and he is aware of being in the hospital his happened to be in the room as well, his speech is not dysphasic not dysarthric not dysphonic, pupils round regular, woo of the vision are full to threat stimuli, extraocular movements are full with no nystagmus, facial sensation intact, face symmetrical, tongue in the oral cavity with no fasciculation, motor examination of the upper extremities revealed him to have no drift of 1 or other side against gravity and also with no evidence of cogwheeling rigidity, motor exams and lower extremities revealed him to have no obvious drift against gravity for the deep tendon reflexes are symmetrical and the plantar responses are definitely abnormal and that is upgoing. There is no evidence of gross ataxia or dysmetria on [id number]. Results Labs 07/07/24 14:39 07/07/24 14:39 Labs: Short CBC 07/07/24 Range/Units 14:39 WBC 3.5 L (4.5-10.0) K/mm3 Hgb 11.8 L (14.0-18.0) g/dL Hct 36.8 L (42.0-52.0) % Plt Count 179 (150-375) k/mm3 BMP 07/07/24 14:39 Sodium 137 Potassium 3.9 Chloride 110 H Carbon Dioxide 22 BUN 16 D Creatinine 0.89 Glucose 117 H Calcium 9.3 Cardiac Enzymes 07/07/24 Range/Units 14:39 Troponin I 0.024 (0.000-0.034) ng/mL Liver Function 07/07/24 Range/Units 14:39 Total Bilirubin 1.0 (0.2-1.3) mg/dL AST 46 (17-59) U/L ALT 29 (6-50) U/L Alkaline Phosphatase 63 (38-126) U/L Albumin 3.3 L (3.5-5.1) g/dL Urine 07/07/24 Range/Units 16:05 Urine Color Dark yellow (Yellow) Urine Appearance Clear (Clear) Urine pH 5.5 (5.0-9.0) Ur Specific [place] 1.013 (1.001-1.035) Urine Protein Negative (Negative) mg/dL Urine Glucose (UA) Negative (Negative) mg/dL
[2024-07-08] MEDS: APIXABAN 5 MG TABLET PO (11:40)
--- NOTE | 2024-07-08 17:09 | PM.EVENT ---
Event Note Event Note Event Note: Evaluated the patient. No neurological deficit.Neurologist recommend to hold the AC. Discussed with the patient and agree to hold ASA and Eliquis. Possible cardiology consult as per morning hospital team.
[2024-07-08] MEDS: ATORVASTATIN 40 MG TABLET PO (20:52)
[2024-07-09] VITALS: PULSE 69
[2024-07-09 04:00] VITALS: PULSE 70
[2024-07-09 05:22] VITALS: BP 126/66; PULSE 68; RESP 16; TEMP 36.9; O2SAT 99
--- NOTE | 2024-07-09 07:36 | PM.IMHP ---
H&P: HPI History of Present Illness Date/Time: 07/09/24 07:36 Chief Complaint: nausea/vomiting PMFSH Past Medical History Medical History Dizzinesses Chronic venous insufficiency of lower extremity Prediabetes Shingles Age 60 Cardiomyopathy GERD without esophagitis Esophageal dysmotility BPH (benign prostatic hyperplasia) Hematuria Low back pain Lumbar spondylosis Essential (primary) hypertension History of TIA (transient ischemic attack) Kidney stone COVID-19 (~04/2022) Congestive heart failure Atrial fibrillation Pulmonary embolism (~10/2021) Right lower lobe basilar segment pulmonary emboli Thyroid mass of unclear etiology BPH w/o urinary obs/LUTS Cerebrovascular accident (CVA) due to occlusion of right anterior cerebral artery Macular degeneration Surgical History Surgical History History of cardioversion (~03/2022) History of removal of pigmented skin lesion (Unknown) History of tonsillectomy (~1940) S/P extracapsular cataract extraction (~1979) Family History Family History Mother Family history of respiratory disorder, Onset Age: 78 Family history of Alzheimer's disease Patient's mother is Father Patient's father is Acute myocardial infarction Social History Social History Social History: The patient lives with his and she is a durable power managing attorney for healthcare. He has 3 biologic children and 2 step children. 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 He does not use alcohol marijuana or illicit drugs. Code status full code Smoking status: Never smoker Second hand tobacco smoke exposure: No Alcohol intake: never Drinks per week: 0 Substance use: never Substance use type: does not use Do You Feel Safe in your Home?: Yes Lack of Transportation: No Lack of Food: Never True Current Housing: I Do Not Have Housing Concerned About Future Housing: No Difficulty Paying Gas/Electric Bills: No Difficulty Paying for Meds: No Currently Unemployed: No Education: High School Diploma/GED Difficulty w/ Childcare or Family Care: No Living arrangements: with family Occupation/Education: retired Gender identity (if verbalized by the patient): Male Sexual Orientation (if Verbalized by the Patient): Straight or Heterosexual Spiritual care concerns: No Meds Home Medications and Allergies Home Medications ?Medication ?Instructions ?Recorded ?Confirmed ?Type aspirin 81 mg tablet,delayed 81 mg PO DAILY 06/18/19 07/07/24 History release multivitamin with minerals-folic 1 tablet PO DAILY 10/20/21 07/07/24 History acid 0.4 mg tablet apixaban 5 mg tablet (Eliquis) 5 mg PO BID 04/14/22 07/07/24 History amiodarone 100 mg tablet 100 mg PO DAILY 06/19/22 07/07/24 History atorvastatin 40 mg tablet 40 mg PO QHS 08/01/22 07/07/24 History finasteride 5 mg tablet 5 mg PO DAILY 08/01/22 07/07/24 History cholecalciferol (vitamin D3) 125 125 mcg PO DAILY 03/18/24 07/07/24 History mcg (5,000 unit) tablet omeprazole 20 mg capsule,delayed 20 mg PO DAILY #90 caps 04/24/24 07/07/24 Rx release carvedilol 6.25 mg tablet 6.25 mg PO Q12H #180 tabs 06/10/24 07/07/24 Rx Allergies Allergy/AdvReac Type Severity Reaction Status Date / Time No Known Allergies Allergy Verified 07/07/24 14:03 Vital Signs Vital Signs - 24 hr 07/08/24 08:40 07/08/24 08:42 07/08/24 08:42 Temperature 97.6 F Pulse Rate 69 69 69 Respiratory Rate 16 Blood Pressure 133/56 L Pulse Oximetry 92 Oxygen Delivery 07/08/24 08:42 07/08/24 08:42 07/08/24 12:00 Temperature Pulse Rate 69 67 68 Respiratory Rate 16 Blood Pressure Pulse Oximetry 92 Oxygen Delivery Room Air 07/08/24 14:00 07/08/24 16:00 07/08/24 20:00 Temperature 98.0 F Pulse Rate 74 58 L 64 Respiratory Rate 16 17 Blood Pressure 102/61 Pulse Oximetry 97 95 Oxygen Delivery Room Air 07/08/24 20:00 07/08/24 20:05 07/09/24 00:00 Temperature 98.0 F Pulse Rate 64 59 L 69 Respiratory Rate 17 Blood Pressure 124/58 L Pulse Oximetry 90 Oxygen Delivery 07/09/24 04:00 07/09/24 05:22 Temperature 98.4 F Pulse Rate 70 68 Respiratory Rate 16 Blood Pressure 126/66 Pulse Oximetry 99 Oxygen Delivery Exam Narrative: General - Awake and alert. No acute distress Eyes - PERRLA, EOM intact ENT - No thrush, No erythema Neck - No noticeable or palpable swelling Lymph Nodes - No lymphadenopathy Cardiovascular - RRR no m/r/g, no JVD Lungs: Clear to auscultation, No wheezing, use of accessory muscles, no crackles Skin - Skin warm and dry, no wounds or rashes Abdomen - Normal bowel sounds, abdomen soft and nontender Extremities - No edema, cyanosis or clubbing Musculoskeletal - 5/5 strength, normal range of motion, no erythematous joints. Neurological ? Alert and oriented x 3, CN 2-12 grossly intact. Exam nonfocal Psych: Normal mood and affect Assessment and Plan Assessment and plan (1) Congestive heart failure: Qualifiers: Heart failure type: unspecified Heart failure chronicity: chronic Qualified Code(s): I50.9 - Heart failure, unspecified Code(s): I50.9 - Heart failure, unspecified Status: Acute Assessment and Plan: NT proBNP elevated, 3430 (2) Atrial fibrillation: Qualifiers: Atrial fibrillation type: paroxysmal Qualified Code(s): I48.0 - Paroxysmal atrial fibrillation Code(s): I48.91 - Unspecified atrial fibrillation Status: Acute Assessment and Plan: Continue amiodarone 100mg, apixaban 5mg BID BID (3) Thyroid mass of unclear etiology: Code(s): E07.89 - Other specified disorders of thyroid Status: Acute Assessment and Plan: Thyroid nodules previously noted up to 4.[address] showed a 2.5 cm right thyroid nodule, recommend outpatient thyroid ultrasound for further characterization --TSH normal (4) Esophageal dysphagia: Code(s): R13.19 - Other dysphagia Status: Acute Assessment and Plan: Saw GI 03/17/24. Had opted against an EGD --Would rediscuss EGD if continues to have poor appetite or worsening esophageal dysmotility (5) Ascending aortic aneurysm: Code(s): I71.21 - Aneurysm of the ascending aorta, without rupture Status: Acute Assessment and Plan: CTA showed: Ascending thoracic aortic aneurysm measuring up to 4.2 cm. Needs follow up, per PCP TTE or CT every 6-12 months (6) Dizzinesses: Code(s): R42 - Dizziness and giddiness Status: Acute Assessment and Plan: Orthostatic vital signs normal and symptoms not consistent with vertigo. Patient feels it is difficulty to balance. LE weakness contributing. Description not consistent with cardiac etiology. No shorntess of breath, chest pain or palpitations. Recently had LE edema and that is currently resolved but creatinine normal and seems euvolemic. --MRI brain pending --PT/OT. Patient prefers home with outpatient therapy or per therapy recommendations --Hx CVA, continue ASA, Atorvastatin Quality VTE Prophylaxis VTE prophylaxis: pharmacologic ordered
--- NOTE | 2024-07-09 07:40 | PM.IMPN ---
Progress Note: A&P Assessment and Plan (1) Congestive heart failure: Qualifiers: Heart failure type: unspecified Heart failure chronicity: chronic Qualified Code(s): I50.9 - Heart failure, unspecified Code(s): I50.9 - Heart failure, unspecified Status: Acute Assessment and Plan: NT proBNP elevated, 3430 (2) Atrial fibrillation: Qualifiers: Atrial fibrillation type: paroxysmal Qualified Code(s): I48.0 - Paroxysmal atrial fibrillation Code(s): I48.91 - Unspecified atrial fibrillation Status: Acute Assessment and Plan: Continue amiodarone 100mg, apixaban 5mg BID BID (3) Thyroid mass of unclear etiology: Code(s): E07.89 - Other specified disorders of thyroid Status: Acute Assessment and Plan: Thyroid nodules previously noted up to 4.[address] showed a 2.5 cm right thyroid nodule, recommend outpatient thyroid ultrasound for further characterization --TSH normal (4) Esophageal dysphagia: Code(s): R13.19 - Other dysphagia Status: Acute Assessment and Plan: Saw GI 03/17/24. Had opted against an EGD --Would rediscuss EGD if continues to have poor appetite or worsening esophageal dysmotility (5) Ascending aortic aneurysm: Code(s): I71.21 - Aneurysm of the ascending aorta, without rupture Status: Acute Assessment and Plan: CTA showed: Ascending thoracic aortic aneurysm measuring up to 4.2 cm. Needs follow up, per PCP TTE or CT every 6-12 months (6) Dizzinesses: Code(s): R42 - Dizziness and giddiness Status: Acute Assessment and Plan: Orthostatic vital signs normal and symptoms not consistent with vertigo. Patient feels it is difficulty to balance. LE weakness contributing. Description not consistent with cardiac etiology. No shorntess of breath, chest pain or palpitations. Recently had LE edema and that is currently resolved but creatinine normal and seems euvolemic. --MRI brain pending --PT/OT. Patient prefers home with outpatient therapy or per therapy recommendations --Hx CVA, continue ASA, Atorvastatin Subjective Date/time seen: 07/09/24 07:40 Interval history: 88-year-old male, with PMH of CHF, AFIB w/ eliquis, HTN, hx of CVA, who presents the ED with report of weakness. 07/09/2024 Review of Systems Review of Systems: All systems reviewed & are unremarkable except as noted in HPI and below Exam Narrative: General - Awake and alert. No acute distress Eyes - PERRLA, EOM intact ENT - No thrush, No erythema Neck - No noticeable or palpable swelling Lymph Nodes - No lymphadenopathy Cardiovascular - RRR no m/r/g, no JVD Lungs: Clear to auscultation, No wheezing, use of accessory muscles, no crackles Skin - Skin warm and dry, no wounds or rashes Abdomen - Normal bowel sounds, abdomen soft and nontender Extremities - No edema, cyanosis or clubbing Musculoskeletal - 5/5 strength, normal range of motion, no erythematous joints. Neurological ? Alert and oriented x 3, CN 2-12 grossly intact. Exam nonfocal Psych: Normal mood and affect Objective Data Vital Signs Vital Signs: Vital Signs - 24 hr 07/08/24 08:40 07/08/24 08:42 07/08/24 08:42 Temperature 97.6 F Pulse Rate 69 69 69 Respiratory Rate 16 Blood Pressure 133/56 L Pulse Oximetry 92 Oxygen Delivery 07/08/24 08:42 07/08/24 08:42 07/08/24 12:00 Temperature Pulse Rate 69 67 68 Respiratory Rate 16 Blood Pressure Pulse Oximetry 92 Oxygen Delivery Room Air 07/08/24 14:00 07/08/24 16:00 07/08/24 20:00 Temperature 98.0 F Pulse Rate 74 58 L 64 Respiratory Rate 16 17 Blood Pressure 102/61 Pulse Oximetry 97 95 Oxygen Delivery Room Air 07/08/24 20:00 07/08/24 20:05 07/09/24 00:00 Temperature 98.0 F Pulse Rate 64 59 L 69 Respiratory Rate 17 Blood Pressure 124/58 L Pulse Oximetry 90 Oxygen Delivery 07/09/24 04:00 07/09/24 05:22 Temperature 98.4 F Pulse Rate 70 68 Respiratory Rate 16 Blood Pressure 126/66 Pulse Oximetry 99 Oxygen Delivery Intake/Output Intake/Output: Intake & Output 07/06/24 07/07/24 07/08/24 07/09/24 23:59 23:59 23:59 23:59 Intake Total 1000 1480 150 Output Total 100 400 Balance 900 1080 150 Meds/Results Medications: Active Medications Generic Name Dose Route Start Last Admin Trade Name Freq PRN Reason Stop Dose Admin Acetaminophen 650 mg 07/07/24 21:41 Acetaminophen 325 Mg Tablet PO Q4H PRN Mild Pain (1-3) or Fever Amiodarone HCl 100 mg 07/08/24 09:00 07/08/24 08:42 Amiodarone Hcl 100 Mg Tablet PO 100 mg DAILY [facility] Administration Atorvastatin Calcium 40 mg 07/08/24 21:00 07/08/24 20:52 Atorvastatin 40 Mg Tablet PO 40 mg QHS [facility] Administration Carvedilol 6.25 mg 07/08/24 09:00 07/08/24 20:52 Carvedilol 6.25 Mg Tablet PO 6.25 mg Q12H [facility] Administration Dextrose 12.5 gm 07/07/24 21:41 Dextrose 50% 25 Gm/50 Ml Syringe IV PUSH PRN PRN Hypoglycemia Protocol Docusate Sodium 100 mg 07/09/24 09:00 Docusate Sodium 100 Mg Capsule PO Q12HR [facility] Finasteride 5 mg 07/08/24 09:00 07/08/24 08:42 Finasteride 5 Mg Tablet PO 5 mg DAILY [facility] Administration Glucagon 1 mg 07/07/24 21:41 Glucagon For Inj 1 Mg Vial IM PRN PRN Hypoglycemia Protocol Glucose 15 gm 07/07/24 21:41 Glucose Oral Gel 15 Gm Of Glucse In 37.5 Gm Tube PO PRN PRN Hypoglycemia Protocol Dextrose 1,000 mls @ 100 mls/hr 07/07/24 21:41 Dextrose 5% 1,000 Ml IVPB PRN PRN Hypoglycemia Protocol Multivitamins/Calcium 1 tablet 07/08/24 09:00 07/08/24 08:42 Therapeutic Multivitamins/Minerals Tab (*Bkc) PO 1 tablet DAILY [facility] Administration Pantoprazole Sodium 40 mg 07/08/24 09:00 07/08/24 08:42 Pantoprazole 40 Mg Tablet PO 40 mg QAM [facility] Administration Vitamin D 5,000 units 07/08/24 09:00 07/08/24 08:42 Cholecalciferol 5,000 Units Tablet BY MOUTH 5,000 units DAILY [facility] Administration Radiology Results: ITS Impressions Chest X-Ray 07/07/24 15:01 IMPRESSION: 1. Interstitial opacities in the dependent lower lungs and favor mild pulmonary edema over pneumonia. 2. Cardiomegaly. Head CT 07/07/24 17:38 Impression: No acute intracranial hemorrhage or suspicious mass effect. Head/Neck CTA 07/07/24 19:55 IMPRESSION: No large vessel intracranial occlusion or aneurysm. Short segment high-grade intracranial stenosis in the intradural segment of the left vertebral artery. No carotid or vertebral artery occlusion or dissection. No significant carotid stenosis. Ascending thoracic aortic aneurysm measuring up to 4.2 cm. Pulmonary edema. 2.5 cm right thyroid nodule, recommend outpatient thyroid ultrasound for further characterization. Brain MRI 07/08/24 11:29 IMPRESSION: 1. Chronic small right and moderate-sized left subdural hematomas with minimal amount of likely subacute blood in the dependent aspect of the left cerebral hematoma. 2. Old right frontoparietal infarct with additional small old lacunar infarcts in the left frontal lobe white matter, the left subinsular white matter and in the left cerebellar hemisphere. 3. Age-related changes including mild to moderate diffuse volume loss and mild scattered white matter T2 hyperintensity consistent with chronic small vessel ischemic disease. Labs Labs: Laboratory Results - last 24 hr 07/07/24 19:18 Vitamin B12 778.0 Quality VTE Prophylaxis VTE prophylaxis: pharmacologic ordered
[2024-07-09 08:00] VITALS: PULSE 73
[2024-07-09] MEDS: DOCUSATE SODIUM 100 MG CAPSULE PO (08:26)
[2024-07-09 08:27] VITALS: PULSE 97; RESP 16; O2SAT 99
[2024-07-09] MEDS: carvediloL 6.25 MG TABLET PO (08:27)
[2024-07-09] MEDS: FINASTERIDE 5 MG TABLET PO (08:27)
[2024-07-09] MEDS: PANTOPRAZOLE 40 MG TABLET PO (08:27)
[2024-07-09] MEDS: AMIODARONE HCL 100 MG TABLET PO (08:27)
[2024-07-09] MEDS: CHOLECALCIFEROL 5,000 UNITS TABLET 5000 UNITS BY MOUTH (08:27)
[2024-07-09 12:02] VITALS: PULSE 77
--- NOTE | 2024-07-09 12:08 | P.CONCA_ITS ---
Assessment and Plan Assessment and plan (1) Atrial fibrillation: Qualifiers: Atrial fibrillation type: paroxysmal Qualified Code(s): I48.0 - Paroxysmal atrial fibrillation Code(s): I48.91 - Unspecified atrial fibrillation Status: Acute Assessment and Plan: He has paroxysmal atrial fibrillation. In sinus rhythm currently on amiodarone. Overall had a long discussion with him and his regarding options. Given his gait instability, falls and subdural hematomas, I think his anticoagulation should be stopped. They understand that he is at high risk of stroke but likely he is a sinus rhythm at this point on amiodarone. Long-term though his stroke risk is still significant. To help mitigate that risk, have talked about left atrial appendage occluder procedure such as Watchman. They verbalized understanding and are interested but at this point are interested but wishes to have further conversation with Dr. De Luna which is reasonable. This can happen as an outpatient. Given his significant cerebrovascular disease, if possible and okay with Dr. Jerez, I would recommend resuming his low-dose aspirin. No other cardiac workup needed here in the hospital. Continue amiodarone and carvedilol. Some his gait instability may be related to finasteride. If possible, would like to stop his finasteride but obviously given his urinary retention issues, likely will be needed long-term (2) Subdural hematoma, chronic: Code(s): I62.03 - Nontraumatic chronic subdural hemorrhage Status: Acute Assessment and Plan: No clear cause but probably related to his recent loss of balance (3) Stenosis of left vertebral artery: Code(s): I65.02 - Occlusion and stenosis of left vertebral artery Status: Acute Assessment and Plan: Significant cerebrovascular disease. Continue statin (4) Cerebrovascular accident (CVA) due to occlusion of right anterior cerebral artery: Code(s): I63.521 - Cerebral infarction due to unspecified occlusion or stenosis of right anterior cerebral artery Status: Acute Assessment and Plan: As detailed above (5) Ascending aortic aneurysm: Code(s): I71.21 - Aneurysm of the ascending aorta, without rupture Status: Acute Assessment and Plan: Optimize blood pressure control, cholesterol control (6) Essential (primary) hypertension: Code(s): I10 - Essential (primary) hypertension Status: Chronic Assessment and Plan: Continue carvedilol, History of Present Illness History of Present Illness Consult date/time: 07/09/24 12:08 Requesting physician: Patricia Polanco APRN Consult reason: Other (Anticoagulation option because of atrial fibrillation) Reason For Visit: Weakness, Difficulty ambulating, Vertebral artery Narrative: Date of service 07/09/2024 Requesting provider: Rachel Polanco Reason for consultation: Anticoagulation options given subdural hematomas in history of atrial fibrillation History: Patient is an 88-year-old male patient of Dr. De Luna who came to the hospital because of weakness, gait instability and recent fall. A process workup he has been found to have bilateral subdural hematomas. Left side is possibly subacute. Patient does states that he has been unsteady on his feet and having dizziness a soon as he stands up. He also been unstable whenever he starts to walk. He has actually denies any significant injury but did fall back recently whenever he lost his balance. Does have little bit of swelling which he states the is new but it has no chest pain, syncope, paroxysmal nocturnal dyspnea, orthopnea, edema. He does have significant vascular disease history as well as paroxysmal atrial fibrillation. Has been on combination of aspirin plus Eliquis. Review of Systems 2 Review of Systems: All systems reviewed & are unremarkable except as noted in HPI and below Constitutional: Constitutional: Denies body ache(s) ENT: Reports Normal hearing present Cardiovascular: Cardiovascular: Denies chest pain and Reports pedal edema Respiratory: Respiratory: Denies dyspnea Gastrointestinal: Gastrointestinal: Denies abdominal pain Genitourinary: Genitourinary: Denies flank pain Musculoskeletal: Musculoskeletal: Denies neck pain Integumentary/Breasts: Skin/Breast: Denies dry skin Neurologic: Denies Abnormal speech present Psychiatric: Psychiatric: Denies anxiety Endocrine: Endocrine: Denies excessive sweating Hematologic/Lymphatic: Hematologic/Lymphatic: Denies easy bleeding Allergic/Immunologic: Allergic/Immunologic: Denies GI upset with certain foods PMFSH Past Medical History Medical History Dizzinesses Chronic venous insufficiency of lower extremity Prediabetes Shingles Age 60 Cardiomyopathy GERD without esophagitis Esophageal dysmotility BPH (benign prostatic hyperplasia) Hematuria Low back pain Lumbar spondylosis Essential (primary) hypertension History of TIA (transient ischemic attack) Kidney stone COVID-19 (~04/2022) Congestive heart failure Atrial fibrillation Pulmonary embolism (~10/2021) Right lower lobe basilar segment pulmonary emboli Thyroid mass of unclear etiology BPH w/o urinary obs/LUTS Cerebrovascular accident (CVA) due to occlusion of right anterior cerebral artery Macular degeneration Surgical History Surgical History History of cardioversion (~03/2022) History of removal of pigmented skin lesion (Unknown) History of tonsillectomy (~194) S/P extracapsular cataract extraction (~1979) Family History Family History Mother Family history of respiratory disorder, Onset Age: 78 Family history of Alzheimer's disease Patient's mother is Father Patient's father is Acute myocardial infarction Social History Social History Social History: The patient lives with his and she is a durable power workers compensation defense attorney for healthcare. He has 3 biologic children and 2 step children. He retired from [employer]. He is a lifelong nonsmoker. He does not use alcohol marijuana or illicit drugs. Code status full code Smoking status: Never smoker Second hand tobacco smoke exposure: No Alcohol intake: never Drinks per week: 0 Substance use: never Substance use type: does not use Do You Feel Safe in your Home?: Yes Lack of Transportation: No Lack of Food: Never True Current Housing: I Do Not Have Housing Concerned About Future Housing: No Difficulty Paying Gas/Electric Bills: No Difficulty Paying for Meds: No Currently Unemployed: No Education: High School Diploma/GED Difficulty w/ Childcare or Family Care: No Living arrangements: with family Occupation/Education: retired Gender identity (if verbalized by the patient): Male Sexual Orientation (if Verbalized by the Patient): Straight or Heterosexual Spiritual care concerns: No Meds Home Medications and Allergies Home Medications ?Medication ?Instructions ?Recorded ?Confirmed ?Type aspirin 81 mg tablet,delayed 81 mg PO DAILY 06/18/19 07/07/24 History release multivitamin with minerals-folic 1 tablet PO DAILY 10/20/21 07/07/24 History acid 0.4 mg tablet apixaban 5 mg tablet (Eliquis) 5 mg PO BID 04/14/22 07/07/24 History amiodarone 100 mg tablet 100 mg PO DAILY 06/19/22 07/07/24 History atorvastatin 40 mg tablet 40 mg PO QHS 08/01/22 07/07/24 History finasteride 5 mg tablet 5 mg PO DAILY 08/01/22 07/07/24 History cholecalciferol (vitamin D3) 125 125 mcg PO DAILY 03/18/24 07/07/24 History mcg (5,000 unit) tablet omeprazole 20 mg capsule,delayed 20 mg PO DAILY #90 caps 04/24/24 07/07/24 Rx release carvedilol 6.25 mg tablet 6.25 mg PO Q12H #180 tabs 06/10/24 07/07/24 Rx Allergies Allergy/AdvReac Type Severity Reaction Status Date / Time No Known Allergies Allergy Verified 07/07/24 14:03 Vital Signs Vital Signs - 24 hr 07/08/24 14:00 07/08/24 16:00 07/08/24 20:00 Temperature 36.7 C Pulse Rate 74 58 L 64 Respiratory Rate 16 17 Blood Pressure 102/61 Pulse Oximetry 97 95 Oxygen Delivery Room Air 07/08/24 20:00 07/08/24 20:05 07/09/24 00:00 Temperature 36.7 C Pulse Rate 64 59 L 69 Respiratory Rate 17 Blood Pressure 124/58 L Pulse Oximetry 90 Oxygen Delivery 07/09/24 04:00 07/09/24 05:22 07/09/24 08:00 Temperature 36.9 C Pulse Rate 70 68 73 Respiratory Rate 16 Blood Pressure 126/66 Pulse Oximetry 99 Oxygen Delivery 07/09/24 08:27 07/09/24 08:27 07/09/24 08:27 Temperature Pulse Rate 97 97 Respiratory Rate 16 Blood Pressure Pulse Oximetry 99 Oxygen Delivery Room Air Exam 2 Narrative: Alert oriented. Appears stated age Const: General: comfortable and no acute distress HENMT: Face/Nose/Sinus: Normal nares present Mouth: Yes moist mucous membranes Eyes: General: appearance normal, both eyes and all related structures S clera: sclerae normal Neck: Neck: supple and no JVD Carotids: bruit Chest: Other: No reproducible chest wall pain to palpation Resp: Effort & Inspection: normal respiratory effort Auscultation: clear to auscultation bilaterally Cardio: Rate: regular rate Rhythm: regular rhythm Heart sounds: Murmur heart sound present GI: Inspection: non-distended GI Palp: Yes Soft to palpation A uscultation: normal bowel sounds Skin: General skin exam: normal color Neuro: General: gait normal Speech: normal speech Extrem: General: normal to inspection and no edema Psych: Mental Status: mental status grossly normal Affect: normal affect Results Labs and Meds 07/07/24 14:39 07/07/24 14:39 Lab results: Intake and Output 07/08/24 07/09/24 07/09/24 23:59 07:59 15:59 Intake Total 470 150 240 Balance 470 150 240 Intake: Oral 470 150 240 Other: # Unmeasured Voids 1 1 1 EKG is personally reviewed and independently interpreted showing sinus rhythm with left bundle-branch block. Abnormal ECG
--- NOTE | 2024-07-09 13:01 | PM.DS ---
DS: Admitting Diagnosis Discharge Date 07/09/2024 Admitting Diagnosis Congestive heart failure Dizziness DS: Discharge Diagnosis Discharge Diagnosis (1) Congestive heart failure: Qualifiers: Heart failure chronicity: chronic Heart failure type: unspecified Qualified Code(s): I50.9 - Heart failure, unspecified Code(s): I50.9 - Heart failure, unspecified Status: Acute (2) Atrial fibrillation: Qualifiers: Atrial fibrillation type: paroxysmal Qualified Code(s): I48.0 - Paroxysmal atrial fibrillation Code(s): I48.91 - Unspecified atrial fibrillation Status: Acute (3) Thyroid mass of unclear etiology: Code(s): E07.89 - Other specified disorders of thyroid Status: Acute (4) Esophageal dysphagia: Code(s): R13.19 - Other dysphagia Status: Acute (5) Ascending aortic aneurysm: Code(s): I71.21 - Aneurysm of the ascending aorta, without rupture Status: Acute (6) Dizzinesses: Code(s): R42 - Dizziness and giddiness Status: Acute DS: Summary Hospital Course Reason for hospitalization: Dizziness Hospital Course: 88-year-old male, with PMH of CHF, AFIB w/ eliquis, HTN, hx of CVA, who presents the ED with report of weakness. Over the last several months, he has become increasingly weak and having trouble with his balance/dizziness. He previously had significant weakness when he had covid in 2022 but that resolved and he had no symptoms from a prior stroke. He denies feeling lightheaded and no sensation of the room spinning sensation. Describes the sensation as unsteadiness when he gets up. Otherwise, he feels his appetite is poor the last 2 weeks but his cooks and he has continued to eat normally most days. He was going to physical therapy and exercising a few times a week but hasn't been doing that in the last month. He uses a cane but fell recently and hit his head and tailbone. He states over the past 1 month, his balance issues have become significantly worse. He states he had issues walking up and down his stairs over the weekend. He has relied heavily on his cane. He contacted his primary care doctor today and was referred to the ED for further evaluation. He does report some swelling throughout his lower legs bilaterally over the past few weeks, but currently resolved. He has been wearing his compression stockings. He reports no episodes of syncope, no shortness of breath, chest pain, nausea, vomiting, or bowel changes. He notes more difficulty swallowing pills at times, but says he was evaluated for that. Otherwise he is able to eat and drink and no concern for swallowing or aspiration. No neck pain and has normal ROM. No tingling or numbness to extremities. Voiding normally. In the ED Head CT 07/07 No acute findings. Chest X-ray showed interstitial opacities in the dependent lower lungs, mild pulmonary edema vs pneumonia. Labs showed an elevated NT-pro-BNP 3430. WBC 3.5, H&H 11.8/36.8, UA negative for infection but showed microscopic hematuria. Viral panel negative. Neurology and Cardiology consulted. CTA showed very short-segment high-grade intracranial stenosis of the intradural segment of the left vertebral artery, pt currently on aspirin 81mg daily and Eliquis 5mg BID, no specific intervention needed at this time. MRI of showed chronic bilateral subdural hematoma, left more than right, chronic in nature. Patient is on apixaban due to underlying AFib. Surgical option for subdural hematoma discussed with patient, patient prefers no intervention at this time, verbalizes understanding of situation. Cardiology consulted regarding anticoagulation options given current hematoma and need for intervention regarding AFib. Cardiology okay with discontinuing anticoagulation at this time, but continuing low-dose aspirin. Cardiology also discussed long-term stroke risk is significant for the patient. They discussed with the patient left atrial appendage occluder procedure, such as a Watchman. This can be done in the outpatient setting. Patient is otherwise hemodynamically stable and will continue on his amiodarone, carvedilol, and low-dose aspirin. Gait instability likely related to finasteride use, would advise that the patient discuss this with his PCP but given urinary retention issues, he may still continue to need long-term treatment. Patient is otherwise cleared from a neurologist and reversal print inspector standpoint. Patient expresses extreme desire to be discharged at this time. He really no longer requires any inpatient workup at this time and can be discharged home with appropriate follow-up with his reversal print inspector and PCP. Status at Discharge Functional status at discharge: independent ambulation Overall status at discharge: patient is back to baseline Time Spent with Patient Time attestation: Total time spent providing and/or coordinating discharge services:35 Exam Narrative: General - Awake and alert. No acute distress Eyes - PERRLA, EOM intact ENT - No thrush, No erythema Neck - No noticeable or palpable swelling Lymph Nodes - No lymphadenopathy Cardiovascular - RRR no m/r/g, no JVD Lungs: Clear to auscultation, No wheezing, use of accessory muscles, no crackles Skin - Skin warm and dry, no wounds or rashes Abdomen - Normal bowel sounds, abdomen soft and nontender Extremities - No edema, cyanosis or clubbing Musculoskeletal - 5/5 strength, normal range of motion, no erythematous joints. Neurological ? Alert and oriented x 3, CN 2-12 grossly intact. Exam nonfocal Psych: Normal mood and affect Discharge Plan Discharge Attending physician on discharge: Edu Jean Baptiste Consulting providers: Vladimir Rojas; Timoteo Warren Discharging Clinician: Edu Jean Baptiste Anticipated Discharge Date/Time: 07/09/24 12:57 Patient Disposition: Home Activity: as tolerated Diet: as tolerated Discharge Instructions: Take all medications as prescribed even if feeling better. Stop taking the Eliquis, continue the Aspirin. Eat well balanced meals and stay hydrated Follow-up with cardiology in 1-2 weeks Change positions slowly taking a break in between each position change If you should experience any chest pain, shortness of breath, temps >100.4 or any other worrisome symptoms please follow up with your PCP come back to the hospital Follow up with your primary care physician in 1 weeks It has been a pleasure taking care of you thank you for using our services Patient Instructions: Antibiotic Form, Apixaban (By mouth) Patient Language: Azeri Stand Alone Forms: General Discharge Information Follow-up/Referrals: Davey De Luna MD [Physician] - Wallace Beltre MD [Primary Care Provider] - Discharge Medications: Continued aspirin 81 mg tablet,delayed release (DR/EC) 81 mg PO DAILY Patient Comments: reversal print inspector finasteride 5 mg tablet 5 mg PO DAILY omeprazole 20 mg capsule,delayed release(DR/EC) 20 mg PO DAILY Qty: 90 1RF atorvastatin 40 mg tablet 40 mg PO QHS cholecalciferol (vitamin D3) 125 mcg (5,000 unit) tablet 125 mcg PO DAILY amiodarone 100 mg tablet 100 mg PO DAILY multivit with min-folic acid 0.4 mg Tablet 1 tablet PO DAILY carvedilol 6.25 mg tablet 6.25 mg PO Q12H Qty: 180 1RF Rx Instructions: must administer with a meal/food Discontinued Eliquis 5 mg tablet 5 mg PO BID Date of admission: 07/08/24 07:21 Primary Care Provider: Wallace Beltre Admitting Provider: Kay Redding Attending physician on admission: Edu Jean Baptiste Condition: Stable Quality VTE Prophylaxis VTE prophylaxis: pharmacologic ordered
== END 2024-07-09 14:30 | disposition home health service (06) | DRG 91 ==
LOC: ANHED 21:53 → ANH2MED 22:29
PROVIDERS: Emergency Medicine; Nurse Practitioner Acute Care; Admitting Provider Internal Medicine; Emergency Provider Physician Assistant; PCP Family Medicine; Visit Provider Physician Assistant
DX: R26.89 Other abnormalities of gait and mobility (principal); I62.02 Nontraumatic subacute subdural hemorrhage; I62.03 Nontraumatic chronic subdural hemorrhage; T50.995A Adverse effect of other drugs, medicaments and biological substances, initial encounter; I65.02 Occlusion and stenosis of left vertebral artery; R42 Dizziness and giddiness; I71.21 Aneurysm of the ascending aorta, without rupture; I11.0 Hypertensive heart disease with heart failure; I50.9 Heart failure, unspecified; I48.0 Paroxysmal atrial fibrillation; K21.9 Gastro-esophageal reflux disease without esophagitis; R33.9 Retention of urine, unspecified; N40.0 Benign prostatic hyperplasia without lower urinary tract symptoms; E04.1 Nontoxic single thyroid nodule; R13.19 Other dysphagia; R73.03 Prediabetes; H35.30 Unspecified macular degeneration; M47.816 Spondylosis without myelopathy or radiculopathy, lumbar region; I44.7 Left bundle-branch block, unspecified; Z86.73 Personal history of transient ischemic attack (TIA), and cerebral infarction without residual deficits; Z79.01 Long term (current) use of anticoagulants; Z86.16 Personal history of COVID-19; Z86.711 Personal history of pulmonary embolism
CPT/HCPCS: 36415; 70450; 70496; 70498; 70553; 71046; 80053; 81001; 82607; 83735; 83880; 84443; 84484; 85025; 87637; 92610; 93005; 96360; 99285; A9270; A9579; G0378; J7030; Q9967

== ENCOUNTER 2024-11-20 11:47 | Outpatient (CLI) | payer OTHER, SELFPAY ==
--- OUTSIDE RECORDS SUMMARY | 2009-03-17 03:30 | XMS_ITS | Continuity of Care Document ---
Author Organization [facility] [address] [place] [address] Phone Care Team Providers Care Camp Advisor Name Role Phone Sedrick Degroot Unavailable Unavailable Procedures Procedure Date Eye Exam & Treatment Refraction Eye Exam & Treatment No Script Office/outpatient Visit, Est Eye Exam & Treatment Advance Directives Directive Yes / No Effective Date File Name No Information Encounters Encounter Description Practice Location Reason(s) For Visit Diagnoses Date Provider Providers Copied on Encounter [facility], [address] [place] [address] [address], [place], [place], [id number], [place] tel:[phone] [facility] No Information 201 0 Zane Dubose. [address], [place], [address], [place]. tel:[phone] [facility], [address] [place] [address] [address], [place], [place], [id number], [place] tel:[phone] [facility] No Information 9 Zane Dubose. [address] , [address], [place], [address], [place]. tel:[phone] Office/outpat ient Visit, Est [facility], [address], [place], [place], [id number], [place] tel:[phone] [facility] No Information 1200 8 Doikeyla Edhallie. [address] , [address], [place], [address], [place]. tel:[phone] [facility], [address], [place], [place], [id number], [place] tel:[phone] [facility] No Information 0-200 7 Zane Dubose. [address] , [address], [place], [address], [place]. tel:[phone] Family History Family Member Type Diagnosis Age At Onset No Information Payers Payer name Insurance type Covered democrat ID Authoriza tion(s) [place] [id number] BCBS [place] Commercial [place] [id number] Social History Type Description Quantity Date Captured Comments Sex Male Smoking Status No Information Chief Complaint And Reason For Visit No Information Reason For Referral Reason For Referral No Information History Of Present Illness Encounter Date Complaint History Of Prese nt Illness No Information Functional Status Date Functional Assessmen t No Information Instructions Date Instruction Additional Infor mation No Information Assessments Type Assessment Date No Information Patient Care Teams Name Effective Dates (start - stop) Status Members No Information
--- OUTSIDE RECORDS SUMMARY | 2024-11-20 12:02 | XMS_ITS | Clinical Summary ---
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 Name Role Phone Kaitlin Beltre MD Primary [...] (Adult) (1 - 1-dose 75+ series) 09/23/2010 SARS-COV-2 Immunization ( season) 2023 Influenza Immunization (#1) 2024 Hepatitis B Immunization Aged Out No longer eligible based on patient's age to complete this topic Human Papillomavirus (HPV) Immunization Aged Out No longer eligible b ased on patient's age to complete this topic Meningococcal Immunization (ACWY) Aged Out No longer eligible based on patient's age to complete this topic Rotavirus Immunization Aged Out No lo nger eligible based on patient's age to complete [place] [address] MEDICARE C [employer] Care Teams Metal Punch Press Operator Relationship Specialty Start Date End Date Kaitlin Beltre MD [address] [place] [address] PCP - General Family Medicine 08/04/22
--- OUTSIDE RECORDS SUMMARY | 2024-11-20 12:02 | XMS_ITS | Clinical Summary ---
Author Organization [facility] [place] [address] Address [address] [place] [address] Care Team Providers Care Assistant County Attorney Name Role Phone Kaitlin Belrte MD Primary Care Provider Allergies No known [...] A DAY WITH MEALS 180 tablet 2 12/26/2021 Active omeprazole (PriLOSEC) 40 mg capsule Take 1 capsule (40 mg total) by mouth daily Active amiodarone (PACERONE) 100 mg tablet TAKE 1 TABLET BY MOUTH EVERY DAY 90 tablet 3 07/30/2024 Active atorvastatin (LIPITOR) 40 mg tablet TAKE 1 TABLET BY MOUTH EVERY DAY 90 tablet 2 09/08/2024 Active Active Problems Problem Noted Date Diagnosed [...] infarction At risk for amiodarone toxicity with fpc u se 10/01/2014 Overview (05/25/2016): At risk for amiodarone toxicity with buttermaker use Pure hypercholesterolemia 03/17/2014 Overview (05/25/2016): Pure hypercholesterolemia Atrial fibrillation 03/17/2014 Overview (05/25/2016): Atrial fibrillation Resolved Problems Problem Noted Date Diagnosed Date Resolved Date Hx of CABG 12/07/2016 07/03/2019 Paroxysmal atrial fibrillation 08/09/2015 02/10/2020 Overview (05/25/2016): Paroxysmal atrial fibrillation Coronary artery disease 04/06/2015 0505/2019 Overview (05/25/2016): Coronary artery disease involving burns [place] coronary artery of burns [place] heart without angina pectoris Chronic ischemic heart disease 03/17/2014 04/12/2023 Overview (05/25/2016): Chronic ischemic heart disease Old myocardial infarction 03/17/2014 Overview (05/25/2016): Old myocardial infarction Encounters Date Type Department Care Team Description 10/24/2024 2:45 PM CDT Office Visit [facility] [address] [place] [address] Davey De Luna MD Chronic atrial fibrillation (HCC) (Primary Dx); LBBB (left bundle branch block) 09/11/2024 8:30 AM CDT Office Visit [facility] [address] [place] [phone] Keri Talley NP Left leg numbness (Primary Dx) 09/10/2024 Telephone [facility] [address] [place] [address] Davey De Luna MD from Last 3 Months Medical History Medical [...] on file 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 Gender Identity Not on file Sexual Orientation Not on file Obstetrics History Last Filed Vital Signs Vital Sign Reading Time Taken Comments Blood Pressure 120/60 10/24/2024 2:50 PM CDT Pulse 73 10/24/2024 2:50 PM CDT Temperature 36.1 C (96.9 F) 07/03/2019 9:43 AM CDT Respiratory Rate 16 08/10/2020 10:12 AM CDT Oxygen Saturation 94% 09/11/2024 8:38 AM CDT Inhaled Oxygen Concentration - - Weight 66.3 kg (146 lb 1.6 oz) 10/24/2024 2:50 P M CDT Height 167.6 cm (5' 6) 10/24/2024 2:50 PM CDT Body Mass Index 23.58 10/24/2024 2:50 PM CDT Plan of Treatment Health Maintenance Due Date Last Done Comments Depression Screening 1935 Fall Risk Assessment 1935 Hepatitis B Screening 09/23/1953 Pneumococcal vaccine 65+ (1 of 2 - PCV) 09/23/1954 Well Visit 65+ 09/23/2000 Influenza Vaccine (#1) 2024 12/06/2023 DTaP/Tdap/Td Vaccine (2 - Td or Tdap) 12/31/203201/2023, 06/03/2016 Zoster Vaccine Completed 04/20/2023, 02/10/[address] [place] [address] [facility] [place] [address] [facility] Care Teams Assistant County Attorney Relationship Specialty Start Date End Date Kaitlin Beltre MD PCP - General Family Practice 08/15/22
--- OUTSIDE RECORDS SUMMARY | 2024-11-20 12:02 | XMS_ITS | Clinical Summary ---
Author Organization [facility] Address [address] [place] [address] Care Team Providers Care Chrome Cleaner Name Role Phone None, Provider MD Primary [...] Date Syncope 02/16/2019 Acute systolic heart failure ([facility]) 0 04/23/2018 LBBB (left bundle branch block) 04/23/2018 Aortic regurgitation 12/07/2016 Hx of CABG 12/07/2016 Aortic root dilatation 08/09/2015 Overview (02/17/2019): Overview: Aortic root dilatation Benign hypertension 08/09/2015 Overview (02/17/2019): Overview: HTN (hypertension), benign Paroxysmal atrial fibrillation ([facility] HHS/HCC) 08/09/2015 Overview (02/17/2019): Overview: Atrial fibrillation, chronic Overview: Atrial fibrillation Overview: Chronic ischemic heart disease Overview: Paroxysmal atrial fibrillation Pulmonary hypertension ([facility]) 016 Overview (02/17/2019): Overview: Pulmonary HTN Atherosclerosis of coronary artery 04/06/2015 Overview (02/17/2019): Overview: Coronary artery disease involving [place] coronary artery of [place] heart without angina pectoris Cardiomyopathy ([facility]) 04/06/2015 Overview (02/17/2019): Overview: Cardiomyopathy Chronic anticoagulation 04/06/2015 Overview (02/17/2019): Overview: Chronic anticoagulation Dyslipidemia 04/06/2015 Overview (02/17/2019): Overview: Dyslipidemia History of myocardial infarction 04/06/2015 Overview (02/17/2019): Overview: H/O acute myocardial infarction At risk for amiodarone toxicity with intermodal dispatcher u se 10/01/2014 Overview (02/17/2019): Overview: At risk for amiodarone toxicity with intermodal dispatcher use Pure hypercholesterolemia 03/17/2014 Overview (02/17/2019): Overview: [...] on file Legal Sex Male 4:53 PM CASTING WHEEL OPERATOR HELPER Gender Identity Not on file Sexual Orientation Not on file Last Filed Vital Signs Vital Sign Reading Time Taken Comments Blood Pressure 108/52 02/17/2019 11:11 AM CASTING WHEEL OPERATOR HELPER Pulse 65 02/17/2019 11:11 AM CASTING WHEEL OPERATOR HELPER Temperature 36 C (96.8 F) 02/17/2019 11:11 AM CASTING WHEEL OPERATOR HELPER Respiratory Rate 20 02/17/2019 11:1 1 AM CASTING WHEEL OPERATOR HELPER Oxygen Saturation 99% 02/17/2019 11: 11 AM CASTING WHEEL OPERATOR HELPER Inhaled Oxygen Concentration - - Weight 74.3 kg (163 lb 12.8 oz) 02/17/2019 3:00 AM CASTING WHEEL OPERATOR HELPER Height 167.6 cm (5' 6) 02/16/2019 4:56 PM CASTING WHEEL OPERATOR HELPER Body Mass Index 26.44 02/16/2019 4:56 PM CASTING WHEEL OPERATOR HELPER Plan of Treatment Health Maintenance Due Date [...] COVID-19 Vaccine (1 - 2023-2 5 season) 2024 Meningococcal B Vaccine Aged Out No l [...] Progress Patient-Stated? Author [facility] No Tanisha Montiel RN Procedures Procedure Name Priority Date/Time Associated Diagnosis Comments LIPID PANEL Routine 02/17/2019 2:59 AM CASTING WHEEL OPERATOR HELPER from Last 3 Months or Most Recently Relevant to Health Maintenance Results * LIPID PANEL (02/17/2019 2:59 AM CASTING WHEEL OPERATOR HELPER) CHOLESTEROL 124 <200.0 MG/DL 02/17/2019 8:30 AM CASTING WHEEL OPERATOR HELPER [facility] TRIGLYCERIDES 33 <150 MG/DL 02/17/2019 8:30 AM CASTING WHEEL OPERATOR HELPER [facility] HDL 41 >40.0 MG/DL 02/17/2019 8:30 AM [facility] LDL (CALCULATED) 76 <100 MG/DL 02/18/20 19 8:30 AM [facility] NON HDL CHOLESTEROL 83 <130 MG/DL 02/17 8:30 AM [facility] CHOL/HDL RATIO 3.0 0.0 - 4.5 02/17/2019 8:30 AM [facility] VLDL CALCULATION 7 5 - 55 MG/DL 02/17/2019 8:30 AM [facility] LIPID INTERPRETATION 02/17/2019 8:30 AM [facility] Comment: NIH CONCENSUS REPORT RECOMMENDATIONS: ADULT CHILD LOW RISK: CHOLESTEROL <200 <170 TRIGLYCERIDE <150 --- HDL >=60 --- LDL <100 <110 BORDERLINE: CHOLESTEROL 200-239 170-199 TRIGLYCERIDE 150-199 --- HDL 40-59 --- LDL 100-159 110-129 HIGH RISK: CHOLESTEROL >=240 >=200 TRIGLYCERIDE >=200 --- HDL <40 --- LDL >=160 >=130 02/17/2019 2:59 AM CASTING WHEEL OPERATOR HELPER Gigi Vargas APRN LABORATORY Final Result Performing Organization Address City/State/[facility] Co de Phone Number [facility] [address] [place] [address], from Last 3 Months or Most Recently Relevant to Health Maintenance Insurance ESSENCE ESSENCE Advance Directives * DNR (Latest Code Status on File) Date Activated Date Inactivated Comments 02/16/2019 8:11 PM 02/17/2019 6:06 PM Care Teams Chrome Cleaner Relationship Specialty Start Date End Date None, Provider, PCP - General 02/16/19
--- OUTSIDE RECORDS SUMMARY | 2024-11-20 12:02 | XMS_ITS | Encounter Summary ---
Author Organization [facility] Healthcare Address [address] [place] [address] Care Team Providers Care Contract Mail Carrier Name Role Phone Kaitlin Beltre MD Primary Care Provider Encounter Details Date Type Department Care Team (Late st Contact Info) Description 07/07/2024 [place] [facility] [place] Information Management [address] [place] [id number] Scanning, Provider Social History Tobacco Use Types Packs/Day Years Used Date Smoking Tobacco: Never Smokeless Tobacco: Never Alcohol Use Standard Drinks/Week Comments No 0 (1 standard drink = 0.6 oz pur e alcohol) Sex and Gender Information Value Date Recorded Sex Assigned at Not on file Legal Sex Male 7:30 PM EDITORIAL INTERN Gender Identity Not on file Sexual Orientation Not on file documented as of this encounter Plan of Treatment Not on file documented as of this encounter Procedures Procedure Name Priority Date/Time Associated Diagnosis Comments SCAN - RADIOLOGY/IMAGING 07/07/2024 documented in this encounter Results * SCAN - RADIOLOGY/IMAGING (07/07/2024) Anatomical Region Laterality Modality Other us Provider Scanning Final Result documented in this encounter Visit Diagnoses Not on filedocumented in this encounter Care Teams Contract Mail Carrier Relationship Specialty Start Date End Date Kaitlin Beltre MD PCP - General Family Practice 08/15/22 documented as of this encounter
--- OUTSIDE RECORDS SUMMARY | 2024-11-20 12:02 | XMS_ITS | Encounter Summary ---
Author Organization [facility] Healthcare Address [address] [place] [address] Care Team Providers Care Gun Synchronizer Name Role Phone Kaitlin Beltre MD Primary Care Provider Encounter Details Date Type Department Care Team (Late st Contact Info) Description 03/12/[address] [facility] [place] Health Information Management [address] [place] [address] Anabel Palmer MD [address] [place] [address] Social History Tobacco Use Types Packs/Day Years Used Date Smoking Tobacco: Never Smokeless Tobacco: Never Alcohol Use Standard Drinks/Week Comments No 0 (1 standard drink = 0.6 oz pur e alcohol) Sex and Gender Information Value Date Recorded Sex Assigned at Not on file Legal Sex Male 7:30 PM PROGRAM DIRECTOR SCOUTING Gender Identity Not on file Sexual Orientation [...] on filedocumented in this encounter Care Teams Gun Synchronizer Relationship Specialty Start Date End Date Kaitlin Beltre MD PCP - General Family Practice 08/15/22 documented as of this encounter
--- OUTSIDE RECORDS SUMMARY | 2024-11-20 12:02 | XMS_ITS | Encounter Summary ---
Author Organization [facility] Address [facility] [place] [address] Care Team Providers Care Commercial Driver'S License Driver Name Role Phone None, Provider Primary Care Provider Mansi dubon Encounter Details Date Type Department Care Team (Late st Contact Info) Description 02/18/2019 Hospital Follow-up Call [facility] Med/Surg [address] [place] [address] Kanchan Watkins RN Social History [...] on file Legal Sex Male 4:53 PM TRAINING CONSULTANT Gender Identity Not on file Sexual Orientation Not on file documented as of this encounter Functional Status * RETIRED Are you deaf or do you have serious difficulty hearing Answer Date of Assessment Author Status No 02/17/2019 2:34 PM TRAINING CONSULTANT Activ e * RETIRED Are you blind or do you have serious difficulty seeing, even when wearing glasses? Answer Date of Assessment Author Status No 02/17/2019 2:34 PM TRAINING CONSULTANT Activ e * Do you have serious difficulty walking or climbing stairs? Answer Date of Assessment Author Status No 02/17/2019 2:34 PM TRAINING CONSULTANT Beata Avila RN Active * Do you [...] on filedocumented in this encounter Care Teams Commercial Driver'S License Driver Relationship Specialty Start Date End Date None, Provider, PCP - General 02/16/19 documented as of this encounter
[2024-11-20 13:01] LABS: Hematocrit 41.1 % (42.0-52.0); Hemoglobin 13.3 g/dL (14.0-18.0); Immature Granulocyte Percent A 0.4 % (0-0.5); Lymphocytes Absolute Auto 1.58 K/mm3 (0.9-3.2); Mean Corpuscular HGB Conc 32.4 g/dl (32-36); Mean Corpuscular Hemoglobin 31.1 pg (26-34); Mean Corpuscular Volume 96.3 fl (80-100); Nucleated Red Blood Cells Absolute Auto 0.000 K/mm3 (0.0-0.012); Nucleated Red Blood Cells Perc 0.0 % (0.0-0.2); Platelet Count Result 195 k/mm3 (150-375); Red Blood Count 4.27 M/mm3 (4.6-6.20); White Blood Count 4.5 K/mm3 (4.5-10.0)
[2024-11-20 13:16] LABS: Iron 73 ug/dL (49-181)
[2024-11-20 13:30] LABS: Alanine Aminotransferase 36 U/L (6-50); Albumin Level 3.6 g/dL (3.5-5.1); Alkaline Phosphatase 70 U/L (38-126); Anion Gap 7 mmol/L (4-12); Aspartate Amino Transferase 56 U/L (17-59); Bilirubin,Total 1.0 mg/dL (0.2-1.3); Blood Urea Nitrogen 19 mg/dL (9-20); Calcium 9.7 mg/dL (8.4-10.2); Carbon Dioxide 25 mmol/L (22-30); Chloride 106 mmol/L (98-107); Cholesterol 150 mg/dL (0-200); Estimated Glomerular Filt Rate > 60; Glucose 87 mg/dL (65-110); HDL Direct 49 mg/dL; Potassium 4.1 mmol/L (3.4-5.0); Sodium 138 mmol/L (137-145); Total Protein 6.9 g/dL (6.3-8.2); Triglycerides 57 mg/dL (<150)
[2024-11-20 13:36] LABS: Percent Iron Saturation 26 % (20-50)
[2024-11-20 13:59] LABS: Thyroid Stimulating Hormone Reflex 2.460 uIU/mL (0.465-4.68)
[2024-11-20 14:09] LABS: Ferritin 46.20 ng/mL (11.1-264)
[2024-11-20 14:43] LABS: Vitamin B12 587.0 pg/mL (239-931)
[2024-11-20 17:58] LABS: Hemoglobin A1C 5.3 % (<5.7)
== END 2024-11-20 11:48 | disposition home or self-care (01) ==
PROVIDERS: PCP Family Medicine; Visit Provider Family Medicine
DX: D64.9 Anemia, unspecified (principal); I10 Essential (primary) hypertension; E78.5 Hyperlipidemia, unspecified; Z00.00 Encounter for general adult medical examination without abnormal findings; E55.9 Vitamin D deficiency, unspecified; R73.9 Hyperglycemia, unspecified
CPT/HCPCS: 36415; 80053; 80061; 82306; 82607; 82728; 82746; 83036; 83540; 83550; 84443; 85025

== ENCOUNTER 2025-01-20 14:32 | Emergency (ER) | payer OTHER, SELFPAY ==
--- NOTE | ~2025-01-20 | CT_ITS ---
EXAMINATION: CT lumbar spine wo con COMPARISON: None HISTORY: low back pain,intermittent paresthe; recent fall TECHNIQUE: Axial images were obtained through the spine without IV contrast. Coronal, sagittal reconstruction images were obtained from the axial views. CT scan performed using dose optimization techniques including the following automated exposure control; adjustment of mA and/or kV; use of iterative reconstruction technique. Automatic exposure control was used to reduce radiation dose. Permanent radiation dose record is archived to PACS. FINDINGS: Moderate loss of vertebral height throughout the right superior endplate fractures of L5, L4 L3 and L1 with remote compression fracture of T12 with loss of height approximately 50%. There is an acute superior endplate fracture of T11 with retropulsion measuring 3 mm. Severe loss of disc height at T11-12, T12-L1, L2-3, L3-4 and L5-S1 with moderate to severe canal and foraminal stenosis. Soft tissues demonstrates a complex lesion of the right kidney measuring 2 x 2 cm incompletely evaluated. Impression: Acute fracture of the superior endplate of T11. Incidental findings above Reviewed, dictated and finalized at location P. NG DIRECTOR Impression: Acute fracture of the superior endplate of T11. Incidental findings above
--- NOTE | ~2025-01-20 | CT_ITS ---
CT brain wo con HISTORY:fall Fri, struck head; poss anticoag? COMPARISON: None. TECHNIQUE: Axial images were obtained of the head without intravenous contrast. FINDINGS: No acute intracranial hemorrhage, mass effect or midline shift. No extra-axial fluid collections. There is generalized atrophy with chronic white matter microangiopathic changes.Visualized paranasal sinuses and mastoid air cells are clear. IMPRESSION: No acute intracranial hemorrhage or extra axial fluid collections. Generalized atrophy and chronic white matter microangiopathic changes. All CT scans at this facility are performed using low dose modulation techniques as appropriate to perform exam including the following: automated exposure control; use of iterative reconstruction technique; adjustment of the mA and/or kV according to patient size (this includes techniques or standardized protocols for targeted exams where dose is matched to indication/reason for exam). Reviewed, dictated and finalized at location S. TRICAL INSTALLATION SUPERVISOR IMPRESSION: No acute intracranial hemorrhage or extra axial fluid collections. Generalized atrophy and chronic white matter microangiopathic changes. All CT scans at this facility are performed using low dose modulation techniqu es as appropriate to perform exam including the following: automated exposure c ontrol; use of iterative reconstruction technique; adjustment of the mA and/or kV according to patient size (this includes techniques or standardized protocol s for targeted exams where dose is matched to indication/reason for exam).
--- NOTE | ~2025-01-20 | CT_ITS ---
CT cervical spine wo con HISTORY: fall fri struck head COMPARISON: None TECHNIQUE: Axial images of the cervical spine were obtained. Multiplanar reconstruction in the coronal, sagittal and axial reformats to evaluate for cervical fracture. FINDINGS: The images demonstrate no acute fracture or paravertebral soft tissue swelling. Diffuse degenerative changes with disc space narrowing and uncovertebral hypertrophy are noted. There are facet joint arthropathy present. No significant degenerative changes are noted. The visualized aspect of the upper lungs are clear. Right thyroid lobe nodule measures up to 1.7 x 2.7 cm. This could be follow-up with ultrasound. IMPRESSION: No acute fracture or subluxation. All CT scans at this facility are performed using low dose modulation techniques as appropriate to perform exam including the following: automated exposure control; adjustment of the mA and/or kV according to patient size (this includes techniques or standardized protocols for targeted exams where does is matched to indication/reason for exam; i.e. extremities or head); use of iterative reconstruction technique). Reviewed, dictated and finalized at location S. F READER IMPRESSION: No acute fracture or subluxation. All CT scans at this facility are performed using low dose modulation techniqu es as appropriate to perform exam including the following: automated exposure c ontrol; adjustment of the mA and/or kV according to patient size (this includes techniques or standardized protocols for targeted exams where does is matched to indication/reason for exam; i.e. extremities or head); use of iterative josh nstruction technique).
[2025-01-20 15:13] VITALS: BP 129/79; PULSE 88; RESP 22; O2SAT 94
--- OUTSIDE RECORDS SUMMARY | 2025-01-20 15:53 | XMS_ITS | Encounter Summary ---
Author Organization [facility] Address [facility] [place] [address] Care Team Providers Care Health Unit Clerk Name Role Phone None, Provider Primary Care Provider Mansi dubon Encounter Details Date Type Department Care Team (Late st Contact Info) Description 02/18/2019 Hospital Follow-up Call [facility] Med/Surg [address] [place] [address] Kanchan Watkins RN Social History [...] on file Legal Sex Male 4:53 PM TRIPLE AIR VALVE TESTER Gender Identity Not on file Sexual Orientation Not on file documented as of this encounter Functional Status * RETIRED Are you deaf or do you have serious difficulty hearing Answer Date of Assessment Author Status No 02/17/2019 2:34 PM TRIPLE AIR VALVE TESTER Activ e * RETIRED Are you blind or do you have serious difficulty seeing, even when wearing glasses? Answer Date of Assessment Author Status No 02/17/2019 2:34 PM TRIPLE AIR VALVE TESTER Activ e * Do you have serious difficulty walking or climbing stairs? Answer Date of Assessment Author Status No 02/17/2019 2:34 PM TRIPLE AIR VALVE TESTER Beata Avila RN Active * Do you [...] on filedocumented in this encounter Care Teams Health Unit Clerk Relationship Specialty Start Date End Date None, Provider, PCP - General 02/16/19 documented as of this encounter
--- OUTSIDE RECORDS SUMMARY | 2025-01-20 15:53 | XMS_ITS | Encounter Summary ---
Author Organization [facility] Healthcare Address [address] [place] [address] Care Team Providers Care Quick Print Operator Name Role Phone Kaitlin Beltre MD Primary Care Provider Encounter Details Date Type Department Care Team (Late st Contact Info) Description 07/07/2024 Orders Only [facility] [place] Health Information Management [address] [place] [id number] Scanning, Provider Social History Tobacco Use Types Packs/Day Years Used Date Smoking Tobacco: Never Smokeless Tobacco: Never Alcohol Use Standard Drinks/Week Comments No 0 (1 standard drink = 0.6 oz pur e alcohol) Sex and Gender Information Value Date Recorded Sex Assigned at Not on file Legal Sex Male 7:30 PM IMAGING MANAGER Gender Identity Not on file Sexual [...] on filedocumented in this encounter Care Teams Quick Print Operator Relationship Specialty Start Date End Date Kaitlin Beltre MD PCP - General Family Practice 08/15/22 documented as of this encounter
--- OUTSIDE RECORDS SUMMARY | 2025-01-20 15:53 | XMS_ITS | Clinical Summary ---
Author Organization [facility] [address] Address [address] [place] [address] Care Team Providers Care Imaging Analyst Name Role Phone Kaitlin Beltre MD Primary [...] infarction At risk for amiodarone toxicity with skilled nursing u se 10/01/2014 Overview (05/25/2016): At risk for amiodarone toxicity with terminal carman use Pure hypercholesterolemia 03/17/2014 Overview (05/25/2016): Pure hypercholesterolemia Atrial fibrillation 03/17/2014 Overview (05/25/2016): Atrial fibrillation Resolved Problems Problem Noted Date Diagnosed Date Resolved Date Hx of CABG 12/07/2016 07/03/2019 Paroxysmal atrial fibrillation 08/09/2015 02/10/2020 Overview (05/25/2016): Paroxysmal atrial fibrillation Coronary artery disease 04/06/2015 0505/2019 Overview (05/25/2016): Coronary artery disease involving [place] coronary artery of [place] heart without angina pectoris Chronic ischemic heart disease 03/17/2014 04/12/2023 Overview (05/25/2016): Chronic ischemic heart disease Old myocardial infarction 03/17/2014 Overview (05/25/2016): Old myocardial infarction Encounters Date Type Department Care Team Description 10/24/2024 2:45 PM CDT Office Visit [facility] Cardiology [address] [place] [address] Davey De Luna MD Chronic atrial fibrillation (HCC) (Primary Dx); LBBB (left bundle branch block) from Last 3 Months Medical History Medical [...] on file Legal Sex Male 7:30 PM EVS MANAGER Gender Identity Not on file Sexual [...] Zoster Vaccine Completed 04/20/2023, 02/10/[address] [place] [address] [facility] [place] [address] [facility] Care Teams Imaging Analyst Relationship Specialty Start Date End Date Kaitlin Beltre MD PCP - General Family Practice 08/15/22
--- OUTSIDE RECORDS SUMMARY | 2025-01-20 15:53 | XMS_ITS | Clinical Summary ---
Author Organization [facility] Address [address] [place] [address] Care Team Providers Care Radio Interference Expert Name Role Phone None, Provider MD Primary [...] Date Syncope 02/16/2019 Acute systolic heart failure 04/23/2018 LBBB (left bundle branch block) 04/23/2018 Aortic regurgitation 12/07/2016 Hx of CABG 12/07/2016 Aortic root dilatation 08/09/2015 Overview (02/17/2019): Overview: Aortic root dilatation Benign hypertension 08/09/2015 Overview (02/17/2019): Overview: HTN (hypertension), benign Paroxysmal atrial fibrillation 08/09/2015 Overview (02/17/2019): Overview: Atrial fibrillation, chronic Overview: Atrial fibrillation Overview: Chronic ischemic heart disease Overview: Paroxysmal atrial fibrillation Pulmonary hypertension 08/09/2015 Overview (02/17/2019): Overview: Pulmonary HTN Atherosclerosis of coronary artery 04/06/2015 Overview (02/17/2019): Overview: Coronary artery disease involving [place] coronary artery of [place] heart without angina pectoris Cardiomyopathy 04/06/2015 Overview (02/17/2019): Overview: Cardiomyopathy Chronic anticoagulation 04/06/2015 Overview (02/17/2019): Overview: Chronic anticoagulation Dyslipidemia 04/06/2015 Overview (02/17/2019): Overview: Dyslipidemia History of myocardial infarction 04/06/2015 Overview (02/17/2019): Overview: H/O acute myocardial infarction At risk for amiodarone toxicity with joint terminal attack controller u se 10/01/2014 Overview (02/17/2019): Overview: At risk for amiodarone toxicity with joint terminal attack controller use Pure hypercholesterolemia 03/17/2014 Overview (02/17/2019): Overview: [...] on file Legal Sex Male 4:53 PM PUPPET MAKER Gender Identity Not on file Sexual Orientation Not on file Last Filed Vital Signs Vital Sign Reading Time Taken Comments Blood Pressure 108/52 02/17/2019 11:11 AM PUPPET MAKER Pulse 65 02/17/2019 11:11 AM PUPPET MAKER Temperature 36 C (96.8 F) 02/17/2019 11:11 AM PUPPET MAKER Respiratory Rate 20 02/17/2019 11:1 1 AM PUPPET MAKER Oxygen Saturation 99% 02/17/2019 11: 11 AM PUPPET MAKER Inhaled Oxygen Concentration - - Weight 74.3 kg (163 lb 12.8 oz) 02/17/2019 3:00 AM PUPPET MAKER Height 167.6 cm (5' 6) 02/16/2019 4:56 PM PUPPET MAKER Body Mass Index 26.44 02/16/2019 4:56 PM PUPPET MAKER Plan of Treatment Health Maintenance Due Date [...] LDL 02/18/2020 02/17/2019 COVID-19 Vaccine ( - 2024-2 6 season) 2024 Influenza Adult (#1) 2024 Hepatitis A Vaccines Aged Out No long er eligible based on patient's age to complete this topic Meningococcal B Vaccine Aged Out No l [...] Progress Patient-Stated? Author [facility] No Tanisha Montiel expeditionary fighting vehicle crewman Procedure Name Priority Date/Time Associated Diagnosis Comments LIPID PANEL Routine 02/17/2019 2:59 AM PUPPET MAKER from Last 3 Months or Most Recently Relevant to Health Maintenance Results * LIPID PANEL (02/17/2019 2:59 AM PUPPET MAKER) CHOLESTEROL 124 <200.0 MG/DL 02/17/2019 8:30 AM PUPPET MAKER [facility] TRIGLYCERIDES 33 <150 MG/DL 02/17/2019 8:30 AM PUPPET MAKER [facility] HDL 41 >40.0 MG/DL 02/17/2019 8:30 AM [facility] LDL (CALCULATED) 76 <100 MG/DL 02/18/20 19 8:30 AM [facility] NON HDL CHOLESTEROL 83 <130 MG/DL 02/17 8:30 AM [facility] CHOL/HDL RATIO 3.0 0.0 - 4.5 02/17/2019 8:30 AM [facility] VLDL CALCULATION 7 5 - 55 MG/DL 02/17/2019 8:30 AM [facility] LIPID INTERPRETATION 02/17/2019 8:30 AM [facility] Comment: NIH CONCENSUS REPORT RECOMMENDATIONS: ADULT CHILD LOW RISK: CHOLESTEROL <200 <170 TRIGLYCERIDE <150 --- HDL >=60 --- LDL <100 <110 BORDERLINE: CHOLESTEROL 200-239 170-199 TRIGLYCERIDE 150-199 --- HDL 40-59 --- LDL 100-159 110-129 HIGH RISK: CHOLESTEROL >=240 >=200 TRIGLYCERIDE >=200 --- HDL <40 --- LDL >=160 >=130 02/17/2019 2:59 AM PUPPET MAKER Gigi Vargas APRN LABORATORY Final Result Performing Organization Address City/State/[facility] Co de Phone Number [facility] [address] [place] [address], from Last 3 Months or Most Recently Relevant to Health Maintenance Insurance ESSENCE HARESH [place]ORES [id number] ESSENCE Advance Directives * DNR (Latest Code Status on File) Date Activated Date Inactivated Comments 02/16/2019 8:11 PM 02/17/2019 6:06 PM Care Teams Radio Interference Expert Relationship Specialty Start Date End Date None, Provider, PCP - General 02/16/19
--- OUTSIDE RECORDS SUMMARY | 2025-01-20 15:53 | XMS_ITS | Encounter Summary ---
Author Organization [facility] Healthcare Address [address] [place] [address] Care Team Providers Care Sheet Metal Erector Name Role Phone Kaitlin Beltre MD Primary Care Provider Encounter Details Date Type Department Care Team (Late st Contact Info) Description 03/12/2024 Orders Only [facility] [place] Health Information Management [address] [place] [address] Anabel Palmer MD [address] [place] [address] Social History Tobacco Use Types Packs/Day Years Used Date Smoking Tobacco: Never Smokeless Tobacco: Never Alcohol Use Standard Drinks/Week Comments No 0 (1 standard drink = 0.6 oz pur e alcohol) Sex and Gender Information Value Date Recorded Sex Assigned at Not on file Legal Sex Male 7:30 PM HADOOP DEVELOPER Gender Identity Not on file Sexual [...] on filedocumented in this encounter Care Teams Sheet Metal Erector Relationship Specialty Start Date End Date Kaitlin Beltre MD PCP - General Family Practice 08/15/22 documented as of this encounter
--- OUTSIDE RECORDS SUMMARY | 2025-01-20 15:53 | XMS_ITS | Clinical Summary ---
Author Organization [facility] Address [address], [address] [address] Phone Care Team Providers Care Cloth Shrinking Machine Operator Name Role Phone Kaitlin Beltre MD [...] (Adult) (1 - 1-dose 75+ series) 09/23/2010 Medicare Initial AWV [id number] 02/19/2023 Influenza Immunization (#1) 2024 SARS-COV-2 Immunization ( season) 2024 Hepatitis B Immunization Aged Out No [...] patient's age to complete [place] [address] MEDICARE C ESSENCE Care Teams Cloth Shrinking Machine Operator Relationship Specialty Start Date End Date Kaitlin Beltre MD [address] [place] [address] [address] [place] [address] PCP - General Family Medicine 08/04/22
[2025-01-20 16:28] VITALS: BP 118/85; PULSE 97; RESP 17; TEMP 36.4; O2SAT 95
--- NOTE | 2025-01-20 16:51 | ED.FALL ---
HPI - Fall General Chief Complaint: Fall Stated Complaint: fall on Sunday Time Seen by Provider: 01/20/25 14:51 Source: patient and family (daughter) Mode of arrival: ambulatory Limitations: no limitations History of Present Illness HPI Narrative: Patient presents with low back pain after he fell on Sunday. He is intermittently having left leg paresthesias, his entire leg will occasionally go numb, no particular part spared. He was with his at his 's daughter's house and there were several people in a hallway with 2 dogs. Amongst the small crowd he leaned against a door that was not latched and fell. He has taken only ibuprofen 200mg x2 (400mg). He is not on anticoagulation but does take 81mg ASA. He did not lose consciousness. No syncope. He hit his head on the floor but denies any pain. He ambulates on his own two feet but occasionally will use a cane as an assist device. Related Data Home Medications ?Medication ?Instructions ?Recorded ?Confirmed ?Last Taken ?Type aspirin 81 mg tablet,delayed 81 mg PO DAILY 06/18/19 10/30/24 07/07/24 History release multivitamin with minerals-folic 1 tablet PO DAILY 10/20/21 10/30/24 07/07/24 History acid 0.4 mg tablet amiodarone 100 mg tablet 100 mg PO DAILY 06/19/22 10/30/24 07/07/24 History atorvastatin 40 mg tablet 40 mg PO QHS 08/01/22 10/30/24 07/06/24 History finasteride 5 mg tablet 5 mg PO DAILY 08/01/22 10/30/24 07/07/24 History Allergies Allergy/AdvReac Type Severity Reaction Status Date / Time No Known Allergies Allergy Verified 01/20/25 15:35 [facility] Past Medical History Medical History 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, chronic Dizzinesses Chronic venous insufficiency of lower extremity Prediabetes Shingles Age 60 Cardiomyopathy GERD without esophagitis Esophageal dysmotility BPH (benign prostatic hyperplasia) Hematuria Low back pain Lumbar spondylosis Essential (primary) hypertension History of TIA (transient ischemic attack) Kidney stone COVID-19 (~04/2022) Congestive heart failure Atrial fibrillation Pulmonary embolism (~10/2021) Right lower lobe basilar segment pulmonary emboli Thyroid mass of unclear etiology BPH w/o urinary obs/LUTS Cerebrovascular accident (CVA) due to occlusion of right anterior cerebral artery Macular degeneration Surgical History Surgical History History of cardioversion (~03/2022) History of removal of pigmented skin lesion (Unknown) History of tonsillectomy (~1940) S/P extracapsular cataract extraction (~1979) Family History Family History Mother Family history of respiratory disorder, Onset Age: 78 Family history of Alzheimer's disease Patient's mother is Father Patient's father is Acute myocardial infarction Social History Social History Social History: The patient lives with his and she is a durable power energy attorney for healthcare. He has 3 biologic children and 2 step children. 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 He does not use alcohol marijuana or illicit drugs. Code status full code Smoking status: Never smoker Second hand tobacco smoke exposure: No Alcohol intake: never Drinks per week: 0 Substance use: never Substance use type: does not use Lack of Transportation: No Lack of Food: Never True Current Housing: I Do Not Have Housing Concerned About Future Housing: No Difficulty Paying Gas/Electric Bills: No Difficulty Paying for Meds: No Currently Unemployed: No Education: High School Diploma/GED Difficulty w/ Childcare or Family Care: No Living arrangements: with family Occupation/Education: retired Gender identity (if verbalized by the patient): Male Sexual Orientation (if Verbalized by the Patient): Straight or Heterosexual Spiritual care concerns: No Exam Const: General: healthy appearing, no acute distress and alert; No confusion, diaphoretic or ill appearing Nutritional Appearance: well nourished and not obese Limitations: no limitations HENMT: Face/Nose/Sinus: no epistaxis Face and sinus: normal facial exam Other: gross auditory acuity intact Eyes: Conjunctivae: conjunctivae normal Direct Ophthalmoscopy: no photophobia Other: non icteric Neck: Neck: normal visual inspection and no meningeal signs Resp: Effort & Inspection: normal respiratory effort, not labored and no use of accessory muscles Other: speaking in full sentences Cardio: Rate: regular rate, not bradycardic and not tachycardic GI: GI Palp: Yes Soft to palpation Other: not peritoneal Skin: General skin exam: normal color Neuro: General: patient oriented x3, moves all extremities, no meningeal signs and no focal motor deficits Speech: normal speech Other: sensation intact to gross touch throughout bilateral lower extremities Extrem: General: normal to inspection and no edema Other: full range of motion, demonstrates 5/5 strength with left leg hip flexion, knee flexion/extension, ankle dorsiflexion and plantarflexion Psych: Mental Status: mental status grossly normal Affect: normal affect, No Sad affect present and No Anxious affect present Attitude: cooperative Course Vital Signs Vital signs: Vital Signs Pulse Rate 88 01/20/25 15:13 Respiratory Rate 22 H 01/20/25 15:13 Blood Pressure 129/79 01/20/25 15:13 Pulse Oximetry 94 01/20/25 15:13 Temperature 97.6 F 01/20/25 16:28 Pulse Rate 97 01/20/25 16:28 Respiratory Rate 17 01/20/25 16:28 Blood Pressure 118/85 01/20/25 16:28 Pulse Oximetry 95 01/20/25 16:28 [facility] MDM Narrative Medical decision making narrative: Patient presents with low back pain and intermittent left leg paresthesias after a fall on Sunday. He also fell and hit his head at the time, not on anticoagulation. In the emergency department he is afebrile vital signs notable for mild tachypnea. CT as below. Patient states he believes he might be on anticoagulant. On the list he has with him only 81 mg aspirin is listed and nothing else on med list in EMR. However, given his age and concern for the T11 fracture being a distracting injury, CT brain and C spine ordered. Spoke with Dr Santillan, inventory control specialist neurosurgeon who recommends TLSO brace to be worn when out of bed (written DME Rx provided), narcotic pain medicine and muscle relaxer for breakthrough pain, and follow up in 6 weeks in clinic. Incidental findings from CT are included in Discharge instructions. Also prescribed other meds as part of multimodal pain regimen and [facility] Differential Diagnosis Differential Diagnosis: Differential diagnostic considerations for fall injuries include syncope, concussion with loss of consciousness, concussion without loss of consciousness, vertebral fracture, extremity fracture/dislocation.? Intracranial hemorrhage. Dislocation; Sprain/strain Imaging Data Radiologist's impression: ITS Impressions Lumbar Spine CT 01/20/25 16:07 Impression: Acute fracture of the superior endplate of T11. Incidental findings above Head CT 01/20/25 17:59 IMPRESSION: No acute intracranial hemorrhage or extra axial fluid collections. Generalized atrophy and chronic white matter microangiopathic changes. All CT scans at this facility are performed using low dose modulation techniques as appropriate to perform exam including the following: automated exposure control; use of iterative reconstruction technique; adjustment of the mA and/or kV according to patient size (this includes techniques or standardized protocols for targeted exams where dose is matched to indication/reason for exam). Cervical Spine CT 01/20/25 18:11 IMPRESSION: No acute fracture or subluxation. All CT scans at this facility are performed using low dose modulation techniques as appropriate to perform exam including the following: automated exposure control; adjustment of the mA and/or kV according to patient size (this includes techniques or standardized protocols for targeted exams where does is matched to indication/reason for exam; i.e. extremities or head); use of iterative reconstruction technique). Lumbar Spine Radiology full interpretation: Moderate loss of vertebral height throughout the right superior endplate fractures of L5, L4 L3 and L1 with remote compression fracture of T12 with loss of height approximately 50%. There is an acute superior endplate fracture of T11 with retropulsion measuring 3 mm. Severe loss of disc height at T11-12, T12-L1, L2-3, L3-4 and L5-S1 with moderate to severe canal and foraminal stenosis. Soft tissues demonstrates a complex lesion of the right kidney measuring 2 x 2 cm incompletely evaluated Additional information from CT C spine interpretation: Right thyroid lobe nodule measures up to 1.7 x 2.7 cm. This could be follow-up with ultrasound. Discharge Plan Discharge Clinical Impression: Fall, Closed fracture of T11 vertebra, Lesion of right [place] kidney, Right thyroid nodule Patient Disposition: Home Condition: Stable Instructions: Antibiotic Form, Narcotic Safety (ED), Fall Prevention for Older Adults (ED), Thoracolumbar Fracture (ED), Thyroid Nodules (ED) Additional Instructions: A written prescription for a TLSO brace has been provided. This can be obtained from [facility], for example, or other medical supply companies. Call and take the prescription with you or sometimes they deliver to certain locations. You are to wear this when you are up during the day. Acetaminophen/Tylenol (maximum 3000 mg per day) is safe to take with NSAIDs (ibuprofen/Motrin) for pain relief. For breakthrough pain a short course of narcotic medication and muscle relaxer have been prescribed as recommended by the neurosurgeon. It is very important that you use these medications cautiously as they can be sedating and therefore put you at increased risk of fall , for example in the middle of the night. Make sure you move slowly and carefully after taking them if you need to ambulate. Follow up with the neurosurgeon . Call to make an appointment, likely in approximately 6 weeks. You had incidental findings on your CT scan such as a kidney mass and a thyroid nodule. Your PCP can help you arrange the necessary outpatient follow up for these as needed. Return to the ED with any new or worsening or unmanaged symptoms. Return to the ER if you have increased pain in your back, you develop lower extremity weakness/numbness/paralysis, you have numbness or tingling in your private parts, or you are unable to control your ability to urinate/stool. 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 finasteride 5 mg tablet 5 mg PO DAILY atorvastatin 40 mg tablet 40 mg PO QHS terbinafine HCl 250 mg tablet 250 mg PO DAILY Qty: 90 0RF ciclopirox 8 % solution 1 applic topical QHS Qty: 6.6 1RF amiodarone 100 mg tablet 100 mg PO DAILY multivit with min-folic acid 0.4 mg Tablet 1 tablet PO DAILY carvedilol 6.25 mg tablet 6.25 mg PO Q12H Qty: 180 1RF Rx Instructions: must administer with a meal/food Follow-up/Referrals: [facility] [Other] Referral Note: Sandro Sesay MD [Physician, Neurosurgery] Wallace Beltre MD [Primary Care Provider, Family Practice] Time of Disposition: 18:35
--- OUTSIDE RECORDS SUMMARY | 2025-01-20 16:59 | XMS_ITS | Encounter Summary ---
Author Organization [facility] Healthcare Address [address] [place] [address] Care Team Providers Care Photo Engraver Name Role Phone Kaitlin Beltre MD Primary Care Provider Encounter Details Date Type Department Care Team (Late st Contact Info) Description 07/07/2024 Orders Only [facility] Health Information Management [address] [place] [id number] Scanning, Provider Social History Tobacco Use Types Packs/Day Years Used Date Smoking Tobacco: Never Smokeless Tobacco: Never Alcohol Use Standard Drinks/Week Comments No 0 (1 standard drink = 0.6 oz pur e alcohol) Sex and Gender Information Value Date Recorded Sex Assigned at Not on file Legal Sex Male 7:30 PM CLINIC 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
--- OUTSIDE RECORDS SUMMARY | 2025-01-20 16:59 | XMS_ITS | Clinical Summary ---
Author Organization [facility] [address] Address [address] [place] [address] Care Team Providers Care Trackwalker Name Role Phone Kaitlin Beltre MD Primary [...] infarction At risk for amiodarone toxicity with correction u se 10/01/2014 Overview (05/25/2016): At risk for amiodarone toxicity with terminal operations manager use Pure hypercholesterolemia 03/17/2014 Overview (05/25/2016): Pure hypercholesterolemia Atrial fibrillation 03/17/2014 Overview (05/25/2016): Atrial fibrillation Resolved Problems Problem Noted Date Diagnosed Date Resolved Date Hx of CABG 12/07/2016 07/03/2019 Paroxysmal atrial fibrillation 08/09/2015 02/10/2020 Overview (05/25/2016): Paroxysmal atrial fibrillation Coronary artery disease 04/06/2015 0505/2019 Overview (05/25/2016): Coronary artery disease involving [place] coronary artery of [place] heart without angina pectoris Chronic ischemic heart disease 03/17/2014 04/12/2023 Overview (05/25/2016): Chronic ischemic heart disease Old myocardial infarction 03/17/2014 Overview (05/25/2016): Old myocardial infarction Encounters Date Type Department Care Team Description 10/24/2024 2:45 PM CDT Office Visit [facility] [address] [place] [address] Davey De Luna MD Chronic [...] on file 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
--- OUTSIDE RECORDS SUMMARY | 2025-01-20 16:59 | XMS_ITS | Clinical Summary ---
Author Organization [facility] Address [address], [address] [address] Phone Care Team Providers Care Retail Link Analyst Name Role Phone Kaitlin Beltre MD [...] patient's age to complete [place] [address] MEDICARE C [employer] Care Teams Retail Link Analyst Relationship Specialty Start Date End Date Kaitlin Beltre MD [address] [place] [address] [address] [place] [address] PCP - General Family Medicine 08/04/22
--- OUTSIDE RECORDS SUMMARY | 2025-01-20 16:59 | XMS_ITS | Encounter Summary ---
Author Organization [facility] Address [facility] [place] [address] Care Team Providers Care Religious Education Coordinator Name Role Phone None, Provider Primary Care Provider Mansi dubon Encounter Details Date Type Department Care Team (Late st Contact Info) Description 02/18/2019 Hospital Follow-up Call [facility] Med/Surg [address] [place] [address] Kanchan Watkins RN Social History [...] on file Legal Sex Male 4:53 PM CONTROL CLERK Gender Identity Not on file Sexual Orientation Not on file documented as of this encounter Functional Status * RETIRED Are you deaf or do you have serious difficulty hearing Answer Date of Assessment Author Status No 02/17/2019 2:34 PM CONTROL CLERK Activ e * RETIRED Are you blind or do you have serious difficulty seeing, even when wearing glasses? Answer Date of Assessment Author Status No 02/17/2019 2:34 PM CONTROL CLERK Activ e * Do you have serious difficulty walking or climbing stairs? Answer Date of Assessment Author Status No 02/17/2019 2:34 PM CONTROL CLERK Beata Avila RN Active * Do you [...] on filedocumented in this encounter Care Teams Religious Education Coordinator Relationship Specialty Start Date End Date None, Provider, PCP - General 02/16/19 documented as of this encounter
--- OUTSIDE RECORDS SUMMARY | 2025-01-20 16:59 | XMS_ITS | Encounter Summary ---
Author Organization [facility] Healthcare Address [address] [place] [address] Care Team Providers Care Quality Audit Representative Name Role Phone Kaitlin Beltre MD Primary Care Provider Encounter Details Date Type Department Care Team (Late st Contact Info) Description 03/12/2024 Orders Only [facility] Health Information Management [address] [place] [address] Anabel Palmer MD [address] [place] [address] Social History Tobacco Use Types Packs/Day Years Used Date Smoking Tobacco: Never Smokeless Tobacco: Never Alcohol Use Standard Drinks/Week Comments No 0 (1 standard drink = 0.6 oz pur e alcohol) Sex and Gender Information Value Date Recorded Sex Assigned at Not on file 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
--- OUTSIDE RECORDS SUMMARY | 2025-01-20 16:59 | XMS_ITS | Clinical Summary ---
Author Organization [facility] Address [address] [place] [address] Care Team Providers Care Lithographic Stripper Name Role Phone None, Provider MD Primary [...] Overview (02/17/2019): Overview: Coronary artery disease involving crow coronary artery of crow heart without angina pectoris Cardiomyopathy 04/06/2015 Overview (02/17/2019): Overview: Cardiomyopathy Chronic anticoagulation 04/06/2015 Overview (02/17/2019): Overview: Chronic anticoagulation Dyslipidemia 04/06/2015 Overview (02/17/2019): Overview: Dyslipidemia History of myocardial infarction 04/06/2015 Overview (02/17/2019): Overview: H/O acute myocardial infarction At risk for amiodarone toxicity with meterman u se 10/01/2014 Overview (02/17/2019): Overview: At risk for amiodarone toxicity with meterman use Pure hypercholesterolemia 03/17/2014 Overview (02/17/2019): Overview: [...] on file Legal Sex Male 4:53 PM ROOF PANEL HANGER Gender Identity Not on file Sexual Orientation Not on file Last Filed Vital Signs Vital Sign Reading Time Taken Comments Blood Pressure 108/52 02/17/2019 11:11 AM ROOF PANEL HANGER Pulse 65 02/17/2019 11:11 AM ROOF PANEL HANGER Temperature 36 C (96.8 F) 02/17/2019 11:11 AM ROOF PANEL HANGER Respiratory Rate 20 02/17/2019 11:1 1 AM ROOF PANEL HANGER Oxygen Saturation 99% 02/17/2019 11: 11 AM ROOF PANEL HANGER Inhaled Oxygen Concentration - - Weight 74.3 kg (163 lb 12.8 oz) 02/17/2019 3:00 AM ROOF PANEL HANGER Height 167.6 cm (5' 6) 02/16/2019 4:56 PM ROOF PANEL HANGER Body Mass Index 26.44 02/16/2019 4:56 PM ROOF PANEL HANGER Plan of Treatment Health Maintenance Due Date [...] Progress Patient-Stated? Author HOME TO [facility]DEPENDENT [facility]IV[facility] No Tanisha Montiel crimp setter Procedure Name Priority Date/Time Associated Diagnosis Comments LIPID PANEL Routine 02/17/2019 2:59 AM ROOF PANEL HANGER from Last 3 Months or Most Recently Relevant to Health Maintenance Results * LIPID PANEL (02/17/2019 2:59 AM ROOF PANEL HANGER) CHOLESTEROL 124 <200.0 MG/DL 02/17/2019 8:30 AM ROOF PANEL HANGER [facility] TRIGLYCERIDES 33 <150 MG/DL 02/17/2019 8:30 AM ROOF PANEL HANGER [facility] HDL 41 >40.0 MG/DL 02/17/2019 8:30 AM [facility] LDL (CALCULATED) 76 <100 MG/DL 02/18/20 19 8:30 AM [facility] NON HDL CHOLESTEROL 83 <130 MG/DL 02/17 8:30 AM [facility] CHOL/HDL RATIO 3.0 0.0 - 4.5 02/17/2019 8:30 AM [facility] VLDL CALCULATION 7 5 - 55 MG/DL 02/17/2019 8:30 AM [facility] LIPID INTERPRETATION 02/17/2019 8:30 AM [facility] Comment: [facility] CONCENSUS REPORT RECOMMENDATIONS: ADULT CHILD LOW RISK: CHOLESTEROL <200 <170 TRIGLYCERIDE <150 --- HDL >=60 --- LDL <100 <110 BORDERLINE: CHOLESTEROL 200-239 170-199 TRIGLYCERIDE 150-199 --- HDL 40-59 --- LDL 100-159 110-129 HIGH RISK: CHOLESTEROL >=240 >=200 TRIGLYCERIDE >=200 --- HDL <40 --- LDL >=160 >=130 02/17/2019 2:59 AM ROOF PANEL HANGER Gigi Vargas APRN LABORATORY Final Result Performing Organization Address City/State/[facility] Co de Phone Number [facility] [address] [place] [address], from Last 3 Months or Most Recently Relevant to Health Maintenance Insurance [employer] [place] [id number] [employer] Advance Directives * DNR (Latest Code Status on File) Date Activated Date Inactivated Comments 02/16/2019 8:11 PM 02/17/2019 6:06 PM Care Teams Lithographic Stripper Relationship Specialty Start Date End Date None, Provider, PCP - General 02/16/19
[2025-01-20] MEDS: HYDROcodone/acetaminophen (*CRX) 5-325 MG TABLET 1 TAB PO (17:13)
[2025-01-20] MEDS: LIDOCAINE 5% PATCH 1 PATCH TRANSDERM (18:43)
[2025-01-20] MEDS: KETOROLAC 30 MG/ML VIAL (*BKC) 15 MG IM (18:44)
== END 2025-01-20 19:08 | disposition home or self-care (01) ==
PROVIDERS: Emergency Provider Student in an Organized Health Care Education/Training Program; PCP Family Medicine
DX: S22.088A Other fracture of T11-T12 vertebra, initial encounter for closed fracture (principal); N28.9 Disorder of kidney and ureter, unspecified; E04.1 Nontoxic single thyroid nodule; I50.9 Heart failure, unspecified; I11.0 Hypertensive heart disease with heart failure; I48.91 Unspecified atrial fibrillation; R73.03 Prediabetes; H35.30 Unspecified macular degeneration; N40.0 Benign prostatic hyperplasia without lower urinary tract symptoms; Z86.711 Personal history of pulmonary embolism; Z86.73 Personal history of transient ischemic attack (TIA), and cerebral infarction without residual deficits; Z87.442 Personal history of urinary calculi; Z86.16 Personal history of COVID-19; Z98.49 Cataract extraction status, unspecified eye; Z79.82 Long term (current) use of aspirin; W18.39XA Other fall on same level, initial encounter
CPT/HCPCS: 70450; 72125; 72131; 96372; 99284; A9270; J1885

== ENCOUNTER 2025-02-06 09:38 | Outpatient (CLI) | payer OTHER, SELFPAY ==
--- NOTE | ~2025-02-06 | US_ITS ---
US thyroid INDICATION: Nontoxic thyroid nodule TECHNIQUE: Real-time sonographic images of the thyroid gland were obtained. COMPARISON: Ultrasound dated 08/04/2022 and 07/14/2021 FINDINGS: The right thyroid lobe measures 3.9 x 2.9 x 1.8 cm. The left thyroid lobe measures 4.2 x 1.9 x 1.6 cm. Thyroid gland is diffusely heterogeneous with multiple masses some which have a benign cystic appearance and some solid. Largest dominant mass in the right lobe measures 2.2 x 1.9 x 1.5 cm and is taller than wide, hypoechoic, solid, no echogenic foci and smoothly marginated. Size is not significantly changed compared with prior examination, TR 5.. In the left lobe there is a solid 11 mm mass which is taller than wide with punctate echogenic foci measuring 11 x 11 x 8 mm, TR 5. These masses are not significantly changed from prior examination allowing for differences of technique. Normal vascular flow is present. IMPRESSION: 1. Stable bilateral thyroid masses without significant change in size compared with prior examinations. Findings compatible with multinodular goiter. Follow-up ultrasound in 12 months recommended. Reviewed, dictated and finalized at location O. DENTIAL DOOR INSTALLER IMPRESSION: 1. Stable bilateral thyroid masses without significant change in size compared with prior examinations. Findings compatible with multinodular goiter. Follow- up ultrasound in 12 months recommended.
--- NOTE | ~2025-02-06 | US_ITS ---
EXAMINATION: US renal BI DATE: 02/06/2025 12:16 INDICATION: Disorder of kidney and ureter TECHNIQUE: Multiple ultrasound grayscale images of the kidneys were obtained. COMPARISON: CT dated 06/30/2015 FINDINGS: The right kidney measures 12.2 x 6.7 x 4.7 cm. The left kidney measures 11.4 x 5.5 x 4.5 cm. There is bilateral diffuse increased renal cortical echogenicity consistent with medical renal disease. Bilateral anechoic exophytic renal cysts measuring 2.5 cm on the left and 2.1 cm on the right. There is no hydronephrosis in either kidney. No stones identified. There is mild wall thickening of the bladder with trabeculated mucosal surface suggestive of sequela of chronic outlet obstruction. IMPRESSION: 1. Bilateral diffuse increased renal cortical echogenicity consistent with medical renal disease. No hydronephrosis. 2. Mild diffuse bladder wall thickening with trabeculated mucosal surface consistent with sequela of chronic outlet obstruction or potentially secondary to the prostatomegaly evident on prior CT. Reviewed, dictated and finalized at location A. ORATE RESPONSIBILITY OFFICER IMPRESSION: 1. Bilateral diffuse increased renal cortical echogenicity consistent with med ical renal disease. No hydronephrosis. 2. Mild diffuse bladder wall thickening with trabeculated mucosal surface consi stent with sequela of chronic outlet obstruction or potentially secondary to th e prostatomegaly evident on prior CT.
--- OUTSIDE RECORDS SUMMARY | 2025-02-06 10:00 | XMS_ITS | Encounter Summary ---
Author Organization [facility] Healthcare Address [address] [place] [address] Care Team Providers Care Inbound Sales Advisor Name Role Phone Kaitlin Beltre MD Primary Care Provider Encounter Details Date Type Department Care Team (Late st Contact Info) Description 03/12/2024 Orders Only [facility] [place] Health Information Management [address] [place] [address] Anabel Palmer MD [address] [place] [address] Social History Tobacco Use Types Packs/Day Years Used Date Smoking Tobacco: Never Smokeless Tobacco: Never Alcohol Use Standard Drinks/Week Comments No 0 (1 standard drink = 0.6 oz pur e alcohol) Sex and Gender Information Value Date Recorded Sex Assigned at Not on file 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
--- OUTSIDE RECORDS SUMMARY | 2025-02-06 10:00 | XMS_ITS | Encounter Summary ---
Author Organization [facility] Healthcare Address [address] [place] [address] Care Team Providers Care Court Administrator Name Role Phone Kaitlin Beltre MD Primary Care Provider Encounter Details Date Type Department Care Team (Late st Contact Info) Description 07/07/2024 Orders Only [facility] Health Information Management [address] [place] [id number] Scanning, Provider Social History Tobacco Use Types Packs/Day Years Used Date Smoking Tobacco: Never Smokeless Tobacco: Never Alcohol Use Standard Drinks/Week Comments No 0 (1 standard drink = 0.6 oz pur e alcohol) Sex and Gender Information Value Date Recorded Sex Assigned at Not on file 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
--- OUTSIDE RECORDS SUMMARY | 2025-02-06 10:00 | XMS_ITS | Encounter Summary ---
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 Answer Date of Assessment Author Status No 02/17/2019 2:34 PM GAME ARTIST Activ e * Do you have serious difficulty walking or climbing stairs? Answer Date of Assessment Author Status No 02/17/2019 2:34 PM GAME ARTIST Beata Avila RN Active * Do you [...] on filedocumented in this encounter Care Teams Gradall Operator Relationship Specialty Start Date End Date None, Provider, PCP - General 02/16/19 documented as of this encounter
--- OUTSIDE RECORDS SUMMARY | 2025-02-06 10:00 | XMS_ITS | Clinical Summary ---
Author Organization [employer] [facility] lin Address [address] [place] [address] Care Team Providers Care Organ Pipe Finisher Name Role Phone Unavailable Primary Care Provider Unavailabl e Social History Tobacco Use Types Packs/Day Years Used Date Smoking Tobacco: Never Assessed Sex and Gender Information Value Date Recorded Sex Assigned at Not on file Legal Sex Male 12:35 PM EDT Gender Identity Not on file Sexual Orientation Not on file Plan of Treatment Not on file Medical Devices Not on file
--- OUTSIDE RECORDS SUMMARY | 2025-02-06 10:00 | XMS_ITS | Clinical Summary ---
Author Organization [facility] Address [address], [address] [address] Phone Care Team Providers Care Records Management Coordinator Name Role Phone Kaitlin Beltre MD [...] patient's age to complete [place] [address] MEDICARE C [employer] Care Teams Records Management Coordinator Relationship Specialty Start Date End Date Kaitlin Beltre MD [address] [place] [address] [address] [place] [address] PCP - General Family Medicine 08/04/22
--- OUTSIDE RECORDS SUMMARY | 2025-02-06 10:00 | XMS_ITS | Clinical Summary ---
Author Organization [facility] Address [address] [place] [address] Care Team Providers Care Screen Writer Name Role Phone None, Provider MD Primary [...] Overview (02/17/2019): Overview: Coronary artery disease involving [place] coronary artery of [place] heart without angina pectoris Cardiomyopathy 04/06/2015 Overview (02/17/2019): Overview: Cardiomyopathy Chronic anticoagulation 04/06/2015 Overview (02/17/2019): Overview: Chronic anticoagulation Dyslipidemia 04/06/2015 Overview (02/17/2019): Overview: Dyslipidemia History of myocardial infarction 04/06/2015 Overview (02/17/2019): Overview: H/O acute myocardial infarction At risk for amiodarone toxicity with [place] u se 10/01/2014 Overview (02/17/2019): Overview: At risk for amiodarone toxicity with [place] use Pure hypercholesterolemia 03/17/2014 Overview (02/17/2019): Overview: [...] on file Legal Sex Male 4:53 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 Gender Identity Not on file Sexual Orientation Not on file Last Filed Vital Signs Vital Sign Reading Time Taken Comments Blood Pressure 108/52 02/17/2019 11:11 AM LEAD CAREGIVER Pulse 65 02/17/2019 11:11 AM LEAD CAREGIVER Temperature 36 C (96.8 F) 02/17/2019 11:11 AM LEAD CAREGIVER Respiratory Rate 20 02/17/2019 11:1 1 AM LEAD CAREGIVER Oxygen Saturation 99% 02/17/2019 11: 11 AM LEAD CAREGIVER Inhaled Oxygen Concentration - - Weight 74.3 kg (163 lb 12.8 oz) 02/17/2019 3:00 AM LEAD CAREGIVER Height 167.6 cm (5' 6) 02/16/2019 4:56 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 Body Mass Index 26.44 02/16/2019 4:56 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 Plan of Treatment Health Maintenance Due Date [...] Progress Patient-Stated? Author [facility] No Tanisha Montiel value advisor Procedure Name Priority Date/Time Associated Diagnosis Comments LIPID PANEL Routine 02/17/2019 2:59 AM LEAD CAREGIVER from Last 3 Months or Most Recently Relevant to Health Maintenance Results * LIPID PANEL (02/17/2019 2:59 AM LEAD CAREGIVER) CHOLESTEROL 124 <200.0 MG/DL 02/17/2019 8:30 AM LEAD CAREGIVER [facility] TRIGLYCERIDES 33 <150 MG/DL 02/17/2019 8:30 AM LEAD CAREGIVER [facility] HDL 41 >40.0 MG/DL 02/17/2019 8:30 AM [facility] LDL (CALCULATED) 76 <100 MG/DL 02/18/20 19 8:30 AM [facility] NON HDL CHOLESTEROL 83 <130 MG/DL 02/17 8:30 AM [facility] CHOL/HDL RATIO 3.0 0.0 - 4.5 02/17/2019 8:30 AM [facility] VLDL CALCULATION 7 5 - 55 MG/DL 02/17/2019 8:30 AM [facility] LIPID INTERPRETATION 02/17/2019 8:30 AM [facility] Comment: [facility] CONCENSUS REPORT RECOMMENDATIONS: ADULT CHILD LOW RISK: CHOLESTEROL <200 <170 TRIGLYCERIDE <150 --- HDL >=60 --- LDL <100 <110 BORDERLINE: CHOLESTEROL 200-239 170-199 TRIGLYCERIDE 150-199 --- HDL 40-59 --- LDL 100-159 110-129 HIGH RISK: CHOLESTEROL >=240 >=200 TRIGLYCERIDE >=200 --- HDL <40 --- LDL >=160 >=130 02/17/2019 2:59 AM LEAD CAREGIVER Gigi Vargas APRN LABORATORY Final Result Performing Organization Address City/State/[facility] Co de Phone Number [facility] [address] [place] [address], from Last 3 Months or Most Recently Relevant to Health Maintenance Insurance [employer] [place] [id number] [employer] Advance Directives * DNR (Latest Code Status on File) Date Activated Date Inactivated Comments 02/16/2019 8:11 PM 02/17/2019 6:06 PM Care Teams Screen Writer Relationship Specialty Start Date End Date None, Provider, PCP - General 02/16/19
--- OUTSIDE RECORDS SUMMARY | 2025-02-06 10:00 | XMS_ITS | Clinical Summary ---
Author Organization [facility] [place] [address] Address [address] [place] [address] Care Team Providers Care Pad Extractor Tender Name Role Phone Kaitlin Beltre MD Primary [...] infarction At risk for amiodarone toxicity with terminal [place] u se 10/01/2014 Overview (05/25/2016): At risk for amiodarone toxicity with care home use Pure hypercholesterolemia 03/17/2014 Overview (05/25/2016): Pure hypercholesterolemia Atrial fibrillation 03/17/2014 Overview (05/25/2016): Atrial fibrillation Resolved Problems Problem Noted Date Diagnosed Date Resolved Date Hx of CABG 12/07/2016 07/03/2019 Paroxysmal atrial fibrillation 08/09/2015 02/10/2020 Overview (05/25/2016): Paroxysmal atrial fibrillation Coronary artery disease 04/06/201506/19 Overview (05/25/2016): Coronary artery disease involving [place] coronary artery of [place] heart without angina pectoris Chronic ischemic heart disease 03/17/2014 04/12/2023 Overview (05/25/2016): Chronic ischemic heart disease Old myocardial infarction 03/17/2014 Overview (05/25/2016): Old myocardial infarction Medical History Medical History Date Comments Hx [...] on file 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
== END 2025-02-06 09:39 | disposition home or self-care (01) ==
PROVIDERS: PCP Family Medicine; Visit Provider Family Medicine
DX: E04.2 Nontoxic multinodular goiter (principal); N28.9 Disorder of kidney and ureter, unspecified
CPT/HCPCS: 76536; 76770